=== PATIENT | female | born 1980 | race Caucasian/White ===

== ENCOUNTER 2021-02-03 12:58 | Emergency (ER) | payer MEDICAID, SELFPAY ==
[2021-02-03 13:02] VITALS: BP 166/78; PULSE 87; RESP 16; O2SAT 99; BMI 39.9
[2021-02-03 13:36] LABS: Glucose Urine UA NEG (NEG); Leukocyte Esterase Urine NEG (NEG); Nitrite Urine NEG (NEG); Specific Gravity - Urine >= 1.030 (1.005-1.025); Urine Blood NEG (NEG); Urine Ketones 5 MG/DL (NEG); Urine Protein NEG (NEG-TRACE)
[2021-02-03 13:43] LABS: Appearance Urine HAZY; Color Urine DARK YELLOW
[2021-02-03 13:46] LABS: UPreg QC Valid YES; Urine Pregnancy NEGATIVE (NEGATIVE)
[2021-02-03 14:12] LABS: MANUAL DIFF FLAG NO
[2021-02-03 14:14] LABS: Basophils Percent Auto 0.4 % (0-2); Eosinophils Absolute Auto 0.2 X10*3/uL (0.0-0.4); Hematocrit 48.9 % (37-47); Imm Gran Abs Auto 0.03 X10*3/uL (0.00-0.03); Imm Gran Pct Auto 0.4 % (0.0-0.4); Lymphocytes Percent Auto 23.6 % (20-40); Mean Corpuscular HGB Conc 34.8 g/dl (31.0-35.0); Mean Corpuscular Hemoglobin 33.1 pg (27.0-33.0); Mean Corpuscular Volume 95.1 fL (80-98); Mean Platelet Volume 11.5 fL (9.4-12.3); Monocytes Absolute Auto 0.8 X10*3/uL (0.1-1.2); Monocytes Percent Auto 9.1 % (2-11); Neutrophils Absolute Auto 5.4 X10*3/uL (2.0-8.3); Neutrophils Percent Auto 64.5 % (45-73); Platelet Count 203 X10*3/uL (160-400); Red Blood Count 5.14 X10*6/uL (4.20-5.50); Red Cell Distribution Width 13.2 % (11.0-16.0); White Blood Count 8.3 X10*3/uL (4.8-10.8)
[2021-02-03 14:35] LABS: Anion Gap 12 (12-20); Blood Urea Nitrogen 7 mg/dL (9-16); Calcium 9.5 mg/dL (8.4-10.2); Carbon Dioxide 30 mmol/L (22-29); Chloride 102 mmol/L (96-108); Creatinine Clr Calc Pharmacy 118.9; Estimated Glomerular Filt Rate > 60; Glucose Random 90 mg/dL (60-115); Potassium 4.5 mmol/L (3.3-5.1); Sodium 139 mmol/L (135-145)
[2021-02-03 14:44] LABS: HCG Quantitative < 2 mIU/mL
== END 2021-02-03 15:30 | disposition left against medical advice (07) ==
PROVIDERS: Emergency Provider Emergency Medicine
DX: R42 Dizziness and giddiness (principal); R10.9 Unspecified abdominal pain
CPT/HCPCS: 36415; 80048; 81003; 81025; 84702; 85025; 99283

== ENCOUNTER 2021-05-28 08:30 | Emergency (ER) | payer MEDICAID, SELFPAY ==
--- NOTE | ~2021-05-28 | XR_ITS ---
EXAMINATION: XR CHEST CLINICAL INFORMATION: Cough and fever. COMPARISON: None TECHNIQUE: 2 views of the chest were obtained. FINDINGS: No significant abnormality is noted involving the heart, lungs, mediastinum, bony thorax or soft tissues. XR/XR chest 2V IMPRESSION: Unremarkable chest examination.
[2021-05-28 09:14] VITALS: BP 158/100; PULSE 76; RESP 22; TEMP 36.9; O2SAT 95; BMI 29.0
[2021-05-28 09:29] LABS: COVID-19 Test Negative (Negative); IDNOW Serial# 08D9AD1C
--- NOTE | 2021-05-28 09:43 | ED_ITS ---
HPI - URI/Sore Throat General Chief Complaint: Upper Respiratory Symptoms Stated Complaint: cough, diff breathing, chest pain Time Seen by Provider: 05/28/21 09:35 Source: patient Mode of arrival: ambulatory Limitations: no limitations History of Present Illness HPI Narrative: 40-year-old female with a past medical history of high blood pressure and hypothyroidism here with complaints of 2 weeks of cough with some mild shortness of breath, generalized headache, sore throat. Son at home had similar symptoms. She initially had a fever with a max temp of 102 degrees on day 1 and 2 but this is resolved. She has had multiple COVID test that are negative. Related Data Previous Rx's Medication Instructions Recorded benzonatate 100 mg capsule 100 mg PO TID PRN #20 cap 05/28/21 (Tessalepifanio Dickinson) doxycycline monohydrate 100 mg 100 mg PO BID #20 tab 05/28/21 tablet ibuprofen 800 mg tablet 800 mg PO Q8H PRN #20 tab 05/28/21 prednisone 20 mg tablet 40 mg PO DAILY #8 tab 05/28/21 Allergies Allergy/AdvReac Type Severity Reaction Status Date / Time Penicillins [PENICILLINS] Allergy Severe ANAPHYLAXIS Verified 05/28/21 09:14 progesterone [PROGESTERONE] Allergy Severe ANAPHYLAXIS Verified 05/28/21 09:14 Review of Systems Review of Systems: Yes all other systems are reviewed and are negative Constitutional: Constitutional: Reports no additional constitutional compla ints, Denies body ache(s), Denies chills, Denies fever(s), Reports headache(s) and Denies weakness Eyes: Eyes: Reports no additional eye complaints and Denies change in vision ENT: Reports system reviewed and no additional complaints, except as documented, Denies dizziness, Reports headache(s), Denies nasal congestion, Denies nasal discharge, Denies neck pain and Reports sore throat Cardiovascular: Cardiovascular: Reports no additional cardiovascular complai nts, Denies chest pain, Denies leg edema and Reports dyspnea Respiratory: Respiratory: Reports no additional respiratory complaints, Reports cough and Reports dyspnea Gastrointestinal: Gastrointestinal: Reports no additional gastrointestinal complaints, Denies abdominal pain, Denies diarrhea, Denies nausea and Denies vomiting Genitourinary: Genitourinary: Reports no additional female genitourinary complaints and Denies urinary incontinence Musculoskeletal: Musculoskeletal: Reports no additional musculoskeletal complaints, Denies back pain, Denies arthralgias, Denies joint swelling, Denies neck pain, Denies numbness and Denies tingling Integumentary/Breasts: Skin/Breast: Reports system reviewed and no additional complaints, except as docu and Denies rash Neurologic: Reports system reviewed and no additional complaints, except as documented, Denies Abnormal speech present, Denies dizziness, Reports headache(s), Denies numbness, Denies tingling and Denies weakness PMFSH Past Medical History Attestation statement: The following information was validated with the patient. Source: old records reviewed and nursing notes reviewed Medical History Hypertension Hypothyroidism Miscarriage Social History Social History (Updated 05/28/21 @ 09:45 by Shey Roblero NP) Patient Tobacco Use Status: Current everyday Tobacco user Advance Directives: No Patient : No Physical Exam Vital Signs: Vital Signs: Last Vital Signs Temp 98.4 F 05/28/21 09:14 Pulse 76 05/28/21 10:04 Resp 18 05/28/21 11:25 BP 158/100 H 05/28/21 09:14 Pulse Ox 97 05/28/21 11:25 Body Mass Index 29.0 Const: General: cooperative, healthy appearing, comfortable and no acute distress Orientation/consciousness: patient oriented x3 Limitations: no limitations HENMT: Head: Yes normal to inspection Ears: hearing grossly normal bilaterally General nose exam: Normal external nose present Face and sinus: Yes normal facial exam Mouth: Normal oral and palatal mucosa present Throat: Yes posterior oropharynx normal Eyes: General: appearance normal, both eyes and all related structures Pupils: Equal, round and reactive pupils present Neck: Neck: Yes normal visual inspection Chest: Chest palpation & inspection: normal inspection of the chest Resp: Other: Mild expiratory wheezing Frequent bronchospastic cough Effort & Inspection: normal respiratory effort Cardio: Rate: regular rate Rhythm: regular rhythm Peripheral pulses: Peripheral pulses 2+ throughout GI: Inspection: Yes normal to inspection Palpation (GI): Soft to palpation and nontender Auscultation: normal bowel sounds Back/Spine/Pelvis: Thoracic/Lumbar Spine: thoracic and lumbar spine normal to inspection Skin: General skin exam: no rashes or lesions noted Neuro: General: patient oriented x3, no focal motor deficits and normal sensation to monofilament Cranial nerves: Yes Equal, round and reactive pupils present Cognition (Neuro): normal cognition Speech: No Abnormal speech present Gait exam (Neuro): Normal gait present Motor exam (neuro): 5/5 motor strength present throughout Extrem: General: Yes normal to inspection, Yes no pedal edema and Yes no calf tenderness Course Course Course Narrative: 40-year-old female here with URI symptoms for about 2 weeks despite [id number] medications and multiple COVID test at home. On exam the patient is anxious, mild expiratory wheezing, frequent bronchospastic cough. Will check COVID screen, chest x-ray. Trial albuterol MDI, PO Pred, Apap. 1115-COVID screen negative. Chest x-ray shows no acute abnormality. Patient feels improved after 2 puffs of an albuterol MDI likely bronchitis. Will treat with course of antibiotics, prednisone burst and supportive care. Patient is speaking full sentences. Oxygen saturations greater than 98%. Reviewed worrisome signs and symptoms when to return to the emergency department. Comfortable discharge home. MDM - URI/Sore Throat Differential Diagnosis Differential diagnosis: Likely upper respiratory infection Medical Records Attestation: I reviewed the patient's medical records. Lab Data Attestation: I reviewed the patient's lab results. Labs: Lab Results 05/28/21 05/28/21 Range/Units 08:50 10:00 Coronavirus (PCR) NEGATIVE (Negative) COVID-19 ([place]) Negative (Negative) COVID-19 Clin Com See Note Influenza Type A (PCR) NEGATIVE (Negative) Influenza Type B (PCR) NEGATIVE (Negative) RSV RNA Qual (PCR) NEGATIVE (Negative) Imaging Data Chest x-ray: Attestation: I personally reviewed and interpreted this imaging study as follows: Radiologist's impression: EXAMINATION: XR CHEST CLINICAL INFORMATION: Cough and fever. COMPARISON: None TECHNIQUE: 2 views of the chest were obtained. FINDINGS: No significant abnormality is noted involving the heart, lungs, mediastinum, bony thorax or soft tissues. XR/XR chest 2V IMPRESSION: Unremarkable chest examination. Discharge Plan Discharge Clinical Impression: Bronchitis Patient Disposition: Home, Self-Care Instructions: Acute Bronchitis (ED) Additional Instructions: Increase fluids, rest Your COVID test was negative Your chest x-ray showed no pneumonia Stop smoking Prescriptions: New prednisone 20 mg tablet 40 mg PO DAILY Qty: 8 RF: 0 doxycycline monohydrate 100 mg tablet 100 mg PO BID Qty: 20 RF: 0 benzonatate [Tessalon Perles] 100 mg capsule 100 mg PO TID PRN (Reason: cough) Qty: 20 RF: 0 ibuprofen 800 mg tablet 800 mg PO Q8H PRN (Reason: pain) Qty: 20 RF: 0 Referrals: Jovanny Peters MD [Primary Care Provider] - 2 days Interventions: ED Discharge Assessment Last Done: 05/28/21 11:25 Discharge Date/Time: 05/28/21 11:25
[2021-05-28] MEDS: predniSONE 20 MG TABLET 60 MG PO (09:57)
[2021-05-28] MEDS: Albuterol Sulfate 90 MCG 8 GM INHALER 2 PUFF INHALE (10:02)
[2021-05-28 10:04] VITALS: PULSE 76; O2SAT 96
[2021-05-28 10:54] LABS: Influenza A PCR NEGATIVE (Negative); Influenza B PCR NEGATIVE (Negative); Resp Syncy Virus RNA Qual PCR NEGATIVE (Negative); SARS COV2 PCR INHOUSE NEGATIVE (Negative)
[2021-05-28 11:25] VITALS: RESP 18; O2SAT 97
== END 2021-05-28 11:25 | disposition home or self-care (01) ==
PROVIDERS: Nurse Practitioner Family; Emergency Provider Emergency Medicine; PCP Internal Medicine
DX: J40 Bronchitis, not specified as acute or chronic (principal); R05 Cough; R07.9 Chest pain, unspecified; Z79.899 Other long term (current) drug therapy; Z20.822 Contact with and (suspected) exposure to COVID-19; F17.200 Nicotine dependence, unspecified, uncomplicated; Z71.6 Tobacco abuse counseling
CPT/HCPCS: 0241U; 36415; 71046; 87635; 94640; 99284

== ENCOUNTER 2024-01-09 22:01 | Emergency (ER) | payer MEDICAID, SELFPAY ==
--- NOTE | 2024-01-09 | ECG_ITS ---
Test Reason : CHEST PAIN Blood Pressure : / mmHG Vent. Rate : 090 BPM Atrial Rate : 090 BPM P-R Int : 128 ms QRS Dur : 082 ms QT Int : 368 ms P-R-T Axes : 041 035 029 degrees QTc Int : 450 ms Normal sinus rhythm Normal ECG No previous ECGs available Referred By: Generic ED Physician Electronically Signed By:Niko Phipps
[2024-01-09 22:08] VITALS: BP 152/73; BP 178/135; PULSE 110; PULSE 91; RESP 22; TEMP 37.1; O2SAT 96; BMI 32.9
[2024-01-09 22:19] LABS: MANUAL DIFF FLAG NO
[2024-01-09 22:21] LABS: Basophils Absolute Auto 0.1 X10*3/uL (0.0-0.2); Basophils Percent Auto 0.8 % (0-2); Eosinophils Absolute Auto 0.1 X10*3/uL (0.0-0.4); Eosinophils Percent Auto 1.5 % (0-4); Hematocrit 48.2 % (37.0-47.0); Imm Gran Abs Auto 0.04 X10*3/uL (0.00-0.03); Imm Gran Pct Auto 0.4 % (0.0-0.4); Lymphocytes Percent Auto 33.4 % (20-40); Mean Corpuscular HGB Conc 37.3 g/dl (31.0-35.0); Mean Corpuscular Hemoglobin 34.9 pg (27.0-33.0); Mean Corpuscular Volume 93.4 fL (80.0-98.0); Mean Platelet Volume 10.7 fL (9.4-12.3); Monocytes Absolute Auto 0.6 X10*3/uL (0.1-1.2); Monocytes Percent Auto 6.3 % (2-11); Neutrophils Absolute Auto 5.2 x10*3/uL (2.0-8.3); Neutrophils Percent Auto 57.6 % (45-73); Platelet Count 220 X10*3/uL (160-400); Red Blood Count 5.16 X10*6/uL (4.20-5.50); Red Cell Distribution Width 11.9 % (11.0-16.0)
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
[2024-01-09 22:36] LABS: Alanine Aminotransferase 160 U/L (0-31); Albumin Level 4.8 g/dL (3.5-5.0); Alkaline Phosphatase 78 U/L (39-117); Anion Gap 18 (12-20); Aspartate Amino Transferase 123 U/L (5-31); Bilirubin Total 0.9 mg/dL (0.0-1.0); Blood Urea Nitrogen 10 mg/dL (9-16); Calcium 9.4 mg/dL (8.4-10.2); Carbon Dioxide 21 mmol/L (22-29); Chloride 106 mmol/L (96-108); Creatinine Clr Calc Pharmacy 115.9; Estimated Glomerular Filt Rate > 60; Glucose Random 104 mg/dL (60-115); Potassium 3.6 mmol/L (3.3-5.1); Sodium 141 mmol/L (135-145)
[2024-01-09 22:44] LABS: Troponin-I High Sensitivity < 2.7 ng/L (<3.5-17.0)
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
[2024-01-09] MEDS: 0.9 % Sodium Chloride 1,000 ML 999 ML IV (23:54)
[2024-01-09] MEDS: LORazepam 2 MG/ML VIAL 1 MG IVPUSH (23:55)
--- NOTE | 2024-01-09 23:59 | PC.NURSE ---
pt medicated per mar for anxiety, fluid bolus administered at this time.
[2024-01-10 01:05] VITALS: BP 128/80; PULSE 80; RESP 12; TEMP 36.4; O2SAT 98
[2024-01-10] MEDS: Ketorolac Tromethamine 30 MG/ML VIAL IVPUSH (02:27)
[2024-01-10] MEDS: diphenhydrAMINE HCL 50 MG/ML VIAL 25 MG IVPUSH (02:27)
--- NOTE | 2024-01-10 02:31 | PC.NURSE ---
pt medicated per oct for headache at this time.
[2024-01-10 04:00] VITALS: BP 120/72; PULSE 78; RESP 13; TEMP 36.7; O2SAT 98
[2024-01-10 05:27] VITALS: BP 120/72; PULSE 78; RESP 13; TEMP 36.7; O2SAT 98
== END 2024-01-10 05:28 | disposition home or self-care (01) ==
PROVIDERS: Emergency Provider Internal Medicine
DX: F41.8 Other specified anxiety disorders (principal); R07.89 Other chest pain; R06.02 Shortness of breath; I10 Essential (primary) hypertension; E03.9 Hypothyroidism, unspecified; F17.210 Nicotine dependence, cigarettes, uncomplicated; F12.90 Cannabis use, unspecified, uncomplicated; Z79.899 Other long term (current) drug therapy
CPT/HCPCS: 36415; 80053; 84484; 85025; 93005; 96361; 96374; 96375; 99284; 99285; J1200; J1885; J2060

== ENCOUNTER → 2024-01-09 22:08 | Outpatient (BNV) | payer MEDICAID, SELFPAY | PROVIDERS: Emergency Provider Internal Medicine; Visit Provider Internal Medicine Cardiovascular Disease | DX: R07.9 Chest pain, unspecified (principal) | CPT/HCPCS: 93010 ==

== ENCOUNTER 2024-03-26 22:55 | Emergency (ER) | payer OTHER, SELFPAY ==
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
[2024-03-26 23:01] VITALS: BP 152/74; BP 152/99; PULSE 122; PULSE 96; RESP 14; TEMP 36.9; O2SAT 97; BMI 31.8
[2024-03-26 23:36] LABS: MANUAL DIFF FLAG NO
[2024-03-26 23:42] LABS: Basophils Absolute Auto 0.1 X10*3/uL (0.0-0.2); Basophils Percent Auto 0.7 % (0-2); Eosinophils Absolute Auto 0.2 X10*3/uL (0.0-0.4); Eosinophils Percent Auto 1.7 % (0-4); Hematocrit 47.2 % (37.0-47.0); Hemoglobin 17.7 g/dl (12.0-16.0); Imm Gran Abs Auto 0.04 X10*3/uL (0.00-0.03); Imm Gran Pct Auto 0.4 % (0.0-0.4); Lymphocytes Absolute Auto 3.7 X10*3/uL (1.2-4.9); Lymphocytes Percent Auto 33.3 % (20-40); Mean Corpuscular HGB Conc 37.5 g/dl (31.0-35.0); Mean Corpuscular Hemoglobin 34.8 pg (27.0-33.0); Mean Corpuscular Volume 92.9 fL (80.0-98.0); Mean Platelet Volume 10.7 fL (9.4-12.3); Monocytes Absolute Auto 0.8 X10*3/uL (0.1-1.2); Monocytes Percent Auto 7.2 % (2-11); Neutrophils Absolute Auto 6.2 x10*3/uL (2.0-8.3); Neutrophils Percent Auto 56.7 % (45-73); Platelet Count 231 X10*3/uL (160-400); Red Blood Count 5.08 X10*6/uL (4.20-5.50); Red Cell Distribution Width 12.6 % (11.0-16.0)
[2024-03-26 23:50] LABS: Prothrombin Time 12.3 SEC (11.1-13.3)
[2024-03-26 23:58] LABS: Alanine Aminotransferase 234 U/L (0-31); Albumin Level 4.7 g/dL (3.5-5.0); Alkaline Phosphatase 87 U/L (39-117); Anion Gap 16 (12-20); Aspartate Amino Transferase 168 U/L (5-31); Bilirubin Total 0.9 mg/dL (0.0-1.0); Blood Urea Nitrogen 6 mg/dL (9-16); Calcium 9.3 mg/dL (8.4-10.2); Carbon Dioxide 24 mmol/L (22-29); Chloride 103 mmol/L (96-108); Creatinine Clr Calc Pharmacy 107.1; Estimated Glomerular Filt Rate > 60; Glucose Random 139 mg/dL (60-115); Potassium 2.9 mmol/L (3.3-5.1); Sodium 140 mmol/L (135-145); Total Protein 7.5 g/dL (6.5-8.0)
[2024-03-27] VITALS: BP 155/109; PULSE 110; RESP 25; TEMP 36.9; O2SAT 96
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
[2024-03-27] MEDS: Acetaminophen 325 MG TABLET 975 MG PO (00:54)
[2024-03-27] MEDS: Potassium Chloride Packet 20 MEQ PACKET 60 MEQ PO (00:54)
[2024-03-27 01:16] VITALS: BP 160/98; PULSE 98; RESP 18; TEMP 36.8; O2SAT 97
== END 2024-03-27 01:17 | disposition home or self-care (01) ==
PROVIDERS: Emergency Provider Emergency Medicine
DX: S00.81XA Abrasion of other part of head, initial encounter (principal); R51.9 Headache, unspecified; R00.0 Tachycardia, unspecified; R23.3 Spontaneous ecchymoses; M54.2 Cervicalgia; Y04.8XXA Assault by other bodily force, initial encounter; Y93.89 Activity, other specified; Y92.480 Sidewalk as the place of occurrence of the external cause; Y99.8 Other external cause status
CPT/HCPCS: 36415; 70450; 70486; 72125; 80053; 83735; 85025; 85610; 93005; 99285

== ENCOUNTER → 2024-03-26 23:05 | Outpatient (BNV) | payer SELFPAY | PROVIDERS: Emergency Provider Emergency Medicine; Visit Provider Internal Medicine | DX: R00.0 Tachycardia, unspecified (principal) | CPT/HCPCS: 93010 ==

== ENCOUNTER 2024-08-25 17:23 | Emergency (ER) | payer MEDICAID, SELFPAY ==
--- NOTE | ~2024-08-25 | US_ITS ---
EXAMINATION: US PELVIS CLINICAL INFORMATION: Vaginal bleeding, suprapubic pain. Postmenopausal COMPARISON: None available. TECHNIQUE: Ultrasound of the pelvis is performed using both transabdominal and transvaginal transducers along with Doppler. Transvaginal imaging is performed due to inadequate visualization transabdominally. FINDINGS: Uterus: The uterus is anteverted and measures 8.0 x 3.3 x 4.6 cm. Evaluation is suboptimal due to body habitus and shadowing The double wall endometrial thickness is 0.5 mm. The uterus is smooth in contour and has normal myometrial echogenicity. No visible fibroid. Adnexa: Right ovary is visualized on the transabdominal views only. Left ovary is obscured by bowel gas shadowing. There is no pelvic ascites or fluid collection. Right ovary measures 3.3 x 2.5 x 1.6 cm. Grossly unremarkable US/US pelvic and transvaginal IMPRESSION: 1. Uterus is grossly unremarkable. Endometrial stripe is top normal in thickness but suboptimally evaluated. 2. Right ovary is grossly unremarkable. Left ovary is not visualized. Electronically signed by: Bernardo Kirkpatrick MD 08/25/2024 08:01 PM EST
[2024-08-25 17:25] VITALS: BP 169/77; BP 170/110; PULSE 100; PULSE 104; RESP 20; TEMP 36.8; O2SAT 97; O2SAT 98; BMI 34.6
[2024-08-25 17:46] LABS: Appearance Urine Clear; Color Urine Yellow; Glucose Urine UA Negative (Negative); Leukocyte Esterase Urine Negative (Negative); Nitrite Urine Negative (Negative); PH 5.5 (5.0-9.0); Specific Gravity - Urine <= 1.005 (1.005-1.025); UMIC TRIGGER UACC YES; Urine Blood Small (1+) (Negative); Urine Ketones Negative (Negative); Urine Protein Negative (Neg-Trace)
[2024-08-25 17:48] LABS: UPreg QC Valid YES; Urine Pregnancy NEGATIVE (NEGATIVE)
--- NOTE | 2024-08-25 17:49 | ED_ITS ---
HPI - Female Genitourinary General Chief complaint: Vaginal Bleeding Stated complaint: vaginal bleed, abd pain, hx of miscarriage Time Seen by Provider: 08/25/24 17:44 Source: patient and EMS Mode of arrival: EMS Limitations: no limitations History of Present Illness ED Provider: Dr. Gely Gomez HPI Narrative: Patient comes to the emergency room complaining of abdominal pain Heavy vaginal bleeding for two days. Patient reports that she has not had a menstrual period for 3+ years. Patient states that today she went through multiple pads and continues having bleeding and abdominal pain/ cramping. patient states that today she changed her parents/ underwear 7 times because of so much bleeding. Patient states that she tried using tampons but because it was bleeding so much and she was changing tampon so often, she used to get off and was using pads. Related Data Previous Rx's ?Medication ?Instructions ?Recorded benzonatate 100 mg capsule 100 mg PO TID PRN cough #20 caps 05/28/21 (Tessalon Perlpepe) doxycycline monohydrate 100 mg 100 mg PO BID #20 tabs 05/28/21 tablet ibuprofen 800 mg tablet 800 mg PO Q8H PRN pain #20 tabs 05/28/21 prednisone 20 mg tablet 40 mg (2 x 20 mg) PO DAILY #8 tabs 05/28/21 lorazepam 1 mg tablet (Ativan) 1 mg PO BEDTIME PRN anxiety #14 01/10/24 tabs bacitracin zinc 500 unit/gram 1 appl topical QID #14 grams 03/27/24 topical ointment Allergies Allergy/AdvReac Type Severity Reaction Status Date / Time Penicillins [PENICILLINS] Allergy Severe ANAPHYLAXIS Verified 08/25/24 17:29 progesterone [PROGESTERONE] Allergy Severe ANAPHYLAXIS Verified 03/26/24 23:04 Review of Systems 2 Review of Systems: Constitutional : No Weight loss, No Fever, No Chills, No Night Sweats, No Fatigue, No Malaise ENT/Mouth : No Hearing loss, No Ear Pain, No Nasal Congestion, No Sinus Pain, No Hoarseness, No sore throat, No Rhinorrhea, No Swallowing Difficulty Eyes: No Eye Pain, No Swelling, No Redness, No Foreign Body, No Discharge, No Vision Changes Cardiovascular : No Chest Pain, No SOB, No Dyspnea on Exertion, No Orthopnea, No Edema, No Palpitations Respiratory : No Cough, No Sputum, No Wheezing, No Smoke Exposure, No Dyspnea Gastrointestinal : No Nausea, No Vomiting, No Diarrhea, No Constipation, No abdominal Pain, No Hematochezia, No Melena Genitourinary : Complaining of heavy vaginal bleeding after 3 years of not having a menstrual period, No Dysuria, No Urinary Frequency, No Hematuria, No Urinary Incontinence, No Urgency, No Flank Pain, No Urinary Flow Changes, No Hesitancy Musculoskeletal : No joint pain, No Myalgias, No Joint Swelling Skin : No Skin Lesions, No rash Neuro : No Weakness, No Numbness, No Paresthesias, No Loss of Consciousness, No Dizziness, No Headache Psych : No Anxiety/Panic, No Depression, No SI/HI/AH/VH, No Social Issues, Heme/Lymph: No Bruising, No Bleeding,No Lymphadenopathy Endocrine : No Polyuria, No Polydipsia, No Temperature Intolerance PMFSH Past Medical History Medical History Miscarriage Hypertension Hypothyroidism Social History Social History Alcohol intake: current Alcohol type: beer Patient Tobacco Use Status: Current everyday Tobacco user Smoked in Last 30 Days: Yes Use of substances other than those prescribed or required for medical reasons: Yes Substance Use Type: Marijuana Advance Directives: No Advance Directives Information Provided: No Patient : No Physical Exam 2 Vital Signs: Vital Signs: Last Vital Signs Temp 98.3 F 08/25/24 17:25 Pulse 104 H 08/25/24 17:25 Resp 20 08/25/24 17:25 BP 169/77 H 08/25/24 17:25 Pulse Ox 97 08/25/24 17:25 O2 Del Method Room Air 08/25/24 17:25 BMI result Body Mass Index 34.6 Const: Other: Appearance: Alert. Oriented X3. No acute distress. Eyes: Pupils equal, round and reactive to light. ENT: Pharynx normal. Neck: Normal inspection. Neck supple. No lymph nodes noted. No crepitus CVS: Normal heart rate and rhythm. Pulses normal. Normal S1 and S2 Respiratory: No respiratory distress. Breath sounds normal. No Wheezing. No rales Abdomen: Soft and nontender. No rigidity. No distention. : There is very scant amount of blood around the cervical os and in the vaginal vault. Skin: Skin warm and dry. Normal skin color. Normal skin turgor. Extremities: No lower extremity edema. No Lacerations. No Rash Neuro: Oriented X 3. No motor deficit. No sensory deficit. Moving all extremities. No slurred speech. CN 2 through 12 grossly intact Psych: calm, cooperative, very anxious Medications Administered Discontinued Medications Generic Name Dose Route Start Last Admin Trade Name Davian PRN Reason Stop Dose Admin Acetaminophen 975 mg 08/25/24 17:49 08/25/24 17:54 Acetaminophen 325 Mg Tablet PO 08/25/24 17:50 975 mg ONCE ONE Administration Lorazepam 2 mg 08/25/24 17:49 08/25/24 17:54 Lorazepam 1 Mg Tablet PO 08/25/24 17:50 2 mg ONCE ONE Administration Medical Decision Making Medical Decision Making [facility] Narrative: Patient's hemoglobin 15.7, hematocrit 43.4, normal chemistry on physical exam, there is hardly any blood in the cervical vault /cervical os. Serology swabs were taken. Unlikely that results will return today. There was no vaginal discharge. transvaginal ultrasound pending. - Patient was given p.o. Ativan, patient seems very anxious. ultrasound report: Uterus is grossly unremarkable. endometrial stripe is top normal in thickness but suboptimally evaluated. Right ovaries grossly unremarkable, left over is not visualized. - Patient states that this time she feels better. - patient is hemodynamically stable Differential Diagnosis Differential Diagnoses: The differential diagnosis associated with the presentation includes ( menorrhagia, menstrual period) Lab Data [facility] Lab Attestation statement: I reviewed the patient's lab results. 08/25/24 17:47 08/25/24 17:47 Labs: Lab Results 08/25/24 08/25/24 Range/Units 17:39 17:47 WBC 10.5 (4.8-10.8) X10*3/uL RBC 4.68 (4.20-5.50) X10*6/uL Hgb 15.7 (12.0-16.0) g/dl Hct 43.4 (37.0-47.0) % MCV 92.7 (80.0-98.0) fL MCH 33.5 H (27.0-33.0) pg MCHC 36.2 H (31.0-35.0) g/dl RDW 12.1 (11.0-16.0) % Plt Count 216 (160-400) X10*3/uL MPV 11.2 (9.4-12.3) fL Immature Gran % (Auto) 0.6 H (0.0-0.4) % Neut % (Auto) 54.7 (45-73) % Lymph % (Auto) 35.4 (20-40) % [place] % (Auto) 6.0 (2-11) % Eos % (Auto) 2.5 (0-4) % Baso % (Auto) 0.8 (0-2) % Lymph # (Auto) 3.7 (1.2-4.9) X10*3/uL [place] # (Auto) 0.6 (0.1-1.2) X10*3/uL Eos # (Auto) 0.3 (0.0-0.4) X10*3/uL Baso # (Auto) 0.1 (0.0-0.2) X10*3/uL Abs Immat Gran (auto) 0.06 H (0.00-0.03) X10*3/uL Absolute Neuts (auto) 5.8 (2.0-8.3) x10*3/uL Absolute Nucleated RBC 0.000 (0.0-0.012) X10*3/uL Nucleated RBC % (auto) 0.0 (0.0-0.2) /100WBC Sodium 141 (135-145) mmol/L Potassium 3.7 D (3.3-5.1) mmol/L Chloride 107 (96-108) mmol/L Carbon Dioxide 26 (22-29) mmol/L Anion Gap 12 (12-20) BUN 11 (9-16) mg/dL Creatinine 0.74 (0.5-1.4) mg/dL Estim Creat Clear Calc 116.5 Estimated GFR > 60 Random Glucose 106 (60-115) mg/dL Calcium 9.2 (8.4-10.2) mg/dL Total Bilirubin 0.6 (0.0-1.0) mg/dL AST 85 H (5-31) U/L ALT 124 H (0-31) U/L Alkaline Phosphatase 66 (39-117) U/L Total Protein 7.6 (6.5-8.0) g/dL Albumin 4.6 (3.5-5.0) g/dL Beta HCG, Quant < 2 mIU/mL Urine Color Yellow Urine Appearance Clear Urine pH 5.5 (5.0-9.0) Ur Specific [place] <= 1.005 (1.005-1.025) Urine Protein Negative (Neg-Trace) mg/dL Urine Glucose (UA) Negative (Negative) mg/dL Urine Ketones Negative (Negative) mg/dL Urine Blood Small (1+) H (Negative) Urine Nitrite Negative (Negative) Ur Leukocyte Esterase Negative (Negative) Urine RBC 0-2 (0-2) /HPF Urine WBC 0-5 (0-5) /HPF Ur Squamous Epith Cells 0-2 (0-2) /HPF Urine Bacteria None Seen (None Seen) Hyaline Casts 0-2 (0-2) /LPF Urine Test NEGATIVE (NEGATIVE) Independent Interpretation I performed an independent interpretation of an: Ultrasound Radiology Impression Discussion of test interpretation with radiology: I have reviewed the radiologist's reading. Radiologist Impression: Uterus: The uterus is anteverted and measures 8.0 x 3.3 x 4.6 cm. Evaluation is suboptimal due to body habitus and shadowing The double wall endometrial thickness is 0.5 mm. The uterus is smooth in contour and has normal myometrial echogenicity. No visible fibroid. Adnexa: Right ovary is visualized on the transabdominal views only. Left ovary is obscured by bowel gas shadowing. There is no pelvic ascites or fluid collection. Right ovary measures 3.3 x 2.5 x 1.6 cm. Grossly unremarkable US/US pelvic and transvaginal IMPRESSION: 1. Uterus is grossly unremarkable. Endometrial stripe is top normal in thickness but suboptimally evaluated. 2. Right ovary is grossly unremarkable. Left ovary is not visualized. Discharge Plan Discharge Clinical Impression: Vaginal bleeding Patient Disposition: Home, Self-Care Instructions: Dysfunctional Uterine Bleeding (ED) Additional Instructions: Please follow-up with your primary care physician tomorrow. If you have any worsening or new symptoms, please return to the emergency room or call 911 Prescriptions: No Action prednisone 20 mg tablet 40 mg PO DAILY Qty: 8 0RF doxycycline monohydrate 100 mg tablet 100 mg PO BID Qty: 20 0RF benzonatate [Tessalon Perles] 100 mg capsule 100 mg PO TID PRN (Reason: cough) Qty: 20 0RF ibuprofen 800 mg tablet 800 mg PO Q8H PRN (Reason: pain) Qty: 20 0RF lorazepam [Ativan] 1 mg tablet 1 mg PO BEDTIME PRN (Reason: anxiety) Qty: 14 0RF bacitracin zinc 500 unit/gram ointment 1 appl topical QID Qty: 14 0RF Print Language: Fijian
[2024-08-25 17:52] LABS: MANUAL DIFF FLAG NO
[2024-08-25] MEDS: LORazepam 1 MG TABLET 2 MG PO (17:54)
[2024-08-25] MEDS: Acetaminophen 325 MG TABLET 975 MG PO (17:54)
[2024-08-25 17:57] LABS: Basophils Absolute Auto 0.1 X10*3/uL (0.0-0.2); Basophils Percent Auto 0.8 % (0-2); Eosinophils Absolute Auto 0.3 X10*3/uL (0.0-0.4); Eosinophils Percent Auto 2.5 % (0-4); Hematocrit 43.4 % (37.0-47.0); Hemoglobin 15.7 g/dl (12.0-16.0); Imm Gran Abs Auto 0.06 X10*3/uL (0.00-0.03); Imm Gran Pct Auto 0.6 % (0.0-0.4); Lymphocytes Absolute Auto 3.7 X10*3/uL (1.2-4.9); Lymphocytes Percent Auto 35.4 % (20-40); Mean Corpuscular HGB Conc 36.2 g/dl (31.0-35.0); Mean Corpuscular Hemoglobin 33.5 pg (27.0-33.0); Mean Corpuscular Volume 92.7 fL (80.0-98.0); Mean Platelet Volume 11.2 fL (9.4-12.3); Monocytes Absolute Auto 0.6 X10*3/uL (0.1-1.2); Neutrophils Absolute Auto 5.8 x10*3/uL (2.0-8.3); Neutrophils Percent Auto 54.7 % (45-73); Platelet Count 216 X10*3/uL (160-400); Red Blood Count 4.68 X10*6/uL (4.20-5.50); Red Cell Distribution Width 12.1 % (11.0-16.0); White Blood Count 10.5 X10*3/uL (4.8-10.8)
[2024-08-25 18:14] LABS: Alanine Aminotransferase 124 U/L (0-31); Albumin Level 4.6 g/dL (3.5-5.0); Alkaline Phosphatase 66 U/L (39-117); Anion Gap 12 (12-20); Aspartate Amino Transferase 85 U/L (5-31); Bilirubin Total 0.6 mg/dL (0.0-1.0); Blood Urea Nitrogen 11 mg/dL (9-16); Calcium 9.2 mg/dL (8.4-10.2); Carbon Dioxide 26 mmol/L (22-29); Chloride 107 mmol/L (96-108); Creatinine Clr Calc Pharmacy 116.5; Estimated Glomerular Filt Rate > 60; Glucose Random 106 mg/dL (60-115); Potassium 3.7 mmol/L (3.3-5.1); Sodium 141 mmol/L (135-145); Total Protein 7.6 g/dL (6.5-8.0)
[2024-08-25 18:16] LABS: HCG Quantitative < 2 mIU/mL
[2024-08-25 18:19] LABS: Bacteria Urine None Seen (None Seen); Hyaline Casts Urine 0-2 /LPF (0-2); RBC Urine 0-2 /HPF (0-2); Squamous Epithelial Cell Urine 0-2 /HPF (0-2); WBC Urine 0-5 /HPF (0-5)
[2024-08-25 21:07] VITALS: BP 110/60; PULSE 83; RESP 16; TEMP 36.4; O2SAT 100
--- NOTE | 2024-08-25 21:19 | PC.NURSE ---
pt upset that she is being d/c w/out a ride home and will have to walk home. pt is ambulatory and encouraged pt to use her cell phone to call a friend for a ride or use a ride share [employer]. pt provided with food prior to discharge
[2024-08-25 21:29] VITALS: BP 110/60; PULSE 83; RESP 16; TEMP 36.4; O2SAT 100
[2024-08-26 04:48] LABS: CT PCR NOT DETECTED (Not Detect.); NG PCR NOT DETECTED (Not Detect.)
[2024-08-26 08:22] LABS: Bacterial Vaginosis PCR POSITIVE (Negative); Candida Group PCR NOT DETECTED (Not Detect); Candida glab krusei PCR NOT DETECTED (Not Detect); Trichomonas vaginalis PCR NOT DETECTED (Not Detect)
== END 2024-08-25 22:01 | disposition home or self-care (01) ==
PROVIDERS: Emergency Provider Emergency Medicine
DX: N76.0 Acute vaginitis (principal); N93.9 Abnormal uterine and vaginal bleeding, unspecified; I10 Essential (primary) hypertension; F17.200 Nicotine dependence, unspecified, uncomplicated; Z79.899 Other long term (current) drug therapy
CPT/HCPCS: 0352U; 36415; 76830; 76856; 80053; 81001; 81025; 84702; 85025; 87491; 87591; 99284

== ENCOUNTER 2024-09-12 10:54 | Outpatient (REF) | payer MEDICAID, SELFPAY ==
[2024-09-12 13:59] LABS: MANUAL DIFF FLAG NO
[2024-09-12 14:05] LABS: Basophils Absolute Auto 0.1 X10*3/uL (0.0-0.2); Basophils Percent Auto 0.5 % (0-2); Eosinophils Absolute Auto 0.1 X10*3/uL (0.0-0.4); Eosinophils Percent Auto 0.7 % (0-4); Hematocrit 47.3 % (37.0-47.0); Hemoglobin 17.1 g/dl (12.0-16.0); Imm Gran Abs Auto 0.05 X10*3/uL (0.00-0.03); Imm Gran Pct Auto 0.4 % (0.0-0.4); Lymphocytes Absolute Auto 2.8 X10*3/uL (1.2-4.9); Lymphocytes Percent Auto 21.5 % (20-40); Mean Corpuscular HGB Conc 36.2 g/dl (31.0-35.0); Mean Corpuscular Hemoglobin 33.4 pg (27.0-33.0); Mean Corpuscular Volume 92.4 fL (80.0-98.0); Mean Platelet Volume 11.8 fL (9.4-12.3); Monocytes Absolute Auto 1.1 X10*3/uL (0.1-1.2); Monocytes Percent Auto 8.7 % (2-11); Neutrophils Absolute Auto 8.8 x10*3/uL (2.0-8.3); Neutrophils Percent Auto 68.2 % (45-73); Platelet Count 262 X10*3/uL (160-400); Red Blood Count 5.12 X10*6/uL (4.20-5.50); White Blood Count 12.9 X10*3/uL (4.8-10.8)
[2024-09-12 14:08] LABS: Appearance Urine Turbid; Color Urine Orange; Glucose Urine UA Negative (Negative); Leukocyte Esterase Urine Trace (Negative); Specific Gravity - Urine >= 1.030 (1.005-1.025); UMIC TRIGGER UACC YES; Urine Blood Negative (Negative); Urine Ketones Negative (Negative)
[2024-09-12 14:17] LABS: Bacteria Urine 1+ (None Seen); RBC Urine 0-2 /HPF (0-2); WBC Urine 0-5 /HPF (0-5)
[2024-09-12 14:18] LABS: Other Crystals Urine Present
[2024-09-12 14:27] LABS: Alanine Aminotransferase 128 U/L (0-31); Albumin Level 5.1 g/dL (3.5-5.0); Alkaline Phosphatase 79 U/L (39-117); Anion Gap 13 (12-20); Aspartate Amino Transferase 78 U/L (5-31); Bilirubin Total 1.2 mg/dL (0.0-1.0); Blood Urea Nitrogen 13 mg/dL (9-16); Calcium 10.1 mg/dL (8.4-10.2); Carbon Dioxide 30 mmol/L (22-29); Chloride 105 mmol/L (96-108); Cholesterol 187 mg/dL (<200); Estimated Glomerular Filt Rate > 60; Glucose Random 109 mg/dL (60-115); HDL Cholesterol 62 mg/dL (>40); LDL Cholesterol Calculated 71 mg/dL (<100); Potassium 4.5 mmol/L (3.3-5.1); Sodium 143 mmol/L (135-145); Total Protein 8.4 g/dL (6.5-8.0); Triglycerides 272 mg/dL (<150)
[2024-09-12 14:47] LABS: TSH reflex Free T4 3.92 uIU/mL (0.32-4.0)
[2024-09-12 14:55] LABS: Folate 13.2 ng/mL (> or = 4.0); Vitamin B12 501 pg/mL (200-900)
== END 2024-09-12 10:55 | disposition home or self-care (01) ==
LOC: HO.CHCLDS 10:54
PROVIDERS: Visit Provider Family Medicine
DX: I10 Essential (primary) hypertension (principal); E03.9 Hypothyroidism, unspecified
CPT/HCPCS: 36415; 80053; 80061; 81001; 82607; 82746; 84443; 85025

== ENCOUNTER 2024-09-20 11:08 | Outpatient (REF) | payer MEDICAID, SELFPAY ==
--- OUTSIDE RECORDS SUMMARY | 2024-09-20 12:52 | XMS_ITS | Encounter Summary ---
Author Organization [employer] Address [address] [place] [address] [address] [place] [address] Care Team Providers Care Credit Resolution Representative Name Role Phone Yudi Mcneil MD Primary Care Provider [phone] Reason for Visit * Reason Comments Recovery Supports Encounter Details Date Type Department Care Team (Late st Contact Info) Description 09/13/2024 Patient Outreach [facility] [address] [place] [id number] [place] Jackson Recovery Supports Social History Tobacco Use Types Packs/Day Years Used Date Smoking Tobacco: Every Day Cigarettes Passive Smoke Exposure: Current Smokeless Tobacco: Never Alcohol Use Standard Drinks/Week Comments Yes 0 (1 standard drink = 0.6 oz pur e alcohol) Social irregular use Depression Answer Date Recorded Patient Health Questionnaire-9 Score 15 09/12/2024 Patient Health Questionnaire-9 Score 15 09/12/2024 Last PHQ-9: Questionnaire Data Not on file 0 09/12/2024 Depression Answer Date Recorded Patient Health Questionnaire-2 Score 4 09/12/2024 Comments Unknown Sex and Gender Information Value Date Recorded Sex Assigned at Female 06/30/2022 10:25 AM EDT Legal Sex Female 10:25 AM EDT Gender Identity Female 06/30/2022 10:25 AM EDT Sexual Orientation Straight 06/30/2022 10 :25 AM EDT documented as of this encounter Plan of Treatment Upcoming Encounters Date Type Department Care Team (Late st Contact Info) Description 09/27/2024 11:15 AM EST Office Visit [facility] [address] [place] [address] Prabhjot Galicia MD [address] [place] [address] 10/03/2024 10:30 AM EST Clinical Support [facility] [address] [place] [address] 10/04/2024 9:45 AM EST Office Visit [facility] [address] [place] [address] Jovanny Peters MD [address] [place] [address] documented as of this encounter Visit Diagnoses Not on filedocumented in this encounter Additional Health Concerns Assessment Noted Time PHQ-9 Depression Total Score: 15 025 9:38 AM EST documented as of this encounter Care Teams Credit Resolution Representative Relationship Specialty Start Date End Date Yudi Mcneil MD [address] [place] [address] PCP - General Family Medicine 09/12/24 Maryanne Diamond [address] [place] [id number] Licensed Mental Health Counselor Behavioral Health 05/02/24 documented as of this encounter
--- OUTSIDE RECORDS SUMMARY | 2024-09-20 12:52 | XMS_ITS | Encounter Summary ---
Author Organization [employer] Address [address] [place] [address] 7 [place] [address] Care Team Providers Care Exhibitions And Collections Manager Name Role Phone Yudi Mcneil MD Primary Care Provider [phone] Reason for Visit * Reason Comments OBAT F/U Encounter Details Date Type Department Care Team (Latest Contact Info) Description 09/20/2024 11:00 AM EST Office Visit [facility] MEDICINE [address] [place] [address] Prabhjot Galicia MD [address] [place] [address] Uncomplicated opioid use (Primary Dx); Tobacco use disorder Social History Tobacco Use Types Packs/Day Years [...] Description 09/27/2024 11:15 AM EST Office Visit [facility] MEDICINE [address] [place] [address] Prabhjot Galicia MD [address] [place] [address] 10/03/2024 10:30 AM EST Clinical Support [facility] CHC MED & PEDS [address] [place] [address] 10/04/2024 9:45 AM EST Office Visit [facility] MED & PEDS [address] [place] [address] Jovanny Peters MD [address] [place] [address] documented as of this encounter Procedures Procedure Name Priority Date/Time Associated Diagnosis Comments POCT LOUIS-14 URINE DRUG SCREEN Routine 09/20/2024 10:43 AM EST Uncomplicated opioid use documented in this encounter Results * POCT LOUIS-14 Urine Drug Screen (09/20/2024 10:43 AM EST) THC Positive Cocaine Screen, Urine Negative Opiate Screen, Urine Negative Methamphetamine Screen Urine Negative Amphetamine Screen, Urine Negative Benzodiazepines Screen, Urine Negative Barbiturate Screen, Urine Negative Methadone Screen, Urine Negative Buprenophine Screen, Urine Positive TCA, Urine Positive MDMA Urine Negative ng/mL Oxycodone Screen, Urine Negative Phencyclidine (PCP), Urine Negative Propoxyphene, Urine Negative Fentanyl, Urine Negative Urine Urine specimen obtained by clean catch procedure / Unknown 09/20/2024 10:43 AM EST us Prabhjot Galicia MD POINT OF CARE TEST ENTER/EDIT ORDERABLES Final Result documented in this encounter Visit Diagnoses Diagnosis Uncomplicated opioid use- Primary Tobacco use disorder documented in this encounter Additional Health Concerns Assessment Noted Time PHQ-9 Depression Total Score: 15 025 9:38 AM EST documented as of this encounter Care Teams Exhibitions And Collections Manager Relationship Specialty Start Date End Date Yudi Mcneil MD [address] [place] [address] PCP - General Family Medicine 09/12/24 Maryanne Diamond [address] [place] [address] Licensed Mental Health Counselor Behavioral Health 05/02/24 documented as of this encounter
--- OUTSIDE RECORDS SUMMARY | 2024-09-20 12:52 | XMS_ITS | Encounter Summary ---
Author Organization [employer] Address [address] [place] [address] 7 [place] [address] Care Team Providers Care Metal Fence Erector Name Role Phone Yudi Mcneil MD Primary Care Provider [phone] Reason for Referral * Imaging (Routine) - Authorized Specialty Diagnoses / Procedures Referred By Contac t Referred To Contact Radiology Diagnoses Transaminitis Procedures US Abdomen Comp w elastography Yudi Mcneil MD [address] [place] [address] Phone: tel: fax: [address] Phone: tel: fax: Referral ID Status Reason Start Date Expiration Date V isits Requested Visits Authorized [id number] Authorized 09/12/2024 09/12/2025 1 1 Encounter Details Date Type Department Care Team (Late st Contact Info) Description 09/12/2024 Telephone [facility] CHC MED & PEDS [address] [place], [place] [phone] Yudi Mcneil MD [address] [place], [place] [phone] Social History Tobacco Use Types Packs/Day Years [...] AM EDT documented as of this encounter Miscellaneous Notes * Telephone Encounter - Yesy Eric RN - 09/13/2024 4:00 PM EST T/C to pt. Advised of message from pcp re: lab results. Pt reports agreement with plan. * Telephone Encounter - Yudi Mcneil MD - 09/12/2024 3:12 PM EST [facility] [place] Team! Can you please call Betty Hart [place] and inform about results? Labs show signs of dehydration and hemoconcentration. At this moment will need to repeat in a couple of months. She has transaminitis, unknown as chronic, will need to do further testing. She also has an elevated protein gap. Merits further eval. Thanks! Yudi documented in this encounter Plan of Treatment Upcoming Encounters Date Type Department Care Team (Late st Contact Info) Description 09/27/2024 11:15 AM EST Office Visit [facility] MEDICINE [address] [place] [address] Prabhjot Galicia MD [address] [place] [address] 10/03/2024 10:30 AM EST Clinical Support [facility] MED & PEDS [address] [place] [address] 10/04/2024 9:45 AM EST Office Visit [facility] MED & PEDS [address] [place] [address] Jovanny Peters MD [address] [place] [address] Scheduled Orders Name Type Priority Associated Diagnoses Orde r Schedule Hepatitis A Antibody, Total Lab Routine Transaminitis Expected: 09/12/2024 (Approximate), Expires: 09/12/2025 Hepatitis A IgM Antibody Lab Routine Transaminitis Expected: 09/12/2024 (Approximate), Expires: 09/12/2025 US Abdomen Comp w elastography Imaging Routine Transaminitis Expected: 09/12/2024, Expires: 09/12/2025 Prothrombin Time-INR Lab Routine Transaminitis Expected: 09/12/2024, Expires: 09/12/2025 Partial Thromboplastin Time, Activated (APTT) Lab Routine Transaminitis Expected: 09/12/2024, Expires: 09/12/2025 Comprehensive Metabolic Panel Lab Routine Transaminitis Expected: 09/12/2024 (Approximate), Expires: 09/12/2025 Hemoglobin A1c Lab Routine Transaminitis Expected: 09/12/2024 (Approximate), Expires: 09/12/2025 Iron And Total Iron Binding Capacity Lab Routine Transaminitis Expected: 09/12/2024, Expires: 09/12/2025 Ferritin Lab Routine Transaminitis Expected: 09/12/2024 (Approximate), Expires: 09/12/2025 Hepatitis C Antibody with Reflex to HCV, RNA, Quantitative, Real-Time PCR Lab Routine Transaminitis Expected: 09/12/2024 (Approximate), Expires: 09/12/2025 Hepatitis B surface antigen, EIA Lab Routine Transaminitis Expected: 09/12/2024 (Approximate), Expires: 09/12/2025 Hepatitis B Core Antibody, Total Lab Routine Transaminitis Expected: 09/12/2024 (Approximate), Expires: 09/12/2025 Hepatitis B Surface Antibody, Qualitative Lab Routine Transaminitis Expected: 09/12/2024 (Approximate), Expires: 09/12/2025 documented as of this encounter Visit Diagnoses Diagnosis Transaminitis- Primary Nonspecific elevation of levels of transaminase or lactic acid dehydrogenase (LDH) documented in this encounter Additional Health Concerns Assessment Noted Time PHQ-9 Depression Total Score: 15 025 9:38 AM EST documented as of this encounter Care Teams Metal Fence Erector Relationship Specialty Start Date End Date Yudi Mcneil MD [address] [place] [address] PCP - General Family Medicine 09/12/24 Maryanne Diamond [address] [place] [address] Licensed Mental Health Counselor Behavioral Health 05/02/24 documented as of this encounter
--- OUTSIDE RECORDS SUMMARY | 2024-09-20 12:52 | XMS_ITS | Encounter Summary ---
Author Organization [employer] Address [address] [facility] [address] [place] [address] Care Team Providers Care Commercial Lines Manager Name Role Phone Yudi Mcneil MD Primary Care Provider [phone] Reason for Visit * Reason Comments Recovery Supports Encounter Details Date Type Department Care Team ([facility] st Contact Info) Description 09/13/2024 Patient Outreach [facility] MEDICINE [address] [place] [address] Benjamin Wilson Recovery Supports Social History Tobacco Use Types [...] AM EDT documented as of this encounter Progress Notes * Benjamin Wilson - 09/13/2024 3:14 PM EST I met with Betty today. Setting: in person at [facility] Recovery Wellness Goals worked on: Social Stability Action taken/next steps: Offered person centered recovery support Additional comments: he participant was connected with the RN for a follow-up. Benjamin Wilson documented in this encounter Plan of Treatment Upcoming Encounters Date Type Department Care Team ([facility] st Contact Info) Description 09/27/2024 11:15 AM EST Office Visit [facility] MEDICINE [address] [place] [address] Prabhjot Galicia MD [address] [place] [address] 10/03/2024 10:30 AM EST Clinical Support [facility] MED & PEDS [address] [place] [address] 10/04/2024 9:45 AM EST Office Visit [facility] MED & PEDS [address] [place] [address] Jovanny Peters MD [address] [place] [address] documented as of this encounter Visit Diagnoses Not on filedocumented in this encounter Additional Health Concerns Assessment Noted Time PHQ-9 Depression Total Score: 15 025 9:38 AM EST documented as of this encounter Care Teams Commercial Lines Manager Relationship Specialty Start Date End Date Yudi Mcneil MD [address] [place] [address] PCP - General Family Medicine 09/12/24 Maryanne Diamond [address] [place] [address] Licensed Mental Health Counselor Behavioral Health 05/02/24 documented as of this encounter
--- OUTSIDE RECORDS SUMMARY | 2024-09-20 12:52 | XMS_ITS | Clinical Summary ---
Author Organization [employer] Address [address] [facility] [address] [place] [address] Care Team Providers Care Senior Estimator Name Role Phone Yudi Mcneil MD Primary Care Provider [phone] Allergies Active Allergy Reactions Criticality Noted Date Comments Penicillins Hives 09/29/2014 Progesterone 09/29/2014 Medications * This document contains information received from the source organization and may not represent a complete record from that organization. buPROPion SR (Wellbutrin SR) 150 MG 12 hr tablet Take 1 tablet (150 mg) by mouth Once per day. Do not crush, chew, or split. 90 tablet 09/12/19 25 Active amLODIPine (Norvasc) 5 MG tablet Take 1 tablet (5 mg) by mouth Once per day. 90 tablet 09/12/19 25 Active hydroCHLOROthi azide 12.5 MG tablet Take 1 tablet (12.5 mg) by mouth Once per day. 90 tablet 09/12/19 25 Active levothyroxine (Synthroid) 50 MCG tablet Take 1 tablet (50 mcg) by mouth before breakfast. 90 tablet 09/12/19 25 Active doxepin (SINEquan) 10 MG capsule Take 1 capsule (10 mg) by mouth at bedtime. 90 capsule 09/12/19 25 Active hydrOXYzine pamoate (Vistaril) 25 MG capsule Take 1 capsule (25 mg) by mouth every 6 (six) hours if needed for anxiety. 90 capsule 09/12/19 25 Active buprenorphine- naloxone (Suboxone) 2-0.5 MG per sublingual filmIndication s:Uncomplicate d opioid use Place 1 Film under the tongue Once per day for 2 days. Take 1/4 film SL daily. 2 Film 09/20/19 25 025 Active buprenorphine- naloxone (Suboxone) 2-0.5 MG per sublingual filmIndication s:Uncomplicate d opioid use Place 1 Film under the tongue Once per day for 2 days. 2 Film 09/13/19 25 025 Discontinued(Re order (will not trigger notification to Pharmacy)) Active Problems Problem Noted Date Diagnosed Date Primary hypertension 09/12/2024 Assessment & Plan (09/12/2024 10:38 AM EST): Ordering lab work for further evaluation. Follow up on 10/03 with nurse and BP readings. Discussed medications and refills as needed. Moderate episode of recurrent major depressive d isorder 09/12/2024 Assessment & Plan (09/12/2024 10:36 AM EST): Called for further evaluation, advised to follow up with a psychiatrist for further treatment. Anxiety 09/12/2024 Assessment & Plan (09/12/2024 10:36 AM EST): Called for further evaluation. Acquired hypothyroidism 09/12/2024 Assessment & Plan (09/12/2024 10:40 AM EST): Ordering lab work for further evaluation. Discussed medications and refills as needed. Follow up in one month (Preferably with Dr. Peters) Opiate use 09/12/2024 Assessment & Plan (09/12/2024 10:37 AM EST): Called [facility] for further evaluation. Encounters * This document contains information received from the source organization and may not represent a complete record from that organization. Date Type Department Care Team Description 09/20/2024 11:00 AM EST Office Visit [facility] MEDICINE [address] [place] [phone] Prabhjot Galicia MD Uncomplicated opioid use (Primary Dx); Tobacco use disorder 09/20/2024 Travel 09/13/2024 10:00 AM EST Office Visit [facility] MEDICINE [address] [place] [address] Prabhjot Galicia MD Opioid use, unspecified, uncomplicated (Primary Dx); Uncomplicated opioid use; Tobacco use disorder 09/13/2024 9:30 AM EST Office Visit [facility] MEDICINE [address] [place] [phone] Alyse Choudhury, RN Opiate use 09/13/2024 Patient Outreach [address] [address] Benjamin Wilson [facility] 09/13/2024 Patient Outreach [address] [address] Winston Jackson [facility] 09/13/2024 Patient Outreach [address] [address] Winston [facility] 09/13/2024 Travel 09/12/2024 9:30 AM EST Office Visit [facility] [address] [place], [place] [phone] Yudi Mcneil MD Primary hypertension (Primary Dx); Moderate episode of recurrent major depressive disorder (CMS/HCC); Anxiety; Acquired hypothyroidism; Opiate use; Class 2 severe obesity with serious comorbidity and body mass index (BMI) of 35.0 to 35.9 in adult, unspecified obesity type (CMS/HCC); Primary insomnia 09/12/2024 Telephone [facility] [address] [place] [address] Yudi Mcneil MD 09/12/2024 Patient Outreach [address] [address] Winston Jackson [facility] 09/12/2024 Travel 09/09/2024 Telephone [facility] [address] [place], [place] [phone] Yudi Mcneil MD CHART PREP 07/22/[address] [phone] Brady Etienne MD New patient appt. from Last 3 Months Immunizations Name Administration Dates Next Due Influenza injectable quadriv alent IIV4 with preservative 07/02/2015 Influenza injectable quadrivalent preservative f ree 10/30/2014 Family History Medical History Relation Name Comments chronic back pain Mother Relation Name Status Comments Mother Social History Tobacco Use Types Packs/Day Years Used Date Smoking Tobacco: Every Day Cigarettes Passive Smoke Exposure: Current Smokeless Tobacco: Never Tobacco Cessation:Ready to Q uit: Not Asked; Counseling Given: Not Answered Alcohol Use Standard Drinks/Week Comments Yes 0 [...] Orientation Straight 06/30/2022 10 :25 AM EDT Last Filed Vital Signs Vital Sign Reading Time Taken Comments Blood Pressure 160/108 09/12/2024 9:29 AM EST Pulse 86 09/12/2024 9:29 AM EST Temperature 36.9 ??C (98.4 ??F) 09/12/2024 9:29 AM ES T Respiratory Rate 20 09/12/2024 9:29 AM EST Oxygen Saturation 98% 09/12/2024 9:29 AM EST Inhaled Oxygen Concentration - - Weight 94.7 kg (208 lb 12.8 oz) 09/12/2024 9:29 AM EST Height 162.6 cm (5' 4 ) 09/12/2024 9:29 AM EST Body Mass Index 35.84 09/12/2024 9:29 AM EST Plan of Treatment Upcoming Encounters Date Type Department Care Team (Late st Contact Info) Description 09/27/2024 11:15 AM EST Office Visit [facility] MEDICINE [address] [place] [address] Prabhjot Galicia MD [address] [place] [address] 10/03/2024 10:30 AM EST Clinical Support [facility] [address] [place] [address] 10/04/2024 9:45 AM EST Office Visit [facility] [address] [facility] [place] [address] Jovanny Peters MD [address] [facility] [place] [address] Health Maintenance Due Date Last Done Comments HIV Screening 1981 SDOH Screening 1981 Pneumococcal Vaccine: Pediatrics (0 to 5 Years) and At-Risk Patients (6 to 64 Years) (1 of 2 - PCV) 11/02/1987 Alcohol/Substance Use Screening 1993 Family Planning (PISQ) 1996 Hepatitis C Screening 11/02/1999 DTaP/Tdap/Td Vaccines (1 - Tdap) 2000 Hepatitis B Vaccines (1 of 3 - 19+ 3-dose series) 2000 Pap Smear 2002 Cervical Cancer Screening 11/02/2011 HPV/Cotest 11/02/2011 Mammogram 2021 COVID-19 Vaccine (1 - 2023-2 5 season) 2024 Influenza Vaccine (#1) 2024 5, 10/30/2014 Depression Monitoring (PHQ-9) 03/12/2025, 09/12/2024 Depression Screening 09/12/2025 09/12/2024, 09/12/2024 Tobacco Screening 09/12/2025 09/12/2024 Lipid Panel 09/12/2029 09/12/2024 Zoster Vaccines (1 of 2) 11/02/2031 RSV Patients and Patients Aged 60 years or older (1 - 1-dose 75+ series) 2056 HIB Vaccines Aged Out No longer eligi ble based on patient's age to complete this topic HPV Vaccines Aged Out No longer eligi ble based on patient's age to complete this topic Hepatitis A Vaccines Aged Out No long er eligible based on patient's age to complete this topic IPV Vaccines Aged Out No longer eligi ble based on patient's age to complete this topic Meningococcal Vaccine Aged Out No so maxi eligible based on patient's age to complete this topic RSV under 20 months Aged Out No longe r eligible based on patient's age to complete this topic Rotavirus Vaccines Aged Out No longer eligible based on patient's age to complete this topic Procedures Procedure Name Priority Date/Time Associated Diagnosis Comments POCT LOUIS-14 URINE DRUG SCREEN Routine 09/20/2024 10:43 AM EST Uncomplicated opioid use POCT LOUIS-14 URINE DRUG SCREEN Routine 09/13/2024 10:48 AM EST Opioid use, unspecified, uncomplicated URINALYSIS, COMPLETE, WITH REFLEX TO CULTURE Routine 09/12/2024 11:03 AM EST Primary hypertension TSH W/REFLEX TO FT4 Routine 09/12/2024 1 0:56 AM EST Acquired hypothyroidism VITAMIN B12/FOLATE, SERUM PANEL Routine 09/12/2024 10:56 AM EST Primary hypertension LIPID PANEL, STANDARD Routine 09/12/2024 10:56 AM EST Primary hypertension COMPREHENSIVE METABOLIC PANEL Routine 09/12/2024 10:56 AM EST Primary hypertension CBC WITH AUTO DIFFERENTIAL Routine 09/12/2024 10:56 AM EST Primary hypertension from Last 3 Months Results * POCT LOUIS-14 Urine Drug Screen (09/20/2024 10:43 AM EST) Only the most recent of2 resultswithin the time period is included. THC Positive Cocaine Screen, Urine Negative Opiate [...] procedure / Unknown 09/20/2024 10:43 AM EST Prabhjot Galicia MD POINT OF CARE TEST ENTER/EDIT ORDERABLES Final Result * (ABNORMAL) Urinalysis, Complete, with Reflex to Culture (09/12/2024 11:03 AM EST) Color Urine [place](A) [facility] Appearance Urine Turbid [facility] PH 5.0 5.0 - 9.0 [facility] Glucose Urine UA Negative Negative mg/dL [facility] Urine Blood Negative Negative [facility] Specific [place] - Urine >=1.030(H) 1.005 - 1.025 [facility] Urine Protein See Note Neg-Trace mg/dL [facility] Comment:Urine pigment obscur ed dipstick results. Urine Ketones Negative Negative mg/dL [facility] Nitrite Urine See Note Negative [facility] Comment:Urine pigment obscur ed dipstick results. Leukocyte Esterase Urine Trace(A) Negative [facility] RBC Urine 0-2 0 - 2 /HPF [facility] Urine WBC 0-5 0 - 5 /HPF [facility] Urine Squamous Epithelial Cell 6-10 0 - 2 /HPF [facility] Other Crystals Urine Present [facility] Comment:Amorphous urates Urine Bacteria 1+ None Seen [facility] Hyaline Casts, Urine 6-10 0 - 2 /LPF [facility] Urine 09/12/2024 11:0 3 AM EST 09/12/2024 1:55 PM EST Narrative [facility] - 09/12/2024 2:18 PM EST [id number], Clean Catch us Yudi Mcneil MD LAB URINE ORDERABLES Final Re sult [facility] [address] [place] [phone] [phone] * Vitamin B12 (Cobalamin) and Folate Panel, Serum (09/12/2024 10:56 AM EST) Vitamin B12 501 200 - 900 pg/mL [facility] Comment:NORMAL 200-900 PG/ML INDETERMINATE 160-199 PG/ML DEFICIENT < 160 PG/ML Folate 13.2 > or = 4.0 ng/mL [facility] Comment:Reference Values:> o r = 4.0 ng/mL< 4.0 ng/mL suggests folate deficiency Methotrexate, aminopterin and folinic acid(leucovorin) are chemotherapeutic agents whose molecularstructures are similar to folate; therefore, the Architectfolate assay cannot be used for patients using these drugs. Blood Venous blood specimen / Unknown 09/12/2024 10:56 AM EST 09/12/2024 1:56 PM EST us Yudi Mcneil MD LAB BLOOD ORDERABLES Final Re sult Performing Organization Address City/[facility]/ZIP Co de Phone Number [facility] [address] [place] [phone] * TSH W/Reflex to FT4 (09/12/2024 10:56 AM EST) TSH reflex Free T4 3.92 0.32 - 4.0 uIU/mL [facility] Blood Venous blood specimen / Unknown 09/12/2024 10:56 AM EST 09/12/2024 1:56 PM EST us Yudi Mcneil MD LAB BLOOD ORDERABLES Final Re sult Performing Organization Address City/[facility]/ZIP Co de Phone Number [facility] [address] [place] [phone] * (ABNORMAL) CBC auto differential (09/12/2024 10:56 AM EST) White Blood Count 12.9(H) 4.8 - 10.8 X10*3/uL [facility] Red Blood Count 5.12 4.20 - 5.50 X10*6/uL [facility] Hemoglobin 17.1(H) 12.0 - 16.0 g/dl [facility] Hematocrit 47.3(H) 37.0 - 47.0 % [facility] Mean Corpuscular Volume 92.4 80.0 - 98.0 fL [facility] Mean Corpuscular Hemoglobin 33.4(H) 27.0 - 33.0 pg [facility] Mean Corpuscular HGB Conc 36.2(H) 31.0 - 35.0 g/dl [facility] Red Cell Distribution Width 12.0 11.0 - 16.0 % [facility] Platelet Count 262 160 - 400 X10*3/uL [facility] Mean Platelet Volume 11.8 9.4 - 12.3 fL [facility] Neutrophils Percent Auto 68.2 45 - 73 % [facility] Imm Gran Pct Auto 0.4 0.0 - 0.4 % [facility] Lymphocytes Percent Auto 21.5 20 - 40 % [facility] Monocytes Percent Auto 8.7 2 - 11 % [facility] Eosinophils Percent Auto 0.7 0 - 4 % [facility] Basophils Percent Auto 0.5 0 - 2 % [facility] NRBC Pct Auto 0.0 0.0 - 0.2 /100WBC [facility] Neutrophils Absolute Auto 8.8(H) 2.0 - 8.3 x10*3/uL [facility] Imm Gran Abs Auto 0.05(H) 0.00 - 0.03 X10*3/uL [facility] Lymphocytes Absolute Auto 2.8 1.2 - 4.9 X10*3/uL [facility] Monocytes Absolute Auto 1.1 0.1 - 1.2 X10*3/uL [facility] Eosinophils Absolute Auto 0.1 0.0 - 0.4 X10*3/uL [facility] Basophils Absolute Auto 0.1 0.0 - 0.2 X10*3/uL [facility] NRBC Abs Auto 0.000 0.0 - 0.012 X10*3/uL [facility] Blood Venous blood specimen / Unknown 09/12/2024 10:56 AM EST 09/12/2024 1:56 PM EST us Yudi Mcneil MD LAB BLOOD ORDERABLES Final Re sult Performing Organization Address [facility] Co de Phone Number [facility] [address] [place] [phone] * (ABNORMAL) Lipid Panel, Standard (09/12/2024 10:56 AM EST) Triglycerides 272(H) <150 mg/dL [facility] Comment:Desirable Triglyceri de: less than 150 mg/dLBorderline High Triglyceride 150-199 mg/dLHigh Triglyceride: 200-499 mg/dLVery High Triglyceride: greater than or equal to 5OO mg/dL Cholesterol 187 <200 mg/dL [facility] Comment:Desirable Cholestero l: less than 200 mg/dLBorderline High Cholesterol: 200-239 mg/dLHigh Cholesterol: greater than 239 mg/dL LDL Cholesterol Calculated 71 <100 mg/dL [facility] Comment:Desirable LDL: less than 100 mg/dLNear Optimal/Above Optimal LDL: 110- 129 mg/dLBorderline High LDL: 130-159 mg/dLHigh LDL: 160-189 mg/dLVery High LDL: greater than or equal to 190 mg/dL HDL Cholesterol 62 >40 mg/dL [facility] Comment:Desirable HDL: great er than 40 mg/dL Note: This HDL assay may give artificially low results in patients with liver disease. Blood Venous blood specimen / Unknown 09/12/2024 10:56 AM EST 09/12/2024 1:56 PM EST us Yudi Mcneil MD LAB BLOOD ORDERABLES Final Re sult Performing Organization Address [facility]/ZIP Co de Phone Number [facility] [address] [place] [phone] * (ABNORMAL) Comprehensive Metabolic Panel (09/12/2024 10:56 AM EST) Sodium 143 135 - 145 mmol/L [facility] Potassium 4.5 3.3 - 5.1 mmol/L [facility] Chloride 105 96 - 108 mmol/L [facility] Carbon Dioxide 30(H) 22 - 29 mmol/L [facility] Anion Gap 13 12 - 20 [facility] Urea Nitrogen (BUN) 13 9 - 16 mg/dL [facility] Creatinine, Serum 0.83 0.5 - 1.4 mg/dL [facility] Estimated Glomerular Filt Rate >60 [facility] Comment:Chronic Kidney Disea se: Estimated GFR < 60 mL/min/[id number] Kidney Disease: Estimated GFR < 15 mL/min/1.73m2 Glucose 109 60 - 115 mg/dL [facility] Calcium 10.1 8.4 - 10.2 mg/dL [facility] Bilirubin, Total 1.2(H) 0.0 - 1.0 mg/dL [facility] Aspartate Amino Transferase 78(H) 5 - 31 U/L [facility] Alanine Aminotransferase 128(H) 0 - 31 U/L [facility] Total Protein 8.4(H) 6.5 - 8.0 g/dL [facility] Albumin Level 5.1(H) 3.5 - 5.0 g/dL [facility] Alkaline Phosphatase 79 39 - 117 U/L [facility] Blood Venous blood specimen / Unknown 09/12/2024 10:56 AM EST 09/12/2024 1:56 PM EST us Yudi Mcneil MD LAB BLOOD ORDERABLES Final Re sult [facility] [address] [place] [phone] from Last 3 Months Insurance [facility] C3 Care Teams Senior Estimator Relationship Specialty Start Date End Date Yudi Mcneil MD [address] [place] [phone] PCP - General Family Medicine 09/12/24 Maryanne Diamond [address] [place] [address] Licensed Mental Health Counselor Behavioral Health 05/02/24
--- OUTSIDE RECORDS SUMMARY | 2024-09-20 12:52 | XMS_ITS | Encounter Summary ---
Author Organization [employer] Address [address] [place] [address] [address] [place] [address] Care Team Providers Care Pallet Rectifier Name Role Phone Yudi Mcneil MD Primary Care Provider [phone] Encounter Details Date Type Department Care Team (Latest Contact Info) Description 09/12/2024 Travel Social History Tobacco Use Types Packs/Day Years [...] Description 09/27/2024 11:15 AM EST Office Visit [facility] MEDIC[facility] [address] [place] [address] Prabhjot Galicia MD [address] [place] [address] 10/03/2024 10:30 AM EST Clinical Support [facility] [address] [place] [address] 10/04/2024 9:45 AM EST Office Visit [facility] [address] [place] [address] Jovanny Peters MD [address] [place] [address] documented as of this encounter Visit Diagnoses Not on filedocumented in this encounter Additional Health Concerns Assessment Noted Time PHQ-9 Depression Total Score: 15 025 9:38 AM EST documented as of this encounter Care Teams Pallet Rectifier Relationship Specialty Start Date End Date Yudi Mcneil MD [address] [place] [address] PCP - General Family Medicine 09/12/24 Maryanne Diamond [address] [place] [phone] Licensed Mental Health Counselor Behavioral Health 05/02/24 documented as of this encounter
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
--- OUTSIDE RECORDS SUMMARY | 2024-09-20 12:52 | XMS_ITS | Encounter Summary ---
Author Organization [employer] Address [address] [place] [address] [address] [place] [address] Care Team Providers Care Group Fitness Instructor Name Role Phone Yudi Mcneil MD Primary Care Provider [phone] Encounter Details Date Type Department Care Team (Latest Contact Info) Description 09/13/2024 Travel Social History Tobacco Use Types Packs/Day [...] Description 09/27/2024 11:15 AM EST Office Visit [facility] [address] [place] [address] Prabhjot Galicia MD [address] [place] [address] 10/03/2024 10:30 AM EST Clinical Support [facility] [address] [place] [address] 10/04/2024 9:45 AM EST Office Visit [facility] [address] [place] [address] Jovanny Peters MD [address] [place] [address] documented as of this encounter Visit Diagnoses Not on filedocumented in this encounter Additional Health Concerns Assessment Noted Time PHQ-9 Depression Total Score: 15 025 9:38 AM EST documented as of this encounter Care Teams Group Fitness Instructor Relationship Specialty Start Date End Date Yudi Mcneil MD [address] [place] [address] PCP - General Family Medicine 09/12/24 Maryanne Diamond [address] [place] [phone] Licensed Mental Health Counselor Behavioral Health 05/02/24 documented as of this encounter
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
--- OUTSIDE RECORDS SUMMARY | 2024-09-20 12:52 | XMS_ITS | Encounter Summary ---
Author Organization [employer] Address [address] [facility] [address] [place] [address] Care Team Providers Care Care Transition Mgr Name Role Phone Unavailable Primary Care Provider Unavailabl e Reason for Visit * Reason Onset Date Comments CHART PREP 09/09/2024 Encounter Details Date Type Department Care Team (Late Contact Info) Description 09/09/2024 Telephone [facility] CHC MED & PEDS [address] [place] [address] Yudi Mcneil MD [address] [place] [address] CHART PREP Social History Tobacco Use Types Packs/Day Years Used Date Smoking Tobacco: Never Assessed Comments Unknown Sex and Gender Information Value Date Recorded Sex Assigned at Female 06/30/2022 10:25 AM EDT Legal Sex Female 10:25 AM EDT Gender Identity Female 06/30/2022 10:25 AM EDT Sexual Orientation Straight 06/30/2022 10 :25 AM EDT documented as of this encounter Miscellaneous Notes * Telephone Encounter - Susu Castaneda [place] - 09/09/2024 1:07 PM EST Chart Prep Labs: not applicable Images: not applicable Vaccines due: yes Referrals: complete Screenings: mammogram , pap smear Overdue care gaps: Sbirt, SDOH, PHQ-9 documented in this encounter Plan of Treatment Upcoming Encounters Date Type Department Care Team (Late Contact Info) Description 09/27/2024 11:15 AM EST Office Visit [facility] MEDICINE [address] [place] [address] Prabhjot Galicia MD [address] [place] [address] 10/03/2024 10:30 AM EST Clinical Support [facility] MED & PEDS [address] [place] [address] 10/04/2024 9:45 AM EST Office Visit [facility] MED & PEDS [address] [place] [address] Jovanny Peters MD [address] [place] [address] documented as of this encounter Visit Diagnoses Not on filedocumented in this encounter Care Teams Care Transition Mgr Relationship Specialty Start Date End Date Maryanne Diamond [address] [place] [phone] Licensed Mental Health Counselor Behavioral Health 05/02/24 documented as of this encounter
--- OUTSIDE RECORDS SUMMARY | 2024-09-20 12:52 | XMS_ITS | Encounter Summary ---
Author Organization [employer] Address [address] [facility] [address] [place] [address] Care Team Providers Care Polymer Tester Name Role Phone Yudi Mcneil MD Primary Care Provider [phone] Reason for Visit * Reason Comments Recovery Supports Encounter Details Date Type Department Care Team ([facility] st Contact Info) Description 09/13/2024 Patient Outreach [facility] MEDICINE [address] [place] [address] Winston Jackson Recovery Supports Social History Tobacco [...] as of this encounter Progress Notes * Winston Jackson - 09/13/2024 10:28 AM EST I met with Betty today. Setting: in person at [facility] Recovery Wellness Goals worked on: Physical Health/Mental Health and Social Stability Action taken/next steps: Offered person centered recovery support, Attended alcohol and drug free activity, and Provided transportation assistance (bus pass, uber, etc.) Additional comments: The patient called me to arrange transportation for their first appointment. I also gave pt a tour of the [facility] and spoke to pt about our services and groups. Winston Jackson documented in this encounter Plan of Treatment Upcoming Encounters Date Type Department Care Team (Late st Contact Info) Description 09/27/2024 11:15 AM EST Office Visit [facility] MEDICINE [address] [place] [address] Prabhjot Galicia MD [address] [place] [address] 10/03/2024 10:30 AM EST Clinical Support [facility] MED & PEDS [address] [place] [address] 10/04/2024 9:45 AM EST Office Visit [facility] MED & PEDS [address] [place] [address] Jovanny Peters MD [address] [place] [address] documented as of this encounter Visit Diagnoses Not on filedocumented in this encounter Additional Health Concerns Assessment Noted Time PHQ-9 Depression Total Score: 15 025 9:38 AM EST documented as of this encounter Care Teams Polymer Tester Relationship Specialty Start Date End Date Yudi Mcneil MD [address] [place] [address] PCP - General Family Medicine 09/12/24 Maryanne Diamond [address] [place] [phone] Licensed Mental Health Counselor Behavioral Health 05/02/24 documented as of this encounter
--- OUTSIDE RECORDS SUMMARY | 2024-09-20 12:52 | XMS_ITS | Encounter Summary ---
Author Organization [employer] Address [address] [place] [address] 7[address] [place] [address] Care Team Providers Care Corporate Treasurer Name Role Phone Yudi Mcneil MD Primary Care Provider [phone] Encounter Details Date Type Department Care Team (Latest Contact Info) Description 09/20/2024 Travel Social History Tobacco Use Types Packs/Day [...] Visit [facility] MEDICINE [address] [place] [address] Prabhjot Galicia MD [address] [place] [address] 10/03/2024 10:30 AM EST Clinical Support [facility] [address] [place] [address] 10/04/2024 9:45 AM EST Office Visit [facility] MED & PEDS [address] [place] [address] Jovanny Peters MD [address] [place] [address] documented as of this encounter Visit Diagnoses Not on filedocumented in this encounter Additional Health Concerns Assessment Noted Time PHQ-9 Depression Total Score: 15 025 9:38 AM EST documented as of this encounter Care Teams Corporate Treasurer Relationship Specialty Start Date End Date Yudi Mcneil MD [address] [place] [address] PCP - General Family Medicine 09/12/24 Maryanne Diamond [address] [place] [phone] Licensed Mental Health Counselor Behavioral Health 05/02/24 documented as of this encounter
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
--- OUTSIDE RECORDS SUMMARY | 2024-09-20 12:52 | XMS_ITS | Encounter Summary ---
Author Organization [employer] Address [address] [facility] [address]t [place] [address] Care Team Providers Care Aircraft Engine Technician Name Role Phone Yudi Mcneil MD Primary Care Provider [phone] Reason for Visit * Reason Comments Recovery Supports Encounter Details Date Type Department Care Team ([facility] st Contact Info) Description 09/12/2024 Patient Outreach [facility] [address] [place] [address] Winston Jackson Recovery Supports Social History Tobacco [...] encounter Progress Notes * Winston Jackson - 09/12/2024 10:43 AM EST I met with Betty today. Setting: in person at [facility] Recovery Wellness Goals worked on: Physical Health/Mental Health and Social Stability Action taken/next steps: Referred to medical or behavioral health professional and Offered person centered recovery support Additional comments: I spoke with the patient to connect her with services. She is going to court in [place], and I provided her with my phone number. Additionally, pt spoke with Behavioral Health, and an appointment has been scheduled for her tomorrow. Winston Jackson documented in this encounter Plan of Treatment Upcoming Encounters Date Type Department Care Team ([facility] st Contact Info) Description 09/27/2024 11:15 AM EST Office Visit [facility] [address] [place] [address] Prabhjot Galicia MD [address] [place] [address] 10/03/2024 10:30 AM EST Clinical Support [facility] [address] [place] [address] 10/04/2024 9:45 AM EST Office Visit [facility] [address] [place] [address] Jovanny Peters MD [address] [place] [address] documented as of this encounter Visit Diagnoses Not on filedocumented in this encounter Additional Health Concerns Assessment Noted Time PHQ-9 Depression Total Score: 15 025 9:38 AM EST documented as of this encounter Care Teams Aircraft Engine Technician Relationship Specialty Start Date End Date Yudi Mcneil MD [address] [place] [address] PCP - General Family Medicine 09/12/24 Maryanne Diamond [address] [place] [phone] Licensed Mental Health Counselor Behavioral Health 05/02/24 documented as of this encounter
[2024-09-20 13:40] LABS: INTERNATIONAL NORM RATIO 0.9 (0.9-1.1); Prothrombin Time 10.8 SEC (10.9-12.4)
[2024-09-20 13:43] LABS: Partial Thromboplastin Time 32.8 SEC (26.0-36.8)
[2024-09-20 13:45] LABS: Estimated Average Glucose 85 mg/dL; Hemoglobin A1C 99.5173 umol/L; Hemoglobin A1c % 4.6 % (<6.0); Total Hemoglobin (HGBA1C) 3765.9524 umol/L
[2024-09-20 14:09] LABS: Alanine Aminotransferase 82 U/L (0-31); Albumin Level 4.6 g/dL (3.5-5.0); Alkaline Phosphatase 65 U/L (39-117); Anion Gap 10 (12-20); Aspartate Amino Transferase 38 U/L (5-31); Bilirubin Total 0.6 mg/dL (0.0-1.0); Blood Urea Nitrogen 21 mg/dL (9-16); Calcium 9.3 mg/dL (8.4-10.2); Carbon Dioxide 29 mmol/L (22-29); Chloride 104 mmol/L (96-108); Estimated Glomerular Filt Rate > 60; Glucose Random 134 mg/dL (60-115); Iron 93 mcg/dL (30-160); Percent Iron Saturation 29 % (15-50); Potassium 3.4 mmol/L (3.3-5.1); Sodium 140 mmol/L (135-145); Total Iron Binding Capacity 316 mcg/dL (228-428); Total Protein 7.6 g/dL (6.5-8.0); Unsaturated Iron Binding 223 ug/dL
[2024-09-20 14:17] LABS: Ferritin 221 ng/mL (10-250)
[2024-09-21 08:13] LABS: ~Hepatitis B Surface Antibody NONREACTIVE (Nonreactive)
[2024-09-21 08:34] LABS: HBc Num1 0.37 S/CO (0.00-0.79); HBsAGNum1 0.35 S/CO (0.00-0.99); HIV AB/AG Nonreactive (Nonreactive); HIV Num 1 0.05 S/CO (0.00-0.99); Hepatitis B Core Antibody Nonreactive (Nonreactive); Hepatitis B Surface Antigen Negative (Negative); ~HepC Num1 0.18 S/CO (0.00-0.79); ~Hepatitis C Antibody Nonreactive (Nonreactive)
[2024-09-21 08:40] LABS: Hepatitis A Antibody IgM 0.19 Index (0-0.79); ~Hepatitis A Antibody IgM Nonreactive (Nonreactive)
[2024-09-21 08:41] LABS: Hepatitis A Antibody IgG Nonreactive (Nonreactive); ~Hepatitis A Antibody IgG 0.55 S/CO (0.00-0.99)
[2024-09-21 15:29] LABS: RPR Rapid Plasma Reagin NON-REACTIVE (NON-REACTIVE)
[2024-09-23 13:08] LABS: TS Negative Control Passed; TS Panel A 0; TS Panel B 0; TS Positive Control Passed; TSpotTB Negative (Negative)
== END 2024-09-20 11:09 | disposition home or self-care (01) ==
LOC: HO.HHCL 11:08
PROVIDERS: Family Medicine; Visit Provider Emergency Medicine
DX: R74.01 Elevation of levels of liver transaminase levels (principal); F11.90 Opioid use, unspecified, uncomplicated
CPT/HCPCS: 36415; 80053; 82728; 83036; 83540; 85610; 85730; 86481; 86592; 86704; 86706; 86708; 86709; 86803; 87340; 87389

== ENCOUNTER 2024-10-13 09:52 | Outpatient (REF) | payer MEDICAID, SELFPAY ==
--- NOTE | ~2024-10-13 | US_ITS ---
EXAMINATION: US ABDOMEN COMPLETE WITH LIVER ELASTOGRAPHY HISTORY: 43 yo F with transaminitis and elevated bilirubin, send to [facility] TECHNIQUE: Real-time grayscale ultrasound imaging of the abdomen was performed and images were reviewed. COMPARISON: There are no prior studies for comparison. FINDINGS: Liver: The right lobe of the liver measures 17.8 cm in size. The left lobe of the liver measures 12.3 cm in size. The liver demonstrates increased echotexture, consistent with steatosis. No focal mass or intrahepatic biliary ductal dilatation is identified. There is normal hepatopedal flow in the portal vein. Ultrasound elastography of the liver was performed with 10 separate measurements of the liver parenchyma with the patient in the supine position. Measurements were obtained approximately 2 cm below Mekhi's capsule and perpendicular to the capsule. Images are of satisfactory quality. The median shear wave velocity is 1.26 m/s. The interquartile range/median (IQR/median) is 0.14. Gallbladder and biliary tree: The gallbladder is unremarkable, without evidence of calculi, wall thickening, or pericholecystic fluid. There is no sonographic Howard sign. The common bile duct is normal in caliber measuring 6 mm. Kidneys: The right kidney measures 9.5 cm in length. The left kidney measures 10.2 cm in length. The kidneys are unremarkable, without evidence of masses, hydronephrosis, or calculi. Pancreas: The pancreatic head, neck, and body are unremarkable. The pancreatic tail is obscured by bowel gas. Spleen: The spleen is normal in size and contour, measuring 12.1 cm in length. Abdominal aorta and inferior vena cava: The visualized portions of the abdominal aorta and inferior vena cava are normal in caliber. There is no free fluid in the abdomen. US/US abdomen comp w elastography IMPRESSION: Hepatomegaly and hepatic steatosis. The median shear wave velocity is 1.26 m/s, corresponding to a median liver stiffness of 4.87 kPa. The IQR/median value is 0.14. This is indicative of a quality data set. Findings are indicative of a normal elastography value with a low likelihood of severe fibrosis or cirrhosis. REFERENCE: Society of Radiologists in Ultrasound Liver Stiffness Thresholds (2020): LIVER STIFFNESS THRESHOLDS: *Shear wave velocity less than 1.3 m/s (Liver Stiffness equal or less than 5 kPa): High probability of being normal. *Shear wave velocity less than 1.7 m/s (Liver Stiffness less than 9 kPa): In the absence of other known clinical signs, rules out compensated advanced chronic liver disease. *Shear wave velocity between 1.7-2.1 m/s (Liver Stiffness 9-13 kPa): Suggestive of compensated advanced chronic liver disease but need further test for confirmation. *Shear wave velocity between 2.1-2.4 m/s (Liver Stiffness 13-17 kPa): Rules in compensated advanced chronic liver disease. *Shear wave velocity greater than 2.4 m/s (Liver Stiffness over 17 kPa): Suggestive of clinically significant portal hypertension. QUALITY OF DATA SET: *IQR/Median value equal or less than 0.15 implies a quality data set. *IQR/Median value over 0.15 implies a poor quality data set. SIGNIFICANT CHANGE FROM PRIOR EXAM: Significant change if liver stiffness measurement is 10% or greater from prior exam. OTHER CONSIDERATIONS: The stage of liver fibrosis may be overestimated in the setting of acute hepatitis, liver inflammation, elevated liver function tests, hepatic vascular congestion, obstructive cholestasis, non-fasting state, and infiltrative diseases such as amyloidosis and lymphoma. In some patients with NAFLD, the liver stiffness thresholds for compensated advanced chronic liver disease may be lower. In causes other than viral hepatitis and NAFLD, liver stiffness thresholds are not well established. Electronically signed by: Bebeto Lance MD 10/13/2024 10:59 AM [facility]
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
--- OUTSIDE RECORDS SUMMARY | 2024-10-13 10:27 | XMS_ITS | Encounter Summary ---
Author Organization [employer] Address [address] [place] [address] [place] [address] Care Team Providers Care Fuel Buyer Name Role Phone Yudi Mcneil MD Primary Care Provider [phone] Reason for Visit * Reason Onset Date Comments Med Refill 09/21/2024 Encounter Details Date Type Department Care Team (Late st Contact Info) Description 09/21/2024 Refill [facility] [address] [place] [address] Francisca Rosado RN Uncomplicated opioid use Social History Tobacco Use Types Packs/Day [...] Department Care Team (Late Contact Info) Description 10/18/2024 10:30 AM EST Office Visit [facility] [address] [place] [address] Prabhjot Galicia MD [address] [place] [address] 10/25/2024 10:30 AM EST Office Visit [facility] [address] [place] [address] Prabhjot Galicia MD [address] [place] [address] documented as of this encounter Visit Diagnoses Diagnosis Uncomplicated opioid use documented in this encounter Additional Health Concerns Assessment Noted Time PHQ-9 Depression Total Score: 15 025 9:38 AM EST documented as of this encounter Care Teams Fuel Buyer Relationship Specialty Start Date End Date Yudi Mcneil MD [address] [place] [phone] PCP - General Family Medicine 09/12/24 Maryanne Diamond [address] [place] [address] Licensed Mental Health Counselor Behavioral Health 05/02/24 documented as of this encounter
--- OUTSIDE RECORDS SUMMARY | 2024-10-13 10:27 | XMS_ITS | Encounter Summary ---
Author Organization [employer] Address [address] [facility] 7t [place] [address] Care Team Providers Care Tour Actor Name Role Phone Yudi Mcneil MD Primary Care Provider [phone] Reason for Visit * Reason Comments Hypertension Encounter Details Date Type Department Care Team (Latest Contact Info) Description 10/03/2024 10:30 AM EST Clinical Support [facility] [address] [place], [place] [phone] Collette Marsh RN Primary hypertension Social History Tobacco Use Types Packs/Day Years Used Date Smoking Tobacco: Every Day Cigarettes Passive Smoke Exposure: Current Smokeless Tobacco: Never Tobacco Cessation:Ready to Q uit: No; Counseling Given: Yes Alcohol Use Standard Drinks/Week Comments Yes 0 (1 standard drink = 0.6 oz pur e alcohol) Social irregular use Depression Answer Date Recorded Patient Health Questionnaire-9 Score 15 09/12/2024 Patient Health Questionnaire-9 Score 15 09/12/2024 Last PHQ-9: Questionnaire Data Not on file 0 09/12/2024 Housing Stability Answer Date Recorded What is your housing situation today? I do not have housing (Staying with others, in a hotel, in a prison, living outside on the street, on a beach, in a car, or in a park 10/03/[address] you li ve. Do you have problems with any of the following? None of the above 10/03/2024 Food Insecurity Answer Date Recorded Within the past 12 months, y ou worried that your food would run out before you got money to buy more: Never True 10/03/2024 Within the past 12 months,th e food you bought just didn't last and you didn't have enough money to get more: Never True 10/2024 Transportation Answer Date Recorded In the past 12 months, has l ack of transportation kept you from medical appts, meetings, work or from getting things needed for daily living? Yes, it has kept me from medical appointments or getting medications.;Yes, it has kept me from non-medical meetings, work, or getting things that I need 10/03/2024 Utilities Answer Date Recorded In the past 12 months, has t he [employer], [employer], oil or water [employer] threatened to shut off services in your home? No 10/03/2024 Depression Answer Date Recorded Patient Health Questionnaire-2 Score 4 09/12/2024 Internet Access Answer Date Recorded Internet Access Q1 Yes 10/03/2024 Internet Access Q2 Not on file 10/03/2024 Comments Unknown Sex and Gender Information Value Date Recorded Sex Assigned at Female 06/30/2022 10:25 AM EDT Legal Sex Female 10:25 AM EDT Gender Identity Female 06/30/2022 10:25 AM EDT Sexual Orientation Straight 06/30/2022 10 :25 AM EDT documented as of this encounter Last Filed Vital Signs Vital Sign Reading Time Taken Comments Blood Pressure 130/90 10/03/2024 10:52 AM EST Pulse 86 10/03/2024 10:52 AM EST Temperature - - Respiratory Rate 18 10/03/2024 10:52 AM EST Oxygen Saturation - - Inhaled Oxygen Concentration - - Weight - - Height - - Body Mass Index - - documented in this encounter Progress Notes * Collette Marsh RN - 10/03/2024 10:30 AM EST SUBJECTIVE: Betty Peguero is a 43 y.o. year old female who presents for Hypertension At last appointment, pt's BP noted to be BP Readings from Last 2 Encounters: 10/03/24 130/90 09/12/24 (!) 160/108 Recommendations made on that day were to monitor blood pressure at home. Patient is currently taking Current Outpatient Medications Medication Sig Dispense Refill amLODIPine (Norvasc) 5 MG tablet Take 1 tablet (5 mg) by mouth Once per day. 90 tablet 0 buprenorphine-naloxone (Suboxone) 2-0.5 MG per sublingual film Place 1 Film under the tongue Once per day for 3 days. Take 1/4 film SL daily. 3 Film 0 buPROPion SR (Wellbutrin SR) 150 MG 12 hr tablet Take 1 tablet (150 mg) by mouth Once per day. Do not crush, chew, or split. 90 tablet 0 doxepin (SINEquan) 10 MG capsule Take 1 capsule (10 mg) by mouth at bedtime. 90 capsule 0 hydroCHLOROthiazide 12.5 MG tablet Take 1 tablet (12.5 mg) by mouth Once per day. 90 tablet 0 hydrOXYzine pamoate (Vistaril) 25 MG capsule Take 1 capsule (25 mg) by mouth every 6 (six) hours ifneeded for anxiety. 90 capsule 0 levothyroxine (Synthroid) 50 MCG tablet Take 1 tablet (50 mcg) by mouth before breakfast. 90 tablet0 No current facility-administered medications for this visit. Today, patient denies any blurred vision shortness of breath chest pain dizziness headaches Patient reports compliant with BP medication regimen, confirms that BP medications were taken today. OBJECTIVE: BP 130/90 (10/03/24 1052) Temp Pulse 86 (10/03/24 1052) Resp 18 (10/03/24 1052) SpO2 Social History Tobacco Use Smoking Status Every Day Current packs/day: 0.25 Types: Cigarettes Passive exposure: Current Smokeless Tobacco Never EDUCATION: The following side effects/prevention education were reviewed with Betty Peguero and they confirmed understanding DASH Diet Exercise as tolerated Good blood pressure levels ASSESSMENT: compliant with Blood Pressure medication regimen BP not at goal of <140/90 or <130 PLAN: Conformed will send to PCP and will call with any changes advised. Betty Peguero to call [facility] if SBP >165 or DBP>100 constantly Betty Peguero agrees with plan and verbalized understanding; to follow up with PCP as needed. Collette Marsh RN documented in this encounter Plan of Treatment Upcoming Encounters Date Type Department Care Team (Late st Contact Info) Description 10/18/2024 10:30 AM EST Office Visit [address] [address] Prabhjot Galicia MD [address] [place] [address] 10/25/2024 10:30 AM EST Office Visit [facility] [address] [place] [address] Prabhjot Galicia MD [address] [place] [address] documented as of this encounter Visit Diagnoses Diagnosis Primary hypertension Unspecified essential hypertension documented in this encounter Additional Health Concerns Assessment Noted Time PHQ-9 Depression Total Score: 15 025 9:38 AM EST documented as of this encounter Care Teams Tour Actor Relationship Specialty Start Date End Date Yudi Mcneil MD [address] [place] [address] PCP - General Family Medicine 09/12/24 Maryanne Diamond [address] [place] [address] Licensed Mental Health Counselor Behavioral Health 05/02/24 documented as of this encounter
--- OUTSIDE RECORDS SUMMARY | 2024-10-13 10:27 | XMS_ITS | Encounter Summary ---
Author Organization [employer] Address [address] [facility] 7t [place] [address] Care Team Providers Care Aws Developer Name Role Phone Yudi Mcneil MD Primary Care Provider [phone] Encounter Details Date Type Department Care Team (Latest Contact Info) Description 10/03/2024 Travel Social History Tobacco Use Types Packs/Day [...] with others, in a hotel, in a retirement, living outside on the street, on a [...] the past 12 months, has t he electric, gas, oil or water company threatened to shut off services in your [...] Description 10/18/2024 10:30 AM EST Office Visit [facility] [address] [place] [address] Prabhjot Galicia MD [address] [place] [address] 10/25/2024 10:30 AM EST Office Visit [address] [address] Prabhjot Galicia MD [address] [place] [address] documented as of this encounter Visit Diagnoses Not on filedocumented in this encounter Additional Health Concerns Assessment Noted Time PHQ-9 Depression Total Score: 15 025 9:38 AM EST documented as of this encounter Care Teams Aws Developer Relationship Specialty Start Date End Date Yudi Mcneil MD [address] [place] [address] PCP - General Family Medicine 09/12/24 Maryanne Diamond [address] [place] [address] Licensed Mental Health Counselor Behavioral Health 05/02/24 documented as of this encounter
--- OUTSIDE RECORDS SUMMARY | 2024-10-13 10:27 | XMS_ITS | Encounter Summary ---
Author Organization [employer] Address [address] [place] [address] 7 [place] [address] Care Team Providers Care Cash Poster Name Role Phone Yudi Mcneil MD Primary Care Provider Reason for Visit * Reason Comments OBAT F/U Encounter Details Date Type Department Care Team (Latest Contact Info) Description 09/20/2024 11:00 AM EST Office Visit [facility] [address] [place] [address] Prabhjot Galicia MD [address] [place] [address] Uncomplicated opioid use (Primary Dx); Tobacco use [...] Progress Notes * Prabhjot Galicia MD - 09/20/2024 11:00 AM EST 43 year old female who presents for OBOT F/U. 09/13/24 Utox BUP, THC. 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 Discussed with Coco Garcia RN [place] [facility] reviewed States she has a past hx of OUD, buying Suboxone from the street since she stopped going to [facility]. She was at [facility] ~ 8-10 years, Stated for the last 2 years she's been taking ~ / of 04/01 daily. If she doesn't take it, she [...] called the police. He is currently in [facility]-$5,000 bail. Stated he will not be able to return home till he completes inpatient treatment. [facility] kept on [facility] her dose to 24/6 [...] when she was younger. , therapist @ [facility], Nelli Diamond. Says she is supposed to her about a psychiatrist at the end of the week. Not quite sure who is working on that. Has Narcan. State she does not need FEN but will take some. Declines PrEP. New patient visit yesterday with Dr. Mcneil. Has been living with her fisandye and son. No ADRs. As above. Reviewed at length current dose and trying to slowly decrease dose to taper off. Symptomatic treatment at that time as needed. Will start with 0.5 mg daily down from ~ .66 mg daily. Recent labs available reviewed. I will review recent labs at [facility] prior to ordering additional labs. I do not believe she got FEN test strips. I will dispense next week. Met with Winston Jackson, assistant coach. Aware of groups in [facility]. She is fine continuing to be seem on Thursdays. Program expectations and requirement reviewed. She requests continuing care on Thursdays. F/U 1 week. Labs [facility] ordered by PCP 09/12/24: BUN/Cr 13/0.83, AST/ALT 168/234, Bili 1.2 (08/23-168/234, Bili 0.6) Alk phos nl, pr/alb 8.4/5.1 (elevated). [facility] 08/23 Chlamydia/GC neg Tobacco use disorder As above. Will see if her PCP will be increasing dose of Wellbutrin. Ask if hx of seizures. Continue to review. Today 09/20/24 F/U for opioid use disorder Utox BUP, TCA, THC Doing well on 0.5 mg daily. No ADRs [facility] labs reviewed-02/2024 INR 1.0. Has multiple narcans. Did not receive FEN test strips last week. still in fci. DCF to meet with him today. She and her son miss him though he needs to change/be in program before he returns home. Appointment with her therapist last Thursday. Still awaiting psych appointment. Smoking ~ 1/2 PPD. Declines increasing Wellbutrin dose or other Rx. Agrees to do labs today. States Dr. Mcneil has schedule an abdominal U/S. Rare alcohol. Objective Physical Exam Constitutional: Appearance: Normal appearance. Neurological: Mental Status: She is alert and oriented to person, place, and time. Psychiatric: Mood and Affect: Mood normal. Behavior: Behavior normal. Thought Content: Thought content normal. Assessment/Plan Uncomplicated opioid use Utox BUP, TCA, THC Utox BUP, TCA, THC Doing well on 0.5 mg daily. No ADRs [facility] labs reviewed-02/2024 INR 1.0. Has multiple narcans. Did not receive FEN test strips last week. still in fci. DCF to meet with him today. She [...] disorder As above. Pre-contemplation. Continue to review. Diagnoses and all orders for this visit: Uncomplicated opioid use Tobacco use disorder This information has been [...] Description 10/18/2024 10:30 AM EST Office Visit [facility] [address] [place] [phone] Prabhjot Galicia MD [address] [place] [address] [phone] 10/25/2024 10:30 AM EST Office Visit [address] [phone] Prabhjot Galicia MD [address] [place] [phone] documented as of this encounter Procedures Procedure [...] documented as of this encounter Care Teams Cash Poster Relationship Specialty Start Date End Date Yudi Mcneil MD [address] [place] [address] PCP - General Family Medicine 09/12/24 Maryanne Diamond [address] [place] [address] Licensed Mental Health Counselor Behavioral Health 05/02/24 documented as of this encounter
--- OUTSIDE RECORDS SUMMARY | 2024-10-13 10:27 | XMS_ITS | Encounter Summary ---
Author Organization [employer] Address [address] [place] [address] 7t [place] [address] Care Team Providers Care Clock And Watch Hands Painter Name Role Phone Yudi Mcneil MD Primary Care Provider [phone] Encounter Details Date Type Department Care Team (Late st Contact Info) Description 09/13/2024 9:30 AM EST Office Visit [facility] [address] [place] [phone] Alyse Choudhury, UNRULY Opiate use Social History [...] Description 10/18/2024 10:30 AM EST Office Visit [facility] [address] [place] [address] Prabhjot Galicia MD [address] [place] [address] 10/25/2024 10:30 AM EST Office Visit [facility] [address] [place] [address] Prabhjot Galicia MD [address] [place] [address] documented as of this encounter Visit Diagnoses Diagnosis Opiate use Poisoning by opium (alkaloids), unspecified documented in this encounter Additional Health Concerns Assessment Noted Time PHQ-9 Depression Total Score: 15 025 9:38 AM EST documented as of this encounter Care Teams Clock And Watch Hands Painter Relationship Specialty Start Date End Date Yudi Mcneil MD [address] [place] [address] PCP - General Family Medicine 09/12/24 Maryanne Diamond [address] [place] [address] Licensed Mental Health Counselor Behavioral Health 05/02/24 documented as of this encounter
--- OUTSIDE RECORDS SUMMARY | 2024-10-13 10:27 | XMS_ITS | Encounter Summary ---
Author Organization [employer] Address [address] [facility] 7 [place] [address] Care Team Providers Care Fixed Income Portfolio Manager Name Role Phone Yudi Mcneil MD Primary Care Provider [phone] Reason for Visit * Reason Comments TELE OBAT F/U Encounter Details Date Type Department Care Team (Latest Contact Info) Description 10/07/2024 10:30 AM EST Telemedicine [facility] [address] [place] [address] Prabhjot Galicia MD [address] [place] [address] Uncomplicated opioid use (Primary Dx); Tobacco use [...] with others, in a hotel, in a intermediate, living outside on the street, on a [...] the past 12 months, has t he [employer], gas, oil or water [employer] threatened to shut off services in your [...] Progress Notes * Prabhjot Galicia MD - 10/07/2024 10:30 AM EST 43 year old female who presents for OBOT F/U. 09/27/24 Utox BUP, THC, TCA Doing well. Dose is effective. NO ADRs. Rare alcohol. Smokes ~ 1/2 PPD. Lots of medical appointments. Hopes to get her ID in the next few weeks. [employer]. PCP @ [facility] transferred to Dr. Peters. She has see him in the past. Appointments next week with an SPIN INSTRUCTOR and Dr. Peters. Javed still in care home-charged with a felony. Therapist @ [facility]-may be seeing a psychiatrist in a couple of weeks. Not sure if she has had Hep A or B vaccines. Will check. Has FEN test strips and Narcan. THC only from the dispensary. Smokes ~ a bowl or less a day. None for 2 days. As above. By hx, doing well. [facility]. Reviewed labs. LFTs trending down, bilirubin nl. Further per PCP who she is seeing next week. Defers Hep A/B vaccine. Ask again next visit. In view of scheduling conflict, F/U 10/07/24 Today 10/07/24 F/U for opioid use disorder Tele-visit Lots going on but recovery intact. Javed's bail decreased to $500. He may be released next week with an ankle bracelet. He will comehome. Conditions of release is that he needs to be in a 'program'. She will allow him to stay home if he remains clean. Many doctor's appointments: will need surgery for a number of lumps in her neck which have gotten bigger. Also, will have imaging for abdominal issues. Still connected with her therapist and expects pysch appointment in the next 2 weeks. PT1 is not active which is why visit changed to tele-visit. This should be active by next visit. Tuesdays are a better day for her visits. No ADRs. Would like help with getting an ID and to enroll in [employer]. Has not found evidence of prior Hep A/B vaccines. Assessment/Plan Uncomplicated opioid use Tele-visit Lots going on bit recovery intact. Javed's bail decreased to $500. He may be released next week with an ankle bracelet. He will comehome. Conditions of release is that he needs to be in a 'program'. She will allow him to stay home if he remains clean. Many doctor's appointments: will need surgery for a number of lumps in her neck which have gotten bigger. Also, will have imaging for abdominal issues. Still connected with her therapist and expects pysch appointment in the next 2 weeks. PT1 is not active which is why visit changed to tele-visit. This should be active by next visit. Tuesdays are a better day for her visits. Doing well on current dose of suboxone. No ADRs. Would like help with getting an ID and to enroll in [employer]. Has not found evidence of prior Hep A/B vaccines. As above. Recovery intact despite life stressors. Reviewed labs last visit. Her PCP ordered a number of them. Repeat LFTs in 8-12 weeks. Encouraged to start Hep A/B vaccine next visit. Recovery coaches to assist with ID and [employer]. F/U 10/18/24 Tobacco use disorder Smoking < 1/2 PPD. Currently, pre-contemplation. Continue to inquire. Diagnoses and all orders for this visit: [...] Description 10/18/2024 10:30 AM EST Office Visit [facility] [address] [place] [phone] Prabhjot Galicia MD [address] [place] [address] 10/25/2024 10:30 AM EST Office Visit [facility] [address] [place] [address] Prabhjot Galicia MD [address] [place] [address] documented as of this encounter Visit Diagnoses Diagnosis Uncomplicated opioid use- Primary Tobacco use disorder documented in this encounter Additional Health Concerns Assessment Noted Time PHQ-9 Depression Total Score: 15 025 9:38 AM EST documented as of this encounter Care Teams Fixed Income Portfolio Manager Relationship Specialty Start Date End Date Yudi Mcneil MD [address] [place] [address] PCP - General Family Medicine 09/12/24 Maryanne Diamond [address] [place] [address] Licensed Mental Health Counselor Behavioral Health 05/02/24 documented as of this encounter
--- OUTSIDE RECORDS SUMMARY | 2024-10-13 10:27 | XMS_ITS | Encounter Summary ---
Author Organization [employer] Address 75 [facility] 7t [place] [address] Care Team Providers Care Box Truck Washer Name Role Phone Yudi Mcneil MD Primary Care Provider [phone] Reason for Visit * Reason Comments Recovery Supports Encounter Details Date Type Department Care Team ([facility] st Contact Info) Description 09/13/2024 Patient Outreach [facility] [address] [place] [address] Benjamin Wilson Recovery Supports Social History Tobacco [...] with Betty today. Setting: in person at [facility] Recovery Wellness Goals worked on: Social Stability Action taken/next steps: Offered person centered recovery support Additional comments: he participant was connected with the RN for a follow-up. Benjamin Wislon documented in this encounter Plan of Treatment Upcoming Encounters Date Type Department Care Team ([facility] st Contact Info) Description 10/18/2024 10:30 AM EST Office Visit [address] [address] Prabhjot Galicia MD [address] [place] [address] 10/25/2024 10:30 AM EST Office Visit [address] [address] Prabhjot Galicia MD [address] [place] [address] documented as of this encounter Visit Diagnoses Not on filedocumented in this encounter Additional Health Concerns Assessment Noted Time PHQ-9 Depression Total Score: 15 025 9:38 AM EST documented as of this encounter Care Teams Box Truck Washer Relationship Specialty Start Date End Date Yudi Mcneil MD [address] [place] [address] PCP - General Family Medicine 09/12/24 Maryanne Diamond [address] [place] [address] Licensed Mental Health Counselor Behavioral Health 05/02/24 documented as of this encounter
--- OUTSIDE RECORDS SUMMARY | 2024-10-13 10:27 | XMS_ITS | Encounter Summary ---
Author Organization [employer] Address 75 [facility] 7 [place] [address] Care Team Providers Care Technical Training Manager Name Role Phone Yudi Mcneil MD Primary Care Provider [phone] Reason for Visit * Reason Onset Date Comments Med Refill 10/03/2024 Encounter Details Date Type Department Care Team (Late st Contact Info) Description 10/03/2024 Refill [facility] [address] [place] [address] Alyse Choudhury RN Uncomplicated opioid use Social History Tobacco [...] with others, in a hotel, in a longterm, living outside on the street, on a [...] Description 10/18/2024 10:30 AM EST Office Visit [facility] [address] [place] [address] Prabhjot Galicia MD [address] [place] [address] 10/25/2024 10:30 AM EST Office Visit [facility] [address] [place] [address] Prabhjot Galicia MD [address] [place] [address] documented as of this encounter Visit Diagnoses Diagnosis Uncomplicated opioid use documented in this encounter Additional Health Concerns Assessment Noted Time PHQ-9 Depression Total Score: 15 025 9:38 AM EST documented as of this encounter Care Teams Technical Training Manager Relationship Specialty Start Date End Date Yudi Mcneil MD [address] [place] [address] PCP - General Family Medicine 09/12/24 Maryanne Diamond [address] [facility], [place] [address] Licensed Mental Health Counselor Behavioral Health 05/02/24 documented as of this encounter
--- OUTSIDE RECORDS SUMMARY | 2024-10-13 10:27 | XMS_ITS | Encounter Summary ---
Author Organization [employer] Address [address] [facility] 7t [place] [address] Care Team Providers Care Hospice Home Health Aide Name Role Phone Yudi Mcneil MD Primary Care Provider [phone] Encounter Details Date Type Department Care Team (Latest Contact Info) Description 10/07/2024 Travel Social History Tobacco Use Types Packs/Day [...] with others, in a hotel, in a mcc, living outside on the street, on a [...] Description 10/18/2024 10:30 AM EST Office Visit [facility] [address] [place] [address] Prabhjot Galicia MD [address] [place] [address] 10/25/2024 10:30 AM EST Office Visit [address] [address] Prabhjot Galicia MD [address] [place] [address] documented as of this encounter Visit Diagnoses Not on filedocumented in this encounter Additional Health Concerns Assessment Noted Time PHQ-9 Depression Total Score: 15 025 9:38 AM EST documented as of this encounter Care Teams Hospice Home Health Aide Relationship Specialty Start Date End Date Yudi Mcneil MD [address] [place] [address] PCP - General Family Medicine 09/12/24 Maryanne Diamond [address] [place] [phone] Licensed Mental Health Counselor Behavioral Health 05/02/24 documented as of this encounter
--- OUTSIDE RECORDS SUMMARY | 2024-10-13 10:27 | XMS_ITS | Clinical Summary ---
Author Organization [employer] Address [address] [facility] [address] [place] [address] Care Team Providers Care Conservation Specialist Name Role Phone Yudi Mcneil MD Primary Care Provider [phone] Allergies Active Allergy Reactions Criticality Noted Date [...] 2 days. Take 1/4 film SL daily. Do not start before October 07, 2024. 2 Film 10/07/19 25 Active ketoconazole (NIZOral) 2 % shampooIndicat ions:Androgene tic alopecia Apply topically 2 (two) times a week. 120 mL 11 10/06/19 25 Active buprenorphine- naloxone (Suboxone) 2-0.5 MG per sublingual filmIndication s:Uncomplicate d opioid use Place 1 Film under the tongue Once per day for 3 days. 1/4 film SL once daily 3 Film 10/07/19 25 Active buprenorphine- naloxone (Suboxone) 2-0.5 MG per sublingual filmIndication s:Uncomplicate d opioid use Place 1 Film under the tongue Once per day for 2 days. 2 Film 09/13/19 25 025 Discontinued(Re order (will not trigger notification to Pharmacy)) buprenorphine- naloxone (Suboxone) 2-0.5 MG per sublingual filmIndication s:Uncomplicate d opioid use Place 1 Film under the tongue Once per day for 2 days. Take 1/4 film SL daily. 2 Film 09/20/19 25 025 Discontinued(Re order (will not trigger notification to Pharmacy)) buprenorphine- naloxone (Suboxone) 2-0.5 MG per sublingual filmIndication s:Uncomplicate d opioid use Place 1 Film under the tongue Once per day for 2 days. Take 1/4 film SL daily. 2 Film 09/22/19 25 025 Discontinued(Re order (will not trigger notification to Pharmacy)) buprenorphine- naloxone (Suboxone) 2-0.5 MG per sublingual filmIndication s:Uncomplicate d opioid use Place 1 Film under the tongue Once per day for 3 days. Take 1/4 film SL daily. 3 Film 09/27/19 25 025 Discontinued(Re order (will not trigger notification to Pharmacy)) Active Problems Problem Noted Date Diagnosed Date Pilar cyst of scalp 10/04/2024 Primary hypertension 09/12/2024 Assessment & Plan (09/12/2024 [...] & Plan (09/12/2024 10:37 AM EST): Called [facility] for further evaluation. Encounters * This document contains information received from the source organization and may not represent a complete record from that organization. Date Type Department Care Team Description 10/12/2024 Refill [facility] [address] [place] [address] Francisca Rosado RN 10/07/2024 10:30 AM EST Telemedicine [facility] [address] [place] [address] Prabhjot Galicia MD Uncomplicated opioid use (Primary Dx); Tobacco use disorder 10/07/2024 Travel 10/04/2024 9:45 AM EST Office Visit [facility] [address] [place] [address] Jovanny Peters MD Pilar cyst of scalp (Primary Dx); Seborrheic keratosis; Androgenetic alopecia; Dry skin 10/03/2024 10:30 AM EST Clinical Support [facility] [address] [place] [address] Collette Marsh RN Primary hypertension 10/03/2024 Refill [facility] [address] [place] [address] Alyse Choudhury RN Uncomplicated opioid use 10/03/2024 Travel 09/27/2024 11:15 AM EST Office Visit [facility] [address] [place] [phone] Prabhjot Galicia MD Uncomplicated opioid use (Primary Dx); Tobacco use disorder 09/27/2024 Travel 09/21/2024 Refill [facility] [address] [place] [phone] Francisca Rosado RN Uncomplicated opioid use 09/20/2024 11:00 AM EST Office Visit [address] [address] Prabhjot Galicia MD Uncomplicated opioid use (Primary Dx); Tobacco use disorder 09/20/2024 Telephone [facility] [address] [place] [address] Yudi Mcneil MD 09/20/2024 Travel 09/13/2024 10:00 AM EST Office Visit [address] [address] Prabhjot Galicia MD Opioid use, unspecified, uncomplicated (Primary Dx); Uncomplicated opioid use; Tobacco use disorder 09/13/2024 9:30 AM EST Office Visit [address] [address] Alyse Choudhury, UNRULY Opiate use 09/13/2024 Patient Outreach [address] [address] Benjamin Wilson [facility] 09/13/2024 Patient Outreach [address] [address] Winston Jackson [facility] 09/13/2024 Patient Outreach [address] [address] [facility] 09/13/2024 Travel 09/12/2024 9:30 AM EST Office Visit [facility] [address] [place] [address] Yudi Mcneil MD Primary hypertension (Primary Dx); Moderate episode of recurrent major depressive disorder (CMS/HCC); Anxiety; Acquired hypothyroidism; Opiate use; Class 2 severe obesity with serious comorbidity and body mass index (BMI) of 35.0 to 35.9 in adult, unspecified obesity type (CMS/HCC); Primary insomnia 09/12/2024 Telephone [facility] [address] [place], [place] [phone] Yudi Mcneil MD 09/12/2024 Patient Outreach [facility] [address] [place] [address] [phone] Winston Jackson [facility] Supp[facility] 09/12/2024 Travel 09/09/2024 Telephone [facility] [address] [place], [place] [phone] Yudi Mcneil MD CHART PREP 07/22/2024 Telephone [facility] [address], [place] [phone] Brady Etienne MD New patient appt. from [...] with others, in a hotel, in a nursing home, living outside on the street, on a [...] Sign Reading Time Taken Comments Blood Pressure 164/92 10/04/2024 9:26 AM EST Pulse 78 10/04/2024 9:26 AM EST Temperature 36.6 ??C (97.8 ??F) 10/04/2024 9:26 AM ES T Respiratory Rate 20 10/04/2024 9:26 AM EST Oxygen Saturation 98% 10/04/2024 9:26 AM EST Inhaled Oxygen Concentration - - Weight 96.9 kg (213 lb 9.6 oz) 10/04/2024 9:26 A M EST Height 162.6 cm (5' 4 ) 10/04/2024 9:26 AM EST Body Mass Index 36.66 10/04/2024 9:26 AM EST Plan of Treatment Upcoming Encounters Date Type Department Care Team (Late st Contact Info) Description 10/18/2024 10:30 AM EST Office Visit [facility] [address] [place] [phone] Prabhjot Galicia MD [address] [place] [address] 10/25/2024 10:30 AM EST Office Visit [facility] [address] [place] [address] Prabhjot Galicia MD [address] [place] [address] Health Maintenance Due Date Last Done Comments Family Planning (PISQ) 1996 DTaP/Tdap/Td Vaccines (1 - Tdap) 2000 Hepatitis B Vaccines (1 of 3 - 19+ 3-dose series) 2000 Pneumococcal Vaccine: Pediatrics (0 to 5 Years) and At-Risk Patients (6 to 49) Years) (1 of 2 - PCV) 2000 Pap Smear 2002 Cervical Cancer Screening 11/02/2011 HPV/Cotest 11/02/2011 Mammogram 2021 Influenza Vaccine (#1) 2025 5, 10/30/2014 Postponed from 05/01/2024 (Patient Refused) Depression Monitoring (PHQ-9) 03/12/2025, 09/12/2024 Depression Screening 09/12/2025 09/12/2024, 09/12/2024 Alcohol/Substance Use Screening 10/03/2025 10/03/2024 COVID-19 Vaccine (1 - 2023-2 5 season) 2025 Postponed from 05/01 (Patient Refused) SDOH Screening 10/03/2025 10/03/2024 Tobacco Screening 10/04/2025 10/04/2024 Lipid Panel 09/12/2029 09/12/2024 Zoster Vaccines (1 of 2) 11/02/2031 RSV Patients and Patients Aged 60 years or older (1 - 1-dose 75+ series) 2056 HIV Screening Completed 09/20/2024 Hepatitis C Screening Completed 09/20/2024 HIB Vaccines Aged Out No longer eligi [...] 09/27/2024 11:21 AM EST Uncomplicated opioid use HEPATITIS B CORE AB TOTAL Routine 09/20/2024 11:13 AM EST Uncomplicated opioid use HEPATITIS B SURFACE ANTIGEN, EIA Routine 09/20/2024 11:13 AM EST Uncomplicated opioid use HEPATITIS A ANTIBODY, TOTAL Routine 09/20/2024 11:13 AM EST Uncomplicated opioid use HEPATITIS C AB W/REFL TO HCV RNA, QN, PCR Routine 09/20/2024 11:13 AM EST Uncomplicated opioid use HIV 1/2 ANTIGEN/ANTIBODY, FOURTH GENERATION W/RFL Routine 09/20/2024 11:13 AM EST Opioid use, unspecified, uncomplicated T-SPOT(R).TB Routine 09/20/2024 11:13 AM EST Opioid use, unspecified, uncomplicated RPR (MONITOR) W/REFL TITER Routine 09/20/2024 11:13 AM EST Opioid use, unspecified, uncomplicated HEPATITIS B SURFACE ANTIBODY, QUALITATIVE Routine 09/20/2024 11:13 AM EST Transaminitis FERRITIN Routine 09/20/2024 11:13 AM EST Transaminitis IRON AND TOTAL IRON BINDING CAPACITY Routine 09/20/2024 11:13 AM EST Transaminitis HEMOGLOBIN A1C Routine 09/20/2024 11:13 AM EST Transaminitis COMPREHENSIVE METABOLIC PANEL Routine 09/20/2024 11:13 AM EST Transaminitis APTT Routine 09/20/2024 11:13 AM EST Transaminitis PROTHROMBIN TIME-INR Routine 09/20/2024 11:13 AM EST Transaminitis HEPATITIS A IGM ANTIBODY Routine 09/20/2024 11:13 AM EST Transaminitis POCT LOUIS-14 URINE DRUG SCREEN Routine 09/20/2024 [...] Urine Drug Screen (09/27/2024 11:21 AM EST) Only the most recent of3 resultswithin the time period is included. THC [...] procedure / Unknown 09/27/2024 11:21 AM EST us Prabhjot Galicia MD POINT OF CARE TEST ENTER/EDIT ORDERABLES Final Result * T-SPOT??.TB (09/20/2024 11:13 AM EST) T Spot TB Negative Negative [facility] Comment:A negative test resu lt does not exclude the possibilityof exposure to or infection with Mycobacteriumtuberculosis (M. tuberculosis). Patients with recentexposure to TB infected individuals exhibiting anegative T-SPOT.TB result should be considered forretesting within 6 weeks or if other relevant clinicalsymptoms indicate. Results from T-SPOT.TB testing mustbe used in conjunction with each individual'sepidemiological history, current medical status,and results of other diagnostic evaluations.The T-SPOT.TB test is qualitative and results arereported as positive, borderline, or negative, giventhat the test controls perform as expected. In linewith the Centers for Disease Control and Prevention's2010 recommendation to report quantitative measurementsalongside the qualitative result, the laboratoryprovides spot counts for informational purposes only.The T-SPOT.TB test should not be interpreted as aquantitative test. TS PANEL A 0 [facility] TS PANEL B 0 [facility] Negative Control Passed [facility] Positive Control Passed [facility] Comment:For additional infor neel, please refer tohttp://[email or web address].TV/faq/[email or web address](This link is being provided for informational/educational purposes only.)THIS TEST WAS PERFORMED AT:[employer]/[facility]DKVI[facility] [place] [address]XIHQSCWCYNTHIA BALBUENA MD,PHD 09/20/2024 11:1 3 AM EST 09/20/2024 1:14 PM EST us Prabhjot Galicia MD LAB BLOOD ORDERABLES Final Res ult Performing Organization Address City/State/[facility] Co de Phone Number [facility] [address] [place] [address] [phone] * Hepatitis C Antibody with Reflex to HCV, RNA, Quantitative, Real-Time PCR (09/20/2024 11:13 AM EST) Pathologist [facility] Hepatitis C Antibody Nonreactive Nonreactive [facility] Comment:Antibodies to HCV no t detected; does not exclude early acuteHCV infection. Blood Venous blood specimen / Unknown 09/20/2024 11:13 AM EST 09/20/2024 1:14 PM EST us Prabhjot Galicia MD LAB BLOOD ORDERABLES Final Res ult Performing Organization Address [facility] Co de Phone Number [facility] [address] [place] [address] [phone] * Iron And Total Iron Binding Capacity (09/20/2024 11:13 AM EST) Pathologist [facility] Iron 93 30 - 160 mcg/dL [facility] Total Iron Binding Capacity 316 228 - 428 mcg/dL [facility] Percent Iron Saturation 29 15 - 50 % [facility] Unsaturated Iron Binding 223 ug/dL [facility] Blood Venous blood specimen / Unknown 09/20/2024 11:13 AM EST 09/20/2024 1:14 PM EST us Yudi Mcneil MD LAB BLOOD ORDERABLES Final Re sult Performing Organization Address [facility] Co de Phone Number [facility] [address] [place] [address] [phone] * Hepatitis A IgM Antibody (09/20/2024 11:13 AM EST) Pathologist [facility] Hepatitis A IgM Nonreactive Nonreactive [facility] Comment:IgM antibodies to JOSHI V not detected; does not exclude earlyacute or recovered HAV infection. Blood Venous blood specimen / Unknown 09/20/2024 11:13 AM EST 09/20/2024 1:14 PM EST Yudi Mcneil MD LAB BLOOD ORDERABLES Final Re sult Performing Organization Address [facility] Co de Phone Number [facility] [address] [place] [phone] * Hepatitis A Antibody, Total (09/20/2024 11:13 AM EST) Hepatitis A Antibody IgG Nonreactive Nonreactive [facility] Blood Venous blood specimen / Unknown 09/20/2024 11:13 AM EST 09/20/2024 1:14 PM EST Prabhjot Galicia MD LAB BLOOD ORDERABLES Final Res ult Performing Organization Address [facility] Phone Number [facility] [address] [place] [phone] * Hepatitis B surface antigen, EIA (09/20/2024 11:13 AM EST) Hepatitis B Surface Ag Negative Negative [facility] Blood Venous blood specimen / Unknown 09/20/2024 11:13 AM EST 09/20/2024 1:14 PM EST Prabhjot Galicia MD LAB BLOOD ORDERABLES Final Res ult Performing Organization Address [facility] Co de Phone Number [facility] [address] [place] [phone] * Hepatitis B Core Antibody, Total (09/20/2024 11:13 AM EST) Hepatitis B Core Antibody Nonreactive Nonreactive [facility] Blood Venous blood specimen / Unknown 09/20/2024 11:13 AM EST 09/20/2024 1:14 PM EST Prabhjot Galicia MD LAB BLOOD ORDERABLES Final Res ult Performing Organization Address City/[facility] Co de Phone Number [facility] [address] [place] [address] [phone] * RPR (Monitor) with Reflex to??Titer (09/20/2024 11:13 AM EST) RPR (Monitor) w/Refl Titer NON-REACTI VE NON-REACT EARLINE [facility] Comment:THIS TEST WAS PERFOR MED AT:[employer] [place] [phone] SORIANO MD Rapid Plasma Reagin Ab Titer TNP [facility] Blood Venous blood specimen / Unknown 09/20/2024 11:13 AM EST 09/20/2024 1:14 PM EST us Prabhjot Galicia MD LAB BLOOD ORDERABLES Final Res ult Performing Organization Address [facility] Co de Phone Number [facility] [address] [place] [address] [phone] * HIV-1/2 Antigen and Antibodies, Fourth Generation, with Reflexes (09/20/2024 11:13 AM EST) Pathologist [facility] HIV AB/AG Nonreactive Nonreactive [facility] Comment:HIV-1 p24 Ag and/or HIV-1/HIV-2 Ab not detected.A test result that is nonreactive does not exclude thepossibility of exposure to or infection with HIV-1 and/orHIV-2. Nonreactive results in this assay for individualswith prior exposure to HIV-1 and/or HIV-2 may be due toantigen and antibody levels that are below the limit ofdetection of this assay.[employer] HIV Ag/Ab Combo assay result andsupplemental assay results should be interpreted inconjunction with the patient's clinical presentation,history and other laboratory results. If the results areinconsistent with clinical evidence, additional testing issuggested to confirm the result. Blood Venous blood specimen / Unknown 09/20/2024 11:13 AM EST 09/20/2024 1:14 PM EST Prabhjot Galicia MD LAB BLOOD ORDERABLES Final Res ult Performing Organization Address [facility] Co de Phone Number [facility] [address] [place] [phone] * Hepatitis B Surface Antibody, Qualitative (09/20/2024 11:13 AM EST) ~Hepatitis B Surface Antibody NONREACTIVE Nonreactive [facility] Comment:Nonreactive: < 8.00 mIU/mL Blood Venous blood specimen / Unknown 09/20/2024 11:13 AM EST 09/20/2024 1:14 PM EST Yudi Mcneil MD LAB BLOOD ORDERABLES Final Re sult Performing Organization Address [facility] de Phone Number [facility] [address] [place] [phone] * Partial Thromboplastin Time, Activated (APTT) (09/20/2024 11:13 AM EST) Partial Thromboplastin Time 32.8 26.0 - 36.8 SEC [facility] Comment:For information rega rding the monitoring of direct thrombininhibitors, please refer to Pharmacy. Blood Venous blood specimen / Unknown 09/20/2024 11:13 AM EST 09/20/2024 1:14 PM EST Yudi Mcneil MD LAB BLOOD ORDERABLES Final Re sult Performing Organization Address [facility] Co de Phone Number [facility] [address] [place] [address] [phone] * (ABNORMAL) Prothrombin Time-INR (09/20/2024 11:13 AM EST) Prothrombin Time 10.8(L) 10.9 - 12.4 SEC [facility] INTERNATIONAL NORM RATIO 0.9 0.9 - 1.1 [facility] Comment:INTERNATIONAL NORMAL IZED RATIO (INR) REFERENCE RANGES Reference RangeFor patients not on anticoagulant therapy: 0.9 - 1.1INR ranges for oral anticoagulanttherapy:For prevention and treatment of venous thrombosis and pulmonary embolism: 2.0 - 3.0For acute myocardial infarction with aspirin therapy: 2.0 - 3.0For acute myocardial infarction without aspirin therapy: 3.0 - 4.0For patients with mechanical prosthetic heart valves: 2.5 - 3.5 Blood Venous blood specimen / Unknown 09/20/2024 11:13 AM EST 09/20/2024 1:14 PM EST Yudi Mcneil MD LAB BLOOD ORDERABLES Final Re sult Performing Organization Address [facility] Co de Phone Number [facility] [address] [place] [phone] * Hemoglobin A1c (09/20/2024 11:13 AM EST) Hemoglobin A1c 4.6 <6.0 % [facility] Comment:Hemoglobin A1C Refer ence Range Adults: 4.8 - 6.0 % Non diabetic: < 6.0 % Goal: < 7.0 %Additional Action Suggested: > 8.0 %Note: Hemoglobin A1c results are invalid for patients with abnormal amounts of HbF. Blood transfusions may impact the HbA1c concentration in the patient sample. Estimated Average Glucose 85 mg/dL [facility] Comment:eAG = Estimated ave rage glucose which is %A1C expressed asaverage glucose, using the formula of the D5F-[id number] Glucose study (ADAG), Diabetes Care, Vol.31,#8,Mar. 2007 Blood Venous blood specimen / Unknown 09/20/2024 11:13 AM EST 09/20/2024 1:14 PM EST Yudi Mcneil MD LAB BLOOD ORDERABLES Final Re sult Performing Organization Address [facility] Co de Phone Number [facility] [address] [place] [phone] * Ferritin (09/20/2024 11:13 AM EST) Ferritin 221 10 - 250 ng/mL [facility] Blood Venous blood specimen / Unknown 09/20/2024 11:13 AM EST 09/20/2024 1:14 PM EST us uYdi Mcneil MD LAB BLOOD ORDERABLES Final Re sult [facility] [address] [place] [phone] [phone] * (ABNORMAL) Comprehensive Metabolic Panel (09/20/2024 11:13 AM EST) Only the most recent of2 resultswithin the time period is included. Sodium 140 135 - 145 mmol/L [facility] Potassium 3.4 3.3 - 5.1 mmol/L [facility] Chloride 104 96 - 108 mmol/L [facility] Carbon Dioxide 29 22 - 29 mmol/L [facility] Anion Gap 10(L) 12 - 20 [facility] Urea Nitrogen (BUN) 21(H) 9 - 16 mg/dL [facility] Creatinine, Serum 0.86 0.5 - 1.4 mg/dL [facility] Estimated Glomerular Filt Rate >60 [facility] Comment:Chronic Kidney Disea se: Estimated GFR < 60 mL/min/[id number] Kidney Disease: Estimated GFR < 15 mL/min/1.73m2 Glucose 134(H) 60 - 115 mg/dL [facility] Calcium 9.3 8.4 - 10.2 mg/dL [facility] Bilirubin, Total 0.6 0.0 - 1.0 mg/dL [facility] Aspartate Amino Transferase 38(H) 5 - 31 U/L [facility] Alanine Aminotransferase 82(H) 0 - 31 U/L [facility] Total Protein 7.6 6.5 - 8.0 g/dL [facility] Albumin Level 4.6 3.5 - 5.0 g/dL [facility] Alkaline Phosphatase 65 39 - 117 U/L [facility] Blood Venous blood specimen / Unknown 09/20/2024 11:13 AM EST 09/20/2024 1:14 PM EST us Yudi Mcneil MD LAB BLOOD ORDERABLES Final Re sult [facility] [address] [place] [address] [phone] * (ABNORMAL) Urinalysis, Complete, with Reflex to Culture (09/12/2024 11:03 AM EST) Color Urine [place](A) [facility] Appearance Urine Turbid [facility] PH 5.0 5.0 - 9.0 [facility] Glucose Urine UA Negative Negative mg/dL [facility] Urine Blood Negative Negative [facility] Specific Mar Lin - Urine >=1.030(H) 1.005 - 1.025 [facility] Urine Protein See Note Neg-Trace mg/dL [facility] Comment:Urine pigment obscur ed dipstick results. Urine Ketones Negative Negative mg/dL [facility] Nitrite Urine See Note Negative [facility] Comment:Urine pigment obscur ed dipstick results. Leukocyte Esterase Urine Trace(A) Negative [facility] RBC Urine 0-2 0 - 2 /HPF [facility] Urine WBC 0-5 0 - 5 /HPF [facility] Urine Squamous Epithelial Cell 6-10 0 - 2 /HPF [facility] Other Crystals Urine Present [facility] Comment:Amorphous urates Urine Bacteria 1+ None Seen [facility] Hyaline Casts, Urine 6-10 0 - 2 /LPF [facility] Urine 09/12/2024 11:0 3 AM EST 09/12/2024 1:55 PM EST Narrative [facility] - 09/12/2024 2:18 PM EST [id number], Clean Catch us Yudi Mcneil MD LAB URINE ORDERABLES Final Re sult Performing Organization Address City/[facility]/ZIP Co de Phone Number [facility] [address] [place] [phone] * Vitamin B12 (Cobalamin) and Folate Panel, Serum (09/12/2024 10:56 AM EST) Pathologist [facility] Vitamin B12 501 200 - 900 pg/mL [facility] Comment:NORMAL 200-900 PG/ML INDETERMINATE 160-199 PG/ML DEFICIENT < 160 PG/ML Folate 13.2 > or = 4.0 ng/mL [facility] Comment:Reference Values:> o r = 4.0 [...] ORDERABLES Final Re sult Performing Organization Address [facility] Co de Phone Number [facility] [address] [place] [phone] * TSH W/Reflex to FT4 (09/12/2024 10:56 AM EST) Pathologist [facility] TSH reflex Free T4 3.92 0.32 - 4.0 uIU/mL [facility] Blood Venous blood specimen / Unknown 09/12/2024 10:56 AM EST 09/12/2024 1:56 PM EST us Yudi Mcneil MD LAB BLOOD ORDERABLES Final Re sult Performing Organization Address City/[facility]/ZIP Co de Phone Number [facility] [address] [place] [phone] * (ABNORMAL) CBC auto differential (09/12/2024 10:56 AM EST) White Blood Count 12.9(H) 4.8 - 10.8 X10*3/uL [facility] Red Blood Count 5.12 4.20 - 5.50 X10*6/uL [facility] Hemoglobin 17.1(H) 12.0 - 16.0 g/dl [facility] Hematocrit 47.3(H) 37.0 - 47.0 % [facility] Mean Corpuscular Volume 92.4 80.0 - 98.0 fL [facility] Mean Corpuscular Hemoglobin 33.4(H) 27.0 - 33.0 pg [facility] Mean Corpuscular HGB Conc 36.2(H) 31.0 - 35.0 g/dl [facility] Red Cell Distribution Width 12.0 11.0 - 16.0 % [facility] Platelet Count 262 160 - 400 X10*3/uL [facility] Mean Platelet Volume 11.8 9.4 - 12.3 fL [facility] Neutrophils Percent Auto 68.2 45 - 73 % [facility] Imm Gran Pct Auto 0.4 0.0 - 0.4 % [facility] Lymphocytes Percent Auto 21.5 20 - 40 % [facility] Monocytes Percent Auto 8.7 2 - 11 % [facility] Eosinophils Percent Auto 0.7 0 - 4 % [facility] Basophils Percent Auto 0.5 0 - 2 % [facility] NRBC Pct Auto 0.0 0.0 - 0.2 /100WBC [facility] Neutrophils Absolute Auto 8.8(H) 2.0 - 8.3 x10*3/uL [facility] Imm Gran Abs Auto 0.05(H) 0.00 - 0.03 X10*3/uL [facility] Lymphocytes Absolute Auto 2.8 1.2 - 4.9 X10*3/uL [facility] Monocytes Absolute Auto 1.1 0.1 - 1.2 X10*3/uL [facility] Eosinophils Absolute Auto 0.1 0.0 - 0.4 X10*3/uL [facility] Basophils Absolute Auto 0.1 0.0 - 0.2 X10*3/uL [facility] NRBC Abs Auto 0.000 0.0 - 0.012 X10*3/uL [facility] Blood Venous blood specimen / Unknown 09/12/2024 10:56 AM EST 09/12/2024 1:56 PM EST us Yudi Mcneil MD LAB BLOOD ORDERABLES Final Re sult Performing Organization Address [facility] de Phone Number [facility] [address] [place] [phone] * (ABNORMAL) Lipid Panel, Standard (09/12/2024 10:56 AM EST) Triglycerides 272(H) <150 mg/dL [facility] Comment:Desirable Triglyceri de: less than 150 mg/dLBorderline High Triglyceride 150-199 mg/dLHigh Triglyceride: 200-499 mg/dLVery High Triglyceride: greater than or equal to 5OO mg/dL Cholesterol 187 <200 mg/dL [facility] Comment:Desirable Cholestero l: less than 200 mg/dLBorderline High Cholesterol: 200-239 mg/dLHigh Cholesterol: greater than 239 mg/dL LDL Cholesterol Calculated 71 <100 mg/dL [facility] Comment:Desirable LDL: less than 100 mg/dLNear Optimal/Above Optimal LDL: 110- 129 mg/dLBorderline High LDL: 130-159 mg/dLHigh LDL: 160-189 mg/dLVery High LDL: greater than or equal to 190 mg/dL HDL Cholesterol 62 >40 mg/dL [facility] Comment:Desirable HDL: great er than 40 mg/dL Note: This HDL assay may give artificially low results in patients with liver disease. Blood Venous blood specimen / Unknown 09/12/2024 10:56 AM EST 09/12/2024 1:56 PM EST us Yudi Mcneil MD LAB BLOOD ORDERABLES Final Re sult Performing Organization Address [facility] Co de Phone Number [facility] [address] [place] [phone] from Last 3 Months Insurance [facility] C3 Care Teams Conservation Specialist Relationship Specialty Start Date End Date Yudi Mcneil MD [address] [place] [phone] PCP - General Family Medicine 09/12/24 Maryanne Diamond [address] [place] [address] Licensed Mental Health Counselor Behavioral Health 05/02/24
--- OUTSIDE RECORDS SUMMARY | 2024-10-13 10:27 | XMS_ITS | Encounter Summary ---
Author Organization [employer] Address [address] [place] [address] 7t [place] [address] Care Team Providers Care Associate Publisher Name Role Phone Yudi Mcneil MD Primary Care Provider [phone] Encounter Details Date Type Department Care Team [...] Description 10/18/2024 10:30 AM EST Office Visit [facility] [address] [place] [phone] Prabhjot Galicia MD [address] [place] [address] 10/25/2024 10:30 AM EST Office Visit [facility] [address] [place] [address] Prabhjot Galicia MD [address] [place] [address] documented as of this encounter Visit Diagnoses Not on filedocumented in this encounter Additional Health Concerns Assessment Noted Time PHQ-9 Depression Total Score: 15 025 9:38 AM EST documented as of this encounter Care Teams Associate Publisher Relationship Specialty Start Date End Date Yudi Mcneil MD [address] [place] [phone] PCP - General Family Medicine 09/12/24 Maryanne Diamond [address] [place] [phone] Licensed Mental Health Counselor Behavioral Health 05/02/24 documented as of this encounter
--- OUTSIDE RECORDS SUMMARY | 2024-10-13 10:27 | XMS_ITS | Encounter Summary ---
Author Organization [employer] Address [address] [facility] 7t [place] [address] Care Team Providers Care Boilermaker Industrial [employer]ilers Name Role Phone Yudi Mcneil MD Primary Care Provider [phone] Reason for Visit * Reason Comments Recovery Supports Encounter Details Date Type Department Care Team ([facility] st Contact Info) Description 09/13/2024 Patient Outreach [facility] [address] [place] [address] Winston Jackson Recovery Supports Social History Tobacco [...] with Betty today. Setting: in person at [facility] Recovery Wellness Goals worked on: Physical Health/Mental Health and Social Stability Action taken/next steps: Offered person centered recovery support, Attended alcohol and drug free activity, and Provided transportation assistance (bus pass, uber, etc.) Additional comments: The patient called me to arrange transportation for their first appointment. I also gave pt a tour of the [facility] and spoke to pt about our services and groups. Winston Jackson documented in this encounter Plan of Treatment Upcoming Encounters Date Type Department Care Team (Late st Contact Info) Description 10/18/2024 10:30 AM EST Office Visit [facility] [address] [place] [address] Prabhjot Galicia MD [address] [place] [address] 10/25/2024 10:30 AM EST Office Visit [facility] [address] [place] [address] Prabhjot Galicia MD [address] [place] [address] documented as of this encounter Visit Diagnoses Not on filedocumented in this encounter Additional Health Concerns Assessment Noted Time PHQ-9 Depression Total Score: 15 025 9:38 AM EST documented as of this encounter Care Teams [employer] Relationship Specialty Start Date End Date Yudi Mcneil MD [address] [place] [address] PCP - General Family Medicine 09/12/24 Maryanne Diamond [address] [place] [phone] Licensed Mental Health Counselor Behavioral Health 05/02/24 documented as of this encounter
--- OUTSIDE RECORDS SUMMARY | 2024-10-13 10:27 | XMS_ITS | Encounter Summary ---
Author Organization [employer] Address [address] [place] [address] 7t [place] [address] Care Team Providers Care Top Steep Tender Name Role Phone Yudi Mcneil MD Primary Care Provider [phone] Encounter Details Date Type Department Care Team [...] Description 10/18/2024 10:30 AM EST Office Visit [facility] [address] [place] [address] Prabhjot Galicia MD [address] [place] [address] 10/25/2024 10:30 AM EST Office Visit [facility] [address] [place] [address] Prabhjot Galicia MD [address] [place] [address] documented as of this encounter Visit Diagnoses Not on filedocumented in this encounter Additional Health Concerns Assessment Noted Time PHQ-9 Depression Total Score: 15 025 9:38 AM EST documented as of this encounter Care Teams Top Steep Tender Relationship Specialty Start Date End Date Yudi Mcneil MD [address] [place] [phone] PCP - General Family Medicine 09/12/24 Maryanne Diamond [address] [place] [address] Licensed Mental Health Counselor Behavioral Health 05/02/24 documented as of this encounter
--- OUTSIDE RECORDS SUMMARY | 2024-10-13 10:27 | XMS_ITS | Encounter Summary ---
Author Organization [employer] Address [address] [place] [address] 7 [place] [address] Care Team Providers Care Hair Spinner Name Role Phone Yudi Mcneil MD Primary Care Provider [phone] Reason for Visit * Reason Comments MD INTAKE Encounter Details Date Type Department Care Team (Latest Contact Info) Description 09/13/2024 10:00 AM EST Office Visit [facility] [address] [place], [place] [phone] Prabhjot Galicia MD [address] [place] [address] Opioid use, unspecified, uncomplicated (Primary Dx); Uncomplicated [...] intake for OBOT. 09/13/23 Utox BUP, THC. rn intake earlier this morning. Discussed with Coco Garcia RN MA [employer] reviewed States she has a past hx of OUD, buying Suboxone from the street since she stopped going to [facility]. She was at [facility] ~ 8-10 years, Stated for the last [...] called the police. He is currently in alf-$5,000 bail. Stated he will not be able to return home till he completes inpatient treatment. States [employer]It kept on increasing her dose to 24/6 [...] when she was younger. , therapist @ [facility], Nelli Diamond. Says she is supposed to [...] Opioid use, unspecified, uncomplicated Utox BUP, THC. rn intake earlier this morning. Discussed with Coco Garcia RN MA [employer] reviewed States she has a past hx of OUD, buying Suboxone from the street since she stopped going to [facility]. She was at [facility] ~ 8-10 years, Stated for the last [...] called the police. He is currently in alf-$5,000 bail. Stated he will not be able to return home till he completes inpatient treatment. States [employer] kept on increasing her dose to 24/6 [...] when she was younger. , therapist @ [facility], Nelli Diamond. Says she is supposed to [...] reviewed. I will review recent labs at [facility] prior to ordering additional labs. I do not believe she got FEN test strips. I will dispense next week. Met with Winston Jackson, tissue recovery technician. Aware of groups in [facility]. She is fine continuing to be seem on Thursdays. Program expectations and requirement reviewed. She requests continuing care on Thursdays. F/U 1 week. Labs [facility] ordered by PCP 09/12/24: BUN/Cr 13/0.83, AST/ALT 168/234, Bili 1.2 (08/23-168/234, Bili 0.6) Alk phos nl, pr/alb 8.4/5.1 (elevated). [facility] 08/23 Chlamydia/GC neg Tobacco use disorder As [...] Description 10/18/2024 10:30 AM EST Office Visit [address] [address] Prabhjot Galicia MD [address] [place] [address] 10/25/2024 10:30 AM EST Office Visit [address] [address] Prabhjot Galicia MD [address] [place] [address] Scheduled Orders Name Type Priority Associated Diagnoses Orde r Schedule Chlamydia/N. Gonorrhoeae RNA, TMA, Urogenitial Microbiology Routine Opioid use, unspecified, uncomplicated Ordered: 09/13/2024 Hepatitis B Core Antibody, Total Lab Routine Uncomplicated opioid use Expected: 09/14/2024 (Approximate), Expires: 09/14/2025 documented as of this encounter Procedures Procedure Name Priority Date/Time Associated Diagnosis Comments T-SPOT(R).TB Routine 09/20/2024 11:13 AM EST Opioid use, unspecified, uncomplicated HEPATITIS C AB W/REFL TO HCV RNA, QN, PCR Routine 09/20/2024 11:13 AM EST Uncomplicated opioid use HEPATITIS A ANTIBODY, TOTAL Routine 09/20/2024 11:13 AM EST Uncomplicated opioid use HEPATITIS B SURFACE ANTIGEN, EIA Routine 09/20/2024 11:13 AM EST Uncomplicated opioid use HEPATITIS B CORE AB TOTAL Routine 09/20/2024 11:13 AM EST Uncomplicated opioid use RPR (MONITOR) W/REFL TITER Routine 09/20/2024 11:13 AM EST Opioid use, unspecified, uncomplicated HIV 1/2 ANTIGEN/ANTIBODY, FOURTH GENERATION W/RFL Routine 09/20/2024 11:13 AM EST Opioid use, unspecified, uncomplicated POCT LOUIS-14 URINE DRUG SCREEN Routine 09/13/2024 10:48 AM EST Opioid use, unspecified, uncomplicated documented in this encounter Results * Hepatitis B Core Antibody, Total (09/20/2024 11:13 AM EST) Hepatitis B Core Antibody Nonreactive Nonreactive [facility] Blood Venous blood specimen / Unknown 09/20/2024 11:13 AM EST 09/20/2024 1:14 PM EST Prabhjot Galicia MD LAB BLOOD ORDERABLES Final Res ult Performing Organization Address [facility] Co de Phone Number [facility] [address] [place] [phone] * Hepatitis B surface antigen, EIA (09/20/2024 11:13 AM EST) Hepatitis B Surface Ag Negative Negative [facility] Blood Venous blood specimen / Unknown 09/20/2024 11:13 AM EST 09/20/2024 1:14 PM EST Prabhjot Galicia MD LAB BLOOD ORDERABLES Final Res ult Performing Organization Address [facility] Co de Phone Number [facility] [address] [place] [phone] * Hepatitis A Antibody, Total (09/20/2024 11:13 AM EST) Hepatitis A Antibody IgG Nonreactive Nonreactive [facility] Blood Venous blood specimen / Unknown 09/20/2024 11:13 AM EST 09/20/2024 1:14 PM EST Prabhjot Galicia MD LAB BLOOD ORDERABLES Final Res ult Performing Organization Address [facility] Co de Phone Number [facility] [address] [place] [phone] * Hepatitis C Antibody with Reflex to HCV, RNA, Quantitative, Real-Time PCR (09/20/2024 11:13 AM EST) Pathologist [facility] Hepatitis C Antibody Nonreactive Nonreactive [facility] Comment:Antibodies to HCV no t detected; does not exclude early acuteHCV infection. Blood Venous blood specimen / Unknown 09/20/2024 11:13 AM EST 09/20/2024 1:14 PM EST Prabhjot Galicia MD LAB BLOOD ORDERABLES Final Res ult Performing Organization Address [facility] de Phone Number [facility] [address] [place] [phone] * HIV-1/2 Antigen and Antibodies, Fourth Generation, with Reflexes (09/20/2024 11:13 AM EST) HIV AB/AG Nonreactive Nonreactive [facility] Comment:HIV-1 p24 Ag and/or HIV-1/HIV-2 Ab not detected.A test result that is nonreactive does not exclude thepossibility of exposure to or infection with HIV-1 and/orHIV-2. Nonreactive results in this assay for individualswith prior exposure to HIV-1 and/or HIV-2 may be due toantigen and antibody levels that are below the limit ofdetection of this assay.The [employer] HIV Ag/Ab Combo assay result andsupplemental assay results should be interpreted inconjunction with the patient's clinical presentation,history and other laboratory results. If the results areinconsistent with clinical evidence, additional testing issuggested to confirm the result. Blood Venous blood specimen / Unknown 09/20/2024 11:13 AM EST 09/20/2024 1:14 PM EST us Prabhjot Galicia MD LAB BLOOD ORDERABLES Final Res ult [facility] [address] [place] [address] [phone] * T-SPOT??.TB (09/20/2024 11:13 AM EST) Pathologist [facility] T Spot TB Negative Negative [facility] Comment:A negative test resu lt [...] as aquantitative test. TS PANEL A 0 [facility] TS PANEL B 0 [facility] Negative Control Passed [facility] Positive Control Passed [facility] Comment:For additional infor mation, please refer [email or web address].Tingz/faq/[email or web address](This link is being provided for informational/educational purposes only.)THIS TEST WAS PERFORMED AT:[employer] [id number] [place] [id number] BALBUENA MD,PHD 09/20/2024 11:1 3 AM EST 09/20/2024 1:14 PM EST us Prabhjot Galicia MD LAB BLOOD ORDERABLES Final Res ult Performing Organization Address [facility] Co de Phone Number [facility] [address] [place] [phone] * RPR (Monitor) with Reflex to??Titer (09/20/2024 11:13 AM EST) RPR (Monitor) w/Refl Titer NON-REACTI VE NON-REACT EARLINE [facility] Comment:THIS TEST WAS PERFOR MED AT:[facility] [place] [id number] SORIANO MD Rapid Plasma Reagin Ab Titer TNP [facility] Blood Venous blood specimen / Unknown 09/20/2024 11:13 AM EST 09/20/2024 1:14 PM EST us Prabhjot Galicia MD LAB BLOOD ORDERABLES Final Res ult Performing Organization Address [facility] Co de Phone Number [facility] [address] [place] [phone] * POCT LOUIS-14 Urine Drug Screen (09/13/2024 [...] documented as of this encounter Care Teams Hair Spinner Relationship Specialty Start Date End Date Yudi Mcneil MD [address] [place] [address] PCP - General Family Medicine 09/12/24 Maryanne Diamond [address] [place] [address] Licensed Mental Health Counselor Behavioral Health 05/02/24 documented as of this encounter
--- OUTSIDE RECORDS SUMMARY | 2024-10-13 10:27 | XMS_ITS | Encounter Summary ---
Author Organization [employer] Address [address] [place] [address] 7t [place] [address] Care Team Providers Care Rn Neonatal Icu Name Role Phone Yudi Mcneil MD Primary Care Provider Encounter Details Date Type Department Care Team (Latest Contact Info) Description 09/27/2024 Travel Social History Tobacco Use Types Packs/Day [...] Description 10/18/2024 10:30 AM EST Office Visit [facility] [address] [place] [address] Prabhjot Galicia MD [address] [place] [address] 10/25/2024 10:30 AM EST Office Visit [facility] [address] [place] [address] Prabhjot Galicia MD [address] [place] [address] documented as of this encounter Visit Diagnoses Not on filedocumented in this encounter Additional Health Concerns Assessment Noted Time PHQ-9 Depression Total Score: 15 025 9:38 AM EST documented as of this encounter Care Teams Rn Neonatal Icu Relationship Specialty Start Date End Date Yudi Mcneil MD [address] [place] [phone] PCP - General Family Medicine 09/12/24 Maryanne Diamond [address] [place] [phone] Licensed Mental Health Counselor Behavioral Health 05/02/24 documented as of this encounter
--- OUTSIDE RECORDS SUMMARY | 2024-10-13 10:27 | XMS_ITS | Encounter Summary ---
Author Organization [employer] Address [address] [place] [address] 7 [place] [address] Care Team Providers Care Wrapper Hand Name Role Phone Yudi Mcneil MD Primary Care Provider [phone] Reason for Referral * Imaging (Routine) - Authorized Specialty Diagnoses / Procedures Referred By Contac t Referred To Contact Radiology Diagnoses Transaminitis Procedures US Abdomen Comp w elastography Yudi Mcneil MD [address] [place] [address] Phone: tel: fax: [address] Phone: tel: fax: Referral ID Status Reason Start Date Expiration Date V isits Requested Visits Authorized [id number] Authorized 09/12/2024 09/12/2025 1 1 Encounter Details Date Type Department Care Team ([facility] st Contact Info) Description 09/12/2024 Telephone [facility] MED [facility] PEDS [address] [place], [place] [phone] Yudi Mcneil MD [address] [place], [place] [phone] Social History Tobacco Use Types Packs/Day Years [...] Mcneil MD - 09/12/2024 3:12 PM EST [facility] Ethel Team! Can you please call Betty Hart [...] Description 10/18/2024 10:30 AM EST Office Visit [address] [address] Prabhjot Galicia MD [address] [place] [address] 10/25/2024 10:30 AM EST Office Visit [address] [address] Prabhjot Galicia MD [address] [place] [address] Scheduled Orders Name Type Priority Associated Diagnoses Orde r Schedule Hepatitis A Antibody, Total Lab Routine Transaminitis Expected: 09/12/2024 (Approximate), Expires: 09/12/2025 US Abdomen Comp w elastography Imaging Routine Transaminitis Expected: 09/12/2024, Expires: 09/12/2025 Hepatitis C Antibody with Reflex to HCV, RNA, Quantitative, Real-Time PCR Lab Routine Transaminitis Expected: 09/12/2024 (Approximate), Expires: 09/12/2025 Hepatitis B surface antigen, EIA Lab Routine Transaminitis Expected: 09/12/2024 (Approximate), Expires: 09/12/2025 Hepatitis B Core Antibody, Total Lab Routine Transaminitis Expected: 09/12/2024 (Approximate), Expires: 09/12/2025 documented as of this encounter Procedures Procedure Name Priority Date/Time Associated Diagnosis Comments IRON AND TOTAL IRON BINDING CAPACITY Routine 09/20/2024 11:13 AM EST Transaminitis HEPATITIS A IGM ANTIBODY Routine 09/20/2024 11:13 AM EST Transaminitis HEPATITIS B SURFACE ANTIBODY, QUALITATIVE Routine 09/20/2024 11:13 AM EST Transaminitis APTT Routine 09/20/2024 11:13 AM EST Transaminitis PROTHROMBIN TIME-INR Routine 09/20/2024 11:13 AM EST Transaminitis HEMOGLOBIN A1C Routine 09/20/2024 11:13 AM EST Transaminitis FERRITIN Routine 09/20/2024 11:13 AM EST Transaminitis COMPREHENSIVE METABOLIC PANEL Routine 09/20/2024 11:13 AM EST Transaminitis documented in this encounter Results * Hepatitis B Surface Antibody, Qualitative (09/20/2024 11:13 AM EST) ~Hepatitis B Surface Antibody NONREACTIVE Nonreactive [facility] Comment:Nonreactive: < 8.00 mIU/mL Blood Venous blood specimen / Unknown 09/20/2024 11:13 AM EST 09/20/2024 1:14 PM EST Yudi Mcneil MD LAB BLOOD ORDERABLES Final Re sult Performing Organization Address [facility] Co de Phone Number [facility] [address] [place] [phone] * Ferritin (09/20/2024 11:13 AM EST) Ferritin 221 10 - 250 ng/mL [facility] Blood Venous blood specimen / Unknown 09/20/2024 11:13 AM EST 09/20/2024 1:14 PM EST Yudi Mcneil MD LAB BLOOD ORDERABLES Final Re sult Performing Organization Address [facility] de Phone Number [facility] [address] [place] [phone] * Iron And Total Iron Binding Capacity (09/20/2024 11:13 AM EST) Iron 93 30 - 160 mcg/dL [facility] Total Iron Binding Capacity 316 228 - 428 mcg/dL [facility] Percent Iron Saturation 29 15 - 50 % [facility] Unsaturated Iron Binding 223 ug/dL [facility] Blood Venous blood specimen / Unknown 09/20/2024 11:13 AM EST 09/20/2024 1:14 PM EST Yudi Mcneil MD LAB BLOOD ORDERABLES Final Re sult Performing Organization Address [facility] de Phone Number [facility] [address] [place] [phone] * Hemoglobin A1c (09/20/2024 11:13 AM EST) Hemoglobin A1c 4.6 <6.0 % [facility] Comment:Hemoglobin A1C Refer ence Range Adults: 4.8 - 6.0 % Non diabetic: < 6.0 % Goal: < 7.0 %Additional Action Suggested: > 8.0 %Note: Hemoglobin A1c results are invalid for patients with abnormal amounts of HbF. Blood transfusions may impact the HbA1c concentration in the patient sample. Estimated Average Glucose 85 mg/dL [facility] Comment:eAG = Estimated ave rage glucose which is %A1C expressed asaverage glucose, using the formula of the B2C-VdiptmvFiplawd Glucose study (ADAG), Diabetes Care, Vol.31,#8,2007 Blood Venous blood specimen / Unknown 09/20/2024 11:13 AM EST 09/20/2024 1:14 PM EST us Yudi Mcneil MD LAB BLOOD ORDERABLES Final Re sult [facility] [address] [place] [phone] * (ABNORMAL) Comprehensive Metabolic Panel (09/20/2024 11:13 AM EST) Sodium 140 135 - 145 mmol/L [facility] Potassium 3.4 3.3 - 5.1 mmol/L [facility] Chloride 104 96 - 108 mmol/L [facility] Carbon Dioxide 29 22 - 29 mmol/L [facility] Anion Gap 10(L) 12 - 20 [facility] Urea Nitrogen (BUN) 21(H) 9 - 16 mg/dL [facility] Creatinine, Serum 0.86 0.5 - 1.4 mg/dL [facility] Estimated Glomerular Filt Rate >60 [facility] Comment:Chronic Kidney Disea se: Estimated GFR < 60 mL/min/1.24i0Rmqaly Kidney Disease: Estimated GFR < 15 mL/min/1.73m2 Glucose 134(H) 60 - 115 mg/dL [facility] Calcium 9.3 8.4 - 10.2 mg/dL [facility] Bilirubin, Total 0.6 0.0 - 1.0 mg/dL [facility] Aspartate Amino Transferase 38(H) 5 - 31 U/L [facility] Alanine Aminotransferase 82(H) 0 - 31 U/L [facility] Total Protein 7.6 6.5 - 8.0 g/dL [facility] Albumin Level 4.6 3.5 - 5.0 g/dL [facility] Alkaline Phosphatase 65 39 - 117 U/L [facility] Blood Venous blood specimen / Unknown 09/20/2024 11:13 AM EST 09/20/2024 1:14 PM EST Yudi Mcneil MD LAB BLOOD ORDERABLES Final Re sult Performing Organization Address [facility] Co de Phone Number [facility] [address] [place] [phone] * Partial Thromboplastin Time, Activated (APTT) (09/20/2024 11:13 AM EST) Partial Thromboplastin Time 32.8 26.0 - 36.8 SEC [facility] Comment:For information rega rding the monitoring of direct thrombininhibitors, please refer to Pharmacy. Blood Venous blood specimen / Unknown 09/20/2024 11:13 AM EST 09/20/2024 1:14 PM EST us Yudi Mcneil MD LAB BLOOD ORDERABLES Final Re sult Performing Organization Address [facility] Co de Phone Number [facility] [address] [place] [phone] * (ABNORMAL) Prothrombin Time-INR (09/20/2024 11:13 AM EST) Prothrombin Time 10.8(L) 10.9 - 12.4 SEC [facility] INTERNATIONAL NORM RATIO 0.9 0.9 - 1.1 [facility] Comment:INTERNATIONAL NORMAL IZED RATIO (INR) [...] ORDERABLES Final Re sult Performing Organization Address [facility] Co de Phone Number [facility] [address] [place] [phone] * Hepatitis A IgM Antibody (09/20/2024 11:13 AM EST) Hepatitis A IgM Nonreactive Nonreactive [facility] Comment:IgM antibodies to JOSHI V not detected; does not exclude earlyacute or recovered HAV infection. Blood Venous blood specimen / Unknown 09/20/2024 11:13 AM EST 09/20/2024 1:14 PM EST Yudi Mcneil MD LAB BLOOD ORDERABLES Final Re sult Performing Organization Address [facility] Co de Phone Number [facility] [address] [place] [phone] documented in this encounter Visit Diagnoses Diagnosis Transaminitis- Primary Nonspecific elevation of levels of transaminase or lactic acid dehydrogenase (LDH) documented in this encounter Additional Health Concerns Assessment Noted Time PHQ-9 Depression Total Score: 15 025 9:38 AM EST documented as of this encounter Care Teams Wrapper Hand Relationship Specialty Start Date End Date Yudi Mcneil MD [address] [place] [address] PCP - General Family Medicine 09/12/24 Maryanne Diamond [address] [place] [address] Licensed Mental Health Counselor Behavioral Health 05/02/24 documented as of this encounter
--- OUTSIDE RECORDS SUMMARY | 2024-10-13 10:27 | XMS_ITS | Encounter Summary ---
Author Organization [employer] Address [address] [place] [address] 7 [place] [address] Care Team Providers Care Tax Evaluator Name Role Phone Yudi Mcneil MD Primary Care Provider [phone] Reason for Visit * Reason Comments Recovery Supports Encounter Details Date Type Department Care Team (Late st Contact Info) Description 09/13/2024 Patient Outreach [facility] [address] [place] [address] Winston Jackson Recovery Supports Social History [...] Description 10/18/2024 10:30 AM EST Office Visit [facility] [address] [place] [address] Prabhjot Galicia MD [address] [place] [address] 10/25/2024 10:30 AM EST Office Visit [facility] [address] [place], [place] [phone] Prabhjot Galicia MD [address] [place] [address] documented as of this encounter Visit Diagnoses Not on filedocumented in this encounter Additional Health Concerns Assessment Noted Time PHQ-9 Depression Total Score: 15 025 9:38 AM EST documented as of this encounter Care Teams Tax Evaluator Relationship Specialty Start Date End Date Yudi Mcneil MD [address] [place] [address] PCP - General Family Medicine 09/12/24 Maryanne Diamond [address] [place] [address] Licensed Mental Health Counselor Behavioral Health 05/02/24 documented as of this encounter
--- OUTSIDE RECORDS SUMMARY | 2024-10-13 10:27 | XMS_ITS | Encounter Summary ---
Author Organization [employer] Address [address] [facility] 7t [place] [address] Care Team Providers Care Community Health Representative Name Role Phone Yudi Mcneil MD Primary Care Provider [phone] Encounter Details Date Type Department Care Team ([facility] st Contact Info) Description 09/20/2024 Telephone [facility] MED & PEDS [address] [place], [place] [phone] Yudi Mcneil MD [address] [place] [address] Social History Tobacco Use Types Packs/Day Years [...] Miscellaneous Notes * Telephone Encounter - Yesy Hurst RN - 09/20/2024 4:10 PM EST TC with patient. Results were reviewed. All questions and concerns were addressed. * Telephone Encounter - Yudi Mcneil MD - 09/20/2024 2:53 PM EST [facility] [place] Team! Can you please call Betty Peguero and inform about results? Labs to check for transaminitis was within target, pending viral testing and imaging. Thanks! Yudi documented in this encounter Plan of Treatment Upcoming Encounters Date Type Department Care Team ([facility] st Contact Info) Description 10/18/2024 10:30 AM EST Office Visit [address] [address] Prabhjot Galicia MD [address] [place] [address] 10/25/2024 10:30 AM EST Office Visit [address] [address] Prabhjot Galicia MD [address] [place] [address] documented as of this encounter Visit Diagnoses Not on filedocumented in this encounter Additional Health Concerns Assessment Noted Time PHQ-9 Depression Total Score: 15 025 9:38 AM EST documented as of this encounter Care Teams Community Health Representative Relationship Specialty Start Date End Date Yudi Mcneil MD [address] [place] [address] PCP - General Family Medicine 09/12/24 Maryanne Diamond [address] [place] [address] Licensed Mental Health Counselor Behavioral Health 05/02/24 documented as of this encounter
--- OUTSIDE RECORDS SUMMARY | 2024-10-13 10:27 | XMS_ITS | Encounter Summary ---
Author Organization [employer] Address [address] [facility] 7 [place] [address] Care Team Providers Care Donkey Ride Operator Name Role Phone Yudi Mcneil MD Primary Care Provider [phone] Reason for Visit * Reason Onset Date Comments Med Refill 10/12/2024 Encounter Details Date Type Department Care Team (Late st Contact Info) Description 10/12/2024 Refill [facility] [address] [place] [address] Francisca Rosado, [place] Social History Tobacco Use Types Packs/Day Years [...] with others, in a hotel, in a alf, living outside on the street, on a [...] Description 10/18/2024 10:30 AM EST Office Visit [address] [address] Prabhjot Galicia MD [address] [place] [address] 10/25/2024 10:30 AM EST Office Visit [address] [address] Prabhjot Galicia MD [address] [place] [address] documented as of this encounter Visit Diagnoses Not on filedocumented in this encounter Additional Health Concerns Assessment Noted Time PHQ-9 Depression Total Score: 15 025 9:38 AM EST documented as of this encounter Care Teams Donkey Ride Operator Relationship Specialty Start Date End Date Yudi Mcneil MD [address] [place] [address] PCP - General Family Medicine 1/13/25 Maryanne Diamond [address] , [place] [address] Licensed Mental Health Counselor Behavioral Health 05/02/24 documented as of this encounter
--- OUTSIDE RECORDS SUMMARY | 2024-10-13 10:27 | XMS_ITS | Encounter Summary ---
Author Organization [employer] Address [address] [place] [address] [address] [place] [address] Care Team Providers Care Resource Engineer Name Role Phone Yudi Mcneil MD Primary Care Provider [phone] Reason for Referral * Consultation (Routine) - Authorized Specialty Diagnoses / Procedures Referred By Tera barahona Referred To Contact General Surgery Diagnoses Pilar cyst of scalp Jovanny Peters MD [address] [place] [address] Phone: tel: fax: [facility] General Surgeons [address] [place] [address] Drive 3rd Floor [place], [place] Phone: tel: fax: Referral ID Status Reason Start Date Expiration Date Visits Requested Visits Authorized [id number] Authorized Specialty Services Required 10/04/2024 10/04/2025 1 1 Encounter Details Date Type Department Care Team (Late st Contact Info) Description 10/04/2024 9:45 AM EST Office Visit [facility] MED & PEDS [address] [place] [address] Jovanny Peters MD [address] [place] [address] Pilar cyst of scalp (Primary Dx); Seborrheic keratosis; Androgenetic alopecia; Dry skin Social History Tobacco Use Types Packs/Day Years [...] with others, in a hotel, in a fpc, living outside on the street, on a [...] Mass Index 36.66 10/04/2024 9:26 AM EST documented in this encounter Progress Notes * Jovanny Peters MD - 10/04/2024 9:45 AM EST Subjective Patient ID: Betty Peguero is a 43 y.o. female who presents for No chief complaint on file.. HPI 1) burning scalp x over a year 2) c/o gradual hair thinning for over a year w/ increased shedding. Loose hair at night and in her shower. 3) concerned about cysts of the scalp and the neck x several years. 5) concerned about a skin growth of the Anterior abdomen. Patient Active Problem List Diagnosis Primary hypertension Moderate episode of recurrent major depressive disorder (CMS/HCC) Anxiety Acquired hypothyroidism Opiate use Current Outpatient Medications on File Prior to Visit Medication Sig Dispense Refill amLODIPine (Norvasc) 5 MG tablet Take 1 tablet (5 mg) by mouth Once per day. 90 tablet 0 [START ON 10/07/2024] buprenorphine-naloxone (Suboxone) 2-0.[address] film [address] 1 Film under the tongue Once per day for 2 days. Take 1/4 film SL daily. Do not start before October 07, 2024.2 Film 0 buPROPion SR (Wellbutrin SR) 150 [...] mcg) by mouth before breakfast. 90 tablet0 [DISCONTINUED] buprenorphine-naloxone (Suboxone) 2-0.5 [address]lingual film Place 1 Film under the tongue Once per day for 3 days. Take 1/4 film SL daily. 3 Film 0 No current facility-administered medications on file prior to visit. Allergies Allergen Reactions Penicillins Hives Progesterone Review of Systems Objective Physical Exam Constitutional: General: She is not in acute distress. Appearance: Normal appearance. She is not ill-appearing, toxic-appearing or diaphoretic. Pulmonary: Effort: Pulmonary effort is normal. Skin: Comments: Diffuse hair thinning of the central scalp. Pull hair test neg. Scalp is non inflammatory, non scaly. 2) 3 x 3 cm rubbery subcutaneous nodule of the vertex, a similar 4 x 4 cm lesion is noted on the occipital area of the scalp 3)1 x 1 cm grant-brown waxy keratotic stuck-on plaque on the epigastric area of the abdomen. Neurological: Mental Status: She is alert. Assessment/Plan Diagnoses and all orders for this visit: Pilar cyst of scalp - Referral to General Surgery; Future Seborrheic keratosis Comments: Reassurance No malignant potential. Treatment deferred. Androgenetic alopecia Comments: Ketoconazole shampoo to alleviate the Pruritus. Orders: - ketoconazole (NIZOral) 2 % shampoo; Apply topically 2 (two) times a week. Dry skin To use Cerave as a moisturizing agent after shower. documented in this encounter Plan of Treatment Upcoming Encounters Date Type Department Care Team (Late st Contact Info) Description 10/18/2024 10:30 AM EST Office Visit [address] [address] Prabhjot Galicia MD [address] [place] [address] 10/25/2024 10:30 AM EST Office Visit [address] [address] Prabhjot Galicia MD [address] [place] [address] Scheduled Referrals Name Type Priority Associated Diagnoses Orde r Schedule Referral to General Surgery Outpatient Referral Routine Pilar cyst of scalp Expected: 10/04/2024 (Approximate), Expires: 10/04/2025 documented as of this encounter Visit Diagnoses Diagnosis Pilar cyst of scalp- Primary Seborrheic keratosis Androgenetic alopecia Dry skin Other symptoms involving skin and integumentary tissues documented in this encounter Additional Health Concerns Assessment Noted Time PHQ-9 Depression Total Score: 15 025 9:38 AM EST documented as of this encounter Care Teams Resource Engineer Relationship Specialty Start Date End Date Yudi Mcneil MD [address] [place] [address] PCP - General Family Medicine 09/12/24 Maryanne Diamond [address] [place] [address] Licensed Mental Health Counselor Behavioral Health 05/02/24 documented as of this encounter
== END 2024-10-13 09:53 | disposition home or self-care (01) ==
LOC: HO.US 09:52
PROVIDERS: PCP Family Medicine; Visit Provider Family Medicine
DX: R74.01 Elevation of levels of liver transaminase levels (principal)
CPT/HCPCS: 76700; 76981

== ENCOUNTER → 2024-10-13 09:53 | Outpatient (BNV) | payer MEDICAID, SELFPAY | PROVIDERS: PCP Family Medicine; Visit Provider Radiology Diagnostic Radiology | DX: K76.0 Fatty (change of) liver, not elsewhere classified (principal); R16.0 Hepatomegaly, not elsewhere classified | CPT/HCPCS: 76700 ==

== ENCOUNTER 2024-10-18 13:29 | Outpatient (AMB) | payer MEDICAID, SELFPAY ==
--- NOTE | 2024-10-18 13:30 | A.OFFVIS_ITS ---
Vital Signs 10/18/24 13:42 Height 5 ft 4 in Weight 218 lb BMI 37.4 BP 142/83 H Blood Pressure Location Rt brachial Position Sitting Pulse 91 Intake Visit Reasons: Pilar Cyst scalp Intake Note: Patient referred by Dr. Peters for pilar cyst on posterior scalp, 2 smaller cysts on vertex scalp, neck. Present for over 1yr. Patient c/o: headaches, tender when combing hair. Financial Engineer Required: No Accompanied by: Self / Same As Patient Allergies Penicillins [PENICILLINS] Allergy (Severe, Verified 10/18/24 13:37) ANAPHYLAXIS progesterone [PROGESTERONE] Allergy (Severe, Verified 10/18/24 13:37) ANAPHYLAXIS HPI Comments Details: Patient presents for evaluation of 2 scalp masses/cyst. She has had these over a year's time. They are increasing in size, become more symptomatic. She would like to have it removed. She has no such lesions elsewhere. Chart was reviewed and patient evaluated [facility] Medical History Miscarriage Hypertension Hypothyroidism Social History (Updated 10/18/24 @ 13:39 by LISANDRA Calderon) Alcohol intake: current Alcohol type: beer Patient Tobacco Use Status: Current everyday Tobacco user Cigarettes Per Day: 10 Substance Use Type: Marijuana Physical Exam Vital Signs: Last Vital Signs Pulse 91 10/18/24 13:42 BP 142/83 H 10/18/24 13:42 BMI result Body Mass Index 37.4 HEENT Other: Patient was a large roughly 4 x 4 cm vertex of scalp soft tissue cystic mass consistent with a pilar cyst. Patient was a posterior scalp soft tissue mass consistent with either a giant sebaceous cyst or lipoma. This measures roughly 8 x 5 cm Chest Other: Chest breath sounds bilaterally, HS 1 in 2 GI Other: Abdomen corpulent, soft, benign Assessment & Plan Assessment & Plan (1) Scalp mass: Code(s): R22.0 - Localized swelling, mass and lump, head Category: Surgical Plan Because of the size of these lesions couple with the patient's anxiety, I think she would be best served to have these excised and Ambulatory Surgical setting. Risks, benefits, and alternatives of excision of 2 scalp masses were reviewed with the patient and included bleeding, infection, recurrence, numbness, pain, scarring the patient wished to proceed. All questions answered. Arrangements were made for this on a day which is convenient for her. Medications: Discontinued benzonatate (Tessalon Perles) Discontinued Reason: Patient Completed Course 100 mg PO TID PRN 20 caps 0RF cough doxycycline monohydrate Discontinued Reason: Patient Completed Course 100 mg PO BID 20 tabs 0RF prednisone Discontinued Reason: Patient Completed Course 40 mg (2 x 20 mg) PO DAILY 8 tabs 0RF metronidazole Discontinued Reason: Patient Completed Course 500 mg PO BID 7 days 14 tabs 0RF Coding Level of Care Code New Pt Level 5 (86448) Diagnoses Scalp mass R22.0
[2024-10-18 13:42] VITALS: BP 142/83; PULSE 91; BMI 37.4
--- OUTSIDE RECORDS SUMMARY | 2024-10-18 14:24 | XMS_ITS | Encounter Summary ---
Author Organization [employer] Address [address] [facility] 7 [place] [address] Care Team Providers Care Information Systems Administrator Name Role Phone Yudi Mcneil MD Primary Care Provider [phone] Reason for Visit * Reason Onset Date Comments Med Refill 10/03/2024 Encounter Details Date Type Department Care Team (Late st Contact Info) Description 10/03/2024 Refill [facility] [address] [place] [address] Alyse Choudhury RN Uncomplicated opioid use Social [...] with others, in a hotel, in a [place] [facility], living outside on the street, on a [...] Care Team (Late st Contact Info) Description 10/25/2024 10:30 AM EST Office Visit [facility] [address] [place] [address] Prabhjot Galicia MD 230 [place] [address] documented as of this encounter Visit Diagnoses Diagnosis Uncomplicated opioid use Uncomplicated opioid use- Primary Tobacco use disorder documented in this encounter Additional Health Concerns Assessment Noted Time PHQ-9 Depression Total Score: 15 025 9:38 AM EST documented as of this encounter Care Teams Information Systems Administrator Relationship Specialty Start Date End Date Yudi Mcneil MD 505 [place] [address] PCP - General Family Medicine 09/12/24 Maryanne Diamond [address] [place] [address] Licensed Mental Health Counselor Behavioral Health 05/02/24 documented as of this encounter
--- OUTSIDE RECORDS SUMMARY | 2024-10-18 14:24 | XMS_ITS | Encounter Summary ---
Author Organization [employer] Address [address] [place] [address] 7 [place] [address] Care Team Providers Care Sales Representative Consultant Name Role Phone Yudi Mcneil MD Primary Care Provider [phone] Encounter Details Date Type Department Care Team [...] Description 10/25/2024 10:30 AM EST Office Visit [facility] MED[facility]INE 230 [place], [place] [phone] Prabhjot Galicia MD 230 [place], [place] [phone] documented as of this encounter Visit Diagnoses Not on filedocumented in this encounter Additional Health Concerns Assessment Noted Time PHQ-9 Depression Total Score: 15 025 9:38 AM EST documented as of this encounter Care Teams Sales Representative Consultant Relationship Specialty Start Date End Date Yudi Mcneil MD [address] [facility] [place] [address] PCP - General Family Medicine 09/12/24 Maryanne Diamond [address] [place] [address] Licensed Mental Health Counselor Behavioral Health 05/02/24 documented as of this encounter
--- OUTSIDE RECORDS SUMMARY | 2024-10-18 14:24 | XMS_ITS | Encounter Summary ---
Author Organization [employer] Address [address] [facility] 7 [place] [address] Care Team Providers Care Utility Pipe Layer Name Role Phone Yudi Mcneil MD Primary Care Provider [phone] Reason for Visit * Reason Onset Date Comments Med Refill 10/18/2024 Encounter Details Date Type Department Care Team (Late st Contact Info) Description 10/18/2024 Refill [facility] MEDICINE 230 [place] [address] Francisca Rosado RN Uncomplicated opioid use Social [...] with others, in a hotel, in a fdc, living outside on the street, on a [...] Description 10/25/2024 10:30 AM EST Office Visit [facility] MEDICINE 230 [place] [address] Prabhjot Galicia MD 230 [place] [address] documented as of this encounter Visit Diagnoses Diagnosis Uncomplicated opioid use Uncomplicated opioid use- Primary Tobacco use disorder documented in this encounter Additional Health Concerns Assessment Noted Time PHQ-9 Depression Total Score: 15 025 9:38 AM EST documented as of this encounter Care Teams Utility Pipe Layer Relationship Specialty Start Date End Date Yudi Mcneil MD 505 [place] [address] PCP - General Family Medicine 09/12/24 Maryanne Diamond [address] [place] [address] Licensed Mental Health Counselor Behavioral Health 05/02/24 documented as of this encounter
--- OUTSIDE RECORDS SUMMARY | 2024-10-18 14:24 | XMS_ITS | Encounter Summary ---
Author Organization [employer] Address [address] [facility] 7 [place] [address] Care Team Providers Care Sand Cutter Operator Name Role Phone Yudi Mcneil MD Primary Care Provider [phone] Reason for Visit * Reason Onset Date Comments Med Refill 10/18/2024 Encounter Details Date Type Department Care Team (Late st Contact Info) Description 10/18/2024 Refill [facility] MEDICINE 230 [place] [address] Francisca Rosado, UNRULY Social History Tobacco Use [...] with others, in a hotel, in a detention, living outside on the street, on a [...] Description 10/25/2024 10:30 AM EST Office Visit [facility] MEDICINE 230 [place] [address] Prabhjot Galicia MD 230 [place] [address] documented as of this encounter Visit Diagnoses Not on filedocumented in this encounter Additional Health Concerns Assessment Noted Time PHQ-9 Depression Total Score: 15 025 9:38 AM EST documented as of this encounter Care Teams Sand Cutter Operator Relationship Specialty Start Date End Date Yudi Mcneil MD 505 [place] [address] PCP - General Family Medicine 09/12/24 Maryanne Diamond [address] [place] [address] Licensed Mental Health Counselor Behavioral Health 05/02/24 documented as of this encounter
--- OUTSIDE RECORDS SUMMARY | 2024-10-18 14:24 | XMS_ITS | Encounter Summary ---
Author Organization [email or web address] Address 75 [facility] 7 [place] [address] Care Team Providers Care Planning Supervisor Name Role Phone Yudi Mcneil MD Primary Care Provider [phone] Reason for Visit * Reason Onset Date Comments Med Refill 10/14/2024 Encounter Details Date Type Department Care Team (Late st Contact Info) Description 10/14/2024 Refill [facility] MED[facility] 230 [place] [address] Francisca Rosado RN Uncomplicated opioid use Social [...] with others, in a hotel, in a penitentiary, living outside on the street, on a [...] Description 10/25/2024 10:30 AM EST Office Visit [facility] 230 [place] [address] Prabhjot Galicia MD 230 [place] [address] documented as of this encounter Visit Diagnoses Diagnosis Uncomplicated opioid use Uncomplicated opioid use- Primary Tobacco use disorder documented in this encounter Additional Health Concerns Assessment Noted Time PHQ-9 Depression Total Score: 15 025 9:38 AM EST documented as of this encounter Care Teams Planning Supervisor Relationship Specialty Start Date End Date Yudi Mcneil MD 505 [place] [address] PCP - General Family Medicine 09/12/24 Maryanne Diamond [address] [place] [address] Licensed Mental Health Counselor Behavioral Health 05/02/24 documented as of this encounter
--- OUTSIDE RECORDS SUMMARY | 2024-10-18 14:24 | XMS_ITS | Encounter Summary ---
Author Organization [employer] Address 75 [facility] 7t [place] [address] Care Team Providers Care Risk Analyst Name Role Phone Yudi Mcneil MD Primary Care Provider [phone] Encounter Details Date Type Department Care Team ([facility] st Contact Info) Description 09/20/2024 Telephone [facility] MED & PEDS [address] [place], [place] [phone] Yudi Mcneil MD 505 [place] [address] Social History Tobacco Use Types Packs/Day Years [...] Mcneil MD - 09/20/2024 2:53 PM EST Elaine Leone Team! Can you please call Betty Peguero and inform about results? Labs to check for transaminitis was within target, pending viral testing and imaging. Thanks! Yudi documented in this encounter Plan of Treatment Upcoming Encounters Date Type Department Care Team ([facility] st Contact Info) Description 10/25/2024 10:30 AM EST Office Visit [facility] MEDICINE [address] [place] [address] Prabhjot Galicia MD 230 [place] [address] documented as of this encounter Visit Diagnoses Not on filedocumented in this encounter Additional Health Concerns Assessment Noted Time PHQ-9 Depression Total Score: 15 025 9:38 AM EST documented as of this encounter Care Teams Risk Analyst Relationship Specialty Start Date End Date Yudi Mcneil MD 505 [place] [address] PCP - General Family Medicine 09/12/24 Maryanne Diamond [address] [place] [address] Licensed Mental Health Counselor Behavioral Health 05/02/24 documented as of this encounter
--- OUTSIDE RECORDS SUMMARY | 2024-10-18 14:24 | XMS_ITS | Encounter Summary ---
Author Organization [email or web address] Address [address] [place] [address] [place] [address] Care Team Providers Care Hot End Operator Name Role Phone Yudi Mcneil MD Primary Care Provider [phone] Reason for Visit * Reason Onset Date Comments Med Refill 09/21/2024 Encounter Details Date Type Department Care Team ([facility] Contact Info) Description 09/21/2024 Refill [facility] [address] [place] [address] Francisca Rosado RN Uncomplicated opioid use [...] Department Care Team (Late Contact Info) Description 10/25/2024 10:30 AM EST Office Visit [facility] [address] [place] [address] Prabhjot Galicia MD 230 [place] [address] documented as of this encounter Visit Diagnoses Diagnosis Uncomplicated opioid use Uncomplicated opioid use- Primary Tobacco use disorder documented in this encounter Additional Health Concerns Assessment Noted Time PHQ-9 Depression Total Score: 15 025 9:38 AM EST documented as of this encounter Care Teams Hot End Operator Relationship Specialty Start Date End Date Yudi Mcneil MD 505 [place] [address] PCP - General Family Medicine 09/12/24 Maryanne Diamond [address] [place] [address] Licensed Mental Health Counselor Behavioral Health 05/02/24 documented as of this encounter
--- OUTSIDE RECORDS SUMMARY | 2024-10-18 14:24 | XMS_ITS | Encounter Summary ---
Author Organization [employer] Address [address] [place] [address] [address] [place] [address] Care Team Providers Care Hydraulic Hammer Operator Name Role Phone Ydui Mcneil MD Primary Care Provider [phone] Reason for Referral * Consultation (Routine) - Authorized Specialty Diagnoses / Procedures Referred By Tera barahona Referred To Contact General Surgery Diagnoses Pilar cyst of scalp Jovanny Peters MD [address] [place] [address] Phone: tel: fax: [facility] [address] [place] [address] Drive 3rd Floor [place], [place] Phone: tel: fax: Referral ID Status Reason Start Date Expiration Date Visits Requested Visits Authorized [id number] Authorized Specialty Services Required 10/04/2024 10/04/2025 1 1 Encounter Details Date Type Department Care Team (Late st Contact Info) Description 10/04/2024 9:45 AM EST Office Visit [facility] CH[facility] MED & PEDS 505 [place] [address] Jovanny Peters MD [address] [place] [address] Pilar cyst of scalp (Primary Dx); Seborrheic [...] with others, in a hotel, in a care home, living outside on the street, on [...] Description 10/25/2024 10:30 AM EST Office Visit [facility] MEDICINE 230 [place] [address] Prabhjot Galicia MD 230 [place] [address] Scheduled Referrals Name Type Priority Associated Diagnoses Orde r Schedule Referral to General Surgery Outpatient Referral Routine Pilar cyst of scalp Expected: 10/04/2024 (Approximate), Expires: 10/04/2025 documented as of this encounter Visit Diagnoses Diagnosis Pilar cyst of scalp- Primary Seborrheic keratosis Androgenetic alopecia Dry skin Other symptoms involving skin and integumentary tissues Uncomplicated opioid use- Primary Tobacco use disorder documented in this encounter Additional Health Concerns Assessment Noted Time PHQ-9 Depression Total Score: 15 025 9:38 AM EST documented as of this encounter Care Teams Hydraulic Hammer Operator Relationship Specialty Start Date End Date Yudi Mcneil MD 505 [place] [address] PCP - General Family Medicine 09/12/24 Maryanne Diamond [address] [place] [address] Licensed Mental Health Counselor Behavioral Health 05/02/24 documented as of this encounter
--- OUTSIDE RECORDS SUMMARY | 2024-10-18 14:24 | XMS_ITS | Encounter Summary ---
Author Organization [employer] Address [address] [place] [address] 7 [place] [address] Care Team Providers Care Drywall Finishing Foreman Name Role Phone Yudi Mcneil MD Primary Care Provider [phone] Encounter Details Date Type Department Care Team [...] Description 10/25/2024 10:30 AM EST Office Visit [facility] MEDICINE 230 [place], [place] [phone] Prabhjot Galicia MD 230 [place], [place] [phone] documented as of this encounter Visit Diagnoses Not on filedocumented in this encounter Additional Health Concerns Assessment Noted Time PHQ-9 Depression Total Score: 15 025 9:38 AM EST documented as of this encounter Care Teams Drywall Finishing Foreman Relationship Specialty Start Date End Date Yudi Mcneil MD [address] [facility] [place] [address] PCP - General Family Medicine 09/12/24 Maryanne Diamond [address] [place] [address] Licensed Mental Health Counselor Behavioral Health 05/02/24 documented as of this encounter
--- OUTSIDE RECORDS SUMMARY | 2024-10-18 14:24 | XMS_ITS | Encounter Summary ---
Author Organization [email or web address] Address [address] [facility] 7 [place] [address] Care Team Providers Care Director Of Services Name Role Phone Yudi Mcneil MD Primary Care Provider [phone] Reason for Visit * Reason Comments OBAT F/U Encounter Details Date Type Department Care Team (Latest Contact Info) Description 10/18/2024 10:30 AM EST Office Visit [facility] MEDICINE 230 [place] [address] Prabhjot Galicia MD 230 [place] [address] Uncomplicated opioid use (Primary Dx); Tobacco use [...] with others, in a hotel, in a long term, living outside on the street, on a [...] the past 12 months, has t he [employer], gas, oil or water [employer] threatened to shut off services in your [...] Description 10/25/2024 10:30 AM EST Office Visit [facility] MEDICINE [address] [place] [address] Prabhjot Galicia MD [address] [place] [address] documented as of this encounter Procedures Procedure Name Priority Date/Time Associated Diagnosis Comments POCT LOUIS-14 URINE DRUG SCREEN Routine 10/18/2024 9:11 AM EST Uncomplicated opioid use documented in this encounter Results * POCT LOUIS-14 Urine Drug Screen (10/18/2024 9:11 AM EST) THC Positive Cocaine Screen, Urine [...] obtained by clean catch procedure / Unknown 10/18/2024 9:11 AM EST Prabhjot Galicia MD POINT OF CARE TEST ENTER/EDIT ORDERABLES Final Result documented in this encounter Visit Diagnoses Diagnosis Uncomplicated opioid use- Primary Tobacco use disorder Uncomplicated opioid use- Primary Tobacco use disorder documented in this encounter Additional Health Concerns Assessment Noted Time PHQ-9 Depression Total Score: 15 025 9:38 AM EST documented as of this encounter Care Teams Director Of Services Relationship Specialty Start Date End Date Yudi Mcneil MD 505 [place] [address] PCP - General Family Medicine 09/12/24 Maryanne Diamond [address] [place] [address] Licensed Mental Health Counselor Behavioral Health 05/02/24 documented as of this encounter
--- OUTSIDE RECORDS SUMMARY | 2024-10-18 14:24 | XMS_ITS | Encounter Summary ---
Author Organization [employer] Address 75 [facility] 7t [place] [address] Care Team Providers Care Geophysics Teacher Name Role Phone Yudi Mcneil MD Primary Care Provider [phone] Encounter Details Date Type Department Care Team [...] Description 10/25/2024 10:30 AM EST Office Visit [facility] MEDICINE 230 [place] [address] Prabhjot Galicia MD 230 [place] [address] documented as of this encounter Visit Diagnoses Not on filedocumented in this encounter Additional Health Concerns Assessment Noted Time PHQ-9 Depression Total Score: 15 025 9:38 AM EST documented as of this encounter Care Teams Geophysics Teacher Relationship Specialty Start Date End Date Yudi Mcneil MD 505 [place] [address] PCP - General Family Medicine 09/12/24 Maryanne Diamond [address] [place] [address] Licensed Mental Health Counselor Behavioral Health 05/02/24 documented as of this encounter
--- OUTSIDE RECORDS SUMMARY | 2024-10-18 14:24 | XMS_ITS | Encounter Summary ---
Author Organization [employer] Address 75 [facility] 7 [place] [address] Care Team Providers Care Adult Literacy Teacher Name Role Phone Yudi Mcneil MD Primary Care Provider Reason for Visit * Reason Comments TELE OBAT F/U Encounter Details Date Type Department Care Team (Latest Contact Info) Description 10/07/2024 10:30 AM EST Telemedicine [facility] MEDICINE 230 [place] [address] Prabhjot Galicia MD 230 [place] [address] Uncomplicated opioid use (Primary Dx); Tobacco use [...] the past 12 months, has t he [employer], gas, oil or water [employer] threatened to shut off services in your [...] the next few weeks. [employer]. PCP @ [facility] transferred to Dr. Peters. She has see him in the past. Appointments next week with an COFFEE MAKER SERVICER and Dr. Peters. Javed still in longterm-charged with a felony. Therapist @ [facility]-may be seeing a psychiatrist in a couple [...] getting an ID and to enroll in [employer] Has not found evidence of prior Hep [...] Description 10/25/2024 10:30 AM EST Office Visit [facility] MEDICINE [address] [place] [address] Prabhjot Galicia MD 230 [place] [address] documented as of this encounter Visit Diagnoses Diagnosis Uncomplicated opioid use- Primary Tobacco use disorder Uncomplicated opioid use- Primary Tobacco use disorder documented in this encounter Additional Health Concerns Assessment Noted Time PHQ-9 Depression Total Score: 15 025 9:38 AM EST documented as of this encounter Care Teams Adult Literacy Teacher Relationship Specialty Start Date End Date Yudi Mcneil MD 505 [place] [address] PCP - General Family Medicine 09/12/24 Maryanne Diamond [address] [place] [address] Licensed Mental Health Counselor Behavioral Health 05/02/24 documented as of this encounter
--- OUTSIDE RECORDS SUMMARY | 2024-10-18 14:24 | XMS_ITS | Encounter Summary ---
Author Organization [employer] Address 75 [facility] 7t [place] [address] Care Team Providers Care Customer Data Technician Name Role Phone Yudi Mcneil MD Primary Care Provider [phone] Encounter Details Date Type Department Care Team (Latest Contact Info) Description 10/18/2024 Travel Social History Tobacco Use Types Packs/Day [...] Description 10/25/2024 10:30 AM EST Office Visit [facility] MEDICINE 230 [place] [address] Prabhjot Galicia MD 230 [place] [address] documented as of this encounter Visit Diagnoses Not on filedocumented in this encounter Additional Health Concerns Assessment Noted Time PHQ-9 Depression Total Score: 15 025 9:38 AM EST documented as of this encounter Care Teams Customer Data Technician Relationship Specialty Start Date End Date Yudi Mcneil MD 505 [place] [address] PCP - General Family Medicine 09/12/24 Maryanne Diamond [address] [place] [address] Licensed Mental Health Counselor Behavioral Health 05/02/24 documented as of this encounter
--- OUTSIDE RECORDS SUMMARY | 2024-10-18 14:24 | XMS_ITS | Clinical Summary ---
Author Organization [employer] Address [address] [place] [address] Care Team Providers Care Public Information Relations Manager Name Role Phone Yudi Mcneil MD Primary Care Provider [phone] Allergies Active Allergy Reactions Criticality Noted Date [...] for anxiety. 90 capsule 09/12/19 25 Active ketoconazole (NIZOral) 2 % shampooIndicat [...] Once per day for 2 days. Take 4 film SL daily. 2 Film 10/18/19 25 025 Active buprenorphine- naloxone (Suboxone) 2-0.5 [...] Once per day for 2 days. Take 14 film SL daily. 2 Film 09/20/19 25 [...] October 07, 2024. 2 Film 10/07/19 25 025 Discontinued(Re order (will not trigger [...] & Plan (09/12/2024 10:37 AM EST): Called [facility] for further evaluation. Encounters * This document contains information received from the source organization and may not represent a complete record from that organization. Date Type Department Care Team Description 10/18/2024 10:30 AM EST Office Visit [facility] [address] [place] [address] Prabhjot Galicia MD Uncomplicated opioid use (Primary Dx); Tobacco use disorder 10/18/2024 Refill [facility] [address] [place] [address] Francisca Rosado RN Uncomplicated opioid use 10/18/2024 Refill [facility] [address] [place] [address] Francisca Rosado RN 10/18/2024 Travel 10/14/2024 Refill [facility] [address] [place] [address] Francisca Rosado RN Uncomplicated opioid use 10/14/2024 Refill [facility] [address] [place] [phone] Francisca Rosado, RN Uncomplicated opioid use 10/12/2024 Refill [facility] [address] [place] [phone] Francisca Rosado, RN 10/07/2024 10:30 AM EST Telemedicine [address] [address] Prabhjot Galicia MD Uncomplicated opioid use (Primary Dx); Tobacco use disorder 10/07/2024 Travel 10/04/2024 9:45 AM EST Office Visit [facility] [address] [place] [address] Jovanny Peters MD Pilar cyst of scalp (Primary Dx); Seborrheic keratosis; Androgenetic alopecia; Dry skin 10/03/2024 10:30 AM EST Clinical Support [facility] [address] [place] [address] Collette Marsh RN Primary hypertension 10/03/2024 Refill [facility] [address] [place] [address] Alyse Choudhury RN Uncomplicated opioid use 10/03/2024 Travel 09/27/2024 11:15 AM EST Office Visit [facility] [address] [place] [phone] Prabhjot Galicia MD Uncomplicated opioid use (Primary Dx); Tobacco use disorder 09/27/2024 Travel 09/21/2024 Refill [facility] [address] [place] [phone] Francisca Rosado, RN Uncomplicated opioid use 09/20/2024 11:00 AM EST Office Visit [facility] [address] [place] [address] Prabhjot Galicia MD Uncomplicated opioid use (Primary Dx); Tobacco use disorder 09/20/2024 Telephone [facility] [address] [place] [address] Yudi Mcneil MD 09/20/2024 Travel 09/13/2024 10:00 AM EST Office Visit [facility] [address] [place] [phone] Prabhjot Galicia MD Opioid use, unspecified, uncomplicated (Primary Dx); Uncomplicated opioid use; Tobacco use disorder 09/13/2024 9:30 AM EST Office Visit [address] [address] Alyse Choudhury, UNRULY Opiate use 09/13/2024 Patient Outreach [address] [phone] Benjamin Wilson [facility] 09/13/2024 Patient Outreach [address] [phone] Winston Jackson [facility] 09/13/2024 Patient Outreach [address] [address] Winston Jackson [facility] 09/13/2024 Travel 09/12/2024 9:30 AM EST Office Visit [facility] [address], [place] [phone] Yudi Mcneil MD Primary hypertension (Primary Dx); Moderate episode of recurrent major depressive disorder (CMS/HCC); Anxiety; Acquired hypothyroidism; Opiate use; Class 2 severe obesity with serious comorbidity and body mass index (BMI) of 35.0 to 35.9 in adult, unspecified obesity type (CMS/HCC); Primary insomnia 09/12/2024 Telephone [facility] [address] [place] [address] Yudi Mcneil MD 09/12/2024 Patient Outreach [address] [address] Winston Jackson [facility] 09/12/2024 Travel 09/09/2024 Telephone [facility] [address], [place] [phone] Yudi Mcneil MD CHART PREP 07/22/[address] [phone] Brady Etienne MD New patient appt. from [...] with others, in a hotel, in a chcf, living outside on the street, on a [...] the past 12 months, has t he [employer], gas, oil or water company threatened to [...] Description 10/25/2024 10:30 AM EST Office Visit [facility] [address] [place], [place] [phone] Prabhjot Galicia MD [address] [place] [address] Health Maintenance Due Date Last Done Comments [...] 10/18/2024 9:11 AM EST Uncomplicated opioid use US ABDOMEN COMPLETE WITH ELASTOGRAPHY Routine 10/13/2024 10:06 AM EST Transaminitis POCT LOUIS-14 URINE DRUG SCREEN Routine 09/27/2024 [...] Urine Drug Screen (10/18/2024 9:11 AM EST) Only the most recent of4 resultswithin the time period is included. THC [...] procedure / Unknown 10/18/2024 9:11 AM EST us Prabhjot Galicia MD POINT OF CARE TEST ENTER/EDIT ORDERABLES Final Result * US Abdomen Comp w elastography (10/13/2024 10:06 AM EST) Anatomical Region Laterality Modality Abdomen Ultrasound 10/13/2024 10:0 6 AM EST Narrative 10/13/2024 11:02 AM EST ? [facility] ?[address] ?[place] [address] ? Ultrasound Report ? Signed ? Patient: Czupryna,Betty ?MR#: [id number] ?? [id number] ? : 1980 ?Acct:[id number] ? Age/Sex: 43 / F ?ADM Date: 10/13/ ? Loc: HO.US ? Attending Dr: Yudi Mcneil MD ? Ordering Physician: Yudi Mcneil MD ?? Date of Service: 10/13/24 ?? Procedure(s): US abdomen comp w elastography ?? Accession Number(s): [id number] ? cc: Yudi Mcneil MD ? EXAMINATION: ??US ABDOMEN COMPLETE WITH LIVER ELASTOGRAPHY ? HISTORY: 43 yo F with transaminitis and elevated bilirubin, [place] [facility] ? TECHNIQUE: Real-time grayscale ultrasound imaging of the abdomen was ?? performed and images were reviewed. ? COMPARISON: There are no prior studies for comparison. ? FINDINGS: ?? Liver: ??The right lobe of the liver measures 17.8 cm in size. The left ?? lobe of the liver measures 12.3 cm in size. The liver demonstrates ?? increased echotexture, consistent with steatosis. ??No focal mass or ?? intrahepatic biliary ductal dilatation is identified. ??There is normal ?? hepatopedal flow in the portal vein. ? Ultrasound elastography of the liver was performed with 10 separate ?? measurements of the liver parenchyma with the patient in the supine ?? position. ??Measurements were obtained approximately 2 cm below ?? Mekhi's capsule and perpendicular to the capsule. ??Images are of ?? satisfactory quality. ? The median shear wave velocity is 1.26 m/s. ?? The interquartile range/median (IQR/median) is 0.14. ? Gallbladder and biliary tree: The gallbladder is unremarkable, without ?? evidence of calculi, wall thickening, or pericholecystic fluid. ??There ?? is no sonographic Howard sign. ??The common bile duct is normal in ?? caliber measuring 6 mm. ? Kidneys: ??The right kidney measures 9.5 cm in length. The left kidney ?? measures 10.2 cm in length. ??The kidneys are unremarkable, without ?? evidence of masses, hydronephrosis, or calculi. ? Pancreas: The pancreatic head, neck, and body are unremarkable. The ?? pancreatic tail is obscured by bowel gas. ? Spleen: The spleen is normal in size and contour, measuring 12.1 cm in ?? length. ? Abdominal aorta and inferior vena cava: The visualized portions of the ?? abdominal aorta and inferior vena cava are normal in caliber. ? There is no free fluid in the abdomen. ? US/US abdomen comp w elastography ?? IMPRESSION: ? Hepatomegaly and hepatic steatosis. ? The median shear wave velocity is 1.26 m/s, corresponding to a median ?? liver stiffness of 4.87 kPa. ??The IQR/median value is 0.14. ??This is ?? indicative of a quality data set. ?? Findings are indicative of a normal elastography value with a low ?? likelihood of severe fibrosis or cirrhosis. ? REFERENCE: ?? Society of Radiologists in Ultrasound Liver Stiffness Thresholds (2019): ? LIVER STIFFNESS THRESHOLDS: ?? *Shear wave velocity less than 1.3 m/s (Liver Stiffness equal or less ?? than 5 kPa): ??High probability of being normal. ?? *Shear wave velocity less than 1.7 m/s (Liver Stiffness less than 9 ?? kPa): ??In the absence of other known clinical signs, rules out ?? compensated advanced chronic liver disease. ?? *Shear wave velocity between 1.7-2.1 m/s (Liver Stiffness 9-13 kPa): ? Suggestive of compensated advanced chronic liver disease but need ?? further test for confirmation. ?? *Shear wave velocity between 2.1-2.4 m/s (Liver Stiffness 13-17 kPa): ? Rules in compensated advanced chronic liver disease. ?? *Shear wave velocity ??greater than 2.4 m/s (Liver Stiffness over 17 ?? kPa): ??Suggestive of clinically significant portal hypertension. ? QUALITY OF DATA SET: ?? *IQR/Median value equal or less than 0.15 implies a quality data set. ?? *IQR/Median value over 0.15 implies a poor quality data set. ? SIGNIFICANT CHANGE FROM PRIOR EXAM: ?? Significant change if liver stiffness measurement is 10% or greater ?? from prior exam. ? OTHER CONSIDERATIONS: ?? The stage of liver fibrosis may be overestimated in the setting of ?? acute hepatitis, liver inflammation, elevated liver function tests, ?? hepatic vascular congestion, obstructive cholestasis, non-fasting ?? state, and infiltrative diseases such as amyloidosis and lymphoma. ??In ?? some patients with NAFLD, the liver stiffness thresholds for ?? compensated advanced chronic liver disease may be lower. ??In causes ?? other than viral hepatitis and NAFLD, liver stiffness thresholds are ?? not well established. ? Electronically signed by: ??Bebeto Lance MD ??10/13/2024 10:59 AM EST ?? RP ? Dictated By: ?Bebeto Lance MD ? Signed By: ?<Electronically signed by Bebeto Lance MD in OV> ?10/13/249 ? DD/ 1006 ? TD/TT: 10/13/24 1035 ? Twisting Press Operator: ? Procedure Note Donotlakshmiter, Image - 10/13/2024 [place] [address] Ultrasound Report Signed Patient: Loreta Peguero#: [id number] : 1980Acct:[id number] Age/Sex: 43 / FADM Date: 10/13/24 Loc: HO.US Attending Dr: Yudi Mcneil MD Ordering Physician: Yudi Mcneil MD Date of Service: 10/13/24 Procedure(s): US abdomen comp w elastography Accession Number(s): [id number] cc: Yudi Mcneil MD EXAMINATION: US ABDOMEN COMPLETE WITH LIVER ELASTOGRAPHY HISTORY: 43 yo F with transaminitis and elevated bilirubin, [place] [facility] TECHNIQUE: Real-time grayscale ultrasound imaging of the abdomen was performed and images were reviewed. COMPARISON: There are no prior studies for comparison. FINDINGS: Liver: The right lobe of the liver measures 17.8 cm in size. The left lobe of the liver measures 12.3 cm in size. The liver demonstrates increased echotexture, consistent with steatosis. No focal mass or intrahepatic biliary ductal dilatation is identified. There is normal hepatopedal flow in the portal vein. Ultrasound elastography of the liver was performed with 10 separate measurements of the liver parenchyma with the patient in the supine position. Measurements were obtained approximately 2 cm below Mekhi's capsule and perpendicular to the capsule. Images are of satisfactory quality. The median shear wave velocity is 1.26 m/s. The interquartile range/median (IQR/median) is 0.14. Gallbladder and biliary tree: The gallbladder is unremarkable, without evidence of calculi, wall thickening, or pericholecystic fluid. There is no sonographic Howard sign. The common bile duct is normal in caliber measuring 6 mm. Kidneys: The right kidney measures 9.5 cm in length. The left kidney measures 10.2 cm in length. The kidneys are unremarkable, without evidence of masses, hydronephrosis, or calculi. Pancreas: The pancreatic head, neck, and body are unremarkable. The pancreatic tail is obscured by bowel gas. Spleen: The spleen is normal in size and contour, measuring 12.1 cm in length. Abdominal aorta and inferior vena cava: The visualized portions of the abdominal aorta and inferior vena cava are normal in caliber. There is no free fluid in the abdomen. US/US abdomen comp w elastography IMPRESSION: Hepatomegaly and hepatic steatosis. The median shear wave velocity is 1.26 m/s, corresponding to a median liver stiffness of 4.87 kPa. The IQR/median value is 0.14. This is indicative of a quality data set. Findings are indicative of a normal elastography value with a low likelihood of severe fibrosis or cirrhosis. REFERENCE: Society of Radiologists in Ultrasound Liver Stiffness Thresholds (2020): LIVER STIFFNESS THRESHOLDS: *Shear wave velocity less than 1.3 m/s (Liver Stiffness equal or less than 5 kPa): High probability of being normal. *Shear wave velocity less than 1.7 m/s (Liver Stiffness less than 9 kPa): In the absence of other known clinical signs, rules out compensated advanced chronic liver disease. *Shear wave velocity between 1.7-2.1 m/s (Liver Stiffness 9-13 kPa): Suggestive of compensated advanced chronic liver disease but need further test for confirmation. *Shear wave velocity between 2.1-2.4 m/s (Liver Stiffness 13-17 kPa): Rules in compensated advanced chronic liver disease. *Shear wave velocity greater than 2.4 m/s (Liver Stiffness over 17 kPa): Suggestive of clinically significant portal hypertension. QUALITY OF DATA SET: *IQR/Median value equal or less than 0.15 implies a quality data set. *IQR/Median value over 0.15 implies a poor quality data set. SIGNIFICANT CHANGE FROM PRIOR EXAM: Significant change if liver stiffness measurement is 10% or greater from prior exam. OTHER CONSIDERATIONS: The stage of liver fibrosis may be overestimated in the setting of acute hepatitis, liver inflammation, elevated liver function tests, hepatic vascular congestion, obstructive cholestasis, non-fasting state, and infiltrative diseases such as amyloidosis and lymphoma. In some patients with NAFLD, the liver stiffness thresholds for compensated advanced chronic liver disease may be lower. In causes other than viral hepatitis and NAFLD, liver stiffness thresholds are not well established. Electronically signed by: Bebeto Lance MD 10/13/2024 10:59 AM EST Dictated By: Bebeto Lance MD Signed By: <Electronically signed by Bebeto Lance MD in OV> 10/13/24 1059 DD/ 1006 TD/TT: 10/13/24 1035 Twisting Press Operator: us Yudi Mcneil MD [facility] PROCEDURES Edited Resu lt - Final * T-SPOT??.TB (09/20/2024 11:13 AM EST) T Spot TB Negative Negative [facility] Comment:A negative test resu lt does [...] as aquantitative test. TS PANEL A 0 [facility] TS PANEL B 0 [facility] Negative Control Passed [facility] Positive Control Passed [facility] Comment:For additional infor neel, please refer tohttp://education.Zaask/faq/ZEJ032(This link is being provided for informational/educational purposes only.)THIS TEST WAS PERFORMED AT:[employer] [place] [id number] BALBUENA MD,PHD 09/20/2024 11:1 3 AM EST 09/20/2024 1:14 PM EST Prabhjot Galicia MD LAB BLOOD ORDERABLES Final Res ult Performing Organization Address [facility] Co de Phone Number [facility] [address] [place] [phone] * Hepatitis C Antibody with Reflex to HCV, RNA, Quantitative, Real-Time PCR (09/20/2024 11:13 AM EST) Hepatitis C Antibody Nonreactive Nonreactive [facility] Comment:Antibodies to HCV no t detected; does not exclude early acuteHCV infection. Blood Venous blood specimen / Unknown 09/20/2024 11:13 AM EST 09/20/2024 1:14 PM EST Result [facility] Prabhjot Galicia MD LAB BLOOD ORDERABLES Final Res ult Performing Organization Address [facility] Co de Phone Number [facility] [address] [place] [phone] * Iron And Total Iron Binding Capacity (09/20/2024 11:13 AM EST) Iron 93 30 - 160 mcg/dL [facility] Total Iron Binding Capacity 316 228 - 428 mcg/dL [facility] Percent Iron Saturation 29 15 - 50 % [facility] Unsaturated Iron Binding 223 ug/dL [facility] Blood Venous blood specimen / Unknown 09/20/2024 11:13 AM EST 09/20/2024 1:14 PM EST Yudi Mcneil MD LAB BLOOD ORDERABLES Final Re sult Performing Organization Address [facility] Co de Phone Number [facility] [address] [place] [phone] * Hepatitis A IgM Antibody (09/20/2024 11:13 AM EST) Hepatitis A IgM Nonreactive Nonreactive [facility] Comment:IgM antibodies to JOSHI V not detected; does not exclude earlyacute or recovered HAV infection. Blood Venous blood specimen / Unknown 09/20/2024 11:13 AM EST 09/20/2024 1:14 PM EST Yudi Mcneil MD LAB BLOOD ORDERABLES Final Re sult Performing Organization Address [facility] Phone Number [facility] [address] [place] [phone] * Hepatitis A Antibody, Total (09/20/2024 11:13 AM EST) Hepatitis A Antibody IgG Nonreactive Nonreactive [facility] Blood Venous blood specimen / Unknown 09/20/2024 11:13 AM EST 09/20/2024 1:14 PM EST Prabhjot Galicia MD LAB BLOOD ORDERABLES Final Res ult Performing Organization Address [facility] Co de Phone Number [facility] [address] [place] [phone] * Hepatitis B surface antigen, EIA (09/20/2024 11:13 AM EST) Hepatitis B Surface Ag Negative Negative [facility] Blood Venous blood specimen / Unknown 09/20/2024 11:13 AM EST 09/20/2024 1:14 PM EST Prabhjot Galicia MD LAB BLOOD ORDERABLES Final Res ult Performing Organization Address [facility] Co de Phone Number [facility] [address] [place] [phone] * Hepatitis B Core Antibody, Total (09/20/2024 11:13 AM EST) Hepatitis B Core Antibody Nonreactive Nonreactive [facility] Blood Venous blood specimen / Unknown 09/20/2024 11:13 AM EST 09/20/2024 1:14 PM EST Prabhjot Galicia MD LAB BLOOD ORDERABLES Final Res ult Performing Organization Address [facility] Co de Phone Number [facility] [address] [place] [phone] * RPR (Monitor) with Reflex to??Titer (09/20/2024 11:13 AM EST) RPR (Monitor) w/Refl Titer NON-REACTI VE NON-REACT EARLINE [facility] Comment:THIS TEST WAS PERFOR MED AT:[facility] [place] [phone] SORIANO MD Rapid Plasma Reagin Ab Titer TNP [facility] Blood Venous blood specimen / Unknown 09/20/2024 11:13 AM EST 09/20/2024 1:14 PM EST Prabhjot Galicia MD LAB BLOOD ORDERABLES Final Res ult Performing Organization Address [facility] Co de Phone Number [facility] [address] [place] [phone] * HIV-1/2 Antigen and Antibodies, Fourth Generation, with Reflexes (09/20/2024 11:13 AM EST) HIV AB/AG Nonreactive Nonreactive [facility] Comment:HIV-1 p24 Ag and/or HIV-1/HIV-2 Ab not detected.A test result that is nonreactive does not exclude thepossibility of exposure to or infection with HIV-1 and/orHIV-2. Nonreactive results in this assay for individualswith prior exposure to HIV-1 and/or HIV-2 may be due toantigen and antibody levels that are below the limit ofdetection of this assay.The [employer] HIV Ag/Ab Combo assay result andsupplemental assay results should be interpreted inconjunction with the patient's clinical presentation,history and other laboratory results. If the results areinconsistent with clinical evidence, additional testing issuggested to confirm the result. Blood Venous blood specimen / Unknown 09/20/2024 11:13 AM EST 09/20/2024 1:14 PM EST Prabhjot Galicia MD LAB BLOOD ORDERABLES Final Res ult Performing Organization Address [facility]/ZIP Co de Phone Number [facility] [address] [place] [phone] * Hepatitis B Surface Antibody, Qualitative (09/20/2024 11:13 AM EST) ~Hepatitis B Surface Antibody NONREACTIVE Nonreactive [facility] Comment:Nonreactive: < 8.00 mIU/mL Blood Venous blood specimen / Unknown 09/20/2024 11:13 AM EST 09/20/2024 1:14 PM EST Result [facility] Yudi Mcneil MD LAB BLOOD ORDERABLES Final Re sult Performing Organization Address [facility] Co de Phone Number [facility] [address] [place] [phone] * Partial Thromboplastin Time, Activated (APTT) (09/20/2024 11:13 AM EST) Partial Thromboplastin Time 32.8 26.0 - 36.8 SEC [facility] Comment:For information rega rding the monitoring of direct thrombininhibitors, please refer to Pharmacy. Blood Venous blood specimen / Unknown 09/20/2024 11:13 AM EST 09/20/2024 1:14 PM EST Yudi Mcneil MD LAB BLOOD ORDERABLES Final Re sult Performing Organization Address City/[facility]/ZIP Co de Phone Number [facility] [address] [place] [phone] * (ABNORMAL) Prothrombin Time-INR (09/20/2024 11:13 AM EST) Prothrombin Time 10.8(L) 10.9 - 12.4 SEC [facility] INTERNATIONAL NORM RATIO 0.9 0.9 - 1.1 [facility] Comment:INTERNATIONAL NORMAL IZED RATIO (INR) REFERENCE [...] ORDERABLES Final Re sult Performing Organization Address City/[facility]/ZIP Co de Phone Number [facility] [address] [place] [phone] * Hemoglobin A1c (09/20/2024 11:13 AM EST) Hemoglobin A1c 4.6 <6.0 % [facility] Comment:Hemoglobin A1C Refer ence Range Adults: 4.8 - 6.0 % Non diabetic: < 6.0 % Goal: < 7.0 %Additional Action Suggested: > 8.0 %Note: Hemoglobin A1c results are invalid for patients with abnormal amounts of HbF. Blood transfusions may impact the HbA1c concentration in the patient sample. Estimated Average Glucose 85 mg/dL [facility] Comment:eAG = Estimated ave rage glucose which is %A1C expressed asaverage glucose, using the formula of the G0U-ZqpdrjrKogdwce Glucose study (ADAG), Diabetes Care, Vol.31,#8,2007 Blood Venous blood specimen / Unknown 09/20/2024 11:13 AM EST 09/20/2024 1:14 PM EST Yudi Mcneil MD LAB BLOOD ORDERABLES Final Re sult Performing Organization Address [facility]/ZIP Co de Phone Number [facility] [address] [place] [phone] * Ferritin (09/20/2024 11:13 AM EST) Ferritin 221 10 - 250 ng/mL [facility] Blood Venous blood specimen / Unknown 09/20/2024 11:13 AM EST 09/20/2024 1:14 PM EST Yudi Mcneil MD LAB BLOOD ORDERABLES Final Re sult Performing Organization Address [facility] Co de Phone Number [facility] [address] [place] [phone] * (ABNORMAL) Comprehensive Metabolic Panel (09/20/2024 11:13 AM EST) Only the most recent of2 resultswithin the time period is included. Sodium 140 135 - 145 mmol/L [facility] Potassium 3.4 3.3 - 5.1 mmol/L [facility] Chloride 104 96 - 108 mmol/L [facility] Carbon Dioxide 29 22 - 29 mmol/L [facility] Anion Gap 10(L) 12 - 20 [facility] Urea Nitrogen (BUN) 21(H) 9 - 16 mg/dL [facility] Creatinine, Serum 0.86 0.5 - 1.4 mg/dL [facility] Estimated Glomerular Filt Rate >60 [facility] Comment:Chronic Kidney Disea se: Estimated GFR < 60 mL/min/1.54v7Scpplm Kidney Disease: Estimated GFR < 15 mL/min/1.73m2 Glucose 134(H) 60 - 115 mg/dL [facility] Calcium 9.3 8.4 - 10.2 mg/dL [facility] Bilirubin, Total 0.6 0.0 - 1.0 mg/dL [facility] Aspartate Amino Transferase 38(H) 5 - 31 U/L [facility] Alanine Aminotransferase 82(H) 0 - 31 U/L [facility] Total Protein 7.6 6.5 - 8.0 g/dL [facility] Albumin Level 4.6 3.5 - 5.0 g/dL [facility] Alkaline Phosphatase 65 39 - 117 U/L [facility] Blood Venous blood specimen / Unknown 09/20/2024 11:13 AM EST 09/20/2024 1:14 PM EST us Yudi Mcneil MD LAB BLOOD ORDERABLES Final Re sult [facility] [address] [place] [phone] * (ABNORMAL) Urinalysis, Complete, with Reflex to Culture (09/12/2024 11:03 AM EST) Color Urine Manor(A) [facility] Appearance Urine Turbid [facility] PH 5.0 5.0 - 9.0 [facility] Glucose Urine UA Negative Negative mg/dL [facility] Urine Blood Negative Negative [facility] Specific Echo - Urine >=1.030(H) 1.005 - 1.025 [facility] Urine Protein See Note Neg-Trace mg/dL [facility] Comment:Urine pigment obscur ed dipstick results. Urine Ketones Negative Negative mg/dL [facility] Nitrite Urine See Note Negative [facility] Comment:Urine pigment obscur ed dipstick results. Leukocyte Esterase Urine Trace(A) Negative [facility] RBC Urine 0-2 0 - 2 /HPF [facility] Urine WBC 0-5 0 - 5 /HPF [facility] Urine Squamous Epithelial Cell 6-10 0 - 2 /HPF [facility] Other Crystals Urine Present [facility] Comment:Amorphous urates Urine Bacteria 1+ None Seen [facility] Hyaline Casts, Urine 6-10 0 - 2 /LPF [facility] Urine 09/12/2024 11:0 3 AM EST 09/12/2024 1:55 PM EST Narrative [facility] - 09/12/2024 2:18 PM EST [id number], Clean Catch us Yudi Mcneil MD LAB URINE ORDERABLES Final Re sult Performing Organization Address [facility]/ZIP Co de Phone Number [facility] [address] [place] [address] [phone] * Vitamin B12 (Cobalamin) and Folate Panel, Serum (09/12/2024 10:56 AM EST) Vitamin B12 501 200 - 900 pg/mL [facility] Comment:NORMAL 200-900 PG/ML INDETERMINATE 160-199 PG/ML DEFICIENT < 160 PG/ML Folate 13.2 > or = 4.0 ng/mL [facility] Comment:Reference Values:> o r = 4.0 [...] ORDERABLES Final Re sult Performing Organization Address [facility] Co de Phone Number [facility] [address], [place] [phone] * TSH W/Reflex to FT4 (09/12/2024 10:56 AM EST) TSH reflex Free T4 3.92 0.32 - 4.0 uIU/mL [facility] Blood Venous blood specimen / Unknown 09/12/2024 10:56 AM EST 09/12/2024 1:56 PM EST us Yudi Mcneil MD LAB BLOOD ORDERABLES Final Re sult [facility] [address], [place] [phone] * (ABNORMAL) CBC auto differential (09/12/2024 10:56 AM EST) White Blood Count 12.9(H) 4.8 - 10.8 X10*3/uL [facility] Red Blood Count 5.12 4.20 - 5.50 X10*6/uL [facility] Hemoglobin 17.1(H) 12.0 - 16.0 g/dl [facility] Hematocrit 47.3(H) 37.0 - 47.0 % [facility] Mean Corpuscular Volume 92.4 80.0 - 98.0 fL [facility] Mean Corpuscular Hemoglobin 33.4(H) 27.0 - 33.0 pg [facility] Mean Corpuscular HGB Conc 36.2(H) 31.0 - 35.0 g/dl [facility] Red Cell Distribution Width 12.0 11.0 - 16.0 % [facility] Platelet Count 262 160 - 400 X10*3/uL [facility] Mean Platelet Volume 11.8 9.4 - 12.3 fL [facility] Neutrophils Percent Auto 68.2 45 - 73 % [facility] Imm Gran Pct Auto 0.4 0.0 - 0.4 % [facility] Lymphocytes Percent Auto 21.5 20 - 40 % [facility] Monocytes Percent Auto 8.7 2 - 11 % [facility] Eosinophils Percent Auto 0.7 0 - 4 % [facility] Basophils Percent Auto 0.5 0 - 2 % [facility] NRBC Pct Auto 0.0 0.0 - 0.2 /100WBC [facility] Neutrophils Absolute Auto 8.8(H) 2.0 - 8.3 x10*3/uL [facility] Imm Gran Abs Auto 0.05(H) 0.00 - 0.03 X10*3/uL [facility] Lymphocytes Absolute Auto 2.8 1.2 - 4.9 X10*3/uL [facility] Monocytes Absolute Auto 1.1 0.1 - 1.2 X10*3/uL [facility] Eosinophils Absolute Auto 0.1 0.0 - 0.4 X10*3/uL [facility] Basophils Absolute Auto 0.1 0.0 - 0.2 X10*3/uL [facility] NRBC Abs Auto 0.000 0.0 - 0.012 X10*3/uL [facility] Blood Venous blood specimen / Unknown 09/12/2024 10:56 AM EST 09/12/2024 1:56 PM EST us Yudi Mcneil MD LAB BLOOD ORDERABLES Final Re sult [facility] [address], [place] [phone] * (ABNORMAL) Lipid Panel, Standard (09/12/2024 10:56 AM EST) Triglycerides 272(H) <150 mg/dL [facility] Comment:Desirable Triglyceri de: less than 150 mg/dLBorderline High Triglyceride 150-199 mg/dLHigh Triglyceride: 200-499 mg/dLVery High Triglyceride: greater than or equal to 5OO mg/dL Cholesterol 187 <200 mg/dL [facility] Comment:Desirable Cholestero l: less than 200 mg/dLBorderline High Cholesterol: 200-239 mg/dLHigh Cholesterol: greater than 239 mg/dL LDL Cholesterol Calculated 71 <100 mg/dL [facility] Comment:Desirable LDL: less than 100 mg/dLNear Optimal/Above Optimal LDL: 110- 129 mg/dLBorderline High LDL: 130-159 mg/dLHigh LDL: 160-189 mg/dLVery High LDL: greater than or equal to 190 mg/dL HDL Cholesterol 62 >40 mg/dL [facility] Comment:Desirable HDL: great er than 40 mg/dL Note: This HDL assay may give artificially low results in patients with liver disease. Blood Venous blood specimen / Unknown 09/12/2024 10:56 AM EST 09/12/2024 1:56 PM EST us Yudi Mcneil MD LAB BLOOD ORDERABLES Final Re sult [facility] [address] [place] [phone] from Last 3 Months Insurance [facility] Care Teams Public Information Relations Manager Relationship Specialty Start Date End Date Yudi Mcneil MD [address] [facility] [place] [address] PCP - General Family Medicine 09/12/24 Maryanne Diamond [address] [place] [address] [place] [address] Licensed Mental Health Counselor Behavioral Health 05/02/24
--- OUTSIDE RECORDS SUMMARY | 2024-10-18 14:24 | XMS_ITS | Encounter Summary ---
Author Organization [employer] Address 75 [facility] 7t [place] [address] Care Team Providers Care Conveyor Man Name Role Phone Yudi Mcneil MD Primary Care Provider [phone] Reason for Visit * Reason Comments OBAT Encounter Details Date Type Department Care Team (Latest Contact Info) Description 09/27/2024 11:15 AM EST Office Visit [facility] MEDICINE [address] [place], [place] [phone] Prabhjot Galicia MD [address] [place], [place] [phone] Uncomplicated opioid use (Primary Dx); Tobacco use [...] well on 0.5 mg daily. No ADRs [facility] labs reviewed-02/2024 INR 1.0. Has multiple narcans. Did not receive FEN test strips last week. still in prison. DCF to meet with him today. She [...] the next few weeks. Roselyn. PCP @ [facility] transferred to Dr. Peters. She has see him in the past. Appointments next week with an BIOLOGICAL SCIENTIST and Dr. Peters. Javed still in prison-charged with a felony. Therapist @ [facility]-may be seeing a psychiatrist in a couple [...] the next few weeks. Roselyn. PCP @ [facility] transferred to Dr. Peters. She has see him in the past. Appointments next week with an BIOLOGICAL SCIENTIST and Dr. Peters. Javed still in prison-charged with a felony. Therapist @ [facility]-may be seeing a psychiatrist in a couple of weeks. Not sure if she has had Hep A or B vaccines. Will check. Has FEN test strips and Narcan. THC only from the dispensary. Smokes ~ a bowl or less a day. None for 2 days. As above. By hx, doing well. [facility]. Reviewed labs. LFTs trending down, bilirubin [...] 10:30 AM EST Office Visit [facility] MEDICINE [address] [place] [address] Prabhjot Galicia MD [address] [place] [address] documented as of this encounter Procedures Procedure [...] Noted Time PHQ-9 Depression Total Score: 15 09/12/ 025 9:38 AM EST documented as of this encounter Care Teams Conveyor Man Relationship Specialty Start Date End Date Yudi Mcneil MD [address] [place] [address] PCP - General Family Medicine 09/12/24 Maryanne Diamond [address] [place], [place] [address] [address] Licensed Mental Health Counselor Behavioral Health 05/02/24 documented as of this encounter
--- OUTSIDE RECORDS SUMMARY | 2024-10-18 14:24 | XMS_ITS | Encounter Summary ---
Author Organization [employer] Address 75 [facility] 7 [place] [address] Care Team Providers Care Helminthologist Name Role Phone Yudi Mcneil MD Primary Care Provider [phone] Reason for Visit * Reason Onset Date Comments Med Refill 10/12/2024 Encounter Details Date Type Department Care Team (Late st Contact Info) Description 10/12/2024 Refill [facility] MEDICINE [address] [place] [address] Francisca Rosado, [place] Social History Tobacco Use [...] Description 10/25/2024 10:30 AM EST Office Visit [facility] [address] [place] [address] Prabhjot Galicia MD [address] [place] [address] documented as of this encounter Visit Diagnoses Not on filedocumented in this encounter Additional Health Concerns Assessment Noted Time PHQ-9 Depression Total Score: 15 025 9:38 AM EST documented as of this encounter Care Teams Helminthologist Relationship Specialty Start Date End Date Yudi Mcneil MD 505 [place] [address] PCP - General Family Medicine 09/12/24 Maryanne Diamond [address] [place] [address] Licensed Mental Health Counselor Behavioral Health 05/02/24 documented as of this encounter
--- OUTSIDE RECORDS SUMMARY | 2024-10-18 14:24 | XMS_ITS | Encounter Summary ---
Author Organization [employer] Address 75 [facility] 7 [place] [address] Care Team Providers Care Assistant Real Estate Manager Name Role Phone Yudi Mcneil MD Primary Care Provider [phone] Reason for Visit * Reason Onset Date Comments Med Refill 10/14/2024 Encounter Details Date Type Department Care Team (Late st Contact Info) Description 10/14/2024 Refill [facility] MED[facility]INE [address] [place] [address] Francisca Rosado RN Uncomplicated opioid use Social [...] with others, in a hotel, in a residential, living outside on the street, on a [...] Office Visit [facility] MED[facility]INE [address] [place] [address] Prabhjot Galicia MD 230 [place] [address] documented as of this encounter Visit Diagnoses Diagnosis Uncomplicated opioid use Uncomplicated opioid use- Primary Tobacco use disorder documented in this encounter Additional Health Concerns Assessment Noted Time PHQ-9 Depression Total Score: 15 025 9:38 AM EST documented as of this encounter Care Teams Assistant Real Estate Manager Relationship Specialty Start Date End Date Yudi Mcneil MD [address] [place] [address] PCP - General Family Medicine 09/12/24 Maryanne Diamond [address] [place] [phone] Licensed Mental Health Counselor Behavioral Health 05/02/24 documented as of this encounter
--- OUTSIDE RECORDS SUMMARY | 2024-10-18 14:24 | XMS_ITS | Encounter Summary ---
Author Organization [employer] Address 75 [facility] 7t [place] [address] Care Team Providers Care Director Funeral Name Role Phone Yudi Mcniel MD Primary Care Provider [phone] Encounter Details Date Type Department Care Team [...] Description 10/25/2024 10:30 AM EST Office Visit [facility] MEDICINE [address] [place] [address] Prabhjot Galicia MD [address] [place] [address] documented as of this encounter Visit Diagnoses Not on filedocumented in this encounter Additional Health Concerns Assessment Noted Time PHQ-9 Depression Total Score: 15 025 9:38 AM EST documented as of this encounter Care Teams Director Funeral Relationship Specialty Start Date End Date Yudi Mcneil MD [address] [place] [address] PCP - General Family Medicine 09/12/24 Maryanne Diamond [address] [place] [address] Licensed Mental Health Counselor Behavioral Health 05/02/24 documented as of this encounter
--- OUTSIDE RECORDS SUMMARY | 2024-10-18 14:24 | XMS_ITS | Encounter Summary ---
Author Organization [employer] Address 75 [facility] 7t [place] [address] Care Team Providers Care Typewriter Mechanic Name Role Phone Yudi Mcneil MD Primary Care Provider [phone] Reason for Visit * Reason Comments Hypertension Encounter Details Date Type Department Care Team (Latest Contact Info) Description 10/03/2024 10:30 AM EST Clinical Support [facility] MED & PEDS [address] [place], [place] [phone] Collette Marsh RN Primary hypertension Social History [...] the past 12 months, has t he [employer], oil or water [employer] threatened to shut off services in your [...] any changes advised. Betty Peguero to call [facility] if SBP >165 or DBP>100 constantly Betty Peguero agrees with plan and verbalized understanding; to follow up with PCP as needed. Collette Marsh RN documented in this encounter Plan of Treatment Upcoming Encounters Date Type Department Care Team (Late st Contact Info) Description 10/25/2024 10:30 AM EST Office Visit [address] [address] Prabhjot Galicia MD 230 [place] [address] documented as of this encounter Visit Diagnoses Diagnosis Primary hypertension Unspecified essential hypertension Uncomplicated opioid use- Primary Tobacco use disorder documented in this encounter Additional Health Concerns Assessment Noted Time PHQ-9 Depression Total Score: 15 025 9:38 AM EST documented as of this encounter Care Teams Typewriter Mechanic Relationship Specialty Start Date End Date Yudi Mcneil MD [address] [place] [address] PCP - General Family Medicine 09/12/24 Maryanne Diamond [address] [place] [address] Licensed Mental Health Counselor Behavioral Health 05/02/24 documented as of this encounter
--- OUTSIDE RECORDS SUMMARY | 2024-10-18 14:24 | XMS_ITS | Encounter Summary ---
Author Organization [employer] Address [address] [place] [address] 7 [place] [address] Care Team Providers Care Staff Genetic Counselor Name Role Phone Yudi Mcneil MD Primary Care Provider [phone] Reason for Visit * Reason Comments OBAT F/U Encounter Details Date Type Department Care Team (Latest Contact Info) Description 09/20/2024 11:00 AM EST Office Visit [facility] MEDICINE [address] [place] [address] Prabhjot Galicia MD [address] [place] [address] Uncomplicated opioid use (Primary Dx); Tobacco use [...] for OBOT F/U. 09/13/24 Utox BUP, THC. brand advocate earlier this morning. Discussed with Coco Garcia RN [place] [facility] reviewed States she has a past hx of OUD, buying Suboxone from the street since she stopped going to [employer]. She was at [employer] ~ 8-10 years, Stated for the last [...] called the police. He is currently in shelter-$5,000 bail. Stated he will not be able to return home till he completes inpatient treatment. [facility] dose to 24/6 [...] when she was younger. , therapist @ [facility], Nelli Diamond. Says she is supposed to [...] reviewed. I will review recent labs at [facility] prior to ordering additional labs. I do not believe she got FEN test strips. I will dispense next week. Met with [place], recovery coordinator. Aware of groups in [facility]. She is fine continuing to be seem on Thursdays. Program expectations and requirement reviewed. She requests continuing care on Thursdays. F/U 1 week. Labs [facility] ordered by PCP 09/12/24: BUN/Cr 13/0.83, AST/ALT 168/234, Bili 1.2 (08/23-168/234, Bili 0.6) Alk phos nl, pr/alb 8.4/5.1 (elevated). [facility] 08/23 Chlamydia/GC neg Tobacco use disorder As above. Will see if her PCP will be increasing dose of Wellbutrin. Ask if hx of seizures. Continue to review. Today 09/20/24 F/U for opioid use disorder Utox BUP, TCA, THC Doing well on 0.5 mg daily. No ADRs [facility] labs reviewed-02/2024 INR 1.0. Has multiple narcans. Did not receive FEN test strips last week. still in shelter. DCF to meet with him today. She [...] well on 0.5 mg daily. No ADRs [facility] labs reviewed-02/2024 INR 1.0. Has multiple narcans. Did not receive FEN test strips last week. still in shelter. DCF to meet with him today. She [...] 10/25/2024 10:30 AM EST Office Visit [facility] MEDICINE [address] [place] [address] Prabhjot Galicia MD [address] [place] [address] documented as of this encounter Procedures Procedure [...] documented as of this encounter Care Teams Staff Genetic Counselor Relationship Specialty Start Date End Date Yudi Mcneil MD [address] [place] [address] PCP - General Family Medicine 09/12/24 Maryanne Diamond [address] [place] [address] Licensed Mental Health Counselor Behavioral Health 05/02/24 documented as of this encounter
== END 2024-10-18 13:56 | disposition home or self-care (01) ==
PROVIDERS: PCP Family Medicine; Visit Provider Surgery
DX: R22.0 Localized swelling, mass and lump, head (principal)
CPT/HCPCS: 99204

== ENCOUNTER → 2024-10-18 13:29 | Outpatient (BNVA) | payer MEDICAID, SELFPAY | PROVIDERS: PCP Family Medicine; Visit Provider Surgery | DX: R22.0 Localized swelling, mass and lump, head (principal) | CPT/HCPCS: 99202 ==

== ENCOUNTER 2024-11-25 07:19 | Day surgery (SDC) | payer MEDICAID, SELFPAY ==
--- OUTSIDE RECORDS SUMMARY | 2024-10-28 06:07 | XMS_ITS | Encounter Summary ---
Author Organization [employer] Address 75 [facility] 7t [place] [address] Care Team Providers Care Cook Fast Food Name Role Phone Yudi Mcneil MD Primary Care Provider [phone] Encounter Details Date Type Department Care Team [...] with others, in a hotel, in a mcfp, living outside on the street, on a [...] Care Team (Late st Contact Info) Description 2024 9:30 AM EST Clinical Support [facility] MEDIC[facility] [address] [place] [address] Francisca Rosado RN 11/08/2024 9:15 AM EDT Office Visit [facility] [address] [place] [address] Prabhjot Galicia MD [address] [place] [address] documented as of this encounter Visit Diagnoses Not on filedocumented in this encounter Additional Health Concerns Assessment Noted Time PHQ-9 Depression Total Score: 15 025 9:38 AM EST documented as of this encounter Care Teams Cook Fast Food Relationship Specialty Start Date End Date Yudi Mcneil MD [address] [place] [address] PCP - General Family Medicine 09/12/24 Maryanne Diamond [address] [place] [address] Licensed Mental Health Counselor Behavioral Health 05/02/24 documented as of this encounter
--- OUTSIDE RECORDS SUMMARY | 2024-10-28 06:07 | XMS_ITS | Encounter Summary ---
Author Organization [employer] Address 75 [facility] 7 [place] [address] Care Team Providers Care Assistant Passenger Locomotive Engineer Name Role Phone Yudi Mcneil MD Primary Care Provider [phone] Reason for Visit * Reason Onset Date Comments Med Refill 10/14/2024 Encounter Details Date Type Department Care Team (Late st Contact Info) Description 10/14/2024 Refill [facility] MEDICINE [address] [place] [address] Francisca Rosado RN Uncomplicated opioid use Social [...] with others, in a hotel, in a jail, living outside on the street, on a [...] Description 2024 9:30 AM EST Clinical Support [facility] MEDICINE [address] [place] [address] Francisca Rosado RN 11/08/2024 9:15 AM EDT Office Visit [facility] MEDICINE [address] [place] [address] Prabhjot Galicia MD [address] [place] [address] documented as of this encounter Visit Diagnoses Diagnosis Uncomplicated opioid use documented in this encounter Additional Health Concerns Assessment Noted Time PHQ-9 Depression Total Score: 15 025 9:38 AM EST documented as of this encounter Care Teams Assistant Passenger Locomotive Engineer Relationship Specialty Start Date End Date Yudi Mcneil MD 505 [place] [address] PCP - General Family Medicine 09/12/24 Maryanne Diamond [address] [place] [address] Licensed Mental Health Counselor Behavioral Health 05/02/24 documented as of this encounter
--- OUTSIDE RECORDS SUMMARY | 2024-10-28 06:07 | XMS_ITS | Encounter Summary ---
Author Organization [employer] Address 75 [facility] 7t [place] [address] Care Team Providers Care Military Cook Name Role Phone Yudi Mcneil MD Primary Care Provider [phone] Reason for Visit * Reason Comments Hypertension Encounter Details Date Type Department Care Team (Latest Contact Info) Description 10/03/2024 10:30 AM EST Clinical Support [facility] MED & PEDS [address] [place], [place] [phone] Collette Marsh RN Primary hypertension Social History [...] the past 12 months, has t he [employer], [employer], oil or water [employer]tamethod threatened to shut off services in your [...] any changes advised. Betty Peguero to call [facility] if SBP >165 or DBP>100 constantly Betty Peguero agrees with plan and verbalized understanding; to follow up with PCP as needed. Collette Marsh RN documented in this encounter Plan of Treatment Upcoming Encounters Date Type Department Care Team (Late st Contact Info) Description 2024 9:30 AM [place] [address] Francisca Rosado RN 11/08/2024 9:15 AM EDT Office Visit [facility] MEDICINE [address] [place] [address] Prabhjot Galicia MD [address] [place] [address] documented as of this encounter Visit Diagnoses Diagnosis Primary hypertension Unspecified essential hypertension documented in this encounter Additional Health Concerns Assessment Noted Time PHQ-9 Depression Total Score: 15 025 9:38 AM EST documented as of this encounter Care Teams Military Cook Relationship Specialty Start Date End Date Yudi Mcneil MD [address] [place] [address] PCP - General Family Medicine 09/12/24 Maryanne Diamond [address] [place] [address] Licensed Mental Health Counselor Behavioral Health 05/02/24 documented as of this encounter
--- OUTSIDE RECORDS SUMMARY | 2024-10-28 06:07 | XMS_ITS | Encounter Summary ---
Author Organization [employer] Address 75 [facility] 7t [place] [address] Care Team Providers Care Loom Mechanic Name Role Phone Yudi Mcneil MD Primary Care Provider [phone] Reason for Referral * Consultation (Routine) - Closed Specialty Diagnoses / Procedures Referred By Tera barahona Referred To Contact General Surgery Diagnoses Pilar cyst of scalp Jovanny Peters MD [address] [place] [address] Phone: tel: fax: [facility] General Surgeons [address] 3rd Floor [place], [place] Phone: tel: fax: Referral ID Status Reason Start Date Expiration Date V isits Requested Visits Authorized [id number] Closed Specialty Services Required 10/04/2024 10/04/2025 1 1 Encounter Details Date Type Department Care Team (Late st Contact Info) Description 10/04/2024 9:45 AM EST Office Visit [facility] [address] [place] [address] Jovanny Peters MD [address] [place] [address] Pilar cyst of scalp (Primary Dx); Seborrheic [...] with others, in a hotel, in a group home, living outside on the street, on [...] Description 2024 9:30 AM EST Clinical Support [facility] MEDICINE [address] [place] [address] Francisca Rosado RN 11/08/2024 9:15 AM EDT Office Visit [facility] [address] [place] [address] Prabhjot Galicia MD [address] [place] [address] Scheduled Referrals Name Type Priority Associated Diagnoses [...] documented as of this encounter Care Teams Loom Mechanic Relationship Specialty Start Date End Date Yudi Mcneil MD [address] [place] [address] PCP - General Family Medicine 09/12/24 Maryanne Diamond [address] [place] [address] Licensed Mental Health Counselor Behavioral Health 05/02/24 documented as of this encounter
--- OUTSIDE RECORDS SUMMARY | 2024-10-28 06:07 | XMS_ITS | Encounter Summary ---
Author Organization [employer] Address 75 [facility] 7 [place] [address] Care Team Providers Care Signal And Communications Maintainer Name Role Phone Yudi Mcneil MD Primary Care Provider Reason for Visit * Reason Onset Date Comments Med Refill 10/14/2024 Encounter Details Date Type Department Care Team (Late st Contact Info) Description 10/14/2024 Refill [facility] [address] [place] [address] Francisca Rosado RN Uncomplicated opioid use Social [...] Description 2024 9:30 AM EST Clinical Support [facility] [address] [place] [address] Francisca Rosado RN 11/08/2024 9:15 AM EDT Office Visit [facility] [address] [place] [address] Prabhjot Galicia MD [address] [place] [address] documented as of this encounter Visit Diagnoses Diagnosis Uncomplicated opioid use documented in this encounter Additional Health Concerns Assessment Noted Time PHQ-9 Depression Total Score: 15 025 9:38 AM EST documented as of this encounter Care Teams Signal And Communications Maintainer Relationship Specialty Start Date End Date Yudi Mcneil MD [address] [place] [address] PCP - General Family Medicine 09/12/24 Maryanne Diamond [address] [place] [address] Licensed Mental Health Counselor Behavioral Health 05/02/24 documented as of this encounter
--- OUTSIDE RECORDS SUMMARY | 2024-10-28 06:07 | XMS_ITS | Encounter Summary ---
Author Organization [employer] Address 75 [facility] 7 [place] [address] Care Team Providers Care Ophthalmic Asst Name Role Phone Yudi Mcneil MD Primary Care Provider [phone] Reason for Visit * Reason Onset Date Comments Med Refill 10/12/2024 Encounter Details Date Type Department Care Team (Late st Contact Info) Description 10/12/2024 Refill [facility] [address] [place] [address] Francisca Rosado, UNRULY Social History Tobacco Use [...] with others, in a hotel, in a correction, living outside on the street, on a [...] Description 2024 9:30 AM EST Clinical Support [facility] [address] [place] [address] Francisca Rosado RN 11/08/2024 9:15 AM EDT Office Visit [facility] [address] [place] [address] Prabhjot Galicia MD [address] [place] [address] documented as of this encounter Visit Diagnoses Not on filedocumented in this encounter Additional Health Concerns Assessment Noted Time PHQ-9 Depression Total Score: 15 025 9:38 AM EST documented as of this encounter Care Teams Ophthalmic Asst Relationship Specialty Start Date End Date Yudi Mcneil MD [address] [place] [address] PCP - General Family Medicine 09/12/24 Maryanne Diamond [address] [place] [address] Licensed Mental Health Counselor Behavioral Health 05/02/24 documented as of this encounter
--- OUTSIDE RECORDS SUMMARY | 2024-10-28 06:07 | XMS_ITS | Encounter Summary ---
Author Organization [employer] Address 75 [facility] 7 [place] [address] Care Team Providers Care Electronic Assembler Group Leader Name Role Phone Yudi Mcneil MD Primary Care Provider [phone] Reason for Visit * Reason Onset Date Comments Med Refill 10/18/2024 Encounter Details Date Type Department Care Team (Late st Contact Info) Description 10/18/2024 Refill [facility] [address] [place] [address] Francisca Rosado, UNRULY Social History Tobacco Use [...] with others, in a hotel, in a fci, living outside on the street, on a [...] Description 2024 9:30 AM EST Clinical Support [facility] [address] [place] [address] Francisca Rosado RN 11/08/2024 9:15 AM EDT Office Visit [facility] [address] [place] [address] Prabhjot Galicia MD [address] [place] [address] documented as of this encounter Visit Diagnoses Not on filedocumented in this encounter Additional Health Concerns Assessment Noted Time PHQ-9 Depression Total Score: 15 025 9:38 AM EST documented as of this encounter Care Teams Electronic Assembler Group Leader Relationship Specialty Start Date End Date Yudi Mcneil MD [address] [place] [address] PCP - General Family Medicine 09/12/24 Maryanne Diamond [address] [place] [address] Licensed Mental Health Counselor Behavioral Health 05/02/24 documented as of this encounter
--- OUTSIDE RECORDS SUMMARY | 2024-10-28 06:07 | XMS_ITS | Encounter Summary ---
Author Organization [employer] Address 75 [facility] 7 [place] [address] Care Team Providers Care Cold Strip Roller Name Role Phone Yudi Mcneil MD Primary Care Provider [phone] Reason for Visit * Reason Onset Date Comments Med Refill 10/18/2024 Encounter Details Date Type Department Care Team (Late st Contact Info) Description 10/18/2024 Refill [facility] [address] [place] [address] Francisca Rosado RN Uncomplicated opioid use Social [...] Description 2024 9:30 AM EST Clinical Support [facility] [address] [place] [address] Francisca Rosado RN 11/08/2024 9:15 AM EDT Office Visit [facility] [address] [place] [address] Prabhjot Galicia MD [address] [place] [address] documented as of this encounter Visit Diagnoses Diagnosis Uncomplicated opioid use documented in this encounter Additional Health Concerns Assessment Noted Time PHQ-9 Depression Total Score: 15 025 9:38 AM EST documented as of this encounter Care Teams Cold Strip Roller Relationship Specialty Start Date End Date Yudi Mcneil MD [address] [place] [address] PCP - General Family Medicine 09/12/24 Maryanne Diamond [address] [place] [address] Licensed Mental Health Counselor Behavioral Health 05/02/24 documented as of this encounter
--- OUTSIDE RECORDS SUMMARY | 2024-10-28 06:07 | XMS_ITS | Encounter Summary ---
Author Organization [employer] Address 75 [facility] 7t [place] [address] Care Team Providers Care Senior Architectural Designer Name Role Phone Yudi Mcneil MD Primary Care Provider [phone] Encounter Details Date Type Department Care Team (Latest Contact Info) Description 10/25/2024 Travel Social History Tobacco Use Types Packs/Day [...] with others, in a hotel, in a long-term, living outside on the street, on a [...] Description 2024 9:30 AM EST Clinical Support [facility] [address] [place] [address] Francisca Rosado RN 11/08/2024 9:15 AM EDT Office Visit [facility] [address] [place] [address] Prabhjot Galicia MD [address] [place] [address] documented as of this encounter Visit Diagnoses Not on filedocumented in this encounter Additional Health Concerns Assessment Noted Time PHQ-9 Depression Total Score: 15 025 9:38 AM EST documented as of this encounter Care Teams Senior Architectural Designer Relationship Specialty Start Date End Date Yudi Mcneil MD [address] [place] [address] PCP - General Family Medicine 09/12/24 Maryanne Diamond [address] [place] [address] Licensed Mental Health Counselor Behavioral Health 05/02/24 documented as of this encounter
--- OUTSIDE RECORDS SUMMARY | 2024-10-28 06:07 | XMS_ITS | Encounter Summary ---
Author Organization [employer] Address 75 [facility] 7 [place] [address] Care Team Providers Care Line Crewman Name Role Phone Yudi Mcneil MD Primary Care Provider [phone] Reason for Visit * Reason Onset Date Comments Med Refill 10/03/2024 Encounter Details Date Type Department Care Team (Late st Contact Info) Description 10/03/2024 Refill [facility] [address] [place] [address] Alyse Choudhury RN Uncomplicated opioid use Social [...] Description 2024 9:30 AM EST Clinical Support [facility] [address] [place] [address] Francisca Rosado RN 11/08/2024 9:15 AM EDT Office Visit [facility] [address] [place] [address] Prabhjot Galicia MD [address] [place] [address] documented as of this encounter Visit Diagnoses Diagnosis Uncomplicated opioid use documented in this encounter Additional Health Concerns Assessment Noted Time PHQ-9 Depression Total Score: 15 025 9:38 AM EST documented as of this encounter Care Teams Line Crewman Relationship Specialty Start Date End Date Yudi Mcneil MD [address] [place] [address] PCP - General Family Medicine 09/12/24 Maryanne Diamond [address] [place] [address] Licensed Mental Health Counselor Behavioral Health 05/02/24 documented as of this encounter
--- OUTSIDE RECORDS SUMMARY | 2024-10-28 06:07 | XMS_ITS | Encounter Summary ---
Author Organization [employer] Address 75 [facility] 7 [place] [address] Care Team Providers Care Medical Superintendent Name Role Phone Yudi Mcneil MD Primary Care Provider [phone] Reason for Visit * Reason Comments OBAT F/UI Encounter Details Date Type Department Care Team (Latest Contact Info) Description 10/25/2024 10:30 AM EST Office Visit [facility] [address] [place] [address] Prabhjot Galicia MD [address] [place] [address] Uncomplicated opioid use (Primary Dx); Tobacco use [...] the past 12 months, has t he [employer], gas, oil or water [employer] threatened to shut off services in your [...] Progress Notes * Prabhjot Galicia MD - 10/25/2024 10:30 AM EST Patient ID: 43 year old female who presents for OBOT F/U. 10/07/24 Uncomplicated opioid use Tele-visit Lots going on [...] Still connected with her therapist and expects [facility] appointment in the next 2 weeks. PT1 [...] 1/2 PPD. Currently, pre-contemplation. Continue to inquire. Today 10/25/24 F/U for opioid use disorder Utox BUP, THC Doing well. THC no other substance use or alcohol. Things going well with her significant other. He is still not drinking. They see each other every day though he still is not able to come to her apartment. as before, still waiting to see a psych Rxer. Current dose working well, no ADRs. Agrees to starting Hep A & B vaccine. She saw a surgeon. She will need surgery for the lumps on her neck, patholgy will be done. Tobacco use reviewed last week. Less than 1/2 PPD, pre-contemplation. Objective Physical Exam Constitutional: Appearance: Normal appearance. Neurological: Mental Status: She is alert and oriented to person, place, and time. Psychiatric: Mood and Affect: Mood normal. Behavior: Behavior normal. Thought Content: Thought content normal. Assessment/Plan Uncomplicated opioid use Utox BUP, THC Doing well. THC no other substance use or alcohol. Things going well with her significant other. He is still not drinking. They see each other every day though he still is not able to come to her apartment. as before, still waiting to see a psych Rxer. Current dose working well, no ADRs. Agrees to starting Hep A & B vaccine. She saw a surgeon. She will need surgery for the lumps on her neck, patholgy will be done. As above. Continues to do well. No ADRs. BH elsewhere. She did not get her Hep A/B vaccine today-will plan on next week. Tobacco use disorder As above. Continue to review. Diagnoses and all orders [...] Description 2024 9:30 AM EST Clinical Support [address] [phone] Francisca Rosado RN 11/08/2024 9:15 AM EDT Office Visit [address] [address] Prabhjot Galicia MD [address] [place] [address] [phone] documented as of this encounter Procedures Procedure Name Priority Date/Time Associated Diagnosis Comments POCT LOUIS-14 URINE DRUG SCREEN Routine 10/25/2024 10:57 AM EST Uncomplicated opioid use documented in this encounter Results * POCT LOUIS-14 Urine Drug Screen (10/25/2024 10:57 AM EST) THC Positive Cocaine Screen, Urine [...] obtained by clean catch procedure / Unknown 10/25/2024 10:57 AM EST Prabhjot Galicia MD POINT OF CARE TEST ENTER/EDIT ORDERABLES Final Result documented in this encounter Visit Diagnoses Diagnosis Uncomplicated opioid use- Primary Tobacco use disorder documented in this encounter Additional Health Concerns Assessment Noted Time PHQ-9 Depression Total Score: 15 025 9:38 AM EST documented as of this encounter Care Teams Medical Superintendent Relationship Specialty Start Date End Date Yudi Mcneil MD [address] [place] [address] PCP - General Family Medicine 09/12/24 Maryanne Diamond [address] [place] [address] Licensed Mental Health Counselor Behavioral Health 05/02/24 documented as of this encounter
--- OUTSIDE RECORDS SUMMARY | 2024-10-28 06:07 | XMS_ITS | Encounter Summary ---
Author Organization [employer] Address 75 [facility] 7 [place] [address] Care Team Providers Care Horticultural Technical Officer Name Role Phone Yudi Mcneil MD Primary Care Provider [phone] Reason for Visit * Reason Comments OBAT F/U Encounter Details Date Type Department Care Team (Latest Contact Info) Description 10/18/2024 10:30 AM EST Office Visit [facility] [address] [place] [address] Prabhjot Galicia MD [address] [place] [address] Uncomplicated opioid use (Primary Dx); Tobacco use [...] with others, in a hotel, in a skilled nursing, living outside on the street, on a [...] t he electric, gas, oil or water [employer] threatened to shut off services in your [...] Progress Notes * Prabhjot Galicia MD - 10/18/2024 10:30 AM EST Tele-visit Lots going on but recovery intact. [...] Still connected with her therapist and expects [facility] appointment in the next 2 weeks. [...] PPD. Currently, pre-contemplation. Continue to inquire. Today 10/14/24 F/U for opioid use disorder Utox + BUP, THC Doing ok. released her hiren without bail. She can se him but he cannot go in her house. He is on probation for 1 year. He needs to attend AA and be in a Rx program (which he wants to do here). He has not had alcohol in 41 days. Requests that they prefer if they can have their visits in same session. She received a new engagement ring. Her mom had sold her first ring at a [employer] shop a number of years ago. Still needs program, AA, and urine tox. Can smoke marijauna or alcohol. On probation 1/month. No alcohol 41 days. Home since . CPS involved Smoking 1/2 PPD, did not tolerate any vapes in the past. Declines Rx at this time. [facility], therapist, still awaiting psychiatrist appointment. Has connected with [facility]ley family coach. No ADRs Objective Physical Exam Constitutional: Appearance: Normal appearance. Neurological: Mental Status: She is alert and oriented to person, place, and time. Psychiatric: Mood and Affect: Mood normal. Behavior: Behavior normal. Thought Content: Thought content normal. Assessment/Plan Uncomplicated opioid use Utox + BUP, THC Doing ok. released her javed' without bail on 10/11/24. She can see him but he cannot go in her house. He is on probation for 1 year. He needs to attend AA and be in a Rx program (which he wants to do here) in which he has urine tox screens.. He can still smoke marijuana. On probation 1 year and will be seen 1/month. He has not had alcohol in 41 days. Requests that their appointments are during the same day, Thursdays. CPS is involved. She received a new engagement ring which she is very happy about. Her mom had sold her first ring at a [employer] shop a number of years ago. Smoking 1/2 PPD, did not tolerate any vapes in the past. Declines Rx at this time. [facility], therapist, still awaiting psychiatrist appointment. Has connected with [facility] family coach. No ADRs ------- As above. Overall, she is doing well. I have agreed to see her javed' on Thursday. Treated @ [facility]. Connected with family coach. F/U 1 week. Tobacco use disorder As above. Continue to inquire. Diagnoses and all orders [...] Description 2024 9:30 AM EST Clinical Support [facility] [address] [place] [address] Francisca Rosado RN 11/08/2024 9:15 AM EDT Office Visit [address] [address] Prabhjot Galicia MD [address] [place] [address] documented as of this encounter Procedures Procedure [...] documented as of this encounter Care Teams Horticultural Technical Officer Relationship Specialty Start Date End Date Yudi Mcneil MD [address] [place] [address] PCP - General Family Medicine 09/12/24 Maryanne Diamond [address] [place] [address] Licensed Mental Health Counselor Behavioral Health 05/02/24 documented as of this encounter
--- OUTSIDE RECORDS SUMMARY | 2024-10-28 06:07 | XMS_ITS | Encounter Summary ---
Author Organization [employer] Address 75 [facility] 7t [place] [address] Care Team Providers Care Fall Intern Name Role Phone Yudi Mcneil MD Primary Care Provider [phone] Encounter Details Date Type Department Care Team [...] with others, in a hotel, in a assisted, living outside on the street, on a [...] Description 2024 9:30 AM EST Clinical Support [facility] [address] [place] [address] Francisca Rosado RN 11/08/2024 9:15 AM EDT Office Visit [facility] [address] [place] [address] Prabhjot Galicia MD [address] [place] [address] documented as of this encounter Visit Diagnoses Not on filedocumented in this encounter Additional Health Concerns Assessment Noted Time PHQ-9 Depression Total Score: 15 025 9:38 AM EST documented as of this encounter Care Teams Fall Intern Relationship Specialty Start Date End Date Yudi Mcneil MD [address] [place] [address] PCP - General Family Medicine 09/12/24 Maryanne Diamond [address] [place] [phone] Licensed Mental Health Counselor Behavioral Health 05/02/24 documented as of this encounter
--- OUTSIDE RECORDS SUMMARY | 2024-10-28 06:07 | XMS_ITS | Clinical Summary ---
Author Organization [employer] Address [address] [place] [address] Care Team Providers Care Gas Station Clerk Name Role Phone Yudi Mcneil MD Primary Care Provider [phone] Allergies Active Allergy Reactions Criticality Noted Date [...] Take 1/4 film SL daily. 2 Film 10/25/19 Active buprenorphine- naloxone (Suboxone) 2-0.5 MG per [...] SL once daily 3 Film 10/07/19 25 025 Discontinued(Du plicate order (will not trigger notification to Pharmacy)) buprenorphine- naloxone (Suboxone) 2-0.5 MG per sublingual filmIndication s:Uncomplicate d opioid use Place 1 Film under the tongue Once per day for 2 days. Take 1/4 film SL daily. 2 Film 10/18/19 25 025 Discontinued(Du plicate order (will not trigger notification to Pharmacy)) [...] & Plan (09/12/2024 10:37 AM EST): Called [facility] for further evaluation. Encounters * This document contains information received from the source organization and may not represent a complete record from that organization. Date Type Department Care Team Description 10/25/2024 10:30 AM EST Office Visit [facility] [address] [place] [address] Prabhjot Galicia MD Uncomplicated opioid use (Primary Dx); Tobacco use disorder 10/25/2024 Refill [facility] [address] [place] [address] Francisca Rosado RN Uncomplicated opioid use 10/25/2024 Travel 10/19/2024 Refill [facility] [address] [place] [address] Francisca Rosado RN Uncomplicated opioid use 10/18/2024 10:30 AM EST Office Visit [facility] [address] [place] [address] Prabhjot Galicia MD Uncomplicated opioid use (Primary Dx); Tobacco use disorder 10/18/2024 Refill [facility] [address] [place] [address] Francisca Rosado RN Uncomplicated opioid use 10/18/2024 Refill [facility] [address] [place] [address] Francisca Rosado RN 10/18/2024 Travel 10/14/2024 Refill [facility] [address] [place] [address] Francisca Rosado RN Uncomplicated opioid use 10/14/2024 Refill [facility] [address] [place] [address] Francisca Rosado RN Uncomplicated opioid use 10/12/2024 Refill [facility] [address] [place] [phone] Francisca Rosado, UNRULY 10/07/2024 10:30 AM EST Telemedicine [address] [address] Prabhjot Galicia MD Uncomplicated opioid use (Primary Dx); Tobacco use disorder 10/07/2024 Travel 10/04/2024 9:45 AM EST Office Visit [facility] [address] [place] [address] Jovanny Peters MD Pilar cyst of scalp (Primary Dx); Seborrheic keratosis; Androgenetic alopecia; Dry skin 10/03/2024 10:30 AM EST Clinical Support [facility] [address] [place] [address] Collette Marsh RN Primary hypertension 10/03/2024 Refill [facility] [address] [place] [phone] Alyse Choudhury RN Uncomplicated opioid use 10/03/2024 Travel 09/27/2024 11:15 AM EST Office Visit [address] [address] Prabhjot Galicia MD Uncomplicated opioid use (Primary Dx); Tobacco use disorder 09/27/2024 Travel 09/21/2024 Refill [facility] [address] [place] [address] Francisca Rosado, UNRULY Uncomplicated opioid use 09/20/2024 11:00 AM EST Office Visit [facility] [address] [place] [phone] Prabhjot Galicia MD Uncomplicated opioid use (Primary Dx); Tobacco use disorder 09/20/2024 Telephone [facility] [address] [place] [address] Yudi Mcneil MD 09/20/2024 Travel 09/13/2024 10:00 AM EST Office Visit [address] [address] Prabhjot Galicia MD Opioid use, unspecified, uncomplicated (Primary Dx); Uncomplicated opioid use; Tobacco use disorder 09/13/2024 9:30 AM EST Office Visit [address] [address] Alyse Choudhury RN Opiate use 09/13/2024 Patient Outreach [address] [address] Benjamin Wilson Recovery Supports 09/13/2024 Patient Outreach [address] [address] Winston Jackson [facility] 09/13/2024 Patient Outreach [address] [address] Winston [facility] 09/13/2024 Travel 09/12/2024 9:30 AM EST Office Visit [facility] [address] [place] [address] Yudi Mcneil MD Primary hypertension (Primary Dx); Moderate episode of recurrent major depressive disorder (CMS/HCC); Anxiety; Acquired hypothyroidism; Opiate use; Class 2 severe obesity with serious comorbidity and body mass index (BMI) of 35.0 to 35.9 in adult, unspecified obesity type (CMS/HCC); Primary insomnia 09/12/2024 Telephone [facility] [address] [place] [address] Yudi Mcneil MD 09/12/2024 Patient Outreach [address] [address] Winston Jackson [facility] 09/12/2024 Travel 09/09/2024 Telephone [facility] [address] [place] [address] Yudi Mcneil MD CHART PREP from Last 3 Months Immunizations Name Administration [...] Description 2024 9:30 AM EST Clinical Support [facility] [address] [place] [phone] Francisca Rosado RN 11/08/2024 9:15 AM EDT Office Visit [facility] [address] [place] [phone] Prabhjot Galicia MD [address] [place] [address] Health Maintenance Due Date Last Done Comments [...] 10/25/2024 10:57 AM EST Uncomplicated opioid use POCT LOUIS-14 URINE DRUG SCREEN Routine 10/18/2024 [...] Urine Drug Screen (10/25/2024 10:57 AM EST) Only the most recent of5 resultswithin the time period is included. THC [...] procedure / Unknown 10/25/2024 10:57 AM EST us Prabhjot Galicia MD POINT OF CARE TEST ENTER/EDIT ORDERABLES Final Result * US Abdomen Comp w elastography (10/13/2024 10:06 AM EST) Anatomical Region Laterality Modality Abdomen Ultrasound 10/13/2024 10:0 6 AM EST Narrative 10/13/2024 11:02 AM EST ? [facility] ?[address] ?[place] [address] ? Ultrasound Report ? Signed ? Patient: Czupryna,Betty ?MR#: [id number] ?? [id number] ? : 1980 ?Acct:[id number] ? Age/Sex: 43 / F ?ADM Date: 10/13/24 ? Loc: HO.US ? Attending Dr: Yudi Mcneil MD ? Ordering Physician: Yudi Mcneil MD ?? Date of Service: 10/13/24 ?? Procedure(s): US abdomen comp w elastography ?? Accession Number(s): [id number] ? cc: Yudi Mcneil MD ? EXAMINATION: ??US ABDOMEN COMPLETE WITH LIVER ELASTOGRAPHY ? HISTORY: 43 yo F with transaminitis and elevated bilirubin, send to [facility] ? TECHNIQUE: Real-time grayscale ultrasound imaging of [...] signed by Bebeto Lance MD in OV> ?10/13/24 1059 ? DD/ 1006 ? TD/TT: 10/13/24 1035 ? Clam Shovel Operator: ? Procedure Note Donotuseinterpreter, Image - 10/13/2024 [place] [id number] Ultrasound Report Signed Patient: Loreta Peguero#: [id number] : 1980Acct:[id number] Age/Sex: 43 / FADM Date: 10/13/24 Loc: HO.US Attending Dr: Yudi Mcneil MD Ordering Physician: Yudi Mcneil MD Date of Service: 10/13/24 Procedure(s): US abdomen comp w elastography Accession Number(s): [id number] cc: Yudi Mcneil MD EXAMINATION: US ABDOMEN COMPLETE WITH LIVER ELASTOGRAPHY HISTORY: 43 yo F with transaminitis and elevated bilirubin, send to [facility] TECHNIQUE: Real-time grayscale ultrasound imaging of the [...] 10/13/24 1059 DD/ 1006 TD/TT: 10/13/24 1035 Clam Shovel Operator: us Yudi Mcneil MD [facility] PROCEDURES Edited Resu lt - Final * T-SPOT??.TB (09/20/2024 11:13 AM EST) T Spot TB Negative Negative [facility] Comment:A negative test resu lt does [...] as aquantitative test. TS PANEL A 0 [facility] TS PANEL B 0 [facility] Negative Control Passed [facility] Positive Control Passed [facility] Comment:For additional infor neel, please refer tohttp://education.[employer].com/faq/FDK259(This link is being provided for informational/educational purposes only.)THIS TEST WAS PERFORMED AT:[employer]/[id number] [place] [address]OWNMUILCYNTHIA BALBUENA MD,PHD 09/20/2024 11:1 3 AM EST 09/20/2024 1:14 PM EST Prabhjot Galicia MD LAB BLOOD ORDERABLES Final Res ult Performing Organization Address [facility] Co de Phone Number [facility] [address] [place] [phone] * Hepatitis C Antibody with Reflex to HCV, RNA, Quantitative, Real-Time PCR (09/20/2024 11:13 AM EST) Hepatitis C Antibody Nonreactive Nonreactive [facility] Comment:Antibodies to HCV no t detected; does not exclude early acuteHCV infection. Blood Venous blood specimen / Unknown 09/20/2024 11:13 AM EST 09/20/2024 1:14 PM EST Prabhjot Galicia MD LAB BLOOD ORDERABLES Final Res ult Performing Organization Address City/[facility] Co de Phone Number [facility] [address] [place] [phone] * Iron And Total Iron Binding Capacity (09/20/2024 11:13 AM EST) Iron 93 30 - 160 mcg/dL [facility] Total Iron Binding Capacity 316 228 - 428 mcg/dL [facility] Percent Iron Saturation 29 15 - 50 % [facility] Unsaturated Iron Binding 223 ug/dL [facility] Blood Venous blood specimen / Unknown 09/20/2024 11:13 AM EST 09/20/2024 1:14 PM EST Yudi Mcneil MD LAB BLOOD ORDERABLES Final Re sult Performing Organization Address [facility] de Phone Number [facility] [address] [place] [phone] * Hepatitis A IgM Antibody (09/20/2024 11:13 AM EST) Hepatitis A IgM Nonreactive Nonreactive [facility] Comment:IgM antibodies to JOSHI V not detected; does not exclude earlyacute or recovered HAV infection. Blood Venous blood specimen / Unknown 09/20/2024 11:13 AM EST 09/20/2024 1:14 PM EST Yudi Mcneil MD LAB BLOOD ORDERABLES Final Re sult Performing Organization Address [facility] Phone Number [facility] [address] [place] [phone] * Hepatitis A Antibody, Total (09/20/2024 11:13 AM EST) Hepatitis A Antibody IgG Nonreactive Nonreactive [facility] Blood Venous blood specimen / Unknown 09/20/2024 11:13 AM EST 09/20/2024 1:14 PM EST Prabhjot Galicia MD LAB BLOOD ORDERABLES Final Res ult Performing Organization Address [facility] Co de Phone Number [facility] [address] [place] [phone] * Hepatitis B surface antigen, EIA (09/20/2024 11:13 AM EST) Hepatitis B Surface Ag Negative Negative [facility] Blood Venous blood specimen / Unknown 09/20/2024 11:13 AM EST 09/20/2024 1:14 PM EST Prabhjot Galicia MD LAB BLOOD ORDERABLES Final Res ult Performing Organization Address [facility] Co de Phone Number [facility] [address] [place] [phone] * Hepatitis B Core Antibody, Total (09/20/2024 11:13 AM EST) Hepatitis B Core Antibody Nonreactive Nonreactive [facility] Blood Venous blood specimen / Unknown 09/20/2024 11:13 AM EST 09/20/2024 1:14 PM EST Prabhjot Galicia MD LAB BLOOD ORDERABLES Final Res ult Performing Organization Address [facility] Phone Number [facility] [address] [place] [phone] * RPR (Monitor) with Reflex to??Titer (09/20/2024 11:13 AM EST) RPR (Monitor) w/Refl Titer NON-REACTI VE NON-REACT EARLINE [facility] Comment:THIS TEST WAS PERFOR MED AT:[employer] [place] [id number] SORIANO MD Rapid Plasma Reagin Ab Titer TNP [facility] Blood Venous blood specimen / Unknown 09/20/2024 11:13 AM EST 09/20/2024 1:14 PM EST Prabhjot Galicia MD LAB BLOOD ORDERABLES Final Res ult Performing Organization Address [facility] Co de Phone Number [facility] [address] [place] [phone] * HIV-1/2 Antigen and Antibodies, Fourth Generation, with Reflexes (09/20/2024 11:13 AM EST) HIV AB/AG Nonreactive Nonreactive [facility] Comment:HIV-1 p24 Ag and/or HIV-1/HIV-2 Ab not detected.A test result that is nonreactive does not exclude thepossibility of exposure to or infection with HIV-1 and/orHIV-2. Nonreactive results in this assay for individualswith prior exposure to HIV-1 and/or HIV-2 may be due toantigen and antibody levels that are below the limit ofdetection of this assay.The [employer] HIV Ag/Ab Combo assay result andsupplemental assay results should be interpreted inconjunction with the patient's clinical presentation,history and other laboratory results. If the results areinconsistent with clinical evidence, additional testing issuggested to confirm the result. Blood Venous blood specimen / Unknown 09/20/2024 11:13 AM EST 09/20/2024 1:14 PM EST us Prabhjot Galicia MD LAB BLOOD ORDERABLES Final Res ult Performing Organization Address [facility]/ZIP Co de Phone Number [facility] [address] [place] [phone] * Hepatitis B Surface Antibody, Qualitative (09/20/2024 11:13 AM EST) ~Hepatitis B Surface Antibody NONREACTIVE Nonreactive [facility] Comment:Nonreactive: < 8.00 mIU/mL Blood Venous blood specimen / Unknown 09/20/2024 11:13 AM EST 09/20/2024 1:14 PM EST us Yudi Mcneil MD LAB BLOOD ORDERABLES Final Re sult Performing Organization Address [facility] Co de Phone Number [facility] [address] [place] [phone] * Partial Thromboplastin Time, Activated (APTT) (09/20/2024 11:13 AM EST) Partial Thromboplastin Time 32.8 26.0 - 36.8 SEC [facility] Comment:For information rega rding the monitoring of direct thrombininhibitors, please refer to Pharmacy. Blood Venous blood specimen / Unknown 09/20/2024 11:13 AM EST 09/20/2024 1:14 PM EST us Yudi Mcneil MD LAB BLOOD ORDERABLES Final Re sult Performing Organization Address [facility] Co de Phone Number [facility] [address] [place] [phone] * (ABNORMAL) Prothrombin Time-INR (09/20/2024 11:13 AM EST) Prothrombin Time 10.8(L) 10.9 - 12.4 SEC [facility] INTERNATIONAL NORM RATIO 0.9 0.9 - 1.1 [facility] Comment:INTERNATIONAL NORMAL IZED RATIO (INR) REFERENCE [...] ORDERABLES Final Re sult Performing Organization Address [facility] Co de Phone Number [facility] [address] [place] [phone] * Hemoglobin A1c (09/20/2024 11:13 AM EST) Hemoglobin A1c 4.6 <6.0 % [facility] Comment:Hemoglobin A1C Refer ence Range Adults: 4.8 - 6.0 % Non diabetic: < 6.0 % Goal: < 7.0 %Additional Action Suggested: > 8.0 %Note: Hemoglobin A1c results are invalid for patients with abnormal amounts of HbF. Blood transfusions may impact the HbA1c concentration in the patient sample. Estimated Average Glucose 85 mg/dL [facility] Comment:eAG = Estimated ave rage glucose which is %A1C expressed asaverage glucose, using the formula of the E8I-QcwqgyyUxynxlw Glucose study (ADAG), Diabetes Care, Vol.31,#8,Mar. 2007 Blood Venous blood specimen / Unknown 09/20/2024 11:13 AM EST 09/20/2024 1:14 PM EST Yudi Mcneil MD LAB BLOOD ORDERABLES Final Re sult Performing Organization Address City/[facility]/ZIP Co de Phone Number [facility] [address] [place] [phone] [phone] * Ferritin (09/20/2024 11:13 AM EST) Pathologist [facility] Ferritin 221 10 - 250 ng/mL [facility] Blood Venous blood specimen / Unknown 09/20/2024 11:13 AM EST 09/20/2024 1:14 PM EST Yudi Mcneil MD LAB BLOOD ORDERABLES Final Re sult Performing Organization Address [facility] Co de Phone Number [facility] [address] [place] [address] [phone] * (ABNORMAL) Comprehensive Metabolic Panel (09/20/2024 11:13 AM EST) Only the most recent of2 resultswithin the time period is included. Sodium 140 135 - 145 mmol/L [facility] Potassium 3.4 3.3 - 5.1 mmol/L [facility] Chloride 104 96 - 108 mmol/L [facility] Carbon Dioxide 29 22 - 29 mmol/L [facility] Anion Gap 10(L) 12 - 20 [facility] Urea Nitrogen (BUN) 21(H) 9 - 16 mg/dL [facility] Creatinine, Serum 0.86 0.5 - 1.4 mg/dL [facility] Estimated Glomerular Filt Rate >60 [facility] Comment:Chronic Kidney Disea se: Estimated GFR < 60 mL/min/1.25q3Uxmcpo Kidney Disease: Estimated GFR < 15 mL/min/1.73m2 Glucose 134(H) 60 - 115 mg/dL [facility] Calcium 9.3 8.4 - 10.2 mg/dL [facility] Bilirubin, Total 0.6 0.0 - 1.0 mg/dL [facility] Aspartate Amino Transferase 38(H) 5 - 31 U/L [facility] Alanine Aminotransferase 82(H) 0 - 31 U/L [facility] Total Protein 7.6 6.5 - 8.0 g/dL [facility] Albumin Level 4.6 3.5 - 5.0 g/dL [facility] Alkaline Phosphatase 65 39 - 117 U/L [facility] Blood Venous blood specimen / Unknown 09/20/2024 11:13 AM EST 09/20/2024 1:14 PM EST us Yudi Mcneil MD LAB BLOOD ORDERABLES Final Re sult [facility] [address], [place] [phone] * (ABNORMAL) Urinalysis, Complete, with Reflex to Culture (09/12/2024 11:03 AM EST) Color Urine [place](A) [facility] Appearance Urine Turbid [facility] PH 5.0 5.0 - 9.0 [facility] Glucose Urine UA Negative Negative mg/dL [facility] Urine Blood Negative Negative [facility] Specific [place] - Urine >=1.030(H) 1.005 - 1.025 [facility] Urine Protein See Note Neg-Trace mg/dL [facility] Comment:Urine pigment obscur ed dipstick results. Urine Ketones Negative Negative mg/dL [facility] Nitrite Urine See Note Negative [facility] Comment:Urine pigment obscur ed dipstick results. Leukocyte Esterase Urine Trace(A) Negative [facility] RBC Urine 0-2 0 - 2 /HPF [facility] Urine WBC 0-5 0 - 5 /HPF [facility] Urine Squamous Epithelial Cell 6-10 0 - 2 /HPF [facility] Other Crystals Urine Present [facility] Comment:Amorphous urates Urine Bacteria 1+ None Seen [facility] Hyaline Casts, Urine 6-10 0 - 2 /LPF [facility] Urine 09/12/2024 11:0 3 AM EST 09/12/2024 1:55 PM EST Narrative [facility] - 09/12/2024 2:18 PM EST [id number], Clean Catch us Yudi Mcneil MD LAB URINE ORDERABLES Final Re sult Performing Organization Address [facility] Co de Phone Number [facility] [address] [place] [phone] * Vitamin B12 (Cobalamin) and Folate Panel, Serum (09/12/2024 10:56 AM EST) Vitamin B12 501 200 - 900 pg/mL [facility] Comment:NORMAL 200-900 PG/ML INDETERMINATE 160-199 PG/ML DEFICIENT < 160 PG/ML Folate 13.2 > or = 4.0 ng/mL [facility] Comment:Reference Values:> o r = 4.0 [...] ORDERABLES Final Re sult Performing Organization Address [facility] Co de Phone Number [facility] [address] [place] [phone] * TSH W/Reflex to FT4 (09/12/2024 10:56 AM EST) TSH reflex Free T4 3.92 0.32 - 4.0 uIU/mL [facility] Blood Venous blood specimen / Unknown 09/12/2024 10:56 AM EST 09/12/2024 1:56 PM EST us Yudi Mcneil MD LAB BLOOD ORDERABLES Final Re sult [facility] [address] [place] [phone] * (ABNORMAL) CBC auto differential (09/12/2024 10:56 AM EST) Pathologist [facility] White Blood Count 12.9(H) 4.8 - 10.8 X10*3/uL [facility] Red Blood Count 5.12 4.20 - 5.50 X10*6/uL [facility] Hemoglobin 17.1(H) 12.0 - 16.0 g/dl [facility] Hematocrit 47.3(H) 37.0 - 47.0 % [facility] Mean Corpuscular Volume 92.4 80.0 - 98.0 fL [facility] Mean Corpuscular Hemoglobin 33.4(H) 27.0 - 33.0 pg [facility] Mean Corpuscular HGB Conc 36.2(H) 31.0 - 35.0 g/dl [facility] Red Cell Distribution Width 12.0 11.0 - 16.0 % [facility] Platelet Count 262 160 - 400 X10*3/uL [facility] Mean Platelet Volume 11.8 9.4 - 12.3 fL [facility] Neutrophils Percent Auto 68.2 45 - 73 % [facility] Imm Gran Pct Auto 0.4 0.0 - 0.4 % [facility] Lymphocytes Percent Auto 21.5 20 - 40 % [facility] Monocytes Percent Auto 8.7 2 - 11 % [facility] Eosinophils Percent Auto 0.7 0 - 4 % [facility] Basophils Percent Auto 0.5 0 - 2 % [facility] NRBC Pct Auto 0.0 0.0 - 0.2 /100WBC [facility] Neutrophils Absolute Auto 8.8(H) 2.0 - 8.3 x10*3/uL [facility] Imm Gran Abs Auto 0.05(H) 0.00 - 0.03 X10*3/uL [facility] Lymphocytes Absolute Auto 2.8 1.2 - 4.9 X10*3/uL [facility] Monocytes Absolute Auto 1.1 0.1 - 1.2 X10*3/uL [facility] Eosinophils Absolute Auto 0.1 0.0 - 0.4 X10*3/uL [facility] Basophils Absolute Auto 0.1 0.0 - 0.2 X10*3/uL [facility] NRBC Abs Auto 0.000 0.0 - 0.012 X10*3/uL [facility] Blood Venous blood specimen / Unknown 09/12/2024 10:56 AM EST 09/12/2024 1:56 PM EST us Yudi Mcneil MD LAB BLOOD ORDERABLES Final Re sult [facility] [address] [place] [phone] * (ABNORMAL) Lipid Panel, Standard (09/12/2024 10:56 AM EST) Triglycerides 272(H) <150 mg/dL [facility] Comment:Desirable Triglyceri de: less than 150 mg/dLBorderline High Triglyceride 150-199 mg/dLHigh Triglyceride: 200-499 mg/dLVery High Triglyceride: greater than or equal to 5OO mg/dL Cholesterol 187 <200 mg/dL [facility] Comment:Desirable Cholestero l: less than 200 mg/dLBorderline High Cholesterol: 200-239 mg/dLHigh Cholesterol: greater than 239 mg/dL LDL Cholesterol Calculated 71 <100 mg/dL [facility] [facility] Comment:Desirable LDL: less than 100 mg/dLNear Optimal/Above Optimal LDL: 110- 129 mg/dLBorderline High LDL: 130-159 mg/dLHigh LDL: 160-189 mg/dLVery High LDL: greater than or equal to 190 mg/dL HDL Cholesterol 62 >40 mg/dL [facility] Comment:Desirable HDL: great er than 40 mg/dL Note: This HDL assay may give artificially low results in patients with liver disease. Blood Venous blood specimen / Unknown 09/12/2024 10:56 AM EST 09/12/2024 1:56 PM EST us Yudi Mcneil MD LAB BLOOD ORDERABLES Final Re sult [facility] [address] [place] [address] [phone] from Last 3 Months Insurance [employer] C3 Care Teams Gas Station Clerk Relationship Specialty Start Date End Date Yudi Mcneil MD [address] [place] [address] PCP - General Family Medicine 09/12/24 Maryanne Diamond [address] [place] [address] Licensed Mental Health Counselor Behavioral Health 05/02/24
--- OUTSIDE RECORDS SUMMARY | 2024-10-28 06:07 | XMS_ITS | Encounter Summary ---
Author Organization [employer] Address [address] [facility] 7 [place] [address] Care Team Providers Care Routeman Name Role Phone Yudi Mcneil MD Primary Care Provider [phone] Reason for Visit * Reason Onset Date Comments Med Refill 10/25/2024 Encounter Details Date Type Department Care Team (Late st Contact Info) Description 10/25/2024 Refill [facility] [address] [place] [address] Francisca Rosado RN Uncomplicated opioid use Social [...] with others, in a hotel, in a snf, living outside on the street, on a [...] 2024 9:30 AM EST Clinical Support [facility] [address] [place] [address] Francisca Rosado RN 11/08/2024 9:15 AM EDT Office Visit [facility] [address] [place] [phone] Prabhjot Galicia MD [address] [place] [address] documented as of this encounter Visit Diagnoses Diagnosis Uncomplicated opioid use documented in this encounter Additional Health Concerns Assessment Noted Time PHQ-9 Depression Total Score: 15 025 9:38 AM EST documented as of this encounter Care Teams Routeman Relationship Specialty Start Date End Date Yudi Mcneil MD [address] [place] [address] PCP - General Family Medicine 09/12/24 Maryanne Diamond [address] [place] [phone] Licensed Mental Health Counselor Behavioral Health 05/02/24 documented as of this encounter
--- OUTSIDE RECORDS SUMMARY | 2024-10-28 06:07 | XMS_ITS | Encounter Summary ---
Author Organization [employer] Address [address] [facility] 7 [place] [address] Care Team Providers Care Microbiology Lab Technician Name Role Phone Yudi Mcneil MD Primary Care Provider [phone] Reason for Visit * Reason Onset Date Comments Med Refill 10/19/2024 Encounter Details Date Type Department Care Team (Late st Contact Info) Description 10/19/2024 Refill [facility] [address] [place] [address] Francisca Rosado RN Uncomplicated opioid use Social [...] with others, in a hotel, in a halfway, living outside on the street, on a [...] Description 2024 9:30 AM EST Clinical Support [facility] [address] [place] [phone] Francisca Rosado RN 11/08/2024 9:15 AM EDT Office Visit [facility] [address] [place] [phone] Prabhjot Galicia MD [address] [place] [phone] documented as of this encounter Visit Diagnoses Diagnosis Uncomplicated opioid use documented in this encounter Additional Health Concerns Assessment Noted Time PHQ-9 Depression Total Score: 15 025 9:38 AM EST documented as of this encounter Care Teams Microbiology Lab Technician Relationship Specialty Start Date End Date Yudi Mcneil MD [address] [place] [address] PCP - General Family Medicine 09/12/24 Maryanne Diamond [address] [place] [phone] Licensed Mental Health Counselor Behavioral Health 05/02/24 documented as of this encounter
--- OUTSIDE RECORDS SUMMARY | 2024-10-28 06:07 | XMS_ITS | Encounter Summary ---
Author Organization [employer] Address [address] [facility] 7t [place] [address] Care Team Providers Care Contract Clerk Name Role Phone Yudi Mcneil MD Primary Care Provider [phone] Encounter Details Date Type Department Care Team [...] 9:30 AM EST Clinical Support [facility] [address] [place] [phone] Francisca Rosado RN 11/08/2024 9:15 AM EDT Office Visit [facility] [address] [place] [address] Prabhjot Galicia MD [address] [place] [address] documented as of this encounter Visit Diagnoses Not on filedocumented in this encounter Additional Health Concerns Assessment Noted Time PHQ-9 Depression Total Score: 15 025 9:38 AM EST documented as of this encounter Care Teams Contract Clerk Relationship Specialty Start Date End Date Yudi Mcneil MD [address] [place] [address] PCP - General Family Medicine 09/12/24 Maryanne Diamond [address] [place] [phone] Licensed Mental Health Counselor Behavioral Health 05/02/24 documented as of this encounter
--- OUTSIDE RECORDS SUMMARY | 2024-10-28 06:07 | XMS_ITS | Encounter Summary ---
Author Organization [employer] Address [address] [facility] 7 [place] [address] Care Team Providers Care Floor Installation Mechanic Name Role Phone Yudi Mcneil MD Primary Care Provider [phone] Reason for Visit * Reason Comments TELE OBAT F/U Encounter Details Date Type Department Care Team (Latest Contact Info) Description 10/07/2024 10:30 AM EST Telemedicine [facility] [address] [place] [address] Prabhjot Galicia MD [address] [place] [address] Uncomplicated opioid use (Primary Dx); Tobacco use [...] with others, in a hotel, in a custodial, living outside on the street, on a [...] the past 12 months, has t he [employer], gas, oil or water [facility] threatened to shut off services in your [...] the next few weeks. [employer]. PCP @ [facility] transferred to Dr. Peters. She has see him in the past. Appointments next week with an FLAT BED OPERATOR and Dr. Peters. Javed still in senior care-charged with a felony. Therapist @ [facility]-may be seeing a psychiatrist in a couple [...] getting an ID and to enroll in [employer]. Has not found evidence of prior Hep [...] Description 2024 9:30 AM EST Clinical Support [address] [address] Francisca Rosado RN 11/08/2024 9:15 AM EDT Office Visit [facility] [address] [place] [address] Prabhjot aGlicia MD [address] [place] [address] documented as of this encounter Visit Diagnoses Diagnosis Uncomplicated opioid use- Primary Tobacco use disorder documented in this encounter Additional Health Concerns Assessment Noted Time PHQ-9 Depression Total Score: 15 025 9:38 AM EST documented as of this encounter Care Teams Floor Installation Mechanic Relationship Specialty Start Date End Date Yudi Mcneil MD [address] [place] [address] PCP - General Family Medicine 09/12/24 Maryanne Diamond [address] [place] [phone] Licensed Mental Health Counselor Behavioral Health 05/02/24 documented as of this encounter
[2024-11-23 09:27] VITALS: BMI 37.4
--- NOTE | 2024-11-24 12:02 | MHC.SHP ---
Pre-Procedural Eval Section A - 24 Hr Update-Section A only Date of Service: 11/25/24 The patient is an INPATIENT: No Changes since office visit: No Cold of Flu in the past 2 weeks, No New Medical Problems, No Changes in Medication and No Patient answered all questions Section B - Complete if H&P > 30 days Chief Complaint: Localized swelling, mass and lump, head Allergies: Allergies Allergy/AdvReac Type Severity Reaction Status Date / Time Penicillins [PENICILLINS] Allergy Severe ANAPHYLAXIS Verified 10/18/24 13:37 progesterone [PROGESTERONE] Allergy Severe ANAPHYLAXIS Verified 10/18/24 13:37 Review of Systems Sugical H&P ROS: Negative: Constitution, Cardiovascular, Respiratory, Neurological, Psychiatric, Hem-Onc, Allergic/Immunologic, Gastrointestinal, Genitourinary, Musculoskeletal, Integumentary, Endocrine and Eyes/Ears/Nose/Throat Exam Surgical H&P Exam: Normal: HEENT, Normal: Heart, Normal: Lungs, Normal: Extremities, Normal: Abdomen, Normal: Skin and Normal: Neurological Plan I have reviewed the history and physical and performed a pertinent physical examination on my patient. No changes have occurred unless specified. Time Spent With Patient Time: Total time managing care of this patient today ____ minutes.
[2024-11-25] VITALS (10 sets, daily range): BP systolic 154–187; BP diastolic 94–115; PULSE 94–101; RESP 16–20; TEMP 36.5–37.6; O2SAT 96–99; BMI 38.2
[2024-11-25 08:39] LABS: Amphetamine Screen Urine Not Detected (Not Detect); Barbiturates, Urine Not Detected (Not Detect); Benzodiazepines Screen Urine Not Detected (Not Detect); Buprenorphine Scr Positive (Not Detect); Cannabinoid Screen Urine POSITIVE (Not Detect); Cocaine Screen Urine Not Detected (Not Detect); Fentanyl, urine Not Detected (Not Detect); Methadone Screen, Urine Not Detected (Not Detect); Opiate Screen Urine Not Detected (Not Detect); Oxycodone Screen Urine Not Detected (Not Detect); Phencyclidine Screen Urine Not Detected (Not Detect)
[2024-11-25] MEDS: Lactated Ringers 1,000 ML 100 ML IVCONT (08:55)
[2024-11-25 08:56] LABS: UPreg QC Valid YES; Urine Pregnancy NEGATIVE (NEGATIVE)
--- NOTE | 2024-11-25 09:28 | HO.ANESPROP2 ---
Documented by User: Mag Allred NP 11/24/24 10:06 HPI - Anesthesia Eval Consult details Narrative: 44yo F for Wide Local Excision LG Scalp Mass X2 Suboxone daily PMFSH Active Problems Active Problems: All Active Problems Scalp mass (Acute) Past Medical History Medical History (Updated 11/23/24 @ 09:29 by Reyna Chance RN) Opiate use Anxiety and depression Hypertension Hypothyroidism Surgical History Surgical History (Updated 11/23/24 @ 09:26 by Reyna Chance RN) Hx of hernia repair Hx laparoscopic cholecystectomy Social History Social History (Updated 10/18/24 @ 13:39 by LISANDRA Calderon) Alcohol intake: current Alcohol type: beer Patient Tobacco Use Status: Current everyday Tobacco user Tobacco use type: Cigarette Cigarette Packs Per Day: 0.5 Cigarettes Per Day: 10.0 Use of substances other than those prescribed or required for medical reasons: Yes Substance Use Type: Marijuana Substance Use Type Other:: THC vape Are you DNR?: No Advance Directives: No Advance Directives Information Provided: Yes Meds Allergies Allergy/AdvReac Type Severity Reaction Status Date / Time Penicillins [PENICILLINS] Allergy Severe ANAPHYLAXIS Verified 11/25/24 08:06 progesterone [PROGESTERONE] Allergy Severe ANAPHYLAXIS Verified 11/25/24 08:06 Home Medications ?Medication ?Instructions ?Recorded ?Confirmed ?Last Taken ?Type amlodipine 5 mg tablet 5 mg PO DAILY 10/18/24 11/25/24 11/25/24 06:00 History buprenorphine 2 mg-naloxone 0.5 mg 1 film sublingual DIRECTED 10/18/24 11/25/24 11/25/24 06:00 History sublingual film (Suboxone) bupropion HCl 150 mg tablet,12 hr 150 mg PO DAILY 10/18/24 11/25/24 11/25/24 06:00 History sustained-release doxepin 10 mg capsule 10 mg PO BEDTIME 10/18/24 11/25/24 Unknown History hydrochlorothiazide 12.5 mg tablet 12.5 mg PO DAILY 10/18/24 11/25/24 Unknown History hydroxyzine pamoate 25 mg capsule 25 mg PO Q6H PRN anxiety 10/18/24 11/25/24 11/25/24 06:00 History levothyroxine 50 mcg tablet 50 mcg PO QAM 10/18/24 11/25/24 11/25/24 06:00 History Exam Height,Weight and Vital Signs: Height 5 ft 4 in Weight 98.883 kg Pertinent Lab Results Pertinent Lab Results: Laboratory Tests 09/12/24 09/20/24 10:56 11:13 WBC 12.9 H Hgb 17.1 H Hct 47.3 H Plt Count 262 Sodium 140 Potassium 3.4 D Chloride 104 Carbon Dioxide 29 BUN 21 H Creatinine 0.86 Narrative Narrative: EKG 2023 Vent. Rate : 108 BPM Atrial Rate : 108 BPM P-R Int : 146 ms QRS Dur : 074 ms QT Int : 340 ms P-R-T Axes : 051 054 047 degrees QTc Int : 455 ms Sinus tachycardia Septal infarct , age undetermined Abnormal ECG When compared with ECG of 09-JAN-2024 22:08, No significant change was found Assessment and Plan Assessment Anesthesia Assessment: Chart Reviewed Documented by User: Tessa Chung DO 11/25/24 09:32 [facility] Past Medical History Medical History (Updated 11/23/24 @ 09:29 by Reyna Chance RN) Opiate use Anxiety and depression Hypertension Hypothyroidism Family History Family history of problems with anesthesia: No Surgical History Surgical History (Updated 11/23/24 @ 09:26 by Reyna Chance RN) Hx of hernia repair Hx laparoscopic cholecystectomy History of Problems with Anesthesia: No Social History Social History (Updated 10/18/24 @ 13:39 by LISANDRA Calderon) Alcohol intake: current Alcohol type: beer Patient Tobacco Use Status: Current everyday Tobacco user Tobacco use type: Cigarette Cigarette Packs Per Day: 0.5 Cigarettes Per Day: 10.0 Use of substances other than those prescribed or required for medical reasons: Yes Substance Use Type: Marijuana Substance Use Type Other:: THC vape Are you DNR?: No Advance Directives: No Advance Directives Information Provided: Yes Meds Allergies Allergy/AdvReac Type Severity Reaction Status Date / Time Penicillins [PENICILLINS] Allergy Severe ANAPHYLAXIS Verified 11/25/24 08:06 progesterone [PROGESTERONE] Allergy Severe ANAPHYLAXIS Verified 11/25/24 08:06 Home Medications ?Medication ?Instructions ?Recorded ?Confirmed ?Last Taken ?Type amlodipine 5 mg tablet 5 mg PO DAILY 10/18/24 11/25/24 11/25/24 06:00 History buprenorphine 2 mg-naloxone 0.5 mg 1 film sublingual DIRECTED 10/18/24 11/25/24 11/25/24 06:00 History sublingual film (Suboxone) bupropion HCl 150 mg tablet,12 hr 150 mg PO DAILY 10/18/24 11/25/24 11/25/24 06:00 History sustained-release doxepin 10 mg capsule 10 mg PO BEDTIME 10/18/24 11/25/24 Unknown History hydrochlorothiazide 12.5 mg tablet 12.5 mg PO DAILY 10/18/24 11/25/24 Unknown History hydroxyzine pamoate 25 mg capsule 25 mg PO Q6H PRN anxiety 10/18/24 11/25/24 11/25/24 06:00 History levothyroxine 50 mcg tablet 50 mcg PO QAM 10/18/24 11/25/24 11/25/24 06:00 History Exam Exam Date and Time: 11/25/24 0925 Height,Weight and Vital Signs: Height 5 ft 4 in Weight 98.883 kg Vital Signs Temperature 99.7 F 11/25/24 08:13 Pulse Rate 101 H 11/25/24 08:13 Respiratory Rate 16 11/25/24 08:13 Blood Pressure 161/94 H 11/25/24 08:13 Pulse Oximetry 96 11/25/24 08:13 Oxygen Delivery Method Room Air 11/25/24 08:13 Temperature 99.7 F 11/25/24 08:13 Pulse Rate 101 H 11/25/24 08:13 Respiratory Rate 16 11/25/24 08:13 Blood Pressure 161/94 H 11/25/24 08:13 Pulse Oximetry 96 11/25/24 08:13 Oxygen Delivery Method Room Air 11/25/24 08:13 Airway Mallampati Class: II TM Dist: >3cm Neck ROM: Full Loose/Missing/Broken Teeth: No (patient denies any loose or broken teeth) Heart: S1S2 Lungs: CTAB Assessment and Plan Assessment Anesthesia Assessment: Anesthesia Plan Discussed and Chart Reviewed Final Anesthetic Review Family History of Problems with Anesthesia: No History of Problems with Anesthesia: No NPO: Yes ASA Class: III Final Preanesthetic Review: No Changes in Pt Med Stat, Meds/Allgs Chart Reviewed, Consent Obtained/Reviewed (consented for GA vs MAC - will discuss final plan with surgeon) and Anes Risks/Benef Reviewed Patient Risk: Low Procedure Risk: Low Anesthetic Plan Anesthetic Plan: GA (vs MAC) and Agree w/ Assess. and Plan Disposition: Standard PACU
--- NOTE | 2024-11-25 11:08 | P.OP_ITS ---
Operative Note Operative Note Date of Service: 11/25/24 Narrative: Preoperative diagnosis: [] 1. Posterior neck large sebaceous cyst 2. Vertex scalp pilar cyst Postop diagnosis: [] The same Procedure [] 1. Wide local excision sebaceous cyst posterior neck 2. Excision vertex scalp pilar cyst Surgeon: [] Brandon Well Site Drilling Engineer: [] Type of Anesthesia: [] LMA Indication for surgery: [] Roughly 4 x 3 cm posterior neck sebaceous cyst ,roughly 3 x 2 cm vertex scalp pilar cyst Findings: [] Patient was brought to the operating room, placed on operative table supine position, after an adequate level of LMA anesthesia was induced, patient was placed in left lateral decubitus position. Posterior neck and vertex scalp areas were prepped and draped in usual sterile fashion. Commencing with a posterior neck mass, a longitudinal incision was made and carried down through skin, subcutaneous tissue, were superior and inferior skin flaps were developed in the large sebaceous cyst was uneventfully excised using Bovie. Specimen sent to pathology. Wound was irrigated, secured hemostasis, and closed using interrupted inverted dermal 3-0 Vicryl sutures followed by Steri-Strips and sterile dressings. Next vertex of scalp mass was similarly approached with a longitudinal incision and uneventful enucleation of pilar cyst was performed. Specimen sent to pathology. Wound was irrigated, secured hemostasis, and closed using interrupted 2-0 Prolene suture followed by bacitracin. Each wound was infiltrated at the beginning at the end with 0.5% Marcaine/1% lidocaine. Sponge, needle, and instrument counts reported correct. Patient tolerated the procedure well and emerged from anesthesia stable condition. EBL minimal
[2024-11-25] MEDS: fentaNYL citrate/PF 100 MCG/2 ML VIAL 50 MCG IVPUSH (11:35)
[2024-11-25] MEDS: Acetaminophen 325 MG TABLET 650 MG PO (11:55)
== END 2024-11-25 12:45 | disposition home or self-care (01) ==
PROVIDERS: Nurse Practitioner; PCP Family Medicine; Visit Provider Surgery
PROC: (CPT 11426; principal; 2024-11-25 10:20)
DX: L72.0 Epidermal cyst (principal); L72.11 Pilar cyst; I10 Essential (primary) hypertension; E03.9 Hypothyroidism, unspecified; F41.9 Anxiety disorder, unspecified; Z79.899 Other long term (current) drug therapy; F11.20 Opioid dependence, uncomplicated; Z88.0 Allergy status to penicillin; Z88.8 Allergy status to other drugs, medicaments and biological substances; F17.210 Nicotine dependence, cigarettes, uncomplicated; Z98.890 Other specified postprocedural states
CPT/HCPCS: 11426; 11423; 80307; 81025; 88304; J0131; J0736; J1100; J2003; J2405; J2704; J3010

== ENCOUNTER → 2024-11-25 07:19 | Outpatient (BNV) | payer MEDICAID, SELFPAY | PROVIDERS: PCP Family Medicine; Visit Provider Surgery | DX: L72.0 Epidermal cyst (principal); L72.11 Pilar cyst | CPT/HCPCS: 11423; 11424 ==

== ENCOUNTER 2024-12-07 08:38 | Outpatient (AMB) | payer MEDICAID, SELFPAY ==
--- NOTE | 2024-12-07 08:53 | A.OFFVIS_ITS ---
Intake Visit Reasons: suture removal Intake Note: Patient here s/p exc X2. A). posterior neck B) Scalp. Reports incisions healing well. Missed yesterdays appointment due to transportation. Front Desk Supervisor Required: No Accompanied by: Self / Same As Patient Allergies Penicillins [PENICILLINS] Allergy (Severe, Verified 12/07/24 08:55) ANAPHYLAXIS progesterone [PROGESTERONE] Allergy (Severe, Verified 12/07/24 08:55) ANAPHYLAXIS HPI Comments Details: Patient presents for follow-up. She has no wound issues or complaints. Both pathologies are benign. [facility] Medical History (Updated 11/23/24 @ 09:29 by Reyna Chance RN) Opiate use Anxiety and depression Hypertension Hypothyroidism Surgical History (Updated 12/07/24 @ 09:10 by Amilcar Taylor MD) Hx of hernia repair Hx laparoscopic cholecystectomy Social History (Updated 10/18/24 @ 13:39 by LISANDRA Calderon) Alcohol intake: current Alcohol type: beer Patient Tobacco Use Status: Current everyday Tobacco user Tobacco use type: Cigarette Cigarette Packs Per Day: 0.5 Cigarettes Per Day: 10.0 Substance Use Type: Marijuana Physical Exam HEENT Other: Scalp wound well healed. Sutures uneventfully removed. Posterior neck incision healing uneventfully. Patient has some Steri-Strips tape burn but otherwise no evidence of any infection. Assessment & Plan Assessment & Plan (1) Encounter for postoperative wound check: Code(s): Z48.89 - Encounter for other specified surgical aftercare Category: Surgical Plan Patient was been given local instructions, and otherwise follow-up p.r.n.. All questions answered. Coding Level of Care Code Global (33821) Diagnoses Encounter for postoperative wound check Z48.89
--- OUTSIDE RECORDS SUMMARY | 2024-12-07 08:56 | XMS_ITS | Encounter Summary ---
Author Organization [employer] Address [address] [facility] [address] [place] [address] Care Team Providers Care Mechanical Maintenance Technician Name Role Phone Yudi Mcneil MD Primary Care Provider [phone] Reason for Visit * Reason Comments [facility] F/U Encounter Details Date Type Department Care Team (Latest Contact Info) Description 12/06/2024 10:00 AM EDT Clinical Support [address] [id number] Francisca Rosado RN Uncomplicated opioid use (Primary Dx); Tobacco use disorder Social History Tobacco Use Types Packs/Day Years Used Date Smoking Tobacco: Every Day Cigarettes Passive Smoke Exposure: Current Smokeless Tobacco: Never Alcohol Use Standard Drinks/Week Comments Yes 0 (1 standard drink = 0.6 oz pur e alcohol) Social irregular use Depression Answer Date Recorded Patient Health Questionnaire-9 Score 4 12/06/2024 Patient Health Questionnaire-9 Score 4 12/06/2024 Last PHQ-9: Questionnaire Data Not on file 0 12/06/2024 Housing Stability Answer Date Recorded What is [...] Answer Date Recorded Patient Health Questionnaire-2 Score 0 12/06/2024 Internet Access Answer Date Recorded Internet Access Q1 Yes 10/03/2024 Internet Access Q2 Not on file 10/03/2024 Comments Unknown Sex and Gender Information Value Date Recorded Sex Assigned at Female 06/30/2022 10:25 AM EDT Legal Sex Female 10:25 AM EDT Gender Identity Female 06/30/2022 10:25 AM EDT Sexual Orientation Straight 06/30/2022 10 :25 AM EDT documented as of this encounter Progress Notes * Francisca Rosado RN - 12/06/2024 10:00 AM EDT Patient here today for Opioid Dependence RV. Patient on current Suboxone dose of .025 mg On a one week schedule. Patient has been in the program for 12 weeks Induction date: 09/13/24 LFTs done 09/20/24 Patient actively enrolled in behavioral health services: Hipolito Fitch [place] PAT reviewed by provider. Last PCP appt: 09/12/24 control method: post-menopausal Smoking status: less than 1/2 ppd LAST VISIT 11/22/24 UTOX: +bup, thc Betty presented today for [facility] RN IN PERSON VISIT for Opioid Use Disorder. She is alert and oriented. Speech clear, coherent and goal directed. Easily engaged, initiates conversation. Doing well on suboxone, no illicit substance use, cravings or side effects. She is having surgery on 11/25/24 to remove for biopsy some growths on her head and her neck that she has had for about a year. She is grateful that she is now on a two week schedule for her appts with [facility]. Plan: Suboxone dosing schedule of 0.25 mg daily and management of side effects reviewed. Recovery support, harm reduction (including Narcan), and behavioral health attendance reviewed. Appointment for 2 weeks given. Patient expressed understanding and agreement with continuing plan of care. TODAY 12/06/24 UTOX: +bup, thc Betty presented today for [facility] RN IN PERSON VISIT for Opioid Use Disorder. She is alert and oriented. Speech clear, coherent and goal directed. Easily engaged, initiates conversation. Doing well on suboxone, no illicit substance use, cravings or side effects. She had surgery to remove some typeof tumor on 11/25/24, has bandage on the back of her neck, which is clean, dry and intact. She also has some intact sutures on the top of her head, where another tumor was removed. They are still unsure of the status of the tumors. She is requesting refills of her blood pressure meds, wellbutrin, and thyroid med. Her PCP is still out on leave. Dr. Galicia will f/u. Plan: Suboxone dosing schedule of 0.25 mg daily and management of side effects reviewed. Recovery support, harm reduction (including Narcan), and behavioral health attendance reviewed. Appointment for 2 weeks given. Patient expressed understanding and agreement with continuing plan of care. This information has been disclosed to you from records protected by federal confidentiality rules (42 CFR Part 2). The federal rules prohibit you from making any further disclosure of information inthis record that identifies a patient as having or having had a substance use disorder either directly, by reference to publicly available information, or through verification of such identification by another person unless further disclosure is expressly permitted by the written consent of the individual whose information is being disclosed or as otherwise permitted by (see2.3.1). The federal rules restrict any use of the information to investigate or prosecute with regard to a crime any patient with a substance use disorder, except as provided at 2.12??(5) and 2.65. documented in this encounter Plan of Treatment Upcoming Encounters Date Type Department Care Team (Late st Contact Info) Description 12/20/2024 9:00 AM EDT Office Visit [facility] [address] [place] [address] Prabhjot Galicia MD [address] [place] [address] documented as of this encounter Procedures Procedure Name Priority Date/Time Associated Diagnosis Comments POCT LOUIS-14 URINE DRUG SCREEN Routine 12/06/2024 9:56 AM EDT Uncomplicated opioid use documented in this encounter Results * POCT LOUIS-14 Urine Drug Screen (12/06/2024 9:56 AM EDT) THC Positive Cocaine Screen, Urine Negative Opiate Screen, Urine Negative Methamphetamine Screen Urine Negative Amphetamine Screen, Urine Negative Benzodiazepines Screen, Urine Negative Barbiturate Screen, Urine Negative Methadone Screen, Urine Negative Buprenophine Screen, Urine Positive TCA, Urine Negative MDMA Urine Negative ng/mL Oxycodone Screen, Urine Negative Phencyclidine (PCP), Urine Negative Fentanyl, Urine Negative Urine Urine specimen obtained by clean catch procedure / Unknown 12/06/2024 9:56 AM EDT Prabhjot Galicia MD POINT OF CARE TEST ENTER/EDIT ORDERABLES Final Result documented in this encounter Visit Diagnoses Diagnosis Uncomplicated opioid use- Primary Tobacco use disorder documented in this encounter Additional Health Concerns Assessment Noted Time PHQ-9 Depression Total Score: 4 12/07/19 25 10:33 AM EDT documented as of this encounter Care Teams Mechanical Maintenance Technician Relationship Specialty Start Date End Date Yudi Mcneil MD [address] [place] [id number] PCP - General Family Medicine 09/12/24 Maryanne Diamond [address] [place] [phone] Licensed Mental Health Counselor Behavioral Health 05/02/24 documented as of this encounter
--- OUTSIDE RECORDS SUMMARY | 2024-12-07 08:56 | XMS_ITS | Clinical Summary ---
Author Organization [employer] [facility] [employer] Address [address] [facility] 7 [place] [address] Care Team Providers Care Body Make Up Artist Name Role Phone Yudi Mcneil MD Primary Care Provider Allergies Active Allergy Reactions Criticality Noted Date Comments Penicillins Hives 09/29/2014 Progesterone 09/29/2014 Medications * This document contains information received from the source organization and may not represent a complete record from that organization. doxepin (SINEquan) 10 MG capsule Take 1 capsule (10 mg) by mouth at bedtime. 90 capsule 09/12/19 25 Active ketoconazole (NIZOral) 2 % shampooIndicat ions:Androgene tic alopecia Apply topically 2 (two) times a week. 120 mL 11 10/06/19 25 Active hydrOXYzine pamoate (Vistaril) 25 MG capsule Take 1 capsule (25 mg) by mouth every 6 (six) hours if needed for anxiety. 90 capsule 11/16/19 25 Active buprenorphine- naloxone (Suboxone) 2-0.5 MG per sublingual filmIndication s:Uncomplicate d opioid use Place 1 Film under the tongue Once per day for 4 days. Take 1/4 film SL daily. 4 Film 12/03/19 25 Active buPROPion SR (Wellbutrin SR) 150 MG 12 hr tablet Take 1 tablet (150 mg) by mouth Once per day. Do not crush, chew, or split. 90 tablet 12/07/19 25 025 Active amLODIPine (Norvasc) 5 MG tablet Take 1 tablet (5 mg) by mouth Once per day. 90 tablet 12/07/19 025 Active hydroCHLOROthi azide 12.5 MG tablet Take 1 tablet (12.5 mg) by mouth Once per day. 90 tablet 12/07/19 025 Active levothyroxine (Synthroid) 50 MCG tablet Take 1 tablet (50 mcg) by mouth before breakfast. 90 tablet 12/07/19 025 Active buPROPion SR (Wellbutrin SR) 150 MG 12 hr tablet Take 1 tablet (150 mg) by mouth Once per day. Do not crush, chew, or split. 90 tablet 09/12/19 25 025 Discontinued(Du plicate order (will not trigger notification to Pharmacy)) amLODIPine (Norvasc) 5 MG tablet Take 1 tablet (5 mg) by mouth Once per day. 90 tablet 09/12/19 025 Discontinued(Re order (will not trigger notification to Pharmacy)) hydroCHLOROthi azide 12.5 MG tablet Take 1 tablet (12.5 mg) by mouth Once per day. 90 tablet 09/12/19 025 Discontinued(Re order (will not trigger notification to Pharmacy)) levothyroxine (Synthroid) 50 MCG tablet Take 1 tablet (50 mcg) by mouth before breakfast. 90 tablet 09/12/19 025 Discontinued(Du plicate order (will not trigger notification to Pharmacy)) hydrOXYzine pamoate (Vistaril) 25 MG capsule Take 1 capsule (25 mg) by mouth every 6 (six) hours if needed for anxiety. 90 capsule 09/12/19 025 Discontinued(Re order (will not trigger notification to Pharmacy)) buprenorphine- naloxone (Suboxone) 2-0.5 MG per sublingual filmIndication s:Uncomplicate d opioid use Place 1 Film under the tongue Once per day for 2 days. Take 1/4 film SL daily. 2 Film 11/03/19 25 025 Discontinued(Re order (will not trigger notification to Pharmacy)) buprenorphine- naloxone (Suboxone) 2-0.5 MG per sublingual filmIndication s:Uncomplicate d opioid use Place 1 Film under the tongue Once per day for 2 days. Take 1/4 film SL daily. 2 Film 11/09/19 25 025 Discontinued(Re order (will not trigger notification to Pharmacy)) hydrOXYzine pamoate (Vistaril) 25 MG capsule Take 1 capsule (25 mg) by mouth every 6 (six) hours if needed for anxiety. 90 capsule 11/10/19 25 025 Discontinued(Re order (will not trigger notification to Pharmacy)) buprenorphine- naloxone (Suboxone) 2-0.5 MG per sublingual filmIndication s:Uncomplicate d opioid use Place 1 Film under the tongue Once per day for 4 days. Take 1/4 film SL daily. 4 Film 11/22/19 25 025 Discontinued(Re order (will not trigger [...] & Plan (09/12/2024 10:37 AM EST): Called [facility] for further evaluation. Encounters * This document contains information received from the source organization and may not represent a complete record from that organization. Date Type Department Care Team Description 12/06/2024 10:00 AM EDT Clinical Support [address] [address] Francisca Rosado RN Uncomplicated opioid use (Primary Dx); Tobacco use disorder 12/06/2024 Telephone [facility] [address] [place] [phone] Prabhjot Galicia MD 12/06/2024 Travel 11/29/2024 Refill [facility] [address] [place] [address] Hailey Stinson RN Uncomplicated opioid use 11/22/2024 10:00 AM EDT Clinical Support [facility] [address] [place] [address] Francisca Rosado RN Opioid type dependence, continuous (CMS/HCC) (Primary Dx) 11/22/2024 Travel 11/18/2024 Refill [facility] [address] [place] [phone] Francisca Rosado RN Uncomplicated opioid use 11/15/2024 10:30 AM EDT Clinical Support [facility] [address] [place] [phone] Francisca Rosado RN Opioid type dependence, continuous (CMS/HCC) (Primary Dx) 11/15/2024 Telephone [facility] [address] [place] [phone] Prabhjot Galicia MD 11/15/2024 Travel 11/11/2024 Population Health Risk Score [facility] () Department [address] [place] [phone] Provider, Population Health Generic 11/09/2024 Refill [facility] [address] [place] [phone] Yudi Mcneil MD 11/08/2024 9:15 AM EDT Office Visit [facility] [address] [place] [phone] Prabhjot Galicia MD Uncomplicated opioid use (Primary Dx); Opioid type dependence, continuous (CMS/HCC); Encounter for immunization; Tobacco use disorder 11/08/2024 Refill [facility] [address] [place] [address] Francisca Rosado RN Uncomplicated opioid use 11/08/2024 Travel 11/02/2024 Refill [facility] [address] [place] [address] Francisca Rosado RN Uncomplicated opioid use 2024 9:30 AM EST Clinical Support [address] [address] Francisca Rosado RN Opioid type dependence, continuous (CMS/HCC) (Primary Dx) 2024 Patient Outreach [address] [address] Bryanna Cox [facility] 2024 Refill [facility] [address] [place] [address] Francisca Rosado RN Uncomplicated opioid use 2024 Travel 10/25/2024 10:30 AM EST Office Visit [address] [address] Prabhjot Galicia MD Uncomplicated opioid use (Primary Dx); Tobacco use disorder 10/25/2024 Refill [facility] [address] [place] [phone] Francisca Rosado RN Uncomplicated opioid use 10/25/2024 Travel 10/19/2024 Refill [facility] [address] [place] [phone] Francisca Rosado RN Uncomplicated opioid use 10/18/2024 10:30 AM EST Office Visit [facility] [address] [place] [phone] Prabhjot Galicia MD Uncomplicated opioid use (Primary Dx); Tobacco use disorder 10/18/2024 Refill [facility] [address] [place] [phone] Francisca Rosado RN Uncomplicated opioid use 10/18/2024 Refill [facility] [address] [place] [phone] Francisca Rosado RN 10/18/2024 Travel 10/14/2024 Refill [facility] [address] [place] [phone] Francisca Rosado RN Uncomplicated opioid use 10/14/2024 Refill [facility] [address] [place] [phone] Francisca Rosado RN Uncomplicated opioid use 10/12/2024 Refill [facility] [address] [place] [phone] Francisca Rosado RN 10/07/2024 10:30 AM EST Telemedicine [address] [address] Prabhjot Galicia MD Uncomplicated opioid use (Primary Dx); Tobacco use disorder 10/07/2024 Travel 10/04/2024 9:45 AM EST Office Visit [facility] [address] [place] [address] Jovanny Peters MD Pilar cyst of scalp (Primary Dx); Seborrheic keratosis; Androgenetic alopecia; Dry skin 10/03/2024 10:30 AM EST Clinical Support [facility] [address] [place] [address] Collette Marsh RN Primary hypertension 10/03/2024 Refill [facility] [address] [place] [phone] Alyse Choudhury RN Uncomplicated opioid use 10/03/2024 Travel 09/27/2024 11:15 AM EST Office Visit [facility] [address] [place] [phone] Prabhjot Galicia MD Uncomplicated opioid use (Primary Dx); Tobacco use disorder 09/27/2024 Travel 09/21/2024 Refill [facility] [address] [place] [phone] Francisca Rosado RN Uncomplicated opioid use 09/20/2024 11:00 AM EST Office Visit [facility] [address] [place] [phone] Prabhjot Galicia MD Uncomplicated opioid use (Primary Dx); Tobacco use disorder 09/20/2024 Telephone [facility] [address] [place] [address] Yudi Mcneil MD 09/20/2024 Travel 09/13/2024 10:00 AM EST Office Visit [facility] [address] [place] [phone] Prabhjot Galicia MD Opioid use, unspecified, uncomplicated (Primary Dx); Uncomplicated opioid use; Tobacco use disorder 09/13/2024 9:30 AM EST Office Visit [facility] [address] [place] [phone] Alsye Choudhury RN Opiate use 09/13/2024 Patient Outreach [address] [address] Benjamin Wilson [facility] Supports 09/13/2024 Patient Outreach [address] [address] Winston Jackson [facility] 09/13/2024 Patient Outreach [address] [address] Winston Jackson [facility] 09/13/2024 Travel 09/12/2024 9:30 AM EST Office Visit [facility] [address] [place], [place] [phone] Yudi Mcneil MD Primary hypertension (Primary Dx); Moderate episode of recurrent major depressive disorder (CMS/HCC); Anxiety; Acquired hypothyroidism; Opiate use; Class 2 severe obesity with serious comorbidity and body mass index (BMI) of 35.0 to 35.9 in adult, unspecified obesity type (CMS/HCC); Primary insomnia 09/12/2024 Telephone [facility] [address] [place] [address] Yudi Mcneil MD 09/12/2024 Patient Outreach [address] [address] Winston Jackson [facility] 09/12/2024 Travel 09/09/2024 Telephone [facility] [address] [place] [address] Yudi Mcneil MD CHART PREP from Last 3 Months Immunizations Name Administration Dates Next Due Hep A, Adult 11/08/2024 HepB-CpG 11/08/2024 Influenza injectable quadriv alent IIV4 with preservative [...] Description 12/20/2024 9:00 AM EDT Office Visit [facility] [address] [place] [address] Prabhjot Galicia MD [address] [place] [address] Health Maintenance Due Date Last Done Comments Family Planning (PISQ) 1996 DTaP/Tdap/Td Vaccines (1 - Tdap) 2000 Pneumococcal Vaccine: Pediatrics (0 to 5 Years) and At-Risk Patients (6 to 49) Years) (1 of 2 - PCV) 2000 Pap Smear 2002 Cervical Cancer Screening 11/02/2011 HPV/Cotest 11/02/2011 Mammogram 2021 Hepatitis B Vaccines (2 of 2 - CpG 2-dose series) 12/06/2024 11/08/2024 Influenza Vaccine (#1) 2025 5, 10/30/2014 Postponed from 05/01/2024 (Patient Refused) Alcohol/Substance Use Screening 10/03/2025 10/03/2024 COVID-19 Vaccine (1 - 2023-2 5 season) 2025 Postponed from 05/01 (Patient Refused) SDOH Screening 10/03/2025 10/03/2024 Tobacco Screening 10/04/2025 10/04/2024 Depression Screening 12/06/2025 12/06/2024, 12/06/2024 Lipid Panel 09/12/2029 09/12/2024 Zoster Vaccines (1 of 2) 11/02/2031 RSV Patients and Patients Aged 60 years or older (1 - 1-dose 75+ series) 2056 HIV Screening Completed 09/20/2024 Hepatitis C Screening Completed 09/20/2024 Hepatitis A Vaccines Aged Out 11/08/2024 No long er eligible based on patient's age to complete this topic HIB Vaccines Aged Out No longer eligi [...] 12/06/2024 9:56 AM EDT Uncomplicated opioid use GROSS AND MICROSCOPIC LEVEL 3 Routine 11/25/2024 10:45 AM EDT Moderate episode of recurrent major depressive disorder (CMS/HCC) HCG, QL, URINE Routine 11/25/2024 8:05 AM EDT Moderate episode of recurrent major depressive disorder (CMS/HCC) DRUG MONITOR, PANEL 1, SCREEN, URINE Routine 11/25/2024 8:05 AM EDT Moderate episode of recurrent major depressive disorder (CMS/HCC) POCT LOUIS-14 URINE DRUG SCREEN Routine 11/22/2024 9:59 AM EDT Opioid type dependence, continuous (CMS/HCC) POCT LOUIS-14 URINE DRUG SCREEN Routine 11/17/2024 3:44 PM EDT Opioid type dependence, continuous (CMS/HCC) POCT [place]OUIS-14 URINE DRUG SCREEN Routine 11/08/2024 9:18 AM EDT Uncomplicated opioid use POCT [place]OUIS-14 URINE DRUG SCREEN Routine 2024 9:30 AM EST Opioid type dependence, continuous (CMS/HCC) POCT [place]OUIS-14 URINE DRUG SCREEN Routine 10/25/2024 [...] Urine Drug Screen (12/06/2024 9:56 AM EDT) Only the most recent of10 resultswithin the time period is included. THC [...] procedure / Unknown 12/06/2024 9:56 AM EDT us Prabhjot Galicia MD POINT OF CARE TEST ENTER/EDIT ORDERABLES Final Result * Gross and Microscopic Level 3 (11/25/2024 10:45 AM EDT) 11/25/2024 10:4 5 AM EDT 11/25/2024 11:21 AM EDT Narrative [facility] - 11/28/2024 3:51 PM EDT ----- ------- Name: Betty Peguero ? Age/Sex: 44/F ? : 1980 Unit#: [id number] ?? Attend Dr: Amilcar Taylor MD ?Re11/25/24 ?Status: DEP SDC ? Location: HO.SSS ?Disch: ? ----- ------- SPEC : [id number] ? RECD: 11/25/24 ? STATUS: ??SOUT ? REQ NUM: [id number] ? WILY: 11/25/24 ? SUBM DR: Amilcar Taylor MD ? ENTERED: ??11/25/24 ?SP TYPE: Surgical ? OTHR DR: Yudi Mcneil MD ? ORDERED: ??Gross Micro L3/2 ? Diagnosis ?? A. ??Skin, posterior neck mass, excision: ??Epidermal inclusion cyst. ? B. ??Skin, scalp mass, excision: ??Pilar cyst. ?Clinical History Scalp mass x2 ?Microscopic Description Microscopic sections reviewed. ? Material Received ?? A. Posterior neck mass ?? B. Scalp mass ? Gross Description Received in 2 parts. A. ??Received in formalin labeled ?posterior neck mass? is an oval cystic structure measuring 2.8 x 2.5 x 1.6 cm in greatest dimension. ??The outer surface is smooth. ??Sectioning reveals a cavity measuring 2.2 cm in diameter that contains a small amount of friable white keratin material. ??The cyst wall measures 0.1 cm in average thickness. ??The inner lining is smooth and unremarkable. ??Chin St[employer] Maker sections are submitted for microscopic examination, 3 pieces in cassette A. B. ??Received in formalin labeled ?scalp mass? is a rounded cystic structure measuring 2.0 x 2.0 x 1.8 cm in greatest dimension. ??The outer surface is smooth. ??Sectioning reveals a cavity measuring 1.5 cm in diameter that contains a small amount of white, friable keratin material. ??The cyst wall measures 0.1-0.2 cm in average thickness. ??The inner lining is smooth and unremarkable. ??Chin Strap Maker sections are submitted for microscopic examination, 2 pieces in cassette B. ([facility]) Copies To: ?? Amilcar Taylor MD ?? [facility] ?? [address] ?? [place] [address] ?? [phone] ? CONTINUED ON NEXT PAGE ----- ------- Name: Betty Peguero ? Age/Sex: 44/F ? : 1980 Unit#: [id number] ?? Attend Dr: Amilcar Taylor MD ?Re11/25/24 ?Status: DEP [facility] ? Location: HO.SSS ?Disch: ? ----- ------- SPEC : [id number] ? RECD: 11/25/24 ? STATUS: ??SOUT ? REQ NUM: [id number] ? WILY: 11/25/24 ? SUBM DR: Amilcar Taylor MD ? ENTERED: ??11/25/24 ?SP TYPE: Surgical ? OTHR DR: Yudi Mcneil MD ? ORDERED: ??Gross Micro L3/2 ? Copies To: ??(Continued) ?? [email or web address] ?? Yudi Mcneil MD ?? [address] ?? [place] [address] ?? [phone] ----- ------- Signed (signature on file) Kita Morales MD 11/28/24 1551 ? ----- ------- ? END OF REPORT ? us Generic External Data Provider LAB CYTOLOGY ORDE RABNICKY Final Result [facility] [address] [place] [phone] * (ABNORMAL) Drug Monitoring, Panel 1, Screen, Urine (11/25/2024 8:05 AM EDT) Opiate Screen Urine Not Detected Not Detect [facility] Comment:Opiate cut-off is 30 0 ng/mL.Positive results are unconfirmed and should not be used fornon-medical purposes. Barbiturates, Urine Not Detected Not Detect [facility] Comment:Barbiturate cut-off is 200 ng/mL.Positive results are unconfirmed and should not be used fornon-medical purposes. Phencyclidine Screen Urine Not Detected Not Detect [facility] Comment:Phencyclidine cut-of f is 25 ng/mL.Positive results are unconfirmed and should not be used fornon-medical purposes. Amphetamine Screen Urine Not Detected Not Detect [facility] Comment:Amphetamine cut-off is 1000 ng/mL.Positive results are unconfirmed and should not be used fornon-medical purposes. Benzodiazepines Screen Urine Not Detected Not Detect [facility] Comment:Benzodiazepine cut-o ff is 200 ng/mL.Positive results are unconfirmed and should not be used fornon-medical purposes. Cocaine Screen Urine Not Detected Not Detect [facility] Comment:Cocaine cut-off is 3 00 ng/mL.Positive results are unconfirmed and should not be used fornon-medical purposes. Cannabinoid Screen Urine POSITIVE(A) Not Detect [facility] Comment:Cannabinoid cut-off is 50 ng/mL.Positive results are unconfirmed and should not be used fornon-medical purposes. Methadone Screen, Urine Not Detected Not Detect ng/mL [facility] Comment:Methadone cut-off is 300 ng/mL.Positive results are unconfirmed and should not be used fornon-medical purposes. FENTANYL URINE Not Detected Not Detect [facility] Comment:Fentanyl cut-off is 1 ng/mL.Positive results are unconfirmed and should not be used fornon-medical purposes. Oxycodone Urine Screen Not Detected Not Detect ng/mL [facility] Comment:Oxycodone cut-off is 100 ng/mL.Positive results are unconfirmed and should not be used fornon-medical purposes. Buprenorphine Screen Positive(A) Not Detect ng/mL [facility] Comment:Buprenorphine cut-of f is 5 ng/mL.Positive results are unconfirmed and should not be used fornon-medical purposes. 11/25/2024 8:05 AM EDT 11/25/2024 8:24 AM EDT [employer] External Data Provider LAB URINE ORDERAB LES Final Result [facility] [address] [place] [phone] * HCG, Qualitative, Urine (11/25/2024 8:05 AM EDT) Urine NEGATIVE NEGATIVE [facility] Comment:This test was develo ped to detect early . Falsenegative results may occur after the 5th - 7th week ofpregnancy when using this test method. If clinicallyindicated, consider a serum hCG. 11/25/2024 8:05 AM EDT 11/25/2024 8:51 AM EDT us Generic External Data Provider LAB URINE ORDERAB LES Final Result [facility] [address] [place] [address] [phone] * US Abdomen Comp w elastography (10/13/2024 10:06 AM EST) Anatomical Region Laterality Modality Abdomen Ultrasound 10/13/2024 10:0 6 AM EST Narrative 10/13/2024 11:02 AM EST ? [facility] ?[address] ?[place] [address] ? Ultrasound Report ? Signed ? Patient: Clarissaupryminor,Betty ?MR#: [id number] ?? [id number] ? : 1980 ?Acct:[id number] ? Age/Sex: 43 / F ?ADM Date: 10/13/24 ? Loc: HO.US ? Attending Dr: Yudi Mcneil MD ? Ordering Physician: Yudi Mcneil MD ?? Date of Service: 10/13/24 ?? Procedure(s): US abdomen comp w elastography ?? Accession Number(s): [id number] ? cc: Yudi Mcneil MD ? EXAMINATION: ??US ABDOMEN COMPLETE WITH LIVER ELASTOGRAPHY ? HISTORY: 43 yo F with transaminitis and elevated bilirubin, send to [facility] ? TECHNIQUE: Real-time grayscale ultrasound imaging of [...] DD/ 1006 ? TD/TT: 10/13/24 1035 ? Rn Icu: ? Procedure Note Jeff, José Antonio - 10/13/[address] [address] Ultrasound Report Signed Patient: Loreta Peguero#: [id number] : 1980Acct:[id number] Age/Sex: 43 / FADM Date: 10/13/24 Loc: HO.US Attending Dr: Yudi Mcneil MD Ordering Physician: Yudi Mcneil MD Date of Service: 10/13/24 Procedure(s): US abdomen comp w elastography Accession Number(s): [id number] cc: Yudi Mcneil MD EXAMINATION: US ABDOMEN COMPLETE WITH LIVER ELASTOGRAPHY HISTORY: 43 yo F with transaminitis and elevated bilirubin, send to [facility] TECHNIQUE: Real-time grayscale ultrasound imaging of the [...] 10/13/24 1059 DD/ 1006 TD/TT: 10/13/24 1035 Rn Icu: us Yudi Mcneil MD [facility] US PROCEDURES Edited Resu lt - Final * T-SPOT??.TB (09/20/2024 11:13 AM EST) [facility] T Spot TB Negative Negative [facility] Comment:A negative test resu [...] as aquantitative test. TS PANEL A 0 [facility] TS PANEL B 0 [facility] Negative Control Passed [facility] Positive Control Passed [facility] Comment:For additional infor neel, please refer tohttp://education.[employer]/faq/LGZ451(This link is being provided for informational/educational purposes only.)THIS TEST WAS PERFORMED AT:[facility] [id number] [place] [id number] BALBUENA MD,PHD 09/20/2024 11:1 3 AM EST 09/20/2024 1:14 PM EST us Prabhjot Galicia MD LAB BLOOD ORDERABLES Final Res ult [facility] [address] [place] [phone] * Hepatitis C Antibody with Reflex to HCV, RNA, Quantitative, Real-Time PCR (09/20/2024 11:13 AM EST) Hepatitis C Antibody Nonreactive Nonreactive [facility] Comment:Antibodies to HCV no t detected; does not exclude early acuteHCV infection. Blood Venous blood specimen / Unknown 09/20/2024 11:13 AM EST 09/20/2024 1:14 PM EST us Prabhjot Galicia MD LAB BLOOD ORDERABLES Final Res ult Performing Organization Address [facility] de Phone Number [facility] [address] [place] [phone] * Iron And Total Iron Binding Capacity (09/20/2024 11:13 AM EST) Iron 93 30 - 160 mcg/dL [facility] Total Iron Binding Capacity 316 228 - 428 mcg/dL [facility] Percent Iron Saturation 29 15 - 50 % [facility] Unsaturated Iron Binding 223 ug/dL [facility] Blood Venous blood specimen / Unknown 09/20/2024 11:13 AM EST 09/20/2024 1:14 PM EST Yudi Mcneil MD LAB BLOOD ORDERABLES Final Re sult Performing Organization Address [facility] Phone Number [facility] [address] [place] [phone] * Hepatitis A IgM Antibody (09/20/2024 11:13 AM EST) Pathologist [facility] Hepatitis A IgM Nonreactive Nonreactive [facility] Comment:IgM antibodies to JOSHI V not detected; does not exclude earlyacute or recovered HAV infection. Blood Venous blood specimen / Unknown 09/20/2024 11:13 AM EST 09/20/2024 1:14 PM EST Yudi Mcneil MD LAB BLOOD ORDERABLES Final Re sult Performing Organization Address [facility] [facility] Co de Phone Number [facility] [address] [place] [phone] * Hepatitis A Antibody, Total (09/20/2024 11:13 AM EST) Pathologist [facility] Hepatitis A Antibody IgG Nonreactive Nonreactive [facility] Blood Venous blood specimen / Unknown 09/20/2024 11:13 AM EST 09/20/2024 1:14 PM EST Prabhjot Galicia MD LAB BLOOD ORDERABLES Final Res ult Performing Organization Address [facility]/ZIP Co de Phone Number [facility] [address] [place] [phone] * Hepatitis B surface antigen, EIA (09/20/2024 11:13 AM EST) Hepatitis B Surface Ag Negative Negative [facility] Blood Venous blood specimen / Unknown 09/20/2024 11:13 AM EST 09/20/2024 1:14 PM EST Prabhjot Galicia MD LAB BLOOD ORDERABLES Final Res ult Performing Organization Address [facility] Co de Phone Number [facility] [address] [place] [phone] * Hepatitis B Core Antibody, Total (09/20/2024 11:13 AM EST) Hepatitis B Core Antibody Nonreactive Nonreactive [facility] Blood Venous blood specimen / Unknown 09/20/2024 11:13 AM EST 09/20/2024 1:14 PM EST Prabhjot Galicia MD LAB BLOOD ORDERABLES Final Res ult Performing Organization Address [facility] Co de Phone Number [facility] [address] [place] [phone] * RPR (Monitor) with Reflex to??Titer (09/20/2024 11:13 AM EST) RPR (Monitor) w/Refl Titer NON-REACTI VE NON-REACT EARLINE [facility] Comment:THIS TEST WAS PERFOR MED AT:[facility] [place] [phone] SORIANO MD Rapid Plasma Reagin Ab Titer TNP [facility] Blood Venous blood specimen / Unknown 09/20/2024 11:13 AM EST 09/20/2024 1:14 PM EST Prabhjot Galicia MD LAB BLOOD ORDERABLES Final Res ult Performing Organization Address [facility] Co de Phone Number [facility] [address] [place] [phone] * HIV-1/2 Antigen and Antibodies, Fourth Generation, with Reflexes (09/20/2024 11:13 AM EST) Pathologist [facility] HIV AB/AG Nonreactive Nonreactive [facility] Comment:HIV-1 p24 Ag and/or HIV-1/HIV-2 Ab not detected.A test result that is nonreactive does not exclude thepossibility of exposure to or infection with HIV-1 and/orHIV-2. Nonreactive results in this assay for individualswith prior exposure to HIV-1 and/or HIV-2 may be due toantigen and antibody levels that are below the limit ofdetection of this assay.[employer] HIV Ag/Ab Combo assay result andsupplemental assay results should be interpreted inconjunction with the patient's clinical presentation,history and other laboratory results. If the results areinconsistent with clinical evidence, additional testing issuggested to confirm the result. Blood Venous blood specimen / Unknown 09/20/2024 11:13 AM EST 09/20/2024 1:14 PM EST us Prabhjot Galicia MD LAB BLOOD ORDERABLES Final Res ult Performing Organization Address City/[facility] Co de Phone Number [facility] [address] [place] [phone] * Hepatitis B Surface Antibody, Qualitative (09/20/2024 11:13 AM EST) Pathologist [facility] ~Hepatitis B Surface Antibody NONREACTIVE Nonreactive [facility] Comment:Nonreactive: < 8.00 mIU/mL Blood Venous blood specimen / Unknown 09/20/2024 11:13 AM EST 09/20/2024 1:14 PM EST us Yudi Mcneil MD LAB BLOOD ORDERABLES Final Re sult Performing Organization Address [facility]/ZIP Co de Phone Number [facility] [address] [place] [address] [phone] * Partial Thromboplastin Time, Activated (APTT) (09/20/2024 11:13 AM EST) Partial Thromboplastin Time 32.8 26.0 - 36.8 SEC [facility] Comment:For information rega rding the monitoring of direct thrombininhibitors, please refer to Pharmacy. Blood Venous blood specimen / Unknown 09/20/2024 11:13 AM EST 09/20/2024 1:14 PM EST us Yudi Mcneil MD LAB BLOOD ORDERABLES Final Re sult Performing Organization Address [facility] Co de Phone Number [facility] [address] [place] [phone] * (ABNORMAL) Prothrombin Time-INR (09/20/2024 11:13 AM EST) Prothrombin Time 10.8(L) 10.9 - 12.4 SEC [facility] INTERNATIONAL NORM RATIO 0.9 0.9 - 1.1 [facility] Comment:INTERNATIONAL NORMAL IZED RATIO [...] ORDERABLES Final Re sult Performing Organization Address City/[facility]/ZIP Co de Phone Number [facility] [address] [place] [phone] * Hemoglobin A1c (09/20/2024 11:13 AM EST) Pathologist [facility] Hemoglobin A1c 4.6 <6.0 % [facility] Comment:Hemoglobin A1C Refer ence Range Adults: 4.8 - 6.0 % Non diabetic: < 6.0 % Goal: < 7.0 %Additional Action Suggested: > 8.0 %Note: Hemoglobin A1c results are invalid for patients with abnormal amounts of HbF. Blood transfusions may impact the HbA1c concentration in the patient sample. Estimated Average Glucose 85 mg/dL [facility] Comment:eAG = Estimated ave rage glucose which is %A1C expressed asaverage glucose, using the formula of the Y2F-PbrvzqmIzajcgq Glucose study (ADAG), Diabetes Care, Vol.31,#8,Mar. 2007 Blood Venous blood specimen / Unknown 09/20/2024 11:13 AM EST 09/20/2024 1:14 PM EST us Yudi Mcneil MD LAB BLOOD ORDERABLES Final Re sult Performing Organization Address City/[facility]/ZIP Co de Phone Number [facility] [address] [place] [address] [phone] * Ferritin (09/20/2024 11:13 AM EST) Pathologist [facility] Ferritin 221 10 - 250 ng/mL [facility] Blood Venous blood specimen / Unknown 09/20/2024 11:13 AM EST 09/20/2024 1:14 PM EST us Yudi Mcneil MD LAB BLOOD ORDERABLES Final Re sult [facility] [address] [place] [address] [phone] * (ABNORMAL) Comprehensive Metabolic Panel (09/20/2024 11:13 AM EST) Only the most recent of2 resultswithin the time period is included. Pathologist [facility] Sodium 140 135 - 145 mmol/L [facility] Potassium 3.4 3.3 - 5.1 mmol/L [facility] Chloride 104 96 - 108 mmol/L [facility] Carbon Dioxide 29 22 - 29 mmol/L [facility] Anion Gap 10(L) 12 - 20 [facility] Urea Nitrogen (BUN) 21(H) 9 - 16 mg/dL [facility] Creatinine, Serum 0.86 0.5 - 1.4 mg/dL [facility] Estimated Glomerular Filt Rate >60 [facility] Comment:Chronic Kidney Disea se: Estimated GFR < 60 mL/min/1.66a0Oiviya Kidney Disease: Estimated GFR < 15 mL/min/1.73m2 Glucose 134(H) 60 - 115 mg/dL [facility] Calcium 9.3 8.4 - 10.2 mg/dL [facility] Bilirubin, Total 0.6 0.0 - 1.0 mg/dL [facility] Aspartate Amino Transferase 38(H) 5 - 31 U/L [facility] Alanine Aminotransferase 82(H) 0 - 31 U/L [facility] Total Protein 7.6 6.5 - 8.0 g/dL [facility] Albumin Level 4.6 3.5 - 5.0 g/dL [facility] Alkaline Phosphatase 65 39 - 117 U/L [facility] Blood Venous blood specimen / Unknown 09/20/2024 11:13 AM EST 09/20/2024 1:14 PM EST us Yudi Mcneil MD LAB BLOOD ORDERABLES Final Re sult [facility] [address] [place] [phone] * (ABNORMAL) Urinalysis, Complete, with Reflex to Culture (09/12/2024 11:03 AM EST) Color Urine Bradford(A) [facility] Appearance Urine Turbid [facility] PH 5.0 5.0 - 9.0 [facility] Glucose Urine UA Negative Negative mg/dL [facility] Urine Blood Negative Negative [facility] Specific [place] - Urine >=1.030(H) 1.005 - 1.025 [facility] Urine Protein See Note Neg-Trace mg/dL [facility] Comment:Urine pigment obscur ed dipstick results. Urine Ketones Negative Negative mg/dL [facility] Nitrite Urine See Note Negative [facility] Comment:Urine pigment obscur ed dipstick results. Leukocyte Esterase Urine Trace(A) Negative [facility] RBC Urine 0-2 0 - 2 /HPF [facility] Urine WBC 0-5 0 - 5 /HPF [facility] Urine Squamous Epithelial Cell 6-10 0 - 2 /HPF [facility] Other Crystals Urine Present [facility] Comment:Amorphous urates Urine Bacteria 1+ None Seen [facility] Hyaline Casts, Urine 6-10 0 - 2 /LPF [facility] Urine 09/12/2024 11:0 3 AM EST 09/12/2024 1:55 PM EST Narrative [facility] - 09/12/2024 2:18 PM EST [id number], Clean Catch us Yudi Mcneil MD LAB URINE ORDERABLES Final Re sult [facility] [address] [place] [address] [phone] * Vitamin B12 (Cobalamin) and Folate Panel, Serum (09/12/2024 10:56 AM EST) Vitamin B12 501 200 - 900 pg/mL [facility] Comment:NORMAL 200-900 PG/ML INDETERMINATE 160-199 PG/ML DEFICIENT < 160 PG/ML Folate 13.2 > or = 4.0 ng/mL [facility] Comment:Reference Values:> o r = 4.0 ng/mL< 4.0 ng/mL suggests folate deficiency Methotrexate, aminopterin and folinic acid(leucovorin) are chemotherapeutic agents whose molecularstructures are similar to folate; therefore, the Architectfolate assay cannot be used for patients using these drugs. Blood Venous blood specimen / Unknown 09/12/2024 10:56 AM EST 09/12/2024 1:56 PM EST Yudi Mcneil MD LAB BLOOD ORDERABLES Final Re sult Performing Organization Address [facility] Co de Phone Number [facility] [address] [place] [address] [phone] * TSH W/Reflex to FT4 (09/12/2024 10:56 AM EST) Pathologist [facility] TSH reflex Free T4 3.92 0.32 - 4.0 uIU/mL [facility] Blood Venous blood specimen / Unknown 09/12/2024 10:56 AM EST 09/12/2024 1:56 PM EST us Yudi Mcneil MD LAB BLOOD ORDERABLES Final Re sult Performing Organization Address [facility] de Phone Number [facility] [address] [place] [address] [phone] * (ABNORMAL) CBC auto differential (09/12/2024 10:56 AM EST) White Blood Count 12.9(H) 4.8 - 10.8 X10*3/uL [facility] Red Blood Count 5.12 4.20 - 5.50 X10*6/uL [facility] Hemoglobin 17.1(H) 12.0 - 16.0 g/dl [facility] Hematocrit 47.3(H) 37.0 - 47.0 % [facility] Mean Corpuscular Volume 92.4 80.0 - 98.0 fL [facility] Mean Corpuscular Hemoglobin 33.4(H) 27.0 - 33.0 pg [facility] Mean Corpuscular HGB Conc 36.2(H) 31.0 - 35.0 g/dl [facility] Red Cell Distribution Width 12.0 11.0 - 16.0 % [facility] Platelet Count 262 160 - 400 X10*3/uL [facility] Mean Platelet Volume 11.8 9.4 - 12.3 fL [facility] Neutrophils Percent Auto 68.2 45 - 73 % [facility] Imm Gran Pct Auto 0.4 0.0 - 0.4 % [facility] Lymphocytes Percent Auto 21.5 20 - 40 % [facility] Monocytes Percent Auto 8.7 2 - 11 % [facility] Eosinophils Percent Auto 0.7 0 - 4 % [facility] Basophils Percent Auto 0.5 0 - 2 % [facility] NRBC Pct Auto 0.0 0.0 - 0.2 /100WBC [facility] Neutrophils Absolute Auto 8.8(H) 2.0 - 8.3 x10*3/uL [facility] Imm Gran Abs Auto 0.05(H) 0.00 - 0.03 X10*3/uL [facility] Lymphocytes Absolute Auto 2.8 1.2 - 4.9 X10*3/uL [facility] Monocytes Absolute Auto 1.1 0.1 - 1.2 X10*3/uL [facility] Eosinophils Absolute Auto 0.1 0.0 - 0.4 X10*3/uL [facility] Basophils Absolute Auto 0.1 0.0 - 0.2 X10*3/uL [facility] NRBC Abs Auto 0.000 0.0 - 0.012 X10*3/uL [facility] Blood Venous blood specimen / Unknown 09/12/2024 10:56 AM EST 09/12/2024 1:56 PM EST us Yudi Mcneil MD LAB BLOOD ORDERABLES Final Re sult [facility] [address] [place] [phone] * (ABNORMAL) Lipid Panel, Standard (09/12/2024 10:56 AM EST) Triglycerides 272(H) <150 mg/dL [facility] Comment:Desirable Triglyceri de: less than 150 mg/dLBorderline High Triglyceride 150-199 mg/dLHigh Triglyceride: 200-499 mg/dLVery High Triglyceride: greater than or equal to 5OO mg/dL Cholesterol 187 <200 mg/dL [facility] Comment:Desirable Cholestero l: less than 200 mg/dLBorderline High Cholesterol: 200-239 mg/dLHigh Cholesterol: greater than 239 mg/dL LDL Cholesterol Calculated 71 <100 mg/dL [facility] Comment:Desirable LDL: less than 100 mg/dLNear Optimal/Above Optimal LDL: 110- 129 mg/dLBorderline High LDL: 130-159 mg/dLHigh LDL: 160-189 mg/dLVery High LDL: greater than or equal to 190 mg/dL HDL Cholesterol 62 >40 mg/dL [facility] Comment:Desirable HDL: great er than 40 mg/dL Note: This HDL assay may give artificially low results in patients with liver disease. Blood Venous blood specimen / Unknown 09/12/2024 10:56 AM EST 09/12/2024 1:56 PM EST us Yudi Mcneil MD LAB BLOOD ORDERABLES Final Re sult [facility] [address] [place] [phone] from Last 3 Months [id number] Care Teams Body Make Up Artist Relationship Specialty Start Date End Date Yudi Mcneil MD [address] [place] [phone] PCP - General Family Medicine 09/12/24 Maryanne Diamond [address] [place] [phone] Licensed Mental Health Counselor Behavioral Health 05/02/24
--- OUTSIDE RECORDS SUMMARY | 2024-12-07 08:56 | XMS_ITS | Encounter Summary ---
Author Organization [employer] Address [address] [facility] [address]t [place] [address] Care Team Providers Care Hospitality Intern Name Role Phone Yudi Mcneil MD Primary Care Provider [phone] Encounter Details Date Type Department Care Team (Latest Contact Info) Description 12/06/2024 Travel Social History Tobacco Use Types Packs/Day [...] Description 12/20/2024 9:00 AM EDT Office Visit [facility] [address] [place] [address] Prabhjot Galicia MD [address] [place] [address] documented as of this encounter Visit Diagnoses Not on filedocumented in this encounter Additional Health Concerns Assessment Noted Time PHQ-9 Depression Total Score: 4 12/07/19 25 10:33 AM EDT documented as of this encounter Care Teams Hospitality Intern Relationship Specialty Start Date End Date Yudi Mcneil MD [address] [place] [address] PCP - General Family Medicine 09/12/24 Maryanne Diamond [address] [place] [phone] Licensed Mental Health Counselor Behavioral Health 05/02/24 documented as of this encounter
--- OUTSIDE RECORDS SUMMARY | 2024-12-07 08:56 | XMS_ITS | Encounter Summary ---
Author Organization [employer] Address [address] [facility] [address] [place] [address] Care Team Providers Care Manufactured Buildings Repairer Name Role Phone Yudi Mcneil MD Primary Care Provider [phone] Encounter Details Date Type Department Care Team (Late st Contact Info) Description 12/06/2024 Telephone [facility] [address] [place], [place] [phone] Prabhjot Galicia MD [address] [place], [place] [phone] Social History Tobacco Use Types Packs/Day Years [...] the past 12 months, has t he [employer], gas, oil or water company threatened to [...] encounter Miscellaneous Notes * Telephone Encounter - Prabhjot Galicia MD - 12/06/2024 1:06 PM EDT To send Rx refills. PCP on maternity leave. documented in this encounter Plan of Treatment Upcoming Encounters Date Type Department Care Team ([facility] st Contact Info) Description 12/20/2024 9:00 AM EDT Office Visit [facility] [address] [place] [address] Prabhjot Galicia MD [address] [place] [address] documented as of this encounter Visit Diagnoses Not on filedocumented in this encounter Additional Health Concerns Assessment Noted Time PHQ-9 Depression Total Score: 4 12/07/19 25 10:33 AM EDT documented as of this encounter Care Teams Manufactured Buildings Repairer Relationship Specialty Start Date End Date Yudi Mcneil MD [address] [place] [phone] PCP - General Family Medicine 09/12/24 Maryanne Diamond [address] [place] [address] Licensed Mental Health Counselor Behavioral Health 05/02/24 documented as of this encounter
--- OUTSIDE RECORDS SUMMARY | 2024-12-07 08:56 | XMS_ITS | Encounter Summary ---
Author Organization [employer] Address [address] [facility] [address]t [place] [address] Care Team Providers Care Medical Office Rep Name Role Phone Yudi Mcneil MD Primary Care Provider [phone] Encounter Details Date Type Department Care Team (Late st Contact Info) Description 11/29/2024 Refill [facility] [address] [place] [address] Hailey Stinson, UNRULY [address] [place] [address] Uncomplicated opioid use Social History Tobacco Use [...] Description 12/20/2024 9:00 AM EDT Office Visit [facility] [address] [place] [address] Prabhjot Galicia MD [address] [place] [address] documented as of this encounter Visit Diagnoses Diagnosis Uncomplicated opioid use documented in this encounter Additional Health Concerns Assessment Noted Time PHQ-9 Depression Total Score: 15 025 9:38 AM EST documented as of this encounter Care Teams Medical Office Rep Relationship Specialty Start Date End Date Yudi Mcneil MD [address] [place] [address] PCP - General Family Medicine 09/12/24 Maryanne Diamond [address] [place] [phone] Licensed Mental Health Counselor Behavioral Health 05/02/24 documented as of this encounter
== END 2024-12-07 09:08 | disposition home or self-care (01) ==
LOC: HO.HGS 08:39
PROVIDERS: PCP Family Medicine; Visit Provider Surgery
DX: Z48.89 Encounter for other specified surgical aftercare (principal)
CPT/HCPCS: 99024

== ENCOUNTER → 2024-12-07 08:38 | Outpatient (BNVA) | payer MEDICAID, SELFPAY | PROVIDERS: PCP Family Medicine; Visit Provider Surgery | DX: Z48.1 Encounter for planned postprocedural wound closure (principal); Z98.890 Other specified postprocedural states | CPT/HCPCS: 99212 ==

== ENCOUNTER 2025-06-06 14:13 | Outpatient (REF) | payer MEDICAID, SELFPAY ==
--- OUTSIDE RECORDS SUMMARY | 2025-06-06 10:00 | XMS_ITS | Encounter Summary ---
Author Organization [employer] Address [address] [place] [address] [address] [place] [address] Care Team Providers Care Outpatient Coding Specialist Name Role Phone Yudi Mcneil MD Primary Care Provider [phone] Reason for Visit * Reason Comments Cervical Cancer Screening Encounter Details Date Type Department Care Team (Latest Contact Info) Description 06/06/2025 10:00 AM EDT Procedure Visit [facility] PEDS [address] [place], [place] [phone] Yudi Mcneil MD [address] [place] [address] Cervical cancer screening (Primary Dx); Primary hypertension; Encounter for immunization Social History Tobacco Use Types Packs/Day Years Used Date Smoking Tobacco: Every Day Cigarettes Passive Smoke Exposure: Current Smokeless Tobacco: Never Alcohol Use Standard Drinks/Week Comments Yes 0 (1 standard drink = 0.6 oz pur e alcohol) Social irregular use Depression Answer Date Recorded Patient Health Questionnaire-9 Score 15 05/29/2025 Patient Health Questionnaire-9 Score 15 05/29/2025 Last PHQ-9: Questionnaire Data Not on file 0 05/29/2025 Housing Stability Answer Date Recorded What is [...] Answer Date Recorded Patient Health Questionnaire-2 Score 3 05/29/2025 Internet Access Answer Date Recorded Internet Access Q1 Yes 10/03/2024 Internet Access Q2 Not on file 10/03/2024 Comments No Sex and Gender Information Value Date Recorded Sex Assigned at Female 06/30/2022 10:25 AM EDT Legal Sex Female 10:25 AM EDT Gender Identity Female 06/30/2022 10:25 AM EDT Sexual Orientation Straight 06/30/2022 10 :25 AM EDT documented as of this encounter Last Filed Vital Signs Vital Sign Reading Time Taken Comments Blood Pressure 150/100 06/06/2025 9:41 AM EDT Pulse 80 06/06/2025 9:41 AM EDT Temperature 37.1 C (98.7 F) 06/06/2025 9:41 AM EDT Respiratory Rate 20 06/06/2025 9:41 AM EDT Oxygen Saturation 98% 06/06/2025 9:41 AM EDT Inhaled Oxygen Concentration - - Weight 102 kg (225 lb 12.8 oz) 06/06/2025 9:41 A M EDT Height 164 cm (5' 4.57 ) 06/06/2025 9:41 AM EDT Body Mass Index 38.08 06/06/2025 9:41 AM EDT documented in this encounter Progress Notes * Yudi Mcneil MD - 06/06/2025 10:00 AM EDT Images from the original note were not included. Subjective Patient ID: Betty Peguero is a 44 y.o. female who presents for Cervical Cancer Screening. Kendal Peguero is a postmenopausal female with a history of hypertension and anxiety presenting for follow-up on blood pressure management and medication adjustments. Her blood pressure has improved from 198/100 at the last visit to 190/150 with the addition of clonidine, though it remains elevated. She reports significant side effects from her current medication regimen. She experienced excessivesleepiness with the 50mg dose of clonidine, sleeping for 19 hours over two days, which interfered with her daily activities. Additionally, she describes feeling angry, irritated, and snapping at people throughout the week. Her anxiety is described as being through the roof. She denies any side effects from amlodipine, such as leg swelling or flushing, noting that any swelling predated her useof this medication. Regarding her scalp condition, she was prescribed econazole for a presumed fungal infection, but she reports difficulty obtaining the medication. She did not receive her prescriptions until the Thursday before the visit. Her gynecological history is significant, with 22 reported pregnancies resulting in one live .She mentions a history of all the time abnormal pap smears and confirms being postmenopausal for approximately four years. Medical History - Hypertension, poorly controlled - Anxiety disorder - History of abnormal pap smears - Postmenopausal since approximately 2020 - History of 22 pregnancies with one live Medications and Supplements - Clonidine 50 mg - Helped lower blood pressure from 190 to 150 - Side effects: excessive sleepiness, slept 19 hours for 2 days - Caused anger, irritation, snapping at people, increased anxiety - Amlodipine - No side effects of leg swelling or flushing - Econazole - Prescribed for fungal issue, but patient unable to obtain it - Fluocinonide - For scalp - Recently started, received on Thursday Social History - Reproductive History: 22 pregnancies, one live - Menstrual Status: Postmenopausal, last menstrual period approximately 4 years ago Immunizations - Tetanus: Patient is due for a tetanus shot - Pneumococcal: Patient is missing the pneumonia shot - Tdap: Administered during this visit Review of Systems General: Positive for irritability. Cardiovascular: Negative for leg swelling. Psychiatric: Positive for anxiety, anger. Review of Systems Constitutional: Negative for appetite change, fatigue and fever. HENT: Negative for congestion, postnasal drip and rhinorrhea. Eyes: Negative for discharge and redness. Respiratory: Negative for apnea, cough, chest tightness and shortness of breath. Cardiovascular: Negative for chest pain. Gastrointestinal: Negative for abdominal pain. Endocrine: Negative for polyphagia. Genitourinary: Negative for difficulty urinating, dysuria and urgency. Musculoskeletal: Negative for arthralgias. Neurological: Negative for dizziness, light-headedness, numbness and headaches. Hematological: Negative for adenopathy. Does not bruise/bleed easily. Objective BP (!) 150/100 Pulse 80 Temp 98.7 ??F (37.1 ??C) (Oral) Resp 20 Ht 5' 4.57 (1.64 m) Wt 225 lb 12.8 oz (102 kg) LMP 08/31/2020 (Approximate) SpO2 98% BMI 38.08 kg/m?? Physical Exam Vitals reviewed. Exam conducted with a set up inspector present. HENT: Head: Normocephalic and atraumatic. Pulmonary: Effort: Pulmonary effort is normal. Chest: Chest wall: No deformity, tenderness or crepitus. Breasts: Breasts are symmetrical. Right: Normal. No inverted nipple, mass, nipple discharge, skin change or tenderness. Left: Normal. No inverted nipple, mass, nipple discharge, skin change or tenderness. Genitourinary: Urethra: No prolapse. Vagina: Normal. Cervix: Normal. Rectum: Normal. Comments: Skin tag Musculoskeletal: Cervical back: Normal range of motion. Lymphadenopathy: Upper Body: Right upper body: No supraclavicular, axillary or pectoral adenopathy. Left upper body: No supraclavicular, axillary or pectoral adenopathy. Psychiatric: Mood and Affect: Mood normal. Assessment/Plan Problem List Items Addressed This Visit Primary hypertension Relevant Medications amLODIPine (Norvasc) 10 MG tablet Cervical cancer screening - Primary Relevant Orders Pap Smear HPV High Risk with Reflex to Subtypes Other Visit Diagnoses Encounter for immunization Relevant Orders TDAP VACCINE 7 yrs + Future Appointments Date Time Provider Department Center 07/04/2025 9:00 AM Prabhjot Galicia MD MEDICINE [facility] 07/13/2025 11:15 AM Yudi Mcneil MD [facility] Kendal Peguero is a postmenopausal female with a history of hypertension, anxiety, and abnormal pap smears presenting for follow-up on blood pressure management and medication adjustments. Hypertension Assessment: Patient's blood pressure has improved from 198/100 to 150/190 with the addition of clonidine. However, the patient reports significant side effects, including excessive sleepiness, with the current clonidine dosage. Amlodipine has been well-tolerated without notable side effects such asleg swelling or flushing. Plan: - Increase amlodipine to 10 mg - If blood pressure remains uncontrolled, consider increasing clonidine dosage - Follow-up appointment scheduled for July 28 (in-person) or (phone) to reassess blood pressure control Anxiety Assessment: Patient reports increased irritability, anger, and anxiety. Previous trial of Seroquel resulted in excessive sedation. Awaiting psychiatry appointment in July. Plan: - Start BuSpar twice daily for anxiety management - Sent prescription to [facility] pharmacy - Continue with scheduled psychiatry appointment in July Scalp condition (presumed fungal) Assessment: Patient reports a scalp condition, previously treated with econazole, which was unavailable. Fluocinonide was prescribed as an alternative. Plan: - Prescribe fluocinonide for scalp application - Sent prescription to on-site pharmacy Preventive care Assessment: Patient is postmenopausal with last menstrual period approximately 4 years ago (estimated 08/31/2020). History of multiple abnormal pap smears. Due for tetanus and pneumonia vaccinations. Plan: - Perform breast exam and pap smear - Administer Tdap vaccine - Discuss pneumonia vaccine at future visit - If pap smear is normal, schedule next pap in 5 years; if abnormal, discuss further management documented in this encounter Miscellaneous Notes * Assessment & Plan Note - Yudi Mcneil MD - 06/06/2025 10:27 AM EDT Associated Problem(s): Cervical cancer screening 44 y.o. here for cervical cancer screening. Will continue monitoring following ASCCP guidelines. documented in this encounter Plan of Treatment Upcoming Encounters Date Type Department Care Team (Late st Contact Info) Description 07/04/2025 9:00 AM EST Office Visit [facility] MEDICINE [address] [place] [address] Prabhjot Galicia MD [address] [place] [address] 07/13/2025 11:15 AM EST Office Visit [facility] MED [facility] PEDS [address] [place] [address] Yudi Mcneil MD [address] [place] [address] Scheduled Orders Name Type Priority Associated Diagnoses Orde r Schedule Pap Smear Pathology and Cytology Routine Cervical cancer screening Ordered: 06/06/2025 HPV High Risk with Reflex to Subtypes Lab Routine Cervical cancer screening Ordered: 06/06/2025 documented as of this encounter Visit Diagnoses Diagnosis Cervical cancer screening- Primary Screening for malignant neoplasm of the cervix Primary hypertension Unspecified essential hypertension Encounter for immunization documented in this encounter Additional Health Concerns Assessment Noted Time PHQ-9 Depression Total Score: 15 05/29/ 025 11:02 AM EDT documented as of this encounter Care Teams Outpatient Coding Specialist Relationship Specialty Start Date End Date Yudi Mcneil MD [address] [place] [address] PCP - General Family Medicine 09/12/24 Maryanne Diamond [address] [place] [address] Licensed Mental Health Counselor Behavioral Health 05/02/24 documented as of this encounter
--- OUTSIDE RECORDS SUMMARY | 2025-06-06 17:28 | XMS_ITS | Clinical Summary ---
Author Organization [facility] Address [address] [place] [address] Care Team Providers Care Musician Instrumental Name Role Phone Unavailable Primary Care Provider Unavailabl e Source Comments PLEASE NOTE, if this patient is a minor, it may be UNLAWFUL to discuss sensitive information that is contained in these records (such as FAMILY PLANNING, MENTAL HEALTH or SUBSTANCE ABUSE) with the minor patient's parent or other person without the patient's specific authorization.[facility] Social History Tobacco Use Types Packs/Day Years Used Date Smoking Tobacco: Never Assessed Comments Unknown Sex and Gender Information Value Date Recorded Sex Assigned at Female 05/25/2025 4:17 PM PDT Legal Sex Female 4:17 PM PDT Gender Identity Female 05/25/2025 4:17 PM PDT Sexual Orientation Not on file Plan of Treatment Upcoming Encounters Date Type Department Care Team (Late Contact Info) Description 07/25/2025 1:00 PM EST Behavioral Health Visit [facility] [address] [place] [address] JAKOB FREY [phone] Nathan Villa, [facility] [address] [facility] JAKOB Frey [phone] Health Maintenance Due Date Last Done Comments Anxiety Screening 1981 Diabetes Screening 1981 HPV Screening 1981 Hepatitis C Screening 1981 Lipid Screening 1981 Pap + HPV 1981 Tobacco Screening 1981 Relationship Safety Screening/Counseling 1996 Hypertension Screening (#1) 11/02/1999 Imm-DTaP/Tdap/Td (1 - Tdap) 2000 Cervical Cancer Screening 2002 Pap Smear 2002 Imm-HPV (1 - 3-dose SCDM series) 2008 Breast Cancer Screening (Mammogram) 2021 Alcohol and Drug Screen 08/31/2024 Depression Annual Screen 08/31/2024 [id number] ( season) 2025 Imm-Influenza (#1) 2025 07/02/2015, 10/30/2014 HIV Screening Completed 09/20/2024 Imm-Hepatitis B Completed 02/14/2025, 11/08/2024 Cervical Ablation/Cold-Knife Conization Discontinued Cervical Cryotherapy Discontinued Colposcopy Discontinued Endometrial Biopsy Discontinued Excision/Leep Discontinued HPV Genotyping Discontinued Vaginal Pap Discontinued Vulvoscopy Discontinued Insurance [facility] [place] [address]
--- OUTSIDE RECORDS SUMMARY | 2025-06-06 17:28 | XMS_ITS | Encounter Summary ---
Author Organization [employer] Address [address] [facility] [address] [place] [address] Care Team Providers Care Watermaster Name Role Phone Yudi Mcneil MD Primary Care Provider [phone] Encounter Details Date Type Department Care Team ([facility] st Contact Info) Description 06/05/2025 Telephone [facility] [address] [place] [address] Yudi Mcneil MD [address] [place] [address] Social History Tobacco Use Types Packs/Day Years [...] with others, in a hotel, in a senior living, living outside on the street, on a [...] encounter Miscellaneous Notes * Telephone Encounter - Yudi Mcneil MD - 06/06/2025 9:46 AM EDT Note, signed * Telephone Encounter - Suyapa Madden - 06/05/2025 5:[address]T Good afternoon Dr. Mcneil, please sign chart notes of 05/29 in order to proceed with referral. Thank you. documented in this encounter Plan of Treatment Upcoming Encounters Date Type Department Care Team (Late st Contact Info) Description 07/04/2025 9:00 AM EST Office Visit [facility] MEDICINE [address] [place] [address] Prabhjot Galicia MD [address] [place] [address] 07/13/2025 11:15 AM EST Office Visit [facility] MED & PEDS [address] [place] [address] Yudi Mcneil MD [address] [place] [address] documented as of this encounter Visit Diagnoses Not on filedocumented in this encounter Additional Health Concerns Assessment Noted Time PHQ-9 Depression Total Score: 15 025 11:02 AM EDT documented as of this encounter Care Teams Watermaster Relationship Specialty Start Date End Date Yudi Mcneil MD [address] [place] [address] PCP - General Family Medicine 09/12/24 Maryanne Diamond [address] [place] [address] Licensed Mental Health Counselor Behavioral Health 05/02/24 documented as of this encounter
--- OUTSIDE RECORDS SUMMARY | 2025-06-06 17:28 | XMS_ITS | Encounter Summary ---
Author Organization [email or web address] Address [address] [facility] 7t [place] [address] Care Team Providers Care Loan Officer Name Role Phone Yudi Mcneil MD Primary Care Provider [phone] Encounter Details Date Type Department Care Team ([facility] Contact Info) Description 06/06/2025 Telephone [facility] CHC MED & PEDS [address] [place], [place] [phone] Yudi Mcneil MD [address] [place] [address] Social History Tobacco Use Types Packs/Day Years [...] encounter Miscellaneous Notes * Telephone Encounter - eKndal Osorio RN - 06/06/2025 10:42 AM EDT TC to pt to clarify which [facility]. [facility] [address] [facility] [place]. Advised will reach out to pharmacy to ensure it is in stock or it or alternative recommended.Pt verbalized understanding and agreement with plan. [facility] [address]: [facility] 60 ml bottles in stock. * Telephone Encounter - Kendal Osorio RN - 06/06/2025 10:38 AM EDT Pt approached [facility] and stated that medication for scalp is not present in [facility] pharmacy and is [facility]. Pt unable to stay due to transportation after giving message to [facility]. documented in this encounter Plan of Treatment Upcoming Encounters Date Type Department Care Team (Late st Contact Info) Description 07/04/2025 9:00 AM EST Office Visit [facility] MEDICINE [address] [place] [address] Prabhjot Galicia MD [address] [place] [address] 07/13/2025 11:15 AM EST Office Visit [facility] MED & PEDS [address] [place] [address] Yudi Mcneil MD [address] [place] [address] documented as of this encounter Visit Diagnoses Diagnosis Pilar cyst of scalp documented in this encounter Additional Health Concerns Assessment Noted Time PHQ-9 Depression Total Score: 15 025 11:02 AM EDT documented as of this encounter Care Teams Loan Officer Relationship Specialty Start Date End Date Yudi Mcneil MD [address] [place] [address] PCP - General Family Medicine 09/12/24 Maryanne Diamond [address] [place] [id number] Licensed Mental Health Counselor Behavioral Health 05/02/24 documented as of this encounter
--- OUTSIDE RECORDS SUMMARY | 2025-06-06 17:28 | XMS_ITS | Encounter Summary ---
Author Organization [employer] Address [address] [facility] [address] [place] [address] Care Team Providers Care Provider Enrollment Specialist Name Role Phone Yudi Mcneil MD Primary Care Provider [phone] Reason for Visit * Reason Comments Med Refill Encounter Details Date Type Department Care Team ([facility] Contact Info) Description 04/06/[address] [facility] MEDICINE [address] [place], [place] [phone] Prabhjot Galicia MD [address] [place] [address] Tobacco use disorder Social History Tobacco Use [...] the past 12 months, has t he [employer] [place], gas, oil or water [employer] threatened to shut off services in your [...] 9:00 AM EST Office Visit [facility] MEDICINE [address] [place] [address] Prabhjot Galicia MD [address] [place] [address] 07/13/2025 11:15 AM EST Office Visit [facility] CHC MED & PEDS [address] [place] [address] Yudi Mcneil MD [address] [place] [address] documented as of this encounter Visit Diagnoses Diagnosis Tobacco use disorder documented in this encounter Additional Health Concerns Assessment Noted Time PHQ-9 Depression Total Score: 4 12/07/19 25 10:33 AM EDT documented as of this encounter Care Teams Provider Enrollment Specialist Relationship Specialty Start Date End Date Yudi Mcneil MD [address] [place] [address] PCP - General Family Medicine 09/12/24 Maryanne Diamond [address] [place] [address] Licensed Mental Health Counselor Behavioral Health 05/02/24 documented as of this encounter
--- OUTSIDE RECORDS SUMMARY | 2025-06-06 17:28 | XMS_ITS | Clinical Summary ---
Author Organization [employer] Address [address] [facility] 7 [place] [address] Care Team Providers Care Supply Requirements Officer Name Role Phone Yudi Mcneil MD Primary Care Provider [phone] Allergies Active Allergy Reactions Criticality Noted Date Comments Penicillins Hives,Anaphylaxis High 09/29/2014 Progesterone Anaphylaxis High 09/29/2014 Medications * This document contains information received from the source organization and may not represent a complete record from that organization. ketoconazole (NIZOral) 2 % shampooIndicat ions:Androgene tic alopecia Apply topically 2 (two) times a week. 120 mL 11 10/06/19 25 Active hydroCHLOROthi azide 12.5 MG tablet TAKE 1 TABLET (12.5 MG) BY MOUTH ONCE PER DAY. 90 tablet 03/15/20 25 Active levothyroxine (Synthroid, Levoxyl) 50 MCG tablet TAKE 1 TABLET (50 MCG) BY MOUTH BEFORE BREAKFAST. 90 tablet 03/15/20 25 025 Active buprenorphine- naloxone (Suboxone) 2-0.5 MG per sublingual filmIndication s:Uncomplicate d opioid use Place 1 Film under the tongue Once per day for 16 days. Take as directed. 8 Film 1 05/09/20 25 Active QUEtiapine (SEROquel) 200 MG tabletIndicati ons:Anxiety,In somnia due to other mental disorder Take 1 tablet (200 mg) by mouth at bedtime. 30 tablet 2 05/29/20 25 Active cloNIDine (Catapres) 0.1 MG tablet Take 1 tablet (0.1 mg) by mouth at bedtime. 90 tablet 1 05/29/20 25 Active buPROPion SR (Wellbutrin SR) 150 MG 12 hr tablet Take 1 tablet (150 mg) by mouth 2 times daily. Do not crush, chew, or split. 180 tablet 1 05/29/20 25 Active busPIRone (Buspar) 5 MG tablet Take 1 tablet (5 mg) by mouth 2 times daily. 60 tablet 1 06/06/20 25 Active amLODIPine (Norvasc) 10 MG tablet Take 1 tablet (10 mg) by mouth Once per day. 90 tablet 1 06/06/20 25 Active fluocinonide (Lidex) 0.05 % external solutionIndica tions:Pilar cyst of scalp Apply topically 2 times daily. 60 mL 2 06/06/20 25 Active buPROPion SR (Wellbutrin SR) 150 MG 12 hr tablet TAKE 1 TABLET (150 MG) BY MOUTH ONCE PER DAY. DO NOT CRUSH, CHEW, OR SPLIT. 90 tablet 03/15/20 025 Discontinued(Re order (will not trigger notification to Pharmacy)) amLODIPine (Norvasc) 5 MG tablet TAKE 1 TABLET BY MOUTH EVERY DAY 90 tablet 03/15/20 25 025 Discontinued(In effective) varenicline (Chantix) 0.5 MG tabletIndicati ons:Tobacco use disorder 1 tablet PO x 3 days, then 1 pill PO BID x 4 days. Take with full glass of water. Take these before 1 mg tabs. Start 1 week before quit date. 11 tablet 03/17/20 025 Discontinued( erapy completed) varenicline (Chantix) 1 MG tabletIndicati ons:Tobacco use disorder Take 1 tablet (1 mg) by mouth 2 times daily. Take with full glass of water. Start after 0.5 mg tabs 84 tablet 1 03/17/20 025 Discontinued(Si de effects) hydrOXYzine pamoate (Vistaril) 25 MG capsule Take 1 capsule (25 mg) by mouth every 6 (six) hours if needed for anxiety. 90 capsule 04/06/20 25 025 Discontinued( erapy completed) doxepin (SINEquan) 10 MG capsule TAKE 1 CAPSULE BY MOUTH AT BEDTIME 90 capsule 1 04/06/20 25 025 Discontinued( erapy completed) buprenorphine- naloxone (Suboxone) 2-0.5 MG per sublingual filmIndication s:Uncomplicate d opioid use Place 1 Film under the tongue Once per day for 8 days. Take as directed. 8 Film 04/25/20 25 025 Discontinued(Re order (will not trigger notification to Pharmacy)) QUEtiapine (SEROquel) 50 MG tabletIndicati ons:Anxiety Take 1 tablet (50 mg) by mouth in the morning. 30 tablet 2 05/29/20 25 025 Discontinued(Si de effects) fluocinonide (Lidex) 0.05 % external solution Apply topically 2 times daily. 60 mL 2 05/29/20 25 025 Discontinued(Re order (will not trigger notification to Pharmacy)) carbamide peroxide (Debrox) 6.5 % otic solution Administer 3-5 drops into affected ear(s) 2 times daily for 4 days. 15 mL 05/29/20 25 025 amLODIPine (Norvasc) 10 MG tablet Take 1 tablet (10 mg) by mouth Once per day. 90 tablet 1 06/06/20 25 025 Discontinued(Re order (will not trigger notification to Pharmacy)) fluocinonide (Lidex) 0.05 % external solution Apply topically 2 times daily. 60 mL 2 06/06/20 25 025 Discontinued(Re order (will not trigger notification to Pharmacy)) Hospital, Clinic, or Other Facility Administered Medication Ordered Dose Route Frequency Start Date End Date Status cloNIDine (Catapres) tablet 0.1 mgIndications:Primary hypertension 0.1 mg PO Once 05/29/2025 05/29/2025 Ended Active Problems Problem Noted Date Diagnosed Date Cervical cancer screening 06/06/2025 Assessment & Plan (06/06/2025 10:27 AM EDT): 44 y.o. here for cervical cancer screening. Will continue monitoring following ASCCP guidelines. Nail abnormalities 05/29/2025 Pilar cyst of scalp 10/04/2024 Primary hypertension 09/12/2024 Assessment & Plan (09/12/2024 10:38 AM EST): Ordering lab work for further evaluation. Follow up on 10/03 with nurse and BP readings. Discussed medications and refills as needed. Moderate episode of recurren t major depressive disorder (CMS/HCC) 09/12/2024 Assessment & Plan (09/12/2024 10:36 AM [...] & Plan (09/12/2024 10:37 AM EST): Called [facility] for further evaluation. Encounters * This document contains information received from the source organization and may not represent a complete record from that organization. Date Type Department Care Team Description 06/06/2025 10:00 AM EDT Procedure Visit [facility] [address] [place] [address] Yudi Mcneil MD Cervical cancer screening (Primary Dx); Primary hypertension; Encounter for immunization 06/06/2025 Telephone [facility] [address] [place] [address] Yudi Mcneil MD 06/06/2025 Travel 06/05/2025 Telephone [facility] [address] [place] [phone] Yudi Mcneil MD 05/29/2025 11:00 AM EDT Office Visit [facility] [address] [place] [address] Yudi Mcneil MD Anxiety (Primary Dx); Insomnia due to other mental disorder; Primary hypertension; Rash; Encounter for immunization; Breast cancer screening by mammogram; Nail abnormalities 05/29/2025 Patient Outreach [facility] [address] [place] [phone] [facility] 05/29/2025 Telephone [facility] [address] [place] [address] Yudi Mcneil MD 05/29/2025 Travel 05/26/2025 Telephone [facility] [address] [place] [address] Yudi Mcneil MD chart prep 05/22/2025 Patient Outreach [facility] [address] [place] [address] Yudi Mcneil MD Pre-visit Planning (SDOH screening completed on 10/03/24 ) 05/09/2025 9:00 AM EDT Office Visit [address] [address] Prabhjot Galicia MD Opioid use, unspecified, uncomplicated (Primary Dx); Tobacco use disorder 05/09/2025 Travel 05/09/2025 Refill [facility] [address] [place] [address] Francisca Rosado RN Uncomplicated opioid use 04/24/2025 Refill [facility] [address] [place] [address] Francisca Rosado, UNRULY Uncomplicated opioid use 04/11/2025 9:45 AM EDT Clinical Support [address] [address] Francisca Rosado, RN Uncomplicated opioid use 04/11/2025 Patient Outreach [facility] [address] [place] [address] [facility] 04/11/2025 Travel 04/06/2025 Refill [facility] [address] [place] [address] Yudi Mcneil MD 04/06/2025 Refill [facility] [address] [place] [address] Prabhjot Galicia MD Tobacco use disorder 04/06/2025 Refill [facility] [address] [place] [address] Yudi Mcneil MD 04/05/2025 Refill [facility] [address] [place] [address] Francisca Rosado, UNRULY Uncomplicated opioid use 04/05/2025 Refill [facility] [address] [place] [address] Francisca Rosado RN Uncomplicated opioid use 03/17/2025 Telephone [facility] [address] [place] [address] Prabhjot Galicia MD 03/17/2025 Refill [facility] [address] [place] [address] Francisca Rosado RN Uncomplicated opioid use 03/17/2025 Refill [facility] [address] [place] [address] Francisca Rosado RN 03/14/2025 10:00 AM EDT Telemedicine [facility] [address] [place] [address] Francisca Rosado RN Opioid use, unspecified, uncomplicated 03/14/2025 Travel 03/14/2025 Refill [facility] [address] [place] [address] Francisca Rosado RN Uncomplicated opioid use 03/14/2025 Telephone [facility] [address] [place] [address] Francisca Rosado RN 03/14/2025 Refill [facility] [address] [place] [address] Prabhjot Galicia MD 03/13/2025 Telephone [facility] [address] [place] [address] Francisca Rosado RN 03/09/2025 Refill [facility] [address] [place] [address] Francisca Rosado RN Uncomplicated opioid use from Last 3 Months Immunizations Immunization Administration Dates Next Due Hep A, Adult 11/08/2024 HepB-CpG 02/14/2025,11/08/2024 Influenza injectable quadriv alent IIV4 with preservative 07/02/2015 Influenza injectable quadrivalent preservative f ree 10/30/2014 Influenza, seasonal, injectable, preservative fr ee 05/29/2025 Tdap 06/06/2025 Family History Medical History Relation Name Comments [...] Mass Index 38.08 06/06/2025 9:41 AM EDT Plan of Treatment Upcoming Encounters Date Type Department Care Team (Late st Contact Info) Description 07/04/2025 9:00 AM EST Office Visit [facility] [address] [place] [address] Prabhjot Galicia MD [address] [place] [address] 07/13/2025 11:15 AM EST Office Visit [facility] [address] [place] [address] Yudi Mcneil MD [address] [place] [address] Health Maintenance Due Date Last Done Comments Family Planning (PISQ) 1996 HPV Vaccines (1 - 3-dose series) 1996 Pneumococcal Vaccine: Pediatrics (0 to 5 Years) and At-Risk Patients (6 to 49) Years (1 of 2 - PCV) 2000 Pap Smear 2002 Cervical Cancer Screening 11/02/2011 HPV/Cotest 11/02/2011 Mammogram 2021 COVID-19 Vaccine ( - 2023-2 5 season) 2025 SDOH Screening 10/03/2025 10/03/2024 Depression Monitoring 11/26/2025 05/29/2025 , 05/29/2025 Alcohol/Substance Use Screening 05/29/2026 05/29/2025 Disability Screening 05/29/2026 05/29/2025 Tobacco Screening 06/06/2026 06/06/2025 Lipid Panel 09/12/2029 09/12/2024 Zoster Vaccines (1 of 2) 11/02/2031 DTaP/Tdap/Td Vaccines (2 - T d or Tdap) 06/06/2035 06/06/2025 RSV Patients and Patients Aged 60 years or older (1 - 1-dose 75+ series) 2056 HIV Screening Completed 09/20/2024 Hepatitis C Screening Completed 09/20/2024 Hepatitis A Vaccines Aged Out 11/08/2024 No long er eligible based on patient's age to complete this topic Hepatitis B Vaccines Completed 02/14/2025, 11/08/2024 Influenza Vaccine Completed 05/29/2025, 07/02/2015, 10/30/2014 HIB Vaccines Aged Out No longer eligi ble based on patient's age to complete this topic IPV Vaccines Aged Out No longer eligi ble based on patient's age to complete this topic Meningococcal B Vaccine Aged Out No l onger eligible based on patient's age to complete [...] Comments POCT LOUIS-14 URINE DRUG SCREEN Routine 05/09/2025 8:40 AM EDT Opioid use, unspecified, uncomplicated HEPATITIS C AB W/REFL TO HCV RNA, QN, PCR Routine 09/20/2024 11:13 AM EST Uncomplicated opioid use HIV 1/2 ANTIGEN/ANTIBODY, FOURTH GENERATION W/RFL Routine 09/20/2024 11:13 AM EST Opioid use, unspecified, uncomplicated LIPID PANEL, STANDARD Routine 09/12/2024 10:56 AM EST Primary hypertension from Last 3 Months or Most Recently Relevant to Health Maintenance Results * (ABNORMAL) POCT LOUIS-14 Urine Drug Screen (05/09/2025 8:40 AM EDT) Pathologist [facility] THC Positive(A) Negative Cocaine Screen, Urine Negative Negative Opiate Screen, Urine Negative Negative Methamphetamine Screen Urine Negative Negative Amphetamine Screen, Urine Negative Negative Benzodiazepines Screen, Urine Negative Negative Barbiturate Screen, Urine Negative Negative Methadone Screen, Urine Negative Negative Buprenophine Screen, Urine Positive(A) Negative TCA, Urine Negative Negative MDMA Urine Negative Negative ng/mL Oxycodone Screen, Urine Negative Negative Phencyclidine (PCP), Urine Negative Negative Fentanyl, Urine Negative Negative Urine Urine specimen obtained by clean catch procedure / Unknown 05/09/2025 8:40 AM EDT us Prabhjot Galicia MD POINT OF CARE TEST ENTER/EDIT ORDERABLES Final Result * Hepatitis C Antibody with Reflex to HCV, RNA, Quantitative, Real-Time PCR (09/20/2024 11:13 AM EST) Pathologist [facility] Hepatitis C Antibody Nonreactive Nonreactive [facility] Comment:Antibodies to HCV no t detected; does not exclude early acuteHCV infection. Blood Venous blood specimen / Unknown 09/20/2024 11:13 AM EST 09/20/2024 1:14 PM EST us Prabhjot Galicia MD LAB BLOOD ORDERABLES Final Res ult [facility] [address] [place] [phone] * HIV-1/2 Antigen and Antibodies, Fourth Generation, with Reflexes (09/20/2024 11:13 AM EST) Pathologist [facility] HIV AB/AG Nonreactive Nonreactive [facility] Comment:HIV-1 p24 Ag and/or HIV-1/HIV-2 Ab not detected.A test result that is nonreactive does not exclude thepossibility of exposure to or infection with HIV-1 and/orHIV-2. Nonreactive results in this assay for individualswith prior exposure to HIV-1 and/or HIV-2 may be due toantigen and antibody levels that are below the limit ofdetection of this assay.The [employer] HIV Ag/Ab Combo assay result andsupplemental assay results should be interpreted inconjunction with the patient's clinical presentation,history and other laboratory results. If the results areinconsistent with clinical evidence, additional testing issuggested to confirm the result. Blood Venous blood specimen / Unknown 09/20/2024 11:13 AM EST 09/20/2024 1:14 PM EST us Prabhjot Galicia MD LAB BLOOD ORDERABLES Final Res ult [facility] [address] [place] [phone] * (ABNORMAL) Lipid Panel, Standard (09/12/2024 10:56 AM EST) Triglycerides 272(H) <150 mg/dL [facility] Comment:Desirable Triglyceri de: less than 150 mg/dLBorderline High Triglyceride 150-199 mg/dLHigh Triglyceride: 200-499 mg/dLVery High Triglyceride: greater than or equal to 5OO mg/dL Cholesterol 187 <200 mg/dL [facility] Comment:Desirable Cholestero l: less than 200 mg/dLBorderline High Cholesterol: 200-239 mg/dLHigh Cholesterol: greater than 239 mg/dL LDL Cholesterol Calculated 71 <100 mg/dL [facility] Comment:Desirable LDL: less than 100 mg/dLNear Optimal/Above Optimal LDL: 110- 129 mg/dLBorderline High LDL: 130-159 mg/dLHigh LDL: 160-189 mg/dLVery High LDL: greater than or equal to 190 mg/dL HDL Cholesterol 62 >40 mg/dL [facility] Comment:Desirable HDL: great er than 40 mg/dL Note: This HDL assay may give artificially low results in patients with liver disease. Blood Venous blood specimen / Unknown 09/12/2024 10:56 AM EST 09/12/2024 1:56 PM EST us Yudi Mcneil MD LAB BLOOD ORDERABLES Final Re sult [facility] [address] [place] [phone] from Last 3 Months or Most Recently Relevant to Health Maintenance Insurance [employer] Care Teams Supply Requirements Officer Relationship Specialty Start Date End Date Yudi Mcneil MD [address] [place] [phone] PCP - General Family Medicine 09/12/24 Maryanne Diamond [address] [place] [address] Licensed Mental Health Counselor Behavioral Health 05/02/24
--- OUTSIDE RECORDS SUMMARY | 2025-06-06 17:28 | XMS_ITS | Encounter Summary ---
Author Organization [employer] Address [address] [facility] 7t [place] [address] Care Team Providers Care Towel Sorter Name Role Phone Yudi Mcneil MD Primary Care Provider [phone] Encounter Details Date Type Department Care Team (Latest Contact Info) Description 06/06/2025 Travel Social History Tobacco Use Types Packs/Day [...] Description 07/04/2025 9:00 AM EST Office Visit [facility] [address] [place] [address] Prabhjot Galicia MD [address] [place] [address] 07/13/2025 11:15 AM EST Office Visit [facility] [address] [place] [address] Yudi Mcneil MD [address] [place] [address] documented as of this encounter Visit Diagnoses Not on filedocumented in this encounter Additional Health Concerns Assessment Noted Time PHQ-9 Depression Total Score: 15 025 11:02 AM EDT documented as of this encounter Care Teams Towel Sorter Relationship Specialty Start Date End Date Yudi Mcneil MD [address] [place] [address] PCP - General Family Medicine 09/12/24 Maryanne Diamond [address] [place] [phone] Licensed Mental Health Counselor Behavioral Health 05/02/24 documented as of this encounter
== END 2025-06-06 14:14 | disposition home or self-care (01) ==
LOC: HO.HHCLNP 14:13
PROVIDERS: Visit Provider Family Medicine
DX: Z12.4 Encounter for screening for malignant neoplasm of cervix (principal)
CPT/HCPCS: 87626; 88175

== ENCOUNTER 2025-07-03 12:41 | Outpatient (REF) | payer MEDICAID, SELFPAY ==
--- OUTSIDE RECORDS SUMMARY | 2025-07-03 16:03 | XMS_ITS | Encounter Summary ---
Author Organization [employer] Address [address] [facility] 7 [place] [address] Care Team Providers Care Mail Handlers Supervisor Name Role Phone Yudi Mcneil MD Primary Care Provider [phone] Reason for Visit * Reason Onset Date Comments Med Refill 06/29/2025 Encounter Details Date Type Department Care Team (Late st Contact Info) Description 06/29/2025 Refill [facility] [address] [place] [address] Francisca Rosado RN Uncomplicated opioid use Social [...] Description 07/04/2025 9:00 AM EST Office Visit [facility] [address] [place] [address] Prabhjot Galicia MD [address] [place] [phone] 07/13/2025 11:15 AM EST Office Visit [facility] [address] [place] [address] Yudi Mcneil MD [address] [place] [address] 08/29/2025 9:00 AM EST Office Visit [facility] [address] [place] [address] Prabhjot Galicia MD [address] [place] [phone] documented as of this encounter Visit Diagnoses Diagnosis Uncomplicated opioid use documented in this encounter Additional Health Concerns Assessment Noted Time PHQ-9 Depression Total Score: 15 025 11:02 AM EDT documented as of this encounter Care Teams Mail Handlers Supervisor Relationship Specialty Start Date End Date Yudi Mcneil MD [address] [facility] [place] [address] PCP - General Family Medicine 09/12/24 Maryanne Diamond [address] [place] [address] Licensed Mental Health Counselor Behavioral Health 05/02/24 documented as of this encounter
--- OUTSIDE RECORDS SUMMARY | 2025-07-03 16:03 | XMS_ITS | Clinical Summary ---
Author Organization [employer] Address [address] [facility] 7 [place] [address] Care Team Providers Care Group Leader [employer] Name Role Phone Yudi Mcneil MD Primary Care Provider [phone] Allergies Active Allergy Reactions Criticality Noted Date Comments Penicillins Hives,Anaphylaxis High 09/29/2014 Progesterone Anaphylaxis High 09/29/2014 Medications * This document contains information received from the source organization and may not represent a complete record from that organization. ketoconazole (NIZOral) 2 % shampooIndicat ions:Androgene tic alopecia Apply topically 2 (two) times a week. 120 mL 11 10/06/19 25 Active QUEtiapine (SEROquel) 200 MG tabletIndicati [...] daily. 60 mL 2 06/06/20 25 Active hydroCHLOROthi azide 12.5 MG tablet TAKE 1 TABLET BY MOUTH EVERY DAY 90 tablet 1 06/14/20 Active levothyroxine (Synthroid, Levoxyl) 50 MCG tablet Take 1 tablet (50 mcg) by mouth before breakfast. 90 tablet 1 06/14/20 25 026 Active buprenorphine- naloxone (Suboxone) 2-0.5 MG per sublingual filmIndication s:Uncomplicate d opioid use Place 1 Film under the tongue Once per day for 16 days. Take as directed. 8 Film 1 06/30/20 25 025 Active hydroCHLOROthi azide 12.5 MG tablet TAKE 1 TABLET (12.5 MG) BY MOUTH ONCE PER DAY. 90 tablet 03/15/20 25 025 Discontinued levothyroxine (Synthroid, Levoxyl) 50 MCG tablet TAKE 1 TABLET (50 MCG) BY MOUTH BEFORE BREAKFAST. 90 tablet 03/15/20 25 025 Discontinued amLODIPine (Norvasc) 5 MG tablet TAKE 1 TABLET BY MOUTH EVERY DAY 90 tablet 03/15/20 25 025 Discontinued(In effective) buprenorphine- naloxone (Suboxone) 2-0.5 MG per sublingual filmIndication s:Uncomplicate d opioid use Place 1 Film under the tongue Once per day for 16 days. Take as directed. 8 Film 1 05/09/20 25 025 Discontinued(Re order (will not trigger notification to Pharmacy)) QUEtiapine (SEROquel) 50 MG tabletIndicati ons:Anxiety Take 1 tablet (50 mg) by mouth in the morning. 30 tablet 2 05/29/20 25 025 Discontinued(Si de effects) fluocinonide (Lidex) 0.05 % external solution Apply topically 2 times daily. 60 mL 2 05/29/20 25 025 Discontinued(Re order (will not trigger notification to Pharmacy)) amLODIPine (Norvasc) 10 MG tablet Take 1 [...] & Plan (09/12/2024 10:37 AM EST): Called [facility] for further evaluation. Encounters * This document contains information received from the source organization and may not represent a complete record from that organization. Date Type Department Care Team Description 06/29/2025 Refill [facility] MED[facility] [address] [place] [address] Francisca Rosado RN Uncomplicated opioid use 06/13/2025 Telephone [facility]S [address] [place] [address] Yesy Hurst, UNRULY 06/13/2025 Results Follow-Up [facility] [address] [place] [address] Yudi Mcneil MD HPV High Risk with Reflex to Subtypes 06/13/[address] [address] Yudi Mcneil MD 06/06/2025 10:00 AM EDT Procedure Visit [facility] [address] [place] [address] Yudi Mcneil MD Cervical cancer screening (Primary Dx); Primary hypertension; Encounter for immunization 06/06/2025 Telephone [facility] [address] [place] [address] Yudi Mcneil MD 06/06/2025 Travel 06/05/2025 [facility] Health Information Management [address] [place] [address] Yudi Mcneil MD 05/29/2025 11:00 AM EDT Office Visit [facility] [address] [place] [address] Yudi Mcneil MD Anxiety (Primary Dx); Insomnia due to other mental disorder; Primary hypertension; Rash; Encounter for immunization; Breast cancer screening by mammogram; Nail abnormalities 05/29/2025 Patient Outreach [address] [address] [facility] 05/29/2025 Telephone [facility] [address] [place] [address] Yudi Mcneil MD 05/29/2025 Travel 05/26/2025 Telephone [facility] [address] [place] [address] Yudi Mcneil MD chart prep 05/22/2025 Patient Outreach [address] [address] Yudi Mcneil MD Pre-visit Planning (SDOH screening completed on 10/03/24 ) 05/09/2025 9:00 AM EDT Office Visit [facility] [address] [place] [phone] Prabhjot Galicia MD Opioid use, unspecified, uncomplicated (Primary Dx); Tobacco use disorder 05/09/2025 Travel 05/09/2025 Refill [facility] [address] [place] [address] Francisca Rosado RN Uncomplicated opioid use 04/24/2025 Refill [facility] [address] [place] [address] Francisca Rosado RN Uncomplicated opioid use 04/11/2025 9:45 AM EDT Clinical Support [address] [address] Francisca Rosado RN Uncomplicated opioid use 04/11/2025 Patient Outreach [address] [address] Francesco Calderon [facility] 04/11/2025 Travel 04/06/2025 Refill [facility] [address] [place] [address] Yudi Mcneil MD 04/06/2025 Refill [facility] [address] [place] [address] Prabhjot Galicia MD Tobacco use disorder 04/06/2025 Refill [facility] [address] [place] [address] Yudi Mcneil MD 04/05/2025 Refill [facility] [address] [place] [address] Francisca Rosado RN Uncomplicated opioid use 04/05/2025 Refill [facility] [address] [place] [address] Francisca Rosado RN Uncomplicated opioid use from [...] the past 12 months, has t he [employer], gas, oil or water creads threatened to shut off services in your [...] Description 07/04/2025 9:00 AM EST Office Visit [facility] [address] [place] [address] Prabhjot Galicia MD [address] [place] [address] 07/13/2025 11:15 AM EST Office Visit [facility] [address] [place], [place] [phone] Yudi Mcneil MD [address] [place], [place] [phone] 08/29/2025 9:00 AM EST Office Visit [address] [address] Prabhjot Galicia MD [address] [place] [address] Health Maintenance Due Date Last Done Comments Family Planning (PISQ) 1996 HPV Vaccines (1 - 3-dose series) 1996 Pneumococcal Vaccine: Pediatrics (0 to 5 Years) and At-Risk Patients (6 to 49) Years (1 of 2 - PCV) 2000 Mammogram 2021 COVID-19 Vaccine ( - 2023-2 5 season) 2025 SDOH Screening 10/03/2025 10/03/2024 Depression Monitoring 11/26/2025 05/29/2025 , 05/29/2025 Alcohol/Substance Use Screening 05/29/2026 05/29/2025 Disability Screening 05/29/2026 05/29/2025 Tobacco Screening 06/06/2026 06/06/2025 Pap Smear 06/06/2028 06/06/2025 Lipid Panel 09/12/2029 09/12/2024 Cervical Cancer Screening 06/06/2030 HPV/Cotest 06/06/2030 06/06/2025 Zoster Vaccines (1 of 2) 11/02/2031 DTaP/Tdap/Td [...] Procedure Name Priority Date/Time Associated Diagnosis Comments PAP SMEAR Routine 06/06/2025 10:00 AM EDT Cervical cancer screening HPV DNA, LOW/HIGH RISK Routine 06/06/2025 10:00 AM EDT Cervical cancer screening POCT LOUIS-14 URINE DRUG SCREEN Routine 05/09/2025 [...] Relevant to Health Maintenance Results * (ABNORMAL) HPV High Risk with Reflex to Subtypes (06/06/2025 10:00 AM EDT) HPV High Risk Negative Negative [facility] HPV Genotype 16 Positive(A) Negative [facility] HPV Genotype 18 Negative Negative [facility] Comment:HPV testing performe d at [facility] (CLIA#[id number]), [address] [place] [address].Testing for HPV was performed using the Donnell ESTEBAN 6800system. The presence of HPV in the female genital tract isassociated with a number of diseases, including cervicalcarcinoma. The HPV DNA high risk pool tests for HPV 31, 33,35, 39, 45, 51, 52, 56, 58, 59, 66 and 68. The testing forHPV 16 and 18 genotypes has also been performed. A positiveresult indicates detection of nucleic acid sequences fromone or more subtypes, whereas a negative result indicatessuch sequences were not detected. Pap Vial 06/06/2025 10:0 0 AM EDT 06/07/2025 7:47 AM EDT us Yudi Mcneil MD LAB BLOOD ORDERABLES Final Re sult [facility] [address] [place] [address] [phone] * Pap Smear (06/06/2025 10:00 AM EDT) Swab Cervical swab / Unknown 06/06/2025 10:00 AM EDT 06/07/2025 6:55 AM EDT Johnnie [facility] - 06/13/2025 10:08 AM EDT ----- ------- Name: Betty Peguero Age/Sex: 44/F : 1980 Unit#: [id number] Attend Dr: Re06/06/25 Status: PRE REF Location: .LNP Disch: ----- ------- SPEC : [id number] RECD: 06/07/25 STATUS: ANN CHANG NUM: [id number] WILY: 06/06/25-[address] [facility] [address]: Yudi Mcneil MD ENTERED: 06/07/25 SP TYPE: Pap Smr [facility] DR: ORDERED: Pap Smear, PAP path review Interpretation ABNORMAL PAP TEST. Satisfactory for evaluation, with mildly dysplastic squamous cells / HPV cytopathic change (WOLF 1; low grade squamous intraepithelial lesion). No endocervical cells seen. Coccobacilli consistent with shift in vaginal abbie. HPV High Risk: Positive HPV Genotyping 16: Negative HPV Genotyping 18: Negative Clinical Information LMP: Previous PAP test: Unk Other surgery: Other history: Material Received ThinPrep-Cervical ----- ------- Signed (signature on file) Marcello Mixon MD 06/13/25 1008 ----- ------- END OF REPORT Yudi Mcneil MD LAB CYTOLOGY ORDERABLES Final Result [facility] [address] [place] [phone] * (ABNORMAL) POCT LOUIS-14 Urine Drug Screen (05/09/2025 8:40 AM EDT) THC Positive(A) Negative Cocaine Screen, Urine Negative [...] procedure / Unknown 05/09/2025 8:40 AM EDT Prabhjot Galicia MD POINT OF CARE TEST ENTER/EDIT ORDERABLES Final Result * Hepatitis C Antibody with Reflex to HCV, RNA, Quantitative, Real-Time PCR (09/20/2024 11:13 AM EST) [facility] Hepatitis C Antibody Nonreactive Nonreactive [facility] Comment:Antibodies to HCV no t detected; does not exclude early acuteHCV infection. Blood Venous blood specimen / Unknown 09/20/2024 11:13 AM EST 09/20/2024 1:14 PM EST Prabhjot Galicia MD LAB BLOOD ORDERABLES Final Res ult Performing Organization Address City/[facility]/ZIP Co de Phone Number [facility] [address] [place] [address] [phone] * HIV-1/2 Antigen and Antibodies, Fourth Generation, with Reflexes (09/20/2024 11:13 AM EST) [facility] HIV AB/AG Nonreactive Nonreactive [facility] Comment:HIV-1 p24 Ag and/or HIV-1/HIV-2 Ab not detected.A test result that is nonreactive does not exclude thepossibility of exposure to or infection with HIV-1 and/orHIV-2. Nonreactive results in this assay for individualswith prior exposure to HIV-1 and/or HIV-2 may be due toantigen and antibody levels that are below the limit ofdetection of this assay.The [employer] HIV Ag/Ab Combo assay result andsupplemental assay results should be interpreted inconjunction with the patient's clinical presentation,history and other laboratory results. If the results areinconsistent with clinical evidence, additional testing issuggested to confirm the result. Blood Venous blood specimen / Unknown 09/20/2024 11:13 AM EST 09/20/2024 1:14 PM EST Prabhjot Galicia MD LAB BLOOD ORDERABLES Final Res ult Performing Organization Address City/[facility]/ZIP Co de Phone Number [facility] [address] [place] [address] [phone] * (ABNORMAL) Lipid Panel, Standard (09/12/2024 10:56 AM EST) Triglycerides 272(H) <150 mg/dL [facility] Comment:Desirable Triglyceri de: less than 150 mg/dLBorderline High Triglyceride 150-199 mg/dLHigh Triglyceride: 200-499 mg/dLVery High Triglyceride: greater than or equal to 5OO mg/dL Cholesterol 187 <200 mg/dL [facility] Comment:Desirable Cholestero l: less than 200 mg/dLBorderline High Cholesterol: 200-239 mg/dLHigh Cholesterol: greater than 239 mg/dL LDL Cholesterol Calculated 71 <100 mg/dL [facility] Comment:Desirable LDL: less than 100 mg/dLNear Optimal/Above Optimal LDL: 110- 129 mg/dLBorderline High LDL: 130-159 mg/dLHigh LDL: 160-189 mg/dLVery High LDL: greater than or equal to 190 mg/dL HDL Cholesterol 62 >40 mg/dL [facility] Comment:Desirable HDL: great er than 40 mg/dL Note: This HDL assay may give artificially low results in patients with liver disease. Blood Venous blood specimen / Unknown 09/12/2024 10:56 AM EST 09/12/2024 1:56 PM EST us Yudi Mcneil MD LAB BLOOD ORDERABLES Final Re sult [facility] [address] [place] [address] [phone] from Last 3 Months or Most Recently Relevant to Health Maintenance Insurance [facility] C3 Care Teams Group Leader [employer] Relationship Specialty Start Date End Date Yudi Mcneil MD [address] [place] [phone] PCP - General Family Medicine 09/12/24 Maryanne Diamond [address] [place] [address] Licensed Mental Health Counselor Behavioral Health 05/02/24
--- OUTSIDE RECORDS SUMMARY | 2025-07-03 16:03 | XMS_ITS | Encounter Summary ---
Author Organization [employer] Address [address] [facility] 7 [place] [address] Care Team Providers Care Certified Family Mediator Name Role Phone Yudi Mcneil MD Primary Care Provider [phone] Reason for Visit * Reason Comments Med Refill Encounter Details Date Type Department Care Team ([facility] Contact Info) Description 04/06/2025 Refill [facility] [address] [place], [place] [phone] Prabhjot Galicia MD [address] [place] [address] Tobacco use disorder Social History Tobacco Use [...] the past 12 months, has t he [employer], gas, oil or water [employer] threatened to shut off services in your [...] Description 07/04/2025 9:00 AM EST Office Visit [facility] [address] [place] [phone] Prabhjot Galicia MD [address] [place] [phone] 07/13/2025 11:15 AM EST Office Visit [facility]S [address] [place] [address] Yudi Mcneil MD [address] [place] [address] 08/29/2025 9:00 AM EST Office Visit [facility] [address] [place] [phone] Prabhjot Galicia MD [address] [place] [phone] documented as of this encounter Visit Diagnoses Diagnosis Tobacco use disorder documented in this encounter Additional Health Concerns Assessment Noted Time PHQ-9 Depression Total Score: 4 12/07/19 25 10:33 AM EDT documented as of this encounter Care Teams Certified Family Mediator Relationship Specialty Start Date End Date Yudi Mcneil MD [address] [place] [address] PCP - General Family Medicine 09/12/24 Maryanne Diamond [address] [place] [address] Licensed Mental Health Counselor Behavioral Health 05/02/24 documented as of this encounter
--- OUTSIDE RECORDS SUMMARY | 2025-07-03 16:03 | XMS_ITS | Clinical Summary ---
Author Organization [facility] Address [address] [place] [address] Care Team Providers Care Life Skills Coach Name Role Phone Unavailable Primary Care Provider [...] PM EST Behavioral Health Visit [facility] [address] [place] [address] JAKOB FREY [phone] Nathan Villa, HN [address] [facility] JAKOB Frey [phone] Health Maintenance Due Date Last Done Comments Anxiety Screening 1980 Diabetes Screening 1980 HPV Screening (self-collect) 1980 HPV Screening 1980 Hepatitis C Screening 1980 Lipid Screening 1980 Pap + HPV 1980 Tobacco Screening 1980 Relationship Safety Screening/Counseling 1996 Hypertension Screening (#1) 11/02/1999 Imm-DTaP/Tdap/Td (1 - Tdap) 2000 Cervical Cancer Screening 2002 Pap Smear 2002 Imm-HPV (1 - 3-dose SCDM series) 2008 Breast Cancer Screening (Mammogram) 2021 Alcohol and Drug Screen 08/31/2024 Depression Annual Screen 08/31/2024 [id number] ( season) 2025 Imm-Influenza (#1) 2025 07/02/2015, 10/30/2014 HIV Screening Completed 09/20/2024 Imm-Hepatitis B Completed 02/14/2025, 11/08/2024 Cervical Ablation/Cold-Knife Conization Discontinued Cervical Cryotherapy Discontinued Colposcopy Discontinued Excision/Leep Discontinued HPV Genotyping Discontinued Vaginal Pap Discontinued Vulvoscopy Discontinued Insurance [facility]
== END 2025-07-03 12:42 | disposition home or self-care (01) ==
LOC: HO.MAMMO 12:41
PROVIDERS: PCP Family Medicine; Visit Provider Family Medicine
DX: Z12.31 Encounter for screening mammogram for malignant neoplasm of breast (principal)
CPT/HCPCS: 77063; 77067

== ENCOUNTER → 2025-07-03 12:45 | Outpatient (BNV) | payer MEDICAID, SELFPAY | PROVIDERS: PCP Family Medicine; Visit Provider Internal Medicine | DX: Z12.31 Encounter for screening mammogram for malignant neoplasm of breast (principal) | CPT/HCPCS: 77063; 77067 ==